=== PATIENT | female | born 1955 | race Caucasian/White ===

== ENCOUNTER 2018-03-28 21:56 | Inpatient (IN) ==
[2018-03-28] MEDS ORDERED: Etomidate Inj 40 MG/20 ML Vial IV.PUSH ONE (22:34)
[2018-03-28] MEDS ORDERED: Midazolam 50 MG/50 ML Inj 50 MG/50 ML BAG IV.CONT ONE (22:44)
[2018-03-28] MEDS ORDERED: fentaNYL 10 mcg/mL Premix Drip 2,500 MCG/250 ML BAG ONE (22:45)
[2018-03-28] MEDS ORDERED: Etomidate Inj 20 MG/10 ML Ampul IV.PUSH ONE (22:47)
[2018-03-28] MEDS ORDERED: Midazolam 50 MG/50 ML Inj 50 MG/50 ML BAG IV.CONT PRN (22:47)
[2018-03-28] MEDS ORDERED: Succinylcholine Inj 100 MG/5 ML Syringe IV.PUSH ONE (22:47)
[2018-03-28] MEDS ORDERED: Norepinephrine Inj 4 MG/4 ML Ampul ONE (23:24)
--- NOTE | 2018-03-28 23:27 | ED ---
HPI General Chief Complaint: Altered Mental Status Stated Complaint: Medical Time Seen by Provider: 03/28/18 22:46 Source: family and EMS Mode of arrival: EMS Limitations: altered mental status History of Present Illness HPI Narrative: An older female was brought in by EMS after patient was found at home by family member unresponsive this evening. Family member started chest compression at home. EMS was called. Patient was found with a pulse and agonal breathing. Patient was given oxygen and Narcan and transported to ED for evaluation. Patient remained unresponsive upon arrival. Patient has a bottle of methadone and lorazepam which were empty at home. Unable to obtain any past medical history medication or allergy. complaint: Reports other Onset (ago): hour(s) Timing confirmed by: family member Intent: unknown How Overdose Was Discovered: family/friend present at time Treatments Prior to Arrival: oxygen and narcan Related Data Home Medications Medication Instructions Recorded Confirmed lorazepam 0.5 mg PO DIRECTED 03/29/18 03/29/18 methadone 10 mg PO Q6H 03/29/18 03/29/18 Allergies Allergy/AdvReac Type Severity Reaction Status Date / Time No Allergy Information Allergy Verified 03/29/18 00:03 Available Review of Systems ROS Unobtainable ROS Unobtainable: unobtainable due to mental condition and unobtainable due to mental status PMFSH History History Provided By: Glass Edger / EMT Medical History Medical History Surgical history unknown (Acute) COPD (chronic obstructive pulmonary disease) (Acute) Diabetes (Acute) Neuropathy (Acute) Family History Family History Other Unknown family medical history Social History Social History Substance History: Unable to Obtain Smoking Status: Unknown if ever smoked How Often Do You Have a Drink Containing Alcohol: Unable to Obtain Recent Travel in [facility] within the Last 8 Weeks: No Recent Out of Country Travel within the Last 8 Weeks: No Exam Narrative Exam Narrative: GENERAL: Well-nourished, well-developed patient. SKIN: Focused skin assessment warm/dry. HEAD: Normocephalic. EYES: No scleral icterus. No injection or drainage. Pinpoint pupils. NECK: Supple, trachea midline. No JVD or lymphadenopathy. CARDIOVASCULAR: Regular rate and rhythm without murmurs, gallops, or rubs. RESPIRATORY: Breath sounds equal bilaterally. Patient with agonal breathing. GASTROINTESTINAL: Abdomen soft, nondistended. MUSCULOSKELETAL: No cyanosis, or edema. BACK: without obvious deformity. No CVA tenderness. Neurologic exam: Patient is unresponsive. Procedures Central Line Placement Right Femoral: Time Out Performed: Yes Patient Placed on Monitor/Pulse Ox: Yes MD Prep: mask, gown and gloves Central Line Prep: Povidone-Iodine 1% and sterile drapes applied Ultrasound Used for Placement: Yes Central Line Lumen Inserted: triple Post Procedure: sutured in place, good blood return, all ports aspirated, flushed, capped and sterile dressing applied Patient Tolerated Procedure: well Complications: none Intubation Time Out Performed: Yes Sedative: etomidate Mg Given: 20 Paralytic: succinylcholine Mg Given: 100 Laryngoscope: fiber optic video scope Assist Device Used: fiber optic device ET Tube Size: 7.5 ET Tube Uncuffed: No Tube Secured Depth (cm): 23 Tube Secured Location: lips Tube Placement Confirmation: visualized tube passing through cords, equal breath sounds bilaterally, no breath sounds over epigastrium and confirmation by capnometry Patient Tolerated Procedure: well Intubation Complications: none Course Initial Documented Vital Signs Respiratory Rate 16 03/28/18 22:42 Pulse Oximetry 99 03/28/18 22:42 Last Documented Vital Signs Temperature 98.4 F 03/29/18 12:00 Pulse Rate 66 03/29/18 12:22 Respiratory Rate 18 03/29/18 12:22 Blood Pressure 104/58 L 03/29/18 12:00 Pulse Oximetry 98 03/29/18 12:22 Critical Care Time Critical Care Time: Yes Total Critical Care Time: 60 Attestation: Aggregate critical care time was 60 minutes. Time to perform other separately billable procedures was not included in the critical care time. My time did not include minutes spent treating any other patients simultaneously or on activities that did not directly contribute to the patient's treatment. The services I provided to this patient were to treat and/or prevent clinically significant deterioration that could result in: I provided critical care services requiring my management, as noted below: Chart data review, documentation time, medication orders and management, vital sign assessments/reviewing monitor data, ordering and reviewing lab tests, ordering and interpreting/reviewing x-rays and diagnostic studies, care of the patient and discussion of the patient with the admitting physicians. Medical Decision Making MDM Narrative Medical decision making narrative: An older female was brought in by EMS after patient was found at home unresponsive this evening. Family member started chest compression. EMS brought patient in with pulse and agonal breathing. Patient hypotensive. Patient was intubated. Right femoral central line triple- lumen established. Patient was given normal saline solution 2 L IV bolus. Levophed started. Vancomycin 1 g IV. Zosyn 2.275 g IV given. Medical Screen Exam Complete: Yes Emergency Medical Condition: Yes Differential Diagnosis Differential Diagnosis: Take doses including drug overdose, TIA, CVA, dehydration, electrolyte imbalance, sepsis. Lab Data Lab results reviewed: Yes I reviewed the patient's lab results. Result diagrams: 03/28/18 23:30 03/28/18 23:30 Lab Results 03/28/18 03/28/18 03/28/18 Range/Units 23:30 23:30 23:30 WBC 17.5 H (4.0-11.0) th/mm3 RBC 6.03 H (4.00-5.30) mil/mm3 Hgb 15.3 (11.6-15.3) gm/dL Hct 49.3 H (35.0-46.0) % MCV 81.7 (80.0-100.0) fL MCH 25.3 L (27.0-34.0) pg MCHC 31.0 L (32.0-36.0) % RDW 18.8 H (11.6-17.2) % Plt Count 315 (150-450) th/mm3 MPV 8.4 (7.0-11.0) fL Neut % (Auto) 84.9 H (16.0-70.0) % Lymph % (Auto) 8.3 L (9.0-44.0) % [place] % (Auto) 6.2 (0.0-8.0) % Eos % (Auto) 0.2 (0.0-4.0) % Baso % (Auto) 0.4 (0.0-2.0) % Neut # (Auto) 14.9 H (1.8-7.7) th/mm3 Lymph # (Auto) 1.5 (1.0-4.8) th/mm3 [place] # (Auto) 1.1 H (0.0-0.9) th/mm3 Eos # (Auto) 0.0 (0.0-0.4) th/mm3 Baso # (Auto) 0.1 (0.0-0.2) th/mm3 WBC Differential . Differential Comment Auto diff final PT 14.5 H (9.8-11.6) sec INR 1.4 Ratio APTT 30.2 H (24.3-30.1) sec Puncture Site Patient Temperature O2 Saturation (90-100) % ABG pH (7.380-7.420) ABG pCO2 (38-42) mmHg ABG pO2 (61-120) mmHg ABG HCO3 (22-26) mmol/L ABG O2 Content (12.0-20.0) Vol % ABG Base Excess (-2-2) mmol/L ABG Methemoglobin (0-2) % Stu Test Hemoglobin (12.0-16.0) G/DL Carboxyhemoglobin (0-4) % O2 Delivery Device Vent Setting Inspired O2 % Critical Value Sodium 131 L (136-145) meq/L Potassium 4.4 (3.5-5.1) meq/L Chloride 94 L (98-107) meq/L Carbon Dioxide 23.9 (21.0-32.0) meq/L Anion Gap 13 (5-15) meq/L BUN 35 H (7-18) mg/dL Creatinine 1.81 H (0.50-1.00) mg/dL Estimated GFR 24 L (>89) mL/min Random Glucose 116 H (74-106) mg/dL Lactic Acid (0.4-2.0) mmol/L Calcium 8.7 (8.5-10.1) mg/dL Magnesium (1.5-2.5) mg/dL Total Bilirubin 0.6 (0.2-1.0) mg/dL AST 51 H (15-37) U/L ALT 37 (10-53) U/L Alkaline Phosphatase 98 (45-117) U/L Ammonia (11-32) mcmol/L Total Creatine Kinase 385 H (26-192) U/L CK-MB (CK-2) 13.6 H (0.5-3.6) ng/mL CK-MB (CK-2) % 3.5 (0.0-4.0) % Troponin I 0.04 (0.02-0.05) ng/mL Total Protein 7.5 (6.4-8.2) g/dL Albumin 3.2 L (3.4-5.0) g/dL TSH 8.810 H (0.358-3.740) uIU/mL Free T4 (0.76-1.46) ng/dL Free T3 (2.18-3.98) pg/mL Urine Color (Yellw/Straw) Urine Clarity (Clear) Urine pH (5.0-8.5) Ur Specific [place] (1.002-1.035) Urine Protein (Neg-Trace) mg/dL Urine Glucose (UA) (Negative) mg/dL Urine Ketones (Negative) mg/dL Urine Occult Blood (Negative) Urine Nitrate (Negative) Urine Bilirubin (Negative) Urine Urobilinogen (Less than 2) mg/dL Ur Leukocyte Esterase (Negative) Urine RBC (0-3) /hpf Urine WBC (0-5) /hpf Ur Squamous Epith Cells (0-5) /hpf Urine Bacteria (None) /hpf Hyaline Casts (0-3) /lpf Urine Mucus (Occasional) /lpf Micro UA Comment Ur Microscopic Review Urine Culture Comments Salicylates (2.8-20.0) mg/dL Acetaminophen Less than 2.0 L (10.0-30.0) mcg/mL Serum Alcohol Less than 3 (0-5) mg/dL 03/28/18 03/28/18 03/29/18 Range/Units 23:30 23:36 05:20 WBC (4.0-11.0) th/mm3 RBC (4.00-5.30) mil/mm3 Hgb (11.6-15.3) gm/dL Hct (35.0-46.0) % MCV (80.0-100.0) fL MCH (27.0-34.0) pg MCHC (32.0-36.0) % RDW (11.6-17.2) % Plt Count (150-450) th/mm3 MPV (7.0-11.0) fL Neut % (Auto) (16.0-70.0) % Lymph % (Auto) (9.0-44.0) % [place] % (Auto) (0.0-8.0) % Eos % (Auto) (0.0-4.0) % Baso % (Auto) (0.0-2.0) % Neut # (Auto) (1.8-7.7) th/mm3 Lymph # (Auto) (1.0-4.8) th/mm3 [place] # (Auto) (0.0-0.9) th/mm3 Eos # (Auto) (0.0-0.4) th/mm3 Baso # (Auto) (0.0-0.2) th/mm3 WBC Differential Differential Comment PT (9.8-11.6) sec INR Ratio APTT (24.3-30.1) sec Puncture Site Patient Temperature O2 Saturation (90-100) % ABG pH (7.380-7.420) ABG pCO2 (38-42) mmHg ABG pO2 (61-120) mmHg ABG HCO3 (22-26) mmol/L ABG O2 Content (12.0-20.0) Vol % ABG Base Excess (-2-2) mmol/L ABG Methemoglobin (0-2) % Stu Test Hemoglobin (12.0-16.0) G/DL Carboxyhemoglobin (0-4) % O2 Delivery Device Vent Setting Inspired O2 % Critical Value Sodium (136-145) meq/L Potassium (3.5-5.1) meq/L Chloride (98-107) meq/L Carbon Dioxide (21.0-32.0) meq/L Anion Gap (5-15) meq/L BUN (7-18) mg/dL Creatinine (0.50-1.00) mg/dL Estimated GFR (>89) mL/min Random Glucose (74-106) mg/dL Lactic Acid 1.1 (0.4-2.0) mmol/L Calcium (8.5-10.1) mg/dL Magnesium 2.1 (1.5-2.5) mg/dL Total Bilirubin (0.2-1.0) mg/dL AST (15-37) U/L ALT (10-53) U/L Alkaline Phosphatase (45-117) U/L Ammonia (11-32) mcmol/L Total Creatine Kinase (26-192) U/L CK-MB (CK-2) (0.5-3.6) ng/mL CK-MB (CK-2) % (0.0-4.0) % Troponin I (0.02-0.05) ng/mL Total Protein (6.4-8.2) g/dL Albumin (3.4-5.0) g/dL TSH (0.358-3.740) uIU/mL Free T4 1.22 (0.76-1.46) ng/dL Free T3 2.65 (2.18-3.98) pg/mL Urine Color (Yellw/Straw) Urine Clarity (Clear) Urine pH (5.0-8.5) Ur Specific [place] (1.002-1.035) Urine Protein (Neg-Trace) mg/dL Urine Glucose (UA) (Negative) mg/dL Urine Ketones (Negative) mg/dL Urine Occult Blood (Negative) Urine Nitrate (Negative) Urine Bilirubin (Negative) Urine Urobilinogen (Less than 2) mg/dL Ur Leukocyte Esterase (Negative) Urine RBC (0-3) /hpf Urine WBC (0-5) /hpf Ur Squamous Epith Cells (0-5) /hpf Urine Bacteria (None) /hpf Hyaline Casts (0-3) /lpf Urine Mucus (Occasional) /lpf Micro UA Comment Ur Microscopic Review Urine Culture Comments Salicylates 2.5 L (2.8-20.0) mg/dL Acetaminophen (10.0-30.0) mcg/mL Serum Alcohol (0-5) mg/dL 03/29/18 03/29/18 03/29/18 Range/Units 05:20 06:05 12:38 WBC (4.0-11.0) th/mm3 RBC (4.00-5.30) mil/mm3 Hgb (11.6-15.3) gm/dL Hct (35.0-46.0) % MCV (80.0-100.0) fL MCH (27.0-34.0) pg MCHC (32.0-36.0) % RDW (11.6-17.2) % Plt Count (150-450) th/mm3 MPV (7.0-11.0) fL Neut % (Auto) (16.0-70.0) % Lymph % (Auto) (9.0-44.0) % [place] % (Auto) (0.0-8.0) % Eos % (Auto) (0.0-4.0) % Baso % (Auto) (0.0-2.0) % Neut # (Auto) (1.8-7.7) th/mm3 Lymph # (Auto) (1.0-4.8) th/mm3 [place] # (Auto) (0.0-0.9) th/mm3 Eos # (Auto) (0.0-0.4) th/mm3 Baso # (Auto) (0.0-0.2) th/mm3 WBC Differential Differential Comment PT (9.8-11.6) sec INR Ratio APTT (24.3-30.1) sec Puncture Site Right brachial Patient Temperature 98.6 O2 Saturation 94 (90-100) % ABG pH 7.28 L* (7.380-7.420) ABG pCO2 51 H* (38-42) mmHg ABG pO2 92 (61-120) mmHg ABG HCO3 24 (22-26) mmol/L ABG O2 Content 19.0 (12.0-20.0) Vol % ABG Base Excess -2.1 L (-2-2) mmol/L ABG Methemoglobin 1.1 (0-2) % Stu Test Hemoglobin 14.3 (12.0-16.0) G/DL Carboxyhemoglobin 0.9 (0-4) % O2 Delivery Device Ventilator Vent Setting Inspired O2 60 % Critical Value Yes Sodium (136-145) meq/L Potassium (3.5-5.1) meq/L Chloride (98-107) meq/L Carbon Dioxide (21.0-32.0) meq/L Anion Gap (5-15) meq/L BUN (7-18) mg/dL Creatinine (0.50-1.00) mg/dL Estimated GFR (>89) mL/min Random Glucose (74-106) mg/dL Lactic Acid (0.4-2.0) mmol/L Calcium (8.5-10.1) mg/dL Magnesium (1.5-2.5) mg/dL Total Bilirubin (0.2-1.0) mg/dL AST (15-37) U/L ALT (10-53) U/L Alkaline Phosphatase (45-117) U/L Ammonia Less than 10 L (11-32) mcmol/L Total Creatine Kinase (26-192) U/L CK-MB (CK-2) (0.5-3.6) ng/mL CK-MB (CK-2) % (0.0-4.0) % Troponin I (0.02-0.05) ng/mL Total Protein (6.4-8.2) g/dL Albumin (3.4-5.0) g/dL TSH (0.358-3.740) uIU/mL Free T4 (0.76-1.46) ng/dL Free T3 (2.18-3.98) pg/mL Urine Color Yellow (Yellw/Straw) Urine Clarity Hazy H (Clear) Urine pH 5.0 (5.0-8.5) Ur Specific [place] 1.008 (1.002-1.035) Urine Protein 30 H (Neg-Trace) mg/dL Urine Glucose (UA) Negative (Negative) mg/dL Urine Ketones Negative (Negative) mg/dL Urine Occult Blood Moderate H (Negative) Urine Nitrate Negative (Negative) Urine Bilirubin Negative (Negative) Urine Urobilinogen Less than 2 (Less than 2) mg/dL Ur Leukocyte Esterase Negative (Negative) Urine RBC Less than 1 (0-3) /hpf Urine WBC 3 (0-5) /hpf Ur Squamous Epith Cells 1 (0-5) /hpf Urine Bacteria Rare H (None) /hpf Hyaline Casts 5 (0-3) /lpf Urine Mucus Few H (Occasional) /lpf Micro UA Comment Culture not ind Ur Microscopic Review Not Reportable Urine Culture Comments Culture not ind Salicylates (2.8-20.0) mg/dL Acetaminophen (10.0-30.0) mcg/mL Serum Alcohol (0-5) mg/dL 03/29/18 Range/Units 23:45 WBC (4.0-11.0) th/mm3 RBC (4.00-5.30) mil/mm3 Hgb (11.6-15.3) gm/dL Hct (35.0-46.0) % MCV (80.0-100.0) fL MCH (27.0-34.0) pg MCHC (32.0-36.0) % RDW (11.6-17.2) % Plt Count (150-450) th/mm3 MPV (7.0-11.0) fL Neut % (Auto) (16.0-70.0) % Lymph % (Auto) (9.0-44.0) % [place] % (Auto) (0.0-8.0) % Eos % (Auto) (0.0-4.0) % Baso % (Auto) (0.0-2.0) % Neut # (Auto) (1.8-7.7) th/mm3 Lymph # (Auto) (1.0-4.8) th/mm3 [place] # (Auto) (0.0-0.9) th/mm3 Eos # (Auto) (0.0-0.4) th/mm3 Baso # (Auto) (0.0-0.2) th/mm3 WBC Differential Differential Comment PT (9.8-11.6) sec INR Ratio APTT (24.3-30.1) sec Puncture Site Right radial Patient Temperature 98.6 O2 Saturation 97 (90-100) % ABG pH 7.25 L* (7.380-7.420) ABG pCO2 52 H* (38-42) mmHg ABG pO2 469 H (61-120) mmHg ABG HCO3 22 (22-26) mmol/L ABG O2 Content 20.5 H (12.0-20.0) Vol % ABG Base Excess -4.1 L (-2-2) mmol/L ABG Methemoglobin 0.7 (0-2) % Stu Test Present Hemoglobin 14.2 (12.0-16.0) G/DL Carboxyhemoglobin 2.1 (0-4) % O2 Delivery Device Ventilator Vent Setting [id number]/500/peep 5 Inspired O2 100 % Critical Value Yes Sodium (136-145) meq/L Potassium (3.5-5.1) meq/L Chloride (98-107) meq/L Carbon Dioxide (21.0-32.0) meq/L Anion Gap (5-15) meq/L BUN (7-18) mg/dL Creatinine (0.50-1.00) mg/dL Estimated GFR (>89) mL/min Random Glucose (74-106) mg/dL Lactic Acid (0.4-2.0) mmol/L Calcium (8.5-10.1) mg/dL Magnesium (1.5-2.5) mg/dL Total Bilirubin (0.2-1.0) mg/dL AST (15-37) U/L ALT (10-53) U/L Alkaline Phosphatase (45-117) U/L Ammonia (11-32) mcmol/L Total Creatine Kinase (26-192) U/L CK-MB (CK-2) (0.5-3.6) ng/mL CK-MB (CK-2) % (0.0-4.0) % Troponin I (0.02-0.05) ng/mL Total Protein (6.4-8.2) g/dL Albumin (3.4-5.0) g/dL TSH (0.358-3.740) uIU/mL Free T4 (0.76-1.46) ng/dL Free T3 (2.18-3.98) pg/mL Urine Color (Yellw/Straw) Urine Clarity (Clear) Urine pH (5.0-8.5) Ur Specific [place] (1.002-1.035) Urine Protein (Neg-Trace) mg/dL Urine Glucose (UA) (Negative) mg/dL Urine Ketones (Negative) mg/dL Urine Occult Blood (Negative) Urine Nitrate (Negative) Urine Bilirubin (Negative) Urine Urobilinogen (Less than 2) mg/dL Ur Leukocyte Esterase (Negative) Urine RBC (0-3) /hpf Urine WBC (0-5) /hpf Ur Squamous Epith Cells (0-5) /hpf Urine Bacteria (None) /hpf Hyaline Casts (0-3) /lpf Urine Mucus (Occasional) /lpf Micro UA Comment Ur Microscopic Review Urine Culture Comments Salicylates (2.8-20.0) mg/dL Acetaminophen (10.0-30.0) mcg/mL Serum Alcohol (0-5) mg/dL Imaging Data Attestation: I personally reviewed and interpreted this imaging study as follows : Radiologist's impression: Chest X-Ray 03/28/18 22:52 CONCLUSION: ET tube and NG tube in good position. Head CT 03/29/18 00:00 CONCLUSION: Negative noncontrast head CT. . Discharge Plan Discharge Disposition Patient Disposition: 30 Still Patient Discharge Details Diagnosis: Respiratory failure, Acute drug overdose, Hypotension Physicians Team ED Provider: Dandy Castle Primary Care Provider: UNKNOWN, Attending Provider: Michelle Rojo Other Providers: Douglas Espitia Discharge Interventions Interventions: ED Discharge Assessment Last Done: 03/29/18 06:47 Status ED Status: Left Department Discharge Information Discharge Date/Time: 03/29/18 06:48
[2018-03-28] MEDS ORDERED: DOPamine 800 MG/500 ML Premix 800 MG/500 ML PLAST..BAG IV.CONT PRN (23:33)
--- NOTE | 2018-03-28 23:38 | XR ---
EXAM DATE: 03/28/2018 10:52 PM EDT AGE/SEX: 89 years / Female INDICATIONS: ET tube and central line placement. CLINICAL DATA: This is the patient's initial encounter. Patient reports that signs and symptoms have been present for 1 day and indicates a pain score of Nonresponsive. MEDICAL/SURGICAL HISTORY: Non-responsive. Non-responsive. COMPARISON: No prior exams available for comparison. FINDINGS: The ET tube is 3.5 cm from the henry. The NG tube is directed into the stomach. The heart size is no rmal. The lungs are clear. There appears to be an IVC tube seen over the right shoulder region. A angela tral line is not seen. CONCLUSION: ET tube and NG tube in good position. Electronically signed by: Sujit Bobo MD 03/28/2018 11:37 PM EDT
[2018-03-28 23:42] LABS: Baso # (Auto) 0.1 th/mm3 (0.0-0.2); Baso % (Auto) 0.4 % (0.0-2.0); Eos % (Auto) 0.2 % (0.0-4.0); Hematocrit 49.3 % (35.0-46.0); Hemoglobin 15.3 gm/dL (11.6-15.3); Lymph # (Auto) 1.5 th/mm3 (1.0-4.8); Lymph % (Auto) 8.3 % (9.0-44.0); Mean Corpuscular Hemoglobin 25.3 pg (27.0-34.0); Mean Corpuscular Volume 81.7 fL (80.0-100.0); Mean Platelet Volume 8.4 fL (7.0-11.0); Mono # (Auto) 1.1 th/mm3 (0.0-0.9); Mono % (Auto) 6.2 % (0.0-8.0); Neut # (Auto) 14.9 th/mm3 (1.8-7.7); Neut % (Auto) 84.9 % (16.0-70.0); Platelet Count 315 th/mm3 (150-450); Red Blood Count 6.03 mil/mm3 (4.00-5.30); Red Cell Distribution Width 18.8 % (11.6-17.2); White Blood Count 17.5 th/mm3 (4.0-11.0)
[2018-03-28] MEDS ORDERED: Sod Chloride 0.9% Inj 1,000 ML IV.SIG SCH (23:45)
[2018-03-28 23:52] LABS: Activated Partial Thrombo Time 30.2 sec (24.3-30.1); INR 1.4 Ratio; Prothrombin Time 14.5 sec (9.8-11.6)
[2018-03-29 00:07] LABS: ABG Base Excess -4.1 mmol/L (-2-2); ABG PCO2 52 mmHg (38-42); ABG PO2 469 mmHg (61-120)
[2018-03-29] MEDS: fentaNYL 10 mcg/mL Premix Drip 2,500 MCG/250 ML BAG IV.SIG PRN (00:14)
[2018-03-29] MEDS: Sod Chloride 0.9% Inj 1,000 ML IV.SIG SCH (00:14)
[2018-03-29 00:18] LABS: Albumin 3.2 g/dL (3.4-5.0); Anion Gap 13 meq/L (5-15); Aspartate Aminotransferase 51 U/L (15-37); Blood Urea Nitrogen 35 mg/dL (7-18); Calcium 8.7 mg/dL (8.5-10.1); Carbon Dioxide 23.9 meq/L (21.0-32.0); Chloride 94 meq/L (98-107); Glomerular Filtration Rate 24 mL/min (>89); Glucose,Random 116 mg/dL (74-106); Potassium 4.4 meq/L (3.5-5.1); Sodium 131 meq/L (136-145)
[2018-03-29 00:22] LABS: Alanine Aminotransferase 37 U/L (10-53); Alkaline Phosphatase 98 U/L (45-117); Creatine Kinase 385 U/L (26-192); Total Protein 7.5 g/dL (6.4-8.2); Troponin I 0.04 ng/mL (0.02-0.05)
[2018-03-29 00:35] LABS: CKMB Percent 3.5 % (0.0-4.0); Creatine Kinase MB 13.6 ng/mL (0.5-3.6)
[2018-03-29] MEDS ORDERED: DOPamine 800 MG/500 ML Premix 800 MG/500 ML PLAST..BAG IV.CONT PRN (00:52)
[2018-03-29] MEDS ORDERED: Vancomycin Inj 1 GM/200 ML PIGGYBACK IV.SIG ONE (01:21)
[2018-03-29] MEDS ORDERED: Piperacil/Tazo 2.25 GM Premix 50 ML IV.SIG ONE (01:21)
[2018-03-29] MEDS ORDERED: Vancomycin Inj 1,000 MG in Sodium Chlor 0.9% Inj 250 ML IV.SIG ONE (01:45)
--- NOTE | 2018-03-29 04:47 | P.HPCC ---
<Misha Mathews P - Last Filed: 03/29/18 10:01> History of Present Illness Primary Care Physician: UNKNOWN - Diagnosis (1) Encephalopathy acute (2) Methadone overdose (3) Benzodiazepine overdose (4) Acute respiratory failure (5) Sepsis (6) Hypotension due to medication Inpatient Certification: I certify that the inpatient services were ordered in accordance with Medicare regulations governing the order. This includes certification that hospital inpatient services are reasonable and necessary and in the case of services not specified as inpatient-only under 42 CFR 419.22(n), that they are appropriately provided as inpatient services in accordance to with the 2-midnight benchmark under 43 CFR 412.3(e) PMF - Medical History Medical History: Medical History (Last Updated 03/29/18 @ 05:03 by Michelle Rojo MD) Surgical history unknown (Acute) COPD (chronic obstructive pulmonary disease) Diabetes Neuropathy - Family History Family History: Family History (Last Updated 03/29/18 @ 05:03 by Michelle Rojo MD) Other Unknown family medical history Medications and Allergies Allergies Allergy/AdvReac Type Severity Reaction Status Date / Time codeine Allergy Unknown Rash Unverified 04/18/18 12:04 Home Medications Medication Instructions Recorded Confirmed Type lorazepam 0.5 mg PO DIRECTED 03/29/18 03/29/18 History methadone 10 mg PO Q6H 03/29/18 03/29/18 History lorazepam 1 - 2 tab PO TID MDD 6 mg 03/31/18 03/31/18 History oxycodone TID PRN 03/31/18 History Active Medications: Active Medications Al Hydroxide/Mg Hydroxide (Milk Of Magnjayne Liq) 30 ml PO Q12H PRN PRN Reason: Mild Constipation Albuterol (Albuterol Neb (Prn)) 2.5 mg NEB Q2HR NEB PRN PRN Reason: SHORTNESS OF BREATH/WHEEZING Albuterol (Duoneb Neb (Alex)) 1 ampul NEB Q4HR NEB ALEX Last Admin: 03/29/18 09:35 Dose: 1 ampul Bisacodyl (Dulcolax Supp) 10 mg RECTAL DAILY PRN PRN Reason: SEVERE CONSITIPATION Chlorhexidine Gluconate (Peridex 0.12% Oral Kit) 15 ml OROPHARYNG BID@0800, 1999 ALEX Last Admin: 03/29/18 08:28 Dose: 15 ml Chlorhexidine Gluconate (Chlorhexidine 2% Cloth) 3 pack TOPICAL DAILY@0400 ALEX Stop: 04/04/18 03:59 Chlorhexidine Gluconate (Chlorhexidine 2% Cloth) 3 pack TOPICAL DAILY@0400 PRN PRN Reason: Extra cloth needed Stop: 04/04/18 03:59 Fentanyl Citrate (Fentanyl Inj) 50 mcg IV PUSH Q1H PRN PRN Reason: Pain scale 6-10, &/or sedation Fentanyl (Fentanyl 10 Mcg/Ml Premix Drip) 2,500 mcg in 250 mls @ 5 mls/hr IV.SIG TITRATE PRN; Protocol PRN Reason: Per Protocol Last Titration: 03/29/18 06:02 Dose: 25 mcg/hr, 2.5 mls/hr Sodium Chloride (Ns Inj) 1,000 mls @ 0 mls/hr IV.SIG BOLUS [facility] Last Infusion: 03/29/18 01:11 Dose: Infused Norepinephrine Bitartrate (Levophed-Dextrose 4 Mg/250 Ml Drip) 4 mg in 250 mls @ 7.5 mls/hr IV.SIG TITRATE PRN; Protocol PRN Reason: Per Protocol Last Titration: 03/29/18 06:01 Dose: 5 mcg/min, 18.75 mls/hr Sodium Chloride (Ns Inj) 1,000 mls @ 0 mls/hr IV.SIG BOLUS [facility] Last Infusion: 03/29/18 01:11 Dose: Infused Propofol (Diprivan 1000 Mg/100 Ml Inj) 1,000 mg in 100 mls @ 2.43 mls/hr IV.CONT TITRATE PRN; Protocol PRN Reason: Per Protocol Last Admin: 03/29/18 06:03 Dose: 5 mcg/kg/min, 2.43 mls/hr Sodium Chloride (Ns Inj) 1,000 mls @ 125 mls/hr IV.CONT .Q8H [facility] Last Admin: 03/29/18 08:32 Dose: 125 mls/hr Norepinephrine Bitartrate (Levophed-Dextrose 4 Mg/250 Ml Drip) 4 mg in 250 mls @ 7.5 mls/hr IV.SIG TITRATE PRN; Protocol PRN Reason: Per Protocol Piperacillin/Tazobactam/Dextrose (Zosyn 2.25 Gm Premix) 50 mls @ 100 mls/hr IV.SIG Q6H [facility] Lactulose (Lactulose Liq) 30 ml PO DAILY PRN PRN Reason: SEVERE CONSITIPATION Miscellaneous Medication () 1 each OROPHARYNG 0000,0400,1200,1600 [facility] Ondansetron HCl (Zofran Inj) 4 mg IV.PUSH Q6H PRN PRN Reason: NAUSEA OR VOMITING Pantoprazole Sodium (Protonix Inj) 40 mg IV.PUSH DAILY [facility] Last Admin: 03/29/18 08:31 Dose: 40 mg Senna/Docusate Sodium ([place]-Colace) 1 tab PO BID [facility] Last Admin: 03/29/18 08:31 Dose: 1 tab Sennosides (Senokot) 17.2 mg PO Q12H PRN PRN Reason: Moderate Constipation Sodium Chloride (Ns Flush) 2 ml IV.FLUSH BID [facility] Last Admin: 03/29/18 08:28 Dose: 2 ml Sodium Chloride (Ns Flush) 2 ml IV.FLUSH PRN PRN PRN Reason: FLUSH AFTER USING IV ACCESS Terbutaline Sulfate (Brethine Inj) 1 mg SQ UNSCH PRN PRN Reason: For Extravasation Terbutaline Sulfate (Brethine Inj) 1 mg SQ ONCE PRN PRN Reason: Extravasation Results - Labs CBC & Chem 7: 03/28/18 23:30 03/28/18 23:30 Labs: Short CBC 03/28/18 Range/Units 23:30 WBC 17.5 H (4.0-11.0) th/mm3 Hgb 15.3 (11.6-15.3) gm/dL Hct 49.3 H (35.0-46.0) % Plt Count 315 (150-450) th/mm3 BMP 03/28/18 23:30 Sodium 131 L Potassium 4.4 Chloride 94 L Carbon Dioxide 23.9 BUN 35 H Creatinine 1.81 H Calcium 8.7 Cardiac Enzymes 03/28/18 Range/Units 23:30 Total Creatine Kinase 385 H (26-192) U/L CK-MB (CK-2) 13.6 H (0.5-3.6) ng/mL Troponin I 0.04 (0.02-0.05) ng/mL Liver Function 03/28/18 Range/Units 23:30 Total Bilirubin 0.6 (0.2-1.0) mg/dL AST 51 H (15-37) U/L ALT 37 (10-53) U/L Alkaline Phosphatase 98 (45-117) U/L Albumin 3.2 L (3.4-5.0) g/dL Urine 03/29/18 Range/Units 06:05 Urine Color Yellow (Yellw/Straw) Urine Clarity Hazy H (Clear) Urine pH 5.0 (5.0-8.5) Ur Specific [place] 1.008 (1.002-1.035) Urine Protein 30 H (Neg-Trace) mg/dL Urine Glucose (UA) Negative (Negative) mg/dL - Imaging Impressions Chest X-Ray 03/28/18 22:52 CONCLUSION: ET tube and NG tube in good position. Head CT 03/29/18 00:00 CONCLUSION: Negative noncontrast head CT. . Exam Vital signs: Vital Signs 03/28/18 22:42 03/28/18 22:45 03/28/18 22:50 Temperature 99.6 F Pulse Rate 78 68 Respiratory Rate 16 18 18 Blood Pressure 121/80 97/64 L Pulse Oximetry 99 98 100 03/28/18 23:15 03/28/18 23:25 03/28/18 23:27 Temperature Pulse Rate 100 H 86 Respiratory Rate 16 16 Blood Pressure 57/36 L 63/40 L 58/42 L Pulse Oximetry 100 100 03/28/18 23:28 03/28/18 23:35 03/28/18 23:45 Temperature Pulse Rate 84 76 68 Respiratory Rate 16 16 Blood Pressure 65/42 L 75/57 L 94/61 L Pulse Oximetry 99 100 100 03/29/18 00:20 03/29/18 01:20 03/29/18 02:13 Temperature Pulse Rate 78 69 Respiratory Rate 16 16 Blood Pressure 100/60 102/62 Pulse Oximetry 97 93 L 96 03/29/18 02:20 03/29/18 03:26 03/29/18 04:30 Temperature Pulse Rate 70 66 64 Respiratory Rate 16 16 16 Blood Pressure 95/61 L 97/62 L 96/63 L Pulse Oximetry 97 99 97 03/29/18 05:36 03/29/18 06:00 03/29/18 06:10 Temperature 98.7 F Pulse Rate 64 66 Respiratory Rate 16 14 Blood Pressure 97/64 L 102/63 Pulse Oximetry 97 100 03/29/18 06:38 03/29/18 06:40 03/29/18 09:26 Temperature Pulse Rate 66 69 Respiratory Rate 16 20 Blood Pressure 110/64 Pulse Oximetry 100 99 Intake & Output 03/28/18 03/29/18 03/29/18 18:59 06:59 18:59 Intake Total 2325 / 2325 Output Total 1000 / 1000 Balance 1325 / 1325 Weight 81 kg Intake: IV 2325 / 2325 Versed Inj 50 mg In 50 ml @ 2 25 / 25 MG/HR 2 mls/hr IV.CONT TITRATE PRN Rx#:[id number] Zosyn 2.25 GM Premix 50 ML @ 50 / 50 100 mls/hr IV.SIG ONCE ONE Rx#: [id number] NS Inj 1,000 ML @ Wide Open IV. 1999 SIG BOLUS ALEX Rx#:[id number] Vancomycin Inj 1,000 MG In NS 250 / 250 Inj 250 ML @ 250 mls/hr IV.SIG ONCE ONE Rx#:[id number] Output: Urine Amount (Catheter) 1000 / 1000 Indwelling Urethral Catheter 1000 / 1000 Caprini VTE Risk Assessment Caprini Risk Assessment Model: Point Value = 1 Point Value = 2 Point Value = 3 Point Value = 5 Age 41-60 Minor surgery BMI > 25 kg/m2 Swollen legs Varicose veins or History of unexplained or recurrent spontaneous Oral contraceptives or hormone replacement Sepsis (< 1 month) Serious lung disease, including pneumonia (< 1 month) Abnormal pulmonary function Acute myocardial infarction Congestive heart failure (< 1 month) History of inflammatory bowel disease Medical patient at bed rest Age 61-74 Arthroscopic surgery Major open surgery (> 45 min) Laparoscopic surgery (> 45 min) Malignancy Confined to bed (> 72 hours) Immobilizing plaster cast Central venous access Age >= 75 History of VTE Family history of VTE Factor V Leiden Prothrombin [id number] Lupus anticoagulant Anticardiolipin antibodies Elevated serum homocysteine Heparin-induced thrombocytopenia Other congenital or acquired thrombophilia Stroke (< 1 month) Elective arthroplasty Hip, pelvis, or leg fracture Acute spinal cord injury (< 1 month) Prophylaxis Regimen: Total Risk Factor Score Risk Level Prophylaxis Regimen 0-1 Low Early ambulation 2 Moderate Order ONE of the following: *Sequential Compression Device (SCD) *Heparin 5000 units SQ BID 3-4 Higher Order ONE of the following medications: *Heparin 5000 units SQ TID *Enoxaparin/Lovenox 40 mg SQ daily (WT < 150 kg, CrCl > 30 mL/min) *Enoxaparin/Lovenox 30 mg SQ daily (WT < 150 kg, CrCl > 10-29 mL/min) *Enoxaparin/Lovenox 30 mg SQ BID (WT < 150 kg, CrCl > 30 mL/min) AND/OR *Sequential Compression Device (SCD) 5 or more Highest Order ONE of the following medications: *Heparin 5000 units SQ TID (Preferred with Epidurals) *Enoxaparin/Lovenox 40 mg SQ daily (WT < 150 kg, CrCl > 30 mL/min) *Enoxaparin/Lovenox 30 mg SQ daily (WT < 150 kg, CrCl > 10-29 mL/min) *Enoxaparin/Lovenox 30 mg SQ BID (WT < 150 kg, CrCl > 30 mL/min) AND *Sequential Compression Device (SCD) Assessment and Plan - Problem List (1) Encephalopathy acute Code(s): G93.40 - Encephalopathy, unspecified Status: Acute (2) Methadone overdose Code(s): T40.3X1A - Poisoning by methadone, accidental (unintentional), initial encounter Status: Acute (3) Benzodiazepine overdose Code(s): T42.4X1A - Poisoning by benzodiazepines, accidental (unintentional), initial encounter Status: Acute (4) Acute respiratory failure Code(s): J96.00 - Acute respiratory failure, unspecified whether with hypoxia or hypercapnia Status: Acute (5) Sepsis Code(s): A41.9 - Sepsis, unspecified organism Status: Acute (6) Hypotension due to medication Code(s): I95.2 - Hypotension due to drugs Status: Acute <Michelle Rojo - Last Filed: 04/25/18 04:41> History of Present Illness Service: Critical Care Medicine Primary Care Physician: UNKNOWN Chief Complaint: AMS History of Present Illness: female probably in her 50s or 60s. She was found unresponsive. She had an empty bottle of 9 methadone 10 mg tablets and 18 Ativan 0.5 mg tablets. Apparently CPR was initiated per family. Family provided EVAC with information that patient is on hospice and has a history of diabetes, COPD, neuropathy, no advanced directives. When EVAC arrived she had a pulse but agonal respirations. She was administered Narcan 2 mg IV without improvement. Upon arrival to the ED she was not protecting her airway, pooling secretions in her mouth. She was intubated upon arrival. Her systolic blood pressure was in the 80s. She was administered 2 L normal saline bolus, right femoral line was placed and she was started on Levophed. Family has not arrived at the hospital and there is no available contact information. She is registered as a Amina Kebede. The prescription bottles say Antonina Coto. That individual has not been admitted since 2007. - Diagnosis (1) Encephalopathy acute (2) Methadone overdose (3) Benzodiazepine overdose (4) Acute respiratory failure (5) Sepsis (6) Hypotension due to medication Inpatient Certification: I certify that the inpatient services were ordered in accordance with Medicare regulations governing the order. 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 Action required.) Father Mother Other Unknown family medical history - Social History I have reviewed the patient's Social History: Yes - Tobacco History Smoking Status: Unknown if ever smoked - Alcohol History How Often Do You Have a Drink Containing Alcohol: Unable to Obtain - Substance Use History Substance History: Unable to Obtain - Substance Use Type Benzodiazepines Status: Active Crack/Cocaine Status: Early Remission Marijuana Status: Early Remission Opiates Status: Active Route Used: By Mouth - Travel History Recent Travel in the [place] Within the Last 8 Weeks: No Recent Travel Out of the Country Within the Last 8 Weeks: No - Immunization History Tetanus Immunization: Unable to Assess Hx Influenza Vaccine This Season: Unable to Assess Medications and Allergies Active Medications: Active Medications Fentanyl (Fentanyl 10 Mcg/Ml Premix Drip) 2,500 mcg in 250 mls @ 5 mls/hr IV.SIG TITRATE PRN; Protocol PRN Reason: Per Protocol Last Admin: 03/29/18 00:14 Dose: 50 mcg/hr, 5 mls/hr Midazolam HCl (Versed Inj) 50 mg in 50 mls @ 2 mls/hr IV.CONT TITRATE PRN; Protocol PRN Reason: Per Protocol Last Admin: 03/29/18 00:14 Dose: 2 mg/hr, 2 mls/hr Sodium Chloride (Ns Inj) 1,000 mls @ 0 mls/hr IV.SIG BOLUS [facility] Last Infusion: 03/29/18 01:11 Dose: Infused Norepinephrine Bitartrate (Levophed-Dextrose 4 Mg/250 Ml Drip) 4 mg in 250 mls @ 7.5 mls/hr IV.SIG TITRATE PRN; Protocol PRN Reason: Per Protocol Last Admin: 03/29/18 00:14 Dose: 2 mcg/min, 7.5 mls/hr Sodium Chloride (Ns Inj) 1,000 mls @ 0 mls/hr IV.SIG BOLUS [facility] Last Infusion: 03/29/18 01:11 Dose: Infused Dopamine HCl/Dextrose (Dopamine 800 Mg/500 Ml Premix) 800 mg in 500 mls @ 9.113 mls/hr IV.CONT TITRATE PRN; Protocol PRN Reason: Per Protocol Terbutaline Sulfate (Brethine Inj) 1 mg SQ UNSCH PRN PRN Reason: For Extravasation Terbutaline Sulfate (Brethine Inj) 1 mg SQ ONCE PRN PRN Reason: Extravasation Results - Labs CBC & Chem 7: 04/11/18 09:35 04/11/18 09:35 Labs: Short CBC 03/28/18 Range/Units 23:30 WBC 17.5 H (4.0-11.0) th/mm3 Hgb 15.3 (11.6-15.3) gm/dL Hct 49.3 H (35.0-46.0) % Plt Count 315 (150-450) th/mm3 BMP 03/28/18 23:30 Sodium 131 L Potassium 4.4 Chloride 94 L Carbon Dioxide 23.9 BUN 35 H Creatinine 1.81 H Calcium 8.7 Cardiac Enzymes 03/28/18 Range/Units 23:30 Total Creatine Kinase 385 H (26-192) U/L CK-MB (CK-2) 13.6 H (0.5-3.6) ng/mL Troponin I 0.04 (0.02-0.05) ng/mL Liver Function 03/28/18 Range/Units 23:30 Total Bilirubin 0.6 (0.2-1.0) mg/dL AST 51 H (15-37) U/L ALT 37 (10-53) U/L Alkaline Phosphatase 98 (45-117) U/L Albumin 3.2 L (3.4-5.0) g/dL - Imaging Impressions Chest X-Ray 03/28/18 22:52 CONCLUSION: ET tube and NG tube in good position. Exam Vital signs: Vital Signs 03/28/18 22:42 03/28/18 22:45 03/28/18 22:50 Temperature 99.6 F Pulse Rate 78 68 Respiratory Rate 16 18 18 Blood Pressure 121/80 97/64 L Pulse Oximetry 99 98 100 03/28/18 23:15 03/28/18 23:25 03/28/18 23:27 Temperature Pulse Rate 100 H 86 Respiratory Rate 16 16 Blood Pressure 57/36 L 63/40 L 58/42 L Pulse Oximetry 100 100 03/28/18 23:28 03/28/18 23:35 03/28/18 23:45 Temperature Pulse Rate 84 76 68 Respiratory Rate 16 16 Blood Pressure 65/42 L 75/57 L 94/61 L Pulse Oximetry 99 100 100 03/29/18 00:20 03/29/18 01:20 03/29/18 02:13 Temperature Pulse Rate 78 69 Respiratory Rate 16 16 Blood Pressure 100/60 102/62 Pulse Oximetry 97 93 L 96 03/29/18 02:20 03/29/18 03:26 Temperature Pulse Rate 70 66 Respiratory Rate 16 16 Blood Pressure 95/61 L 97/62 L Pulse Oximetry 97 99 Intake & Output 03/28/18 03/28/18 03/29/18 06:59 18:59 06:59 Intake Total 2300 / 2300 Balance 2300 / 2300 Weight 81 kg Intake: IV 2300 / 2300 Zosyn 2.25 GM Premix 50 ML @ 50 / 50 100 mls/hr IV.SIG ONCE ONE Rx#: [id number] NS Inj 1,000 ML @ Wide Open IV. 1999 SIG BOLUS [facility]LEX Rx#:[id number] Vancomycin Inj 1,000 MG In NS 250 / 250 Inj 250 ML @ 250 mls/hr IV.SIG ONCE ONE Rx#:[id number] Narrative: GENERAL: Elderly female who is orotracheally intubated. Has been on sedation. SKIN: Warm and dry. There is a 2 cm ulceration over the plantar aspect left first toe, no fluctuance or exudate. HEAD: Atraumatic. Normocephalic. EYES: Pupils equal and round, pinpoint and sluggishly reactive bilaterally.. No scleral icterus. No injection or drainage. ENT: No nasal bleeding or discharge. NECK: Trachea midline. No JVD. CARDIOVASCULAR: Regular rate and rhythm. No murmurs rubs or gallops. RESPIRATORY: Rhonchorous but breath sounds bilaterally, diminished with expiratory wheeze. No rales. GASTROINTESTINAL: Abdomen soft, non-tender, nondistended. Bowel sounds present. MUSCULOSKELETAL: Extremities without clubbing, cyanosis, or edema. No obvious deformities. NEUROLOGICAL: No eye opening to central noxious stimuli. Has ataxic jerking movements of BUE. Appears to have extensor posturing of bilateral lower extremities to central noxious stimuli. No clonus. Septic Shock Reassessment Septic shock perfusion: reassessment completed Caprini VTE Risk Assessment Caprini VTE Risk Assessment: Moderate/High Risk (score >= 2) Caprini Risk Assessment Model: Point Value = 1 Point Value = 2 Point Value = 3 Point Value = 5 Age 41-60 Minor surgery BMI > 25 kg/m2 Swollen legs Varicose veins or History of unexplained or recurrent spontaneous Oral contraceptives or hormone replacement Sepsis (< 1 month) Serious lung disease, including pneumonia (< 1 month) Abnormal pulmonary function Acute myocardial infarction Congestive heart failure (< 1 month) History of inflammatory bowel disease Medical patient at bed rest Age 61-74 Arthroscopic surgery Major open surgery (> 45 min) Laparoscopic surgery (> 45 min) Malignancy Confined to bed (> 72 hours) Immobilizing plaster cast Central venous access Age >= 75 History of VTE Family history of VTE Factor V Leiden Prothrombin [id number] Lupus anticoagulant Anticardiolipin antibodies Elevated serum homocysteine Heparin-induced thrombocytopenia Other congenital or acquired thrombophilia Stroke (< 1 month) Elective arthroplasty Hip, pelvis, or leg fracture Acute spinal cord injury (< 1 month) Prophylaxis Regimen: Total Risk Factor Score Risk Level Prophylaxis Regimen 0-1 Low Early ambulation 2 Moderate Order ONE of the following: *Sequential Compression Device (SCD) *Heparin 5000 units SQ BID 3-4 Higher Order ONE of the following medications: *Heparin 5000 units SQ TID *Enoxaparin/Lovenox 40 mg SQ daily (WT < 150 kg, CrCl > 30 mL/min) *Enoxaparin/Lovenox 30 mg SQ daily (WT < 150 kg, CrCl > 10-29 mL/min) *Enoxaparin/Lovenox 30 mg SQ BID (WT < 150 kg, CrCl > 30 mL/min) AND/OR *Sequential Compression Device (SCD) 5 or more Highest Order ONE of the following medications: *Heparin 5000 units SQ TID (Preferred with Epidurals) *Enoxaparin/Lovenox 40 mg SQ daily (WT < 150 kg, CrCl > 30 mL/min) *Enoxaparin/Lovenox 30 mg SQ daily (WT < 150 kg, CrCl > 10-29 mL/min) *Enoxaparin/Lovenox 30 mg SQ BID (WT < 150 kg, CrCl > 30 mL/min) AND *Sequential Compression Device (SCD) Assessment and Plan - Problem List (1) Encephalopathy acute Code(s): G93.40 - Encephalopathy, unspecified Status: Deleted (2) Methadone overdose Code(s): T40.3X1A - Poisoning by methadone, accidental (unintentional), initial encounter Status: Deleted (3) Benzodiazepine overdose Code(s): T42.4X1A - Poisoning by benzodiazepines, accidental (unintentional), initial encounter Status: Deleted (4) Acute respiratory failure Code(s): J96.00 - Acute respiratory failure, unspecified whether with hypoxia or hypercapnia Status: Deleted (5) Sepsis Code(s): A41.9 - Sepsis, unspecified organism Status: Deleted (6) Hypotension due to medication Code(s): I95.2 - Hypotension due to drugs Status: Deleted - Assessment and Plan Plan: NEURO: Acute encephalopathy Opioid and benzo overdose Propofol and fentanyl for sedation. Target RASS -[address] brain, ammonia level, EEG Hold methadone and Ativan. Alcohol, salicylate, Tylenol level negative. RESP: Acute hypercapneic respiratory failure COPD Intubated in the emergency department as not protecting airway, copious respiratory secretions. Chest x-ray clear with satisfactory endotracheal tube position. DuoNeb every 4 hours. Albuterol every 2 hours as needed. CV: Shock may be secondary to medication effect vs. SIRS/sepsis Received 2 L normal saline bolus. Continue 0.9 NaCl at 125 mL/h. Norepinephrine to maintain mean arterial pressure greater than 65. Obtain EKG to evaluate for QTC prolongation which may result from methadone overdose. GI: OGT FEN/RENAL: Watson was inserted in the emergency department. Monitor intake and output hourly. Monitor electrolytes and replace as indicated per ICU electrolyte replacement protocol. ID: Leukocytosis Sepsis -likely secondary to aspiration. Received Zosyn and vancomycin in the emergency department. We will continue Zosyn for now. Obtain sputum culture, blood culture, UA/culture. HEME: No acute hematologic issues ENDO: Euglycemic. Family reported history of diabetes mellitus. Will monitor glucose. TSH elevated, follow-up T3 and T4. Unknown thyroid history. PROPH: SCDs for DVT prophylaxis. Heparin subcu for DVT prophylaxis if CT brain negative. Protonix 40 mg IV daily for stress ulcer prophylaxis. ACCESS: Right femoral central venous line placed by ED physician 03/09 #1. Full code Level 3 H&P
[2018-03-29] MEDS ORDERED: Bisacodyl 10 MG Supp RECTAL PRN (05:36)
[2018-03-29] MEDS: Propofol 1000 mg/100 ml Inj 1,000 MG/100 ML BOTTLE IV.CONT PRN (06:03)
[2018-03-29 06:06] LABS: Magnesium 2.1 mg/dL (1.5-2.5)
[2018-03-29 06:14] LABS: Free T4 (Free Thyroxine) 1.22 ng/dL (0.76-1.46); Triiodothyronine (T3) Free 2.65 pg/mL (2.18-3.98)
--- NOTE | 2018-03-29 06:28 | CT ---
EXAM DATE: 03/29/2018 5:09 AM EDT AGE/SEX: 89 years / Female INDICATIONS: Altered mental status. Found unresponsive. CLINICAL DATA: This is the patient's initial encounter. Patient reports that signs and symptoms have been present for 1 day and indicates a pain score of 0/10. MEDICAL/SURGICAL HISTORY: Non-responsive. Non-responsive. RADIATION DOSE: 56.35 CTDI (mGy) COMPARISON: No prior exams available for comparison. TECHNIQUE: CT of the head without contrast. Using automated exposure control and adjustment of the mA and/or kV according to patient size, radiation dose was kept as low as reasonably achievable to ob tain optimal diagnostic quality images. DICOM format image data is available electronically for revi ew and comparison. FINDINGS: Cerebrum: The ventricles are normal for age. No evidence of midline shift, mass lesion, hemorrhage or acute infarction. No extraaxial fluid collections are seen. Posterior Fossa: The cerebellum and brainstem are intact. The 4th ventricle is midline. The cerebe llopontine angle is unremarkable. Extracranial: The visualized portion of the orbits is intact. Skull: The calvaria is intact. No evidence of skull fracture. CONCLUSION: Negative noncontrast head CT. . Electronically signed by: Sujit Bobo MD 03/29/2018 6:27 AM EDT
[2018-03-29 06:31] LABS: Bacteria,Urine Rare /hpf; Bilirubin,Urine Negative (Negative); Clarity,Urine Hazy (Clear); Color,Urine Yellow (Yellw/Straw); Glucose,Urine (UA) Negative (Negative); Hyaline Casts,Urine 5 /lpf (0-3); Leukocyte Esterase,Urine Negative (Negative); Mucus,Urine Few /lpf (Occasional); Nitrite,Urine Negative (Negative); Specific Gravity,Urine 1.008 (1.002-1.035); Squamous Epithelial Cell,Urine 1 /hpf (0-5)
[2018-03-29] MEDS: Chlorhexidine 0.12% Oral Kit 15 ML UDC OROPHARYNG SCH ×2 (08:28→19:36)
[2018-03-29] MEDS: Pantoprazole Inj 40 MG Vial IV.PUSH SCH (08:31)
[2018-03-29] MEDS: Senna/Docusate Sodium 8.6/50 MG Tablet PO SCH ×2 (08:31→20:50)
[2018-03-29] MEDS: Sod Chloride 0.9% Inj 1,000 ML IV.CONT SCH ×2 (08:32→18:36)
[2018-03-29] MEDS ORDERED: Piperacil/Tazo 2.25 GM Premix 50 ML IV.SIG SCH (09:00)
--- NOTE | 2018-03-29 09:18 | ECG ---
Date Performed: 03/29/2018 Time Performed: 06:07:22 PTAGE: 89 years EKG: Sinus rhythm MARKED LEFT AXIS DEVIATION ABNORMAL ECG NO PREVIOUS TRACING DOCTOR: Alonso Hernandez Interpretating Date/Time 03/29/2018 09:17:03
[2018-03-29 13:07] LABS: ABG Base Excess -2.1 mmol/L (-2-2); ABG PCO2 51 mmHg (38-42); ABG PO2 92 mmHg (61-120)
[2018-03-29] MEDS ORDERED: MethylPREDNISolone Sod Succinate Inj 125 MG/2 ML Vial IV.PUSH ONE (13:30)
[2018-03-29] MEDS ORDERED: FOSPHENYTOIN IV.SIG ONE (14:00)
[2018-03-29] MEDS ORDERED: SODIUM CHLOR IV.SIG ONE (14:00)
--- NOTE | 2018-03-29 14:02 | MG ---
cc: Rohan Smyth MD ELECTROENCEPHALOGRAM NUMBER: [id number] INDICATIONS: Status post code, intubated with some myoclonic type jerking in her arms, legs, and abdomen. DESCRIPTION: The recording shows a burst suppression patten with a 7 Hz suppression and a burst of about 1/2 seconds of beta rhythms and some sharply contoured waves and this continues throughout the recording. The patient is on Diprivan and Versed. The bursts are somewhat epileptiform. Photic stimulation and hyperventilation not performed. IMPRESSION: A burst suppression pattern consistent with severe diffuse encephalopathy with some epileptiform features. The patient is noted to be on Dilantin. MD MIRIAN KhannaM/ , 01:48 PM , 01:53 PM
--- NOTE | 2018-03-29 14:50 | P.PCN ---
Procedure: Diagnosis: Severe encephalopathy Procedure: Diagnostic lumbar puncture Narrative: Timeout performed and patient suitably identified. Unable to find family for consent and this is an emergency. Patient on mechanical ventilation turned in the right lateral decubitus position. The mid and lower back were prepped with Betadine and draped with sterile sheets. 1% Xylocaine infiltration anesthetic was used in the subcutaneous tissue. The iliac crest was used as a landmark. The spinal needle was entered in the midline overlying the fifth lumbar vertebral body and the needle was angled slightly northward to enter the L4-5 interspace. The needle was inserted in increments with the stylette engaged and clear liquid was obtained. Opening pressure was 18 cm of water. A total of 10 mL of CSF was drained. The first 3 tubes of CSF were relatively clear the fourth was slightly cloudy with fresh blood. The patient was seizing during the procedure and its anticipated that there was some movement when the fourth tube was drained. The needle was withdrawn and a dressing was applied. The 4 tubes were sent specifically for studies including Gram stain and culture, glucose, protein, LDH, HSV PCR. A fourth tube was sent for future studies if needed.
[2018-03-29] MEDS: Oral Hygiene Kit OROPHARYNG SCH ×3 (14:53→23:33)
--- NOTE | 2018-03-29 15:00 | MB ---
cc: Rohan Smyth MD DATE: 03/29/2018 HISTORY OF PRESENT ILLNESS: The patient was found at home by a family member unresponsive last evening. Family member started chest compressions at home. The patient was found with a pulse and agonal breathing, was given oxygen and Narcan, which did not seem to awaken up. She remained unresponsive. A bottle of methadone and Ativan were empty at home, unable to obtain further history. A stroke alert was initially called, but did not appear to be a stroke per se. She was subsequently intubated. PAST MEDICAL HISTORY: COPD, diabetes, neuropathy, unclear she has been on hospice. Unable to obtain any other information at this time. Antonina Coto was seen on the prescription bottles. CURRENT MEDICATIONS: She is intubated on fentanyl and Diprivan. She is on fosphenytoin 1200 PEs x1 and then 100 q. 8 hours currently. She is on 125 mg methylprednisolone push and then 60 q. 8 of piperacillin. PHYSICAL EXAMINATION: VITAL SIGNS: She has been afebrile 69, 25, 104/58. There were no carotid bruits. HEART: Regular rhythm. I did not detect a murmur. GENERAL: She is sedated, but has some intermittent jerking of her entire body look like myoclonic jerks. The toes are mute. There is no ankle clonus. DTRs are absent throughout. Tone is normal throughout. LABORATORY DATA: White count 17,000, hematocrit 49, platelet count 315. UA was negative. Basic metabolic profile, sodium 131, creatinine 1.8. LFTs normal. TSH 8.8. Ammonia level 10. ABG initially 7.25, 52, 469, today 7.28, 51, 92. INR is 1.4. Platelet counts normal. She had a CT scan of the brain, which was read as negative. Review of those films does appear to be normal. IMPRESSION: EEG evidently shows some burst suppression pattern here. I have to review those films. I would check an MRI of the brain. We could cover her with some antibiotics, consider an LP. I think we should make an effort to get in touch with the family to see if we get any further information. I will discuss with the senior support engineer what their current plan is. Rohan Smyth MD DJM/sv , 01:31 PM , 01:39 PM
[2018-03-29 16:32] LABS: Total Protein,CSF 47.2 mg/dL (15.0-45.0)
[2018-03-29 16:47] LABS: RBC on Tube 1 41 /mm3
[2018-03-29 16:48] LABS: Lymphocytes, CSF 30 %; Monocytes,CSF 6 %; Neutrophils,CSF 64 %
[2018-03-29 16:49] LABS: RBC on Tube 2 12 /mm3
--- NOTE | 2018-03-29 17:08 | MR ---
EXAM DATE: 03/29/2018 4:03 PM EDT AGE/SEX: 89 years / Female INDICATIONS: Seizures. Found down. CLINICAL DATA: This is the patient's initial encounter. Patient reports that signs and symptoms have been present for 1 day and indicates a pain score of 0/10. MEDICAL/SURGICAL HISTORY: Diabetes mellitus type II. Hepatitis C. Tubal ligation. Coronary ar rajesh stent. ORIF left ankle. COMPARISON: [facility] – [place], [place] HEAD W/O CONTRAST, 03/29/2018. . TECHNIQUE: Multiplanar, multisequence examination of the brain was performed without contrast. FINDINGS: Cerebrum: The ventricles are normal for age. No evidence of midline shift, mass lesion, hemorrhage or acute infarction. No extraaxial fluid collections are seen. The pituitary gland and suprasellar cistern are normal in configuration. White Matter: No significant signal abnormalities are seen in the white matter. Posterior Fossa: The cerebellum and brainstem are intact. The 4th ventricle is midline. The cerebel lopontine angle is unremarkable. The cerebellar tonsils are normal in position. Diffusion Imaging: No focal areas of restricted diffusion are seen. No evidence of acute infarction . Extracranial: The visualized portions of the orbits and paranasal sinuses are unremarkable. There is fluid in the mastoid air cells on the right. CONCLUSION: 1. No acute intracranial abnormality identified. 2. Fluid within the mastoid air cells on the right. Electronically signed by: He Montelongo MD 03/29/2018 5:00 PM EDT
[2018-03-29] MEDS: Piperacil/Tazo 2.25 GM Premix 50 ML IV.SIG SCH ×2 (18:36→23:33)
[2018-03-29] MEDS: Acyclovir Inj 700 MG in Sodium Chlor 0.9% Inj 100 ML IV.SIG SCH (19:47)
[2018-03-29] MEDS: Fosphenytoin Inj 100 MGPE in Sodium Chlor 0.9% Inj 50 ML IV.SIG SCH (21:35)
[2018-03-29] MEDS: MethylPREDNISolone Sod Succinate Inj 125 MG/2 ML Vial IV.PUSH SCH (21:35)
[2018-03-30] MEDS: Sod Chloride 0.9% Inj 1,000 ML IV.CONT SCH ×4 (01:11→22:18)
[2018-03-30] MEDS: Propofol 1000 mg/100 ml Inj 1,000 MG/100 ML BOTTLE IV.CONT PRN (03:37)
[2018-03-30] MEDS: Acyclovir Inj 700 MG in Sodium Chlor 0.9% Inj 100 ML IV.SIG SCH ×3 (03:37→21:24)
[2018-03-30] MEDS: Oral Hygiene Kit OROPHARYNG SCH ×3 (03:38→18:38)
[2018-03-30] MEDS: Chlorhexidine Gluconate 2% 1 Pack (2 Cloths) TOPICAL SCH (03:38)
[2018-03-30 03:52] LABS: Baso % (Auto) 0.1 % (0.0-2.0); Eos % (Auto) 0.1 % (0.0-4.0); Hematocrit 43.6 % (35.0-46.0); Hemoglobin 14.2 gm/dL (11.6-15.3); Lymph # (Auto) 0.4 th/mm3 (1.0-4.8); Lymph % (Auto) 2.3 % (9.0-44.0); Mean Corpuscular HGB Conc 32.5 % (32.0-36.0); Mean Corpuscular Hemoglobin 25.9 pg (27.0-34.0); Mean Corpuscular Volume 79.7 fL (80.0-100.0); Mean Platelet Volume 8.2 fL (7.0-11.0); Mono # (Auto) 0.1 th/mm3 (0.0-0.9); Mono % (Auto) 0.8 % (0.0-8.0); Neut # (Auto) 17.1 th/mm3 (1.8-7.7); Neut % (Auto) 96.7 % (16.0-70.0); Platelet Count 283 th/mm3 (150-450); Red Blood Count 5.47 mil/mm3 (4.00-5.30); Red Cell Distribution Width 18.9 % (11.6-17.2); White Blood Count 17.7 th/mm3 (4.0-11.0)
[2018-03-30] MEDS ORDERED: Chlorhexidine Gluconate 2% 1 Pack (2 Cloths) TOPICAL PRN (04:00)
[2018-03-30 04:21] LABS: Alanine Aminotransferase 39 U/L (10-53); Albumin 2.8 g/dL (3.4-5.0); Alkaline Phosphatase 80 U/L (45-117); Anion Gap 12 meq/L (5-15); Aspartate Aminotransferase 50 U/L (15-37); Blood Urea Nitrogen 12 mg/dL (7-18); Calcium 8.6 mg/dL (8.5-10.1); Carbon Dioxide 22.8 meq/L (21.0-32.0); Chloride 104 meq/L (98-107); Glomerular Filtration Rate 39 mL/min (>89); Glucose,Random 261 mg/dL (74-106); Potassium 4.1 meq/L (3.5-5.1); Sodium 139 meq/L (136-145); Total Protein 7.1 g/dL (6.4-8.2)
[2018-03-30] MEDS: MethylPREDNISolone Sod Succinate Inj 125 MG/2 ML Vial IV.PUSH SCH ×3 (05:21→21:18)
[2018-03-30] MEDS: Fosphenytoin Inj 100 MGPE in Sodium Chlor 0.9% Inj 50 ML IV.SIG SCH (05:21)
[2018-03-30] MEDS: Piperacil/Tazo 2.25 GM Premix 50 ML IV.SIG SCH ×3 (05:47→18:41)
--- NOTE | 2018-03-30 06:47 | XR ---
EXAM DATE: 03/30/2018 5:38 AM EDT AGE/SEX: 89 years / Female INDICATIONS: Respiratory disease. CLINICAL DATA: This is the patient's subsequent encounter. Patient reports that signs and symptoms h ave been present for 2 days and indicates a pain score of Nonresponsive. MEDICAL/SURGICAL HISTORY: Chronic obstructive pulmonary disease. Diabetes mellitus type II. No ne. COMPARISON: [facility], CHEST 1V SINGLE AP, 03/28/2018. . FINDINGS: ET tube and NG tube are well placed. The heart size is normal. There is minimal prominence of interst itium. A focal consolidation is not seen.. CONCLUSION: Minimal prominence of interstitium which may represent pulmonary venous hypertension or minimal edema . Electronically signed by: Sujit Bobo MD 03/30/2018 6:46 AM EDT
[2018-03-30] MEDS: Chlorhexidine 0.12% Oral Kit 15 ML UDC OROPHARYNG SCH ×2 (09:11→20:37)
[2018-03-30] MEDS: Senna/Docusate Sodium 8.6/50 MG Tablet PO SCH ×2 (09:11→20:38)
[2018-03-30] MEDS: Pantoprazole Inj 40 MG Vial IV.PUSH SCH ×2 (09:11→14:11)
[2018-03-30] MEDS ORDERED: Dextrose 50% in Water 50 ML Vial IV.PUSH PRN (11:12)
[2018-03-30] MEDS: Sod Chloride 0.9% Inj 1,000 ML IV.SIG SCH (12:02)
--- NOTE | 2018-03-30 12:32 | P.PNNEU ---
Subjective Subjective Comments: may have taken too much ativan and narcotics Active Medications: Active Medications Al Hydroxide/Mg Hydroxide (Milk Of Magnesia Liq) 30 ml PO Q12H PRN PRN Reason: Mild Constipation Albuterol (Albuterol Neb (Prn)) 2.5 mg NEB Q2HR NEB PRN PRN Reason: SHORTNESS OF BREATH/WHEEZING Albuterol (Duoneb Neb (Alex)) 1 ampul NEB Q4HR NEB [facility] Last Admin: 03/30/18 08:58 Dose: 1 ampul Bisacodyl (Dulcolax Supp) 10 mg RECTAL DAILY PRN PRN Reason: SEVERE CONSITIPATION Chlorhexidine Gluconate (Peridex 0.12% Oral Kit) 15 ml OROPHARYNG BID@0800, 1999 [facility] Last Admin: 03/30/18 09:11 Dose: 15 ml Chlorhexidine Gluconate (Chlorhexidine 2% Cloth) 3 pack TOPICAL DAILY@0400 ALEX Stop: 04/04/18 03:59 Last Admin: 03/30/18 03:38 Dose: 3 pack Chlorhexidine Gluconate (Chlorhexidine 2% Cloth) 3 pack TOPICAL DAILY@0400 PRN PRN Reason: Extra cloth needed Stop: 04/04/18 03:59 Dextrose (D50w Vial) 50 ml IV.PUSH UNSCH PRN PRN Reason: PER HYPOGLYCEMIA PROTOCOL Fentanyl Citrate (Fentanyl Inj) 50 mcg IV PUSH Q1H PRN PRN Reason: Pain scale 6-10, &/or sedation Glucagon (Glucagon Inj) 1 mg OTHER PRN PRN PRN Reason: for Hypoglycemia Protocol Fentanyl (Fentanyl 10 Mcg/Ml Premix Drip) 2,500 mcg in 250 mls @ 5 mls/hr IV.SIG TITRATE PRN; Protocol PRN Reason: Per Protocol Last Titration: 03/29/18 06:02 Dose: 25 mcg/hr, 2.5 mls/hr Sodium Chloride (Ns Inj) 1,000 mls @ 0 mls/hr IV.SIG BOLUS [facility] Last Admin: 03/30/18 12:02 Dose: 125 mls/hr Sodium Chloride (Ns Inj) 1,000 mls @ 0 mls/hr IV.SIG BOLUS [facility] Last Infusion: 03/29/18 01:11 Dose: Infused Propofol (Diprivan 1000 Mg/100 Ml Inj) 1,000 mg in 100 mls @ 2.43 mls/hr IV.CONT TITRATE PRN; Protocol PRN Reason: Per Protocol Last Admin: 03/30/18 03:37 Dose: 5 mcg/kg/min, 2.43 mls/hr Sodium Chloride (Ns Inj) 1,000 mls @ 125 mls/hr IV.CONT .Q8H ALEX Last Admin: 03/30/18 01:11 Dose: 125 mls/hr Norepinephrine Bitartrate (Levophed-Dextrose 4 Mg/250 Ml Drip) 4 mg in 250 mls @ 7.5 mls/hr IV.SIG TITRATE PRN; Protocol PRN Reason: Per Protocol Last Titration: 03/30/18 06:47 Dose: 5 mcg/min, 18.75 mls/hr Acyclovir Sodium 700 mg/ (Sodium Chloride) 114 mls @ 114 mls/hr IV.SIG Q8H ALEX Last Infusion: 03/30/18 06:21 Dose: Infused Piperacillin/Tazobactam/Dextrose (Zosyn 2.25 Gm Premix) 50 mls @ 100 mls/hr IV.SIG Q6H ALEX Last Infusion: 03/30/18 06:20 Dose: Infused Levetiracetam 500 mg/ Sodium (Chloride) 105 mls @ 400 mls/hr IV.SIG Q12H [facility] Last Admin: 03/30/18 09:11 Dose: 400 mls/hr Fosphenytoin Sodium 130 mgpe/ (Sodium Chloride) 52.6 mls @ 208 mls/hr IV.SIG Q8HR ALEX Insulin Aspart (Novolog Insulin Correctional Sugar Inj) 0 unit SQ Q6HR ALEX; Protocol Lactulose (Lactulose Liq) 30 ml PO DAILY PRN PRN Reason: SEVERE CONSITIPATION Methylprednisolone Sodium Succinate (Solumedrol Inj) 60 mg IV.PUSH Q8H [facility] Last Admin: 03/30/18 05:21 Dose: 60 mg Miscellaneous Medication () 1 each OROPHARYNG 0000,0400,1200,1600 [facility] Last Admin: 03/30/18 03:38 Dose: 1 each Ondansetron HCl (Zofran Inj) 4 mg IV.PUSH Q6H PRN PRN Reason: NAUSEA OR VOMITING Pantoprazole Sodium (Protonix Inj) 40 mg IV.PUSH Q12H ALEX Senna/Docusate Sodium ([place]-Colace) 1 tab PO BID ALEX Last Admin: 03/30/18 09:11 Dose: 1 tab Sennosides (Senokot) 17.2 mg PO Q12H PRN PRN Reason: Moderate Constipation Sodium Chloride (Ns Flush) 2 ml IV.FLUSH BID [facility] Last Admin: 03/30/18 09:11 Dose: 2 ml Sodium Chloride (Ns Flush) 2 ml IV.FLUSH PRN PRN PRN Reason: FLUSH AFTER USING IV ACCESS Terbutaline Sulfate (Brethine Inj) 1 mg SQ UNSCH PRN PRN Reason: For Extravasation Terbutaline Sulfate (Brethine Inj) 1 mg SQ ONCE PRN PRN Reason: Extravasation Allergies/Adverse Reactions: Allergies Allergy/AdvReac Type Severity Reaction Status Date / Time No Allergy Information Allergy Verified 03/29/18 00:03 Available Physical Exam Vital signs: Vital Signs 03/29/18 13:00 03/29/18 14:00 03/29/18 15:00 Temperature 98.6 F 98.2 F 98.1 F Pulse Rate 66 68 72 Respiratory Rate 20 20 20 Blood Pressure 98/55 L 105/57 L 110/66 Pulse Oximetry 97 95 96 03/29/18 16:00 03/29/18 16:12 03/29/18 16:35 Temperature 98.0 F Pulse Rate 72 66 Respiratory Rate 20 20 Blood Pressure 113/66 Pulse Oximetry 99 100 96 03/29/18 17:00 03/29/18 18:00 03/29/18 19:00 Temperature 98.1 F 98.4 F 98.1 F Pulse Rate 64 66 66 Respiratory Rate 20 20 20 Blood Pressure 93/56 L 121/71 114/68 Pulse Oximetry 98 98 99 03/29/18 19:32 03/29/18 20:00 03/29/18 21:00 Temperature 98.1 F Pulse Rate 74 68 81 Respiratory Rate 20 20 20 Blood Pressure 113/71 91/53 L Pulse Oximetry 98 99 99 03/29/18 22:00 03/29/18 23:00 03/29/18 23:27 Temperature Pulse Rate 73 69 68 Respiratory Rate 20 20 20 Blood Pressure 104/64 116/69 Pulse Oximetry 99 99 99 03/30/18 00:00 03/30/18 01:00 03/30/18 02:00 Temperature 99.2 F Pulse Rate 68 69 72 Respiratory Rate 20 20 20 Blood Pressure 115/65 118/67 116/68 Pulse Oximetry 100 100 100 03/30/18 03:00 03/30/18 03:28 03/30/18 03:41 Temperature Pulse Rate 66 65 Respiratory Rate 20 20 20 Blood Pressure 134/79 Pulse Oximetry 100 100 03/30/18 04:00 03/30/18 05:00 03/30/18 06:00 Temperature 98.6 F Pulse Rate 70 72 69 Respiratory Rate 20 20 20 Blood Pressure 125/70 119/67 150/83 H Pulse Oximetry 100 100 100 03/30/18 07:00 03/30/18 08:00 03/30/18 09:00 Temperature 97.9 F 98.1 F 98.4 F Pulse Rate 68 68 106 H Respiratory Rate 20 20 11 L Blood Pressure 130/72 144/83 H 165/97 H Pulse Oximetry 100 100 100 03/30/18 10:00 03/30/18 11:00 Temperature 98.0 F 98.2 F Pulse Rate 80 80 Respiratory Rate 16 16 Blood Pressure 139/77 145/76 H Pulse Oximetry 100 100 Intake & Output 03/29/18 03/30/18 03/30/18 18:59 06:59 18:59 Intake Total 1050 / 1050 1187 / 1187 Output Total 705 / 705 Balance 1050 / 1050 482 / 482 Weight 71.3 kg Intake: IV 1050 / 1050 1187 / 1187 Diprivan 1000 mg/100 ml Inj 1, 100 / 100 000 mg In 100 ml @ 5 MCG/KG/MIN 2.43 mls/hr IV.CONT TITRATE PRN Rx#:[id number] NS Inj 1,000 ML @ 125 mls/hr IV 1000 / 1000 .CONT .Q8H ALEX Rx#:[id number] Zovirax Inj 700 MG In NS Inj 228 / 228 100 ML @ 114 mls/hr IV.SIG Q8H ALEX Rx#:[id number] Cerebyx Inj 100 MGPE In NS Inj 104 / 104 50 ML @ 208 mls/hr IV.SIG Q8HR ALEX Rx#:[id number] Levophed-Dextrose 4 mg/250 ml 500 / 500 Drip 4 mg In 250 ml @ 2 MCG/MIN 7.5 mls/hr IV.SIG TITRATE PRN Rx#:[id number] Zosyn 2.25 GM Premix 50 ML @ 50 / 50 150 / 150 100 mls/hr IV.SIG Q6H ALEX Rx#: [id number] Keppra Inj 500 MG In NS Inj 100 105 / 105 ML @ 400 mls/hr IV.SIG Q12H ALEX Rx#:[id number] Output: Urine Amount (Catheter) 700 / 700 Indwelling Urethral Catheter 700 / 700 Gastric Drainage 5 / 5 Oral Orogastric Tube 5 / 5 Other: Weight On Admission 81 kg Narrative: on dip eyes up a little no rxt nasal stim inc tone ble more on left - Urinary Catheter Management Indwelling Urethral Catheter Cath placed during this visit: yes Reason for continuing: Hourly intake/output Insertion date: 03/29/18 Insertion time: 01:12 Objective Laboratory Results - last 24 hr 03/29/18 03/29/18 03/29/18 11:00 12:38 14:42 WBC RBC Hgb Hct MCV MCH MCHC RDW Plt Count MPV Neut % (Auto) Lymph % (Auto) [place] % (Auto) Eos % (Auto) Baso % (Auto) Neut # (Auto) Lymph # (Auto) [place] # (Auto) Eos # (Auto) Baso # (Auto) WBC Differential Differential Comment Puncture Site Right brachial Patient Temperature 98.6 O2 Saturation 94 ABG pH 7.28 L* ABG pCO2 51 H* ABG pO2 92 ABG HCO3 24 ABG O2 Content 19.0 ABG Base Excess -2.1 L ABG Methemoglobin 1.1 Hemoglobin 14.3 Carboxyhemoglobin 0.9 O2 Delivery Device Ventilator Vent Setting Inspired O2 60 Critical Value Yes Sodium Potassium Chloride Carbon Dioxide Anion Gap BUN Creatinine Estimated GFR Random Glucose Calcium Total Bilirubin AST ALT Alkaline Phosphatase Total Protein Albumin CSF Volume (1) CSF Supernat Color (1) CSF Gross Blood (1) CSF WBC (1) CSF RBC (1) CSF Volume (2) CSF Supernat Color (2) CSF Gross Blood (2) CSF WBC (2) CSF RBC (2) CSF Volume (3) CSF Supernat Color (3) CSF Gross Blood (3) CSF Volume (4) CSF Supernat Color (4) CSF Gross Blood (4) CSF Neutrophils % CSF Lymphocytes % CSF Monocytes % CSF Glucose 82 H CSF LDH CSF Total Protein Nasal Screen MRSA (PCR) Not detected Phenytoin 03/29/18 03/29/1818 14:42 14:42 14:42 WBC RBC Hgb Hct MCV MCH MCHC RDW Plt Count MPV Neut % (Auto) Lymph % (Auto) [place] % (Auto) Eos % (Auto) Baso % (Auto) Neut # (Auto) Lymph # (Auto) [place] # (Auto) Eos # (Auto) Baso # (Auto) WBC Differential Differential Comment Puncture Site Patient Temperature O2 Saturation ABG pH ABG pCO2 ABG pO2 ABG HCO3 ABG O2 Content ABG Base Excess ABG Methemoglobin Hemoglobin Carboxyhemoglobin O2 Delivery Device Vent Setting Inspired O2 Critical Value Sodium Potassium Chloride Carbon Dioxide Anion Gap BUN Creatinine Estimated GFR Random Glucose Calcium Total Bilirubin AST ALT Alkaline Phosphatase Total Protein Albumin CSF Volume (1) 2.0 CSF Supernat Color (1) Clear CSF Gross Blood (1) 0 CSF WBC (1) 8 CSF RBC (1) 41 H CSF Volume (2) 1.8 CSF Supernat Color (2) Clear CSF Gross Blood (2) 0 CSF WBC (2) 0 CSF RBC (2) 12 H CSF Volume (3) 2.0 CSF Supernat Color (3) Clear CSF Gross Blood (3) 1+ A CSF Volume (4) 2.7 CSF Supernat Color (4) Clear CSF Gross Blood (4) 2+ A CSF Neutrophils % 64 CSF Lymphocytes % 30 CSF Monocytes % 6 CSF Glucose CSF LDH 27 CSF Total Protein 47.2 H Nasal Screen MRSA (PCR) Phenytoin 03/29/18 03/30/18 03/30/18 14:45 03:35 03:35 WBC 17.7 H RBC 5.47 H Hgb 14.2 Hct 43.6 MCV 79.7 L MCH 25.9 L MCHC 32.5 RDW 18.9 H Plt Count 283 MPV 8.2 Neut % (Auto) 96.7 H Lymph % (Auto) 2.3 L [place] % (Auto) 0.8 Eos % (Auto) 0.1 Baso % (Auto) 0.1 Neut # (Auto) 17.1 H Lymph # (Auto) 0.4 L [place] # (Auto) 0.1 Eos # (Auto) 0.0 Baso # (Auto) 0.0 WBC Differential . Differential Comment Auto diff final Puncture Site Patient Temperature O2 Saturation ABG pH ABG pCO2 ABG pO2 ABG HCO3 ABG O2 Content ABG Base Excess ABG Methemoglobin Hemoglobin Carboxyhemoglobin O2 Delivery Device Vent Setting Inspired O2 Critical Value Sodium 139 Potassium 4.1 Chloride 104 D Carbon Dioxide 22.8 Anion Gap 12 BUN 12 Creatinine 1.18 H Estimated GFR 39 L Random Glucose 261 H D Calcium 8.6 Total Bilirubin 0.8 AST 50 H ALT 39 Alkaline Phosphatase 80 Total Protein 7.1 Albumin 2.8 L CSF Volume (1) CSF Supernat Color (1) CSF Gross Blood (1) CSF WBC (1) CSF RBC (1) CSF Volume (2) CSF Supernat Color (2) CSF Gross Blood (2) CSF WBC (2) CSF RBC (2) CSF Volume (3) CSF Supernat Color (3) CSF Gross Blood (3) CSF Volume (4) CSF Supernat Color (4) CSF Gross Blood (4) CSF Neutrophils % CSF Lymphocytes % CSF Monocytes % CSF Glucose CSF LDH CSF Total Protein Nasal Screen MRSA (PCR) Phenytoin 0.4 L Microbiology 03/29/18 06:05 Aerobic Blood Culture - Preliminary Blood - Peripheral No growth in 1 day Anaerobic Blood Culture - Preliminary No growth in 1 day 03/29/18 06:00 Aerobic Blood Culture - Preliminary Blood - Peripheral No growth in 1 day Anaerobic Blood Culture - Preliminary No growth in 1 day 03/29/18 14:42 Gram Stain - Final Lumbar Puncture CSF Culture - Preliminary No growth in 24 hours Review/Management - Review/Management Plan: imp likly some hyposic or anoxic damage eeg burst suppression on keppra nd dil check level recheck eeg mri neg i had a ? of some mild coritcal posterior ribbon change on diffusion sequence LP neg hsv pend fu
[2018-03-30] MEDS: Fosphenytoin Inj 130 MGPE in Sodium Chlor 0.9% Inj 50 ML IV.SIG SCH ×2 (14:28→21:23)
[2018-03-30] MEDS: Insulin NovoLOG Aspart Correctional Sugar Inj SQ SCH ×2 (18:36→23:51)
--- NOTE | 2018-03-30 19:47 | MG ---
cc: Rohan Smyth MD EEG NUMBER: [id number] DESCRIPTION: Repeat EEG. Fentanyl and Diprivan turned off. Recording shows diffuse 6 Hz rhythm, some what looked like at times BIPLEDs noted over the bilateral frontally predominant head regions occurring about 1 every second. Superimposed on this generally slow rhythm with some areas showed some episodes of suppression of the background lasting 1-2 seconds. This could be medication effect or a slight burst suppression type pattern. No focal abnormalities are noted. Hyperventilation is not performed. Photic stimulation is performed without significant posterior driving. Towards the end of the recording it appears more normal, though there is some muscle artifact there. IMPRESSION: Diffuse slowing consistent with a moderate diffuse encephalopathy. Some almost BIPLED type discharges, although not particularly epileptiform. Some occasional suppression of the background, could be a slight burst suppression versus medication effect. No focal abnormality was noted. No prolonged seizure activity is seen. MD TISHA Khanna/heidi , 06:35 PM , 06:39 PM
[2018-03-31] MEDS ORDERED: Labetalol HCl Inj 100 MG/20 ML Vial IV.PUSH PRN (03:28)
[2018-03-31] MEDS: Oral Hygiene Kit OROPHARYNG SCH ×4 (03:32→16:14)
[2018-03-31] MEDS: Pantoprazole Inj 40 MG Vial IV.PUSH SCH ×2 (03:33→11:59)
[2018-03-31] MEDS: Piperacil/Tazo 2.25 GM Premix 50 ML IV.SIG SCH ×4 (03:34→17:11)
[2018-03-31] MEDS: Acyclovir Inj 700 MG in Sodium Chlor 0.9% Inj 100 ML IV.SIG SCH ×3 (03:48→21:48)
[2018-03-31] MEDS: Chlorhexidine Gluconate 2% 1 Pack (2 Cloths) TOPICAL SCH (03:48)
[2018-03-31] MEDS: Fosphenytoin Inj 130 MGPE in Sodium Chlor 0.9% Inj 50 ML IV.SIG SCH (06:33)
[2018-03-31] MEDS: MethylPREDNISolone Sod Succinate Inj 125 MG/2 ML Vial IV.PUSH SCH ×3 (06:36→21:10)
[2018-03-31] MEDS: Insulin NovoLOG Aspart Correctional Sugar Inj SQ SCH ×4 (06:37→17:11)
[2018-03-31] MEDS: Sod Chloride 0.9% Inj 1,000 ML IV.CONT SCH ×3 (06:40→23:34)
[2018-03-31] MEDS: Chlorhexidine 0.12% Oral Kit 15 ML UDC OROPHARYNG SCH ×2 (07:43→20:00)
--- NOTE | 2018-03-31 08:02 | P.PNNEU ---
Subjective Subjective Comments: on vent on sedatives Active Medications: Active Medications Al Hydroxide/Mg Hydroxide (Milk Of Magnesia Liq) 30 ml PO Q12H PRN PRN Reason: Mild Constipation Albuterol (Albuterol Neb (Prn)) 2.5 mg NEB Q2HR NEB PRN PRN Reason: SHORTNESS OF BREATH/WHEEZING Albuterol (Duoneb Neb (Alex)) 1 ampul NEB Q4HR NEB ALEX Last Admin: 03/31/18 02:51 Dose: 1 ampul Bisacodyl (Dulcolax Supp) 10 mg RECTAL DAILY PRN PRN Reason: SEVERE CONSITIPATION Chlorhexidine Gluconate (Peridex 0.12% Oral Kit) 15 ml OROPHARYNG BID@0800, 2000 [facility] Last Admin: 03/31/18 07:43 Dose: 15 ml Chlorhexidine Gluconate (Chlorhexidine 2% Cloth) 3 pack TOPICAL DAILY@0400 ALEX Stop: 04/04/18 03:59 Last Admin: 03/31/18 03:48 Dose: 3 pack Chlorhexidine Gluconate (Chlorhexidine 2% Cloth) 3 pack TOPICAL DAILY@0400 PRN PRN Reason: Extra cloth needed Stop: 04/04/18 03:59 Dextrose (D50w Vial) 50 ml IV.PUSH UNSCH PRN PRN Reason: PER HYPOGLYCEMIA PROTOCOL Fentanyl Citrate (Fentanyl Inj) 50 mcg IV PUSH Q1H PRN PRN Reason: Pain scale 6-10, &/or sedation Glucagon (Glucagon Inj) 1 mg OTHER PRN PRN PRN Reason: for Hypoglycemia Protocol Fentanyl (Fentanyl 10 Mcg/Ml Premix Drip) 2,500 mcg in 250 mls @ 5 mls/hr IV.SIG TITRATE PRN; Protocol PRN Reason: Per Protocol Last Titration: 03/29/18 06:02 Dose: 25 mcg/hr, 2.5 mls/hr Sodium Chloride (Ns Inj) 1,000 mls @ 0 mls/hr IV.SIG BOLUS [facility] Last Infusion: 03/31/18 07:43 Dose: Infused Sodium Chloride (Ns Inj) 1,000 mls @ 0 mls/hr IV.SIG BOLUS [facility] Last Infusion: 03/29/18 01:11 Dose: Infused Propofol (Diprivan 1000 Mg/100 Ml Inj) 1,000 mg in 100 mls @ 2.43 mls/hr IV.CONT TITRATE PRN; Protocol PRN Reason: Per Protocol Last Admin: 03/30/18 03:37 Dose: 5 mcg/kg/min, 2.43 mls/hr Sodium Chloride (Ns Inj) 1,000 mls @ 125 mls/hr IV.CONT .Q8H ALEX Last Admin: 03/31/18 06:40 Dose: 125 mls/hr Norepinephrine Bitartrate (Levophed-Dextrose 4 Mg/250 Ml Drip) 4 mg in 250 mls @ 7.5 mls/hr IV.SIG TITRATE PRN; Protocol PRN Reason: Per Protocol Last Titration: 03/31/18 07:43 Dose: 0 mcg/min, 0 mls/hr Acyclovir Sodium 700 mg/ (Sodium Chloride) 114 mls @ 114 mls/hr IV.SIG Q8H ALEX Last Infusion: 03/31/18 05:05 Dose: Infused Piperacillin/Tazobactam/Dextrose (Zosyn 2.25 Gm Premix) 50 mls @ 100 mls/hr IV.SIG Q6H [facility]LEX Last Infusion: 03/31/18 07:43 Dose: Infused Levetiracetam 500 mg/ Sodium (Chloride) 105 mls @ 400 mls/hr IV.SIG Q12H ALEX Last Infusion: 03/30/18 18:58 Dose: Infused Fosphenytoin Sodium 130 mgpe/ (Sodium Chloride) 52.6 mls @ 208 mls/hr IV.SIG Q8HR ALEX Last Infusion: 03/31/18 07:43 Dose: Infused Insulin Aspart (Novolog Insulin Correctional Sugar Inj) 0 unit SQ Q6HR ALEX; Protocol Last Admin: 03/31/18 07:42 Dose: Not Given Labetalol HCl (Trandate Inj) 10 mg IV.PUSH Q4H PRN PRN Reason: SBP >165 Lactulose (Lactulose Liq) 30 ml PO DAILY PRN PRN Reason: SEVERE CONSITIPATION Methylprednisolone Sodium Succinate (Solumedrol Inj) 60 mg IV.PUSH Q8H ALEX Last Admin: 03/31/18 06:36 Dose: 60 mg Miscellaneous Medication () 1 each OROPHARYNG 0000,0400,1200,1600 ALEX Last Admin: 03/31/18 03:48 Dose: 1 each Ondansetron HCl (Zofran Inj) 4 mg IV.PUSH Q6H PRN PRN Reason: NAUSEA OR VOMITING Pantoprazole Sodium (Protonix Inj) 40 mg IV.PUSH Q12H [facility] Last Admin: 03/31/18 03:33 Dose: 40 mg Senna/Docusate Sodium ([place]-Colace) 1 tab PO BID [facility] Last Admin: 03/30/18 20:38 Dose: Not Given Sennosides (Senokot) 17.2 mg PO Q12H PRN PRN Reason: Moderate Constipation Sodium Chloride (Ns Flush) 2 ml IV.FLUSH BID [facility] Last Admin: 03/30/18 22:17 Dose: Not Given Sodium Chloride (Ns Flush) 2 ml IV.FLUSH PRN PRN PRN Reason: FLUSH AFTER USING IV ACCESS Terbutaline Sulfate (Brethine Inj) 1 mg SQ UNSCH PRN PRN Reason: For Extravasation Terbutaline Sulfate (Brethine Inj) 1 mg SQ ONCE PRN PRN Reason: Extravasation Allergies/Adverse Reactions: Allergies Allergy/AdvReac Type Severity Reaction Status Date / Time No Allergy Information Allergy Verified 03/29/18 00:03 Available Physical Exam Vital signs: Vital Signs 03/30/18 08:00 03/30/18 09:00 03/30/18 10:00 Temperature 98.1 F 98.4 F 98.0 F Pulse Rate 68 106 H 80 Respiratory Rate 20 11 L 16 Blood Pressure 144/83 H 165/97 H 139/77 Pulse Oximetry 100 100 100 03/30/18 11:00 03/30/18 12:00 03/30/18 12:40 Temperature 98.2 F 98.9 F Pulse Rate 80 78 103 H Respiratory Rate 16 15 21 Blood Pressure 145/76 H 146/86 H Pulse Oximetry 100 99 97 03/30/18 13:00 03/30/18 14:00 03/30/18 15:00 Temperature 98.5 F 98.0 F 99.0 F Pulse Rate 88 98 H 96 H Respiratory Rate 16 16 18 Blood Pressure 146/82 H 140/82 131/78 Pulse Oximetry 100 99 100 03/30/18 15:55 03/30/18 16:00 03/30/18 17:00 Temperature 98.9 F 99.0 F Pulse Rate 112 H 94 H 92 H Respiratory Rate 22 16 32 H Blood Pressure 128/78 166/86 H Pulse Oximetry 100 100 03/30/18 18:00 09/30/18 19:00 03/30/18 20:00 Temperature 99.1 F 98.6 F 98.6 F Pulse Rate 110 H 85 71 Respiratory Rate 19 18 18 Blood Pressure 120/63 146/65 H 118/62 Pulse Oximetry 100 97 03/30/18 20:05 03/30/18 21:00 03/30/18 22:00 Temperature Pulse Rate 95 H 95 H 86 Respiratory Rate 16 Blood Pressure Pulse Oximetry 98 03/30/18 22:56 03/30/18 23:00 03/30/18 23:14 Temperature Pulse Rate 84 82 Respiratory Rate 15 16 Blood Pressure Pulse Oximetry 99 03/31/18 00:00 03/31/18 01:00 03/31/18 02:00 Temperature 99.1 F Pulse Rate 84 85 87 Respiratory Rate 17 Blood Pressure 143/82 H Pulse Oximetry 97 03/31/18 02:52 03/31/18 03:00 03/31/18 04:00 Temperature 97.8 F Pulse Rate 101 H 114 H 86 Respiratory Rate 21 16 Blood Pressure 117/63 Pulse Oximetry 98 03/31/18 05:00 03/31/18 06:00 Temperature Pulse Rate 110 H 100 H Respiratory Rate Blood Pressure Pulse Oximetry Intake & Output 03/30/18 03/31/18 03/31/18 18:59 06:59 18:59 Intake Total 1576.6 / 1576.6 1430.6 / 1430.6 1102.6 / 1102.6 Output Total 680 / 680 450 / 450 Balance 896.6 / 896.6 980.6 / 980.6 1102.6 / 1102.6 Weight 73.3 kg Intake: IV 1576.6 / 1576.6 1430.6 / 1430.6 1102.6 / 1102.6 NS Inj 1,000 ML @ 125 mls/hr IV 1000 / 1000 1000 / 1000 .CONT .Q8H ALEX Rx#:[id number] Zovirax Inj 700 MG In NS Inj 114 / 114 228 / 228 100 ML @ 114 mls/hr IV.SIG Q8H ALEX Rx#:[id number] Cerebyx Inj 130 MGPE In NS Inj 52.6 / 52.6 52.6 / 52.6 52.6 / 52.6 50 ML @ 208 mls/hr IV.SIG Q8HR [facility] Rx#:[id number] Levophed-Dextrose 4 mg/250 ml 0 / 0 Drip 4 mg In 250 ml @ 2 MCG/MIN 7.5 mls/hr IV.SIG TITRATE PRN Rx#:[id number] Zosyn 2.25 GM Premix 50 ML @ 100 / 100 150 / 150 50 / 50 100 mls/hr IV.SIG Q6H ALEX Rx#: [id number] NS Inj 1,000 ML @ Wide Open IV. 1000 / 1000 SIG BOLUS ALEX Rx#:[id number] Keppra Inj 500 MG In NS Inj 100 310 / 310 ML @ 400 mls/hr IV.SIG Q12H [facility] Rx#:[id number] Oral 0 / 0 Output: Urine Amount (Catheter) 650 / 650 450 / 450 Indwelling Urethral Catheter 650 / 650 450 / 450 Gastric Drainage 30 / 30 0 / 0 Oral Orogastric Tube 30 / 30 0 / 0 Other: # Bowel Movements 0 0 Narrative: toes u[p bilat eyes deviated down - Urinary Catheter Management Indwelling Urethral Catheter Cath placed during this visit: yes Reason for continuing: Hourly intake/output Insertion date: 03/29/18 Insertion time: 01:12 Objective Laboratory Results - last 24 hr 03/30/18 03/30/18 03/30/18 14:41 15:00 23:41 POC Glucose 124 H 167 H Phenytoin 14.9 03/31/18 03/31/18 03:29 06:11 POC Glucose 137 H Phenytoin 18.1 Microbiology 03/29/18 06:05 Aerobic Blood Culture - Preliminary Blood - Peripheral No growth in 1 day Anaerobic Blood Culture - Preliminary No growth in 1 day 03/29/18 06:00 Aerobic Blood Culture - Preliminary Blood - Peripheral No growth in 1 day Anaerobic Blood Culture - Preliminary No growth in 1 day 03/29/18 14:42 Gram Stain - Final Lumbar Puncture CSF Culture - Preliminary No growth in 24 hours Review/Management - Review/Management Plan: imp likly some hyposic or anoxic damage eeg burst suppression on keppra nd dil check level recheck eeg mri neg i had a ? of some mild coritcal posterior ribbon change on diffusion sequence LP neg hsv pend fu -------- 03/31/18 no change hsv pend watch bmp i suspect some h/i encephalopathy px poor keppra dil 18 i lowered dose i rec dc sedatives and see how does
--- NOTE | 2018-03-31 08:45 | P.PNPAL ---
Palliative care consulted on Amina Rivera to assist with facilitation to locate family and address goals of medical treatment once health care proxy(s) identified. In review of records, [facility] was called to [address] [facility] in [place]. Google search of address indicate nash Jeffers lives at this address. In review of Albert Jeffers's information this person is . Provider notes indicate prescription bottles have name as Antonina Coto. This person's last known address is in [place] and only a friend listed as contacts. Will attempt to contact this person. 10am-- patient now identified. Sister listed in contacts. Palliative care POULTRY BONER to see and full consultation to follow. Palliative care will continue to follow along throughout hospitalization.
[2018-03-31] MEDS: Fosphenytoin Inj 100 MGPE in Sodium Chlor 0.9% Inj 50 ML IV.SIG SCH ×2 (10:44→16:47)
[2018-03-31] MEDS: Senna/Docusate Sodium 8.6/50 MG Tablet PO SCH ×2 (10:45→21:11)
--- NOTE | 2018-03-31 11:54 | P.PNCC ---
Subjective Subjective Remarks/Hospital Course: NOTE FOR 03/30: female probably in her 50s or 60s. She was found unresponsive. She had an empty bottle of 9 methadone 10 mg tablets and 18 Ativan 0.5 mg tablets. Apparently CPR was initiated per family. Family provided [facility]AC with information that patient is on hospice and has a history of diabetes, COPD, neuropathy, no advanced directives. When EVAC arrived she had a pulse but agonal respirations. She was administered Narcan 2 mg IV without improvement. Upon arrival to the ED she was not protecting her airway, pooling secretions in her mouth. She was intubated upon arrival. Her systolic blood pressure was in the 80s. She was administered 2 L normal saline bolus, right femoral line was placed and she was started on Levophed. Family has not arrived at the hospital and there is no available contact information. She is registered as a Amina Lue. The prescription bottles say Antonina Coto. That individual has not been admitted since 2007. 03/30: Seizure activity appears to be controlled with Dilantin. She remains stuporous and we are unable to wean from the ventilator. Ongoing attempts to find out her true identity. Objective Vital Signs / I&O: Vital Signs 03/30/18 12:00 03/30/18 12:40 03/30/18 13:00 Temperature 98.9 F 98.5 F Pulse Rate 78 103 H 88 Respiratory Rate 15 21 16 Blood Pressure 146/86 H 146/82 H Pulse Oximetry 99 97 100 03/30/18 14:00 03/30/18 15:00 03/30/18 15:55 Temperature 98.0 F 99.0 F Pulse Rate 98 H 96 H 112 H Respiratory Rate 16 18 22 Blood Pressure 140/82 131/78 Pulse Oximetry 99 100 03/30/18 16:00 03/30/18 17:00 03/30/18 18:00 Temperature 98.9 F 99.0 F 99.1 F Pulse Rate 94 H 92 H 110 H Respiratory Rate 16 32 H 19 Blood Pressure 128/78 166/86 H 120/63 Pulse Oximetry 100 100 100 03/30/18 19:00 03/30/18 20:00 03/30/18 20:05 Temperature 98.6 F 98.6 F Pulse Rate 85 71 95 H Respiratory Rate 18 18 16 Blood Pressure 146/65 H 118/62 Pulse Oximetry 97 98 03/30/18 21:00 03/30/18 22:00 03/30/18 22:56 Temperature Pulse Rate 95 H 86 84 Respiratory Rate 15 Blood Pressure Pulse Oximetry 03/30/18 23:00 03/30/18 23:14 03/31/18 00:00 Temperature 99.1 F Pulse Rate 82 84 Respiratory Rate 16 17 Blood Pressure 143/82 H Pulse Oximetry 99 97 03/31/18 01:00 03/31/18 02:00 03/31/18 02:52 Temperature Pulse Rate 85 87 101 H Respiratory Rate 21 Blood Pressure Pulse Oximetry 03/31/18 03:00 03/31/18 04:00 03/31/18 05:00 Temperature 97.8 F Pulse Rate 114 H 86 110 H Respiratory Rate 16 Blood Pressure 117/63 Pulse Oximetry 98 03/31/18 06:00 03/31/18 09:01 03/31/18 09:06 Temperature Pulse Rate 100 H 107 H Respiratory Rate 21 19 Blood Pressure Pulse Oximetry 100 03/31/18 11:23 Temperature Pulse Rate 93 H Respiratory Rate 23 Blood Pressure Pulse Oximetry 100 Intake & Output 03/30/18 03/31/18 03/31/18 18:59 06:59 18:59 Intake Total 1576.6 / 1576.6 1430.6 / 1430.6 1259.6 / 1259.6 Output Total 680 / 680 450 / 450 Balance 896.6 / 896.6 980.6 / 980.6 1259.6 / 1259.6 Weight 73.3 kg Intake: IV 1576.6 / 1576.6 1430.6 / 1430.6 1259.6 / 1259.6 NS Inj 1,000 ML @ 125 mls/hr IV 1000 / 1000 1000 / 1000 .CONT .Q8H [facility] Rx#:[id number] Zovirax Inj 700 MG In NS Inj 114 / 114 228 / 228 100 ML @ 114 mls/hr IV.SIG Q8H [facility] Rx#:[id number] Cerebyx Inj 100 MGPE In NS Inj 52.6 / 52.6 52.6 / 52.6 104.6 / 104.6 50 ML @ 208 mls/hr IV.SIG Q8H [facility] Rx#:[id number] Levophed-Dextrose 4 mg/250 ml 0 / 0 Drip 4 mg In 250 ml @ 2 MCG/MIN 7.5 mls/hr IV.SIG TITRATE PRN Rx#:[id number] Zosyn 2.25 GM Premix 50 ML @ 100 / 100 150 / 150 50 / 50 100 mls/hr IV.SIG Q6H [facility] Rx#: [id number] NS Inj 1,000 ML @ Wide Open IV. 1000 / 1000 SIG BOLUS [facility] Rx#:[id number] Keppra Inj 500 MG In NS Inj 100 310 / 310 105 / 105 ML @ 400 mls/hr IV.SIG Q12H [facility] Rx#:[id number] Oral 0 / 0 Output: Urine Amount (Catheter) 650 / 650 450 / 450 Indwelling Urethral Catheter 650 / 650 450 / 450 Gastric Drainage 0 / 0 Oral Orogastric Tube 0 / 0 Other: # Bowel Movements 0 0 Result Diagrams: 03/30/18 03:35 03/30/18 03:35 Objective Remarks: Narrative: GENERAL: Unresponsive, elderly female who is orotracheally intubated. SKIN: Warm and dry. There is a 2 cm ulceration over the plantar aspect left first toe, no fluctuance or exudate. HEAD: Atraumatic. Normocephalic. EYES: Pupils equal and round, pinpoint and sluggishly reactive bilaterally. No scleral icterus. No injection or drainage. ENT: No nasal bleeding or discharge. NECK: Trachea midline. Orotracheal intubation. CARDIOVASCULAR: Regular rate and rhythm. No murmurs rubs or gallops. No JVD. RESPIRATORY: Bilateral rhonchi and poor breath sounds bilaterally, diminished with tight expiratory wheeze. GASTROINTESTINAL: Abdomen soft, non-tender, nondistended. Bowel sounds present. No guarding. MUSCULOSKELETAL: Extremities without clubbing, cyanosis, or edema. No obvious deformities. Tepid feet, otherwise well-perfused. NEUROLOGICAL: Intermittent spontaneous eye opening and to central noxious stimuli. Has ataxic jerking movements of BUE. Appears to have extensor posturing of bilateral lower extremities to central noxious stimuli. No clonus. Assessment and Plan - Problem List (1) Encephalopathy acute Code(s): G93.40 - Status: Acute (2) Methadone overdose Code(s): T40.3X1A - Status: Acute (3) Benzodiazepine overdose Code(s): T42.4X1A - Status: Acute (4) Acute respiratory failure Code(s): J96.00 - Status: Acute (5) Sepsis Code(s): A41.9 - Status: Acute (6) Hypotension due to medication Code(s): I95.2 - Status: Acute - Assessment and Plan Plan: NEURO: Acute encephalopathy Opioid and benzo overdose Propofol and fentanyl for sedation. Target RASS -[address] brain, ammonia level, EEG Hold methadone and Ativan. Alcohol, salicylate, Tylenol level negative. RESP: Acute hypercapneic respiratory failure COPD Intubated in the emergency department as not protecting airway, copious respiratory secretions. Chest x-ray clear with satisfactory endotracheal tube position. DuoNeb every 4 hours. Albuterol every 2 hours as needed. Severe bronchospasm today, have added bolus and maintenance dose steroids CV: Shock may be secondary to medication effect vs. SIRS/sepsis Received 2 L normal saline bolus. Continue 0.9 NaCl at 125 mL/h. Norepinephrine to maintain mean arterial pressure greater than 65. Obtain EKG to evaluate for QTC prolongation which may result from methadone overdose. GI: OGT FEN/RENAL: Watson was inserted in the emergency department. Monitor intake and output hourly. Monitor electrolytes and replace as indicated per ICU electrolyte replacement protocol. ID: Leukocytosis Sepsis -likely secondary to aspiration. Received Zosyn and vancomycin in the emergency department. We will continue Zosyn for now. Obtain sputum culture, blood culture, UA/culture. HEME: No acute hematologic issues ENDO: Euglycemic. Family reported history of diabetes mellitus. Will monitor glucose. TSH elevated, follow-up T3 and T4. Unknown thyroid history. PROPH: SCDs for DVT prophylaxis. Heparin subcu for DVT prophylaxis if CT brain negative. Protonix 40 mg IV daily for stress ulcer prophylaxis. ACCESS: Right femoral central venous line placed by ED physician 03/09 #1. Overall impression: This woman is critically ill with stable neurologic status and nonconvulsive seizures documented with the. Additionally she appears to demonstrate mild clonus. Her prognosis is poor. We are unable to wean her from mechanical ventilation. Critical care time 40 minutes aside from procedures.
--- NOTE | 2018-03-31 11:57 | P.PNCC ---
Subjective Subjective Remarks/Hospital Course: female probably in her 50s or 60s. She was found unresponsive. She had an empty bottle of 9 methadone 10 mg tablets and 18 Ativan 0.5 mg tablets. Apparently CPR was initiated per family. Family provided EVAC with information that patient is on hospice and has a history of diabetes, COPD, neuropathy, no advanced directives. When EVAC arrived she had a pulse but agonal respirations. She was administered Narcan 2 mg IV without improvement. Upon arrival to the ED she was not protecting her airway, pooling secretions in her mouth. She was intubated upon arrival. Her systolic blood pressure was in the 80s. She was administered 2 L normal saline bolus, right femoral line was placed and she was started on Levophed. Family has not arrived at the hospital and there is no available contact information. She is registered as a Amina Kebede. The prescription bottles say Antonina Coto. That individual has not been admitted since 2007. 03/30: Seizure activity appears to be controlled with Dilantin. She remains stuporous and we are unable to wean from the ventilator. Ongoing attempts to find out her true identity. 03/31: Will attempt spontaneous breathing trial again today. Late yesterday and early today she has had more episodes of spontaneous eye opening though she does not appear to track. Cerebrospinal fluid appears benign. No growth on culture after 48 hours. Bronchospasm responded quite well to steroids, will continue through extubation. Objective Vital Signs / I&O: Vital Signs 03/30/18 12:00 03/30/18 12:40 03/30/18 13:00 Temperature 98.9 F 98.5 F Pulse Rate 78 103 H 88 Respiratory Rate 15 21 16 Blood Pressure 146/86 H 146/82 H Pulse Oximetry 99 97 100 03/30/18 14:00 03/30/18 15:00 03/30/18 15:55 Temperature 98.0 F 99.0 F Pulse Rate 98 H 96 H 112 H Respiratory Rate 16 18 22 Blood Pressure 140/82 131/78 Pulse Oximetry 99 100 03/30/18 16:00 03/30/18 17:00 03/30/18 18:00 Temperature 98.9 F 99.0 F 99.1 F Pulse Rate 94 H 92 H 110 H Respiratory Rate 16 32 H 19 Blood Pressure 128/78 166/86 H 120/63 Pulse Oximetry 100 100 100 03/30/18 19:00 03/30/18 20:00 03/30/18 20:05 Temperature 98.6 F 98.6 F Pulse Rate 85 71 95 H Respiratory Rate 18 18 16 Blood Pressure 146/65 H 118/62 Pulse Oximetry 97 98 03/30/18 21:00 03/30/18 22:00 03/30/18 22:56 Temperature Pulse Rate 95 H 86 84 Respiratory Rate 15 Blood Pressure Pulse Oximetry 03/30/18 23:00 03/30/18 23:14 03/31/18 00:00 Temperature 99.1 F Pulse Rate 82 84 Respiratory Rate 16 17 Blood Pressure 143/82 H Pulse Oximetry 99 97 03/31/18 01:00 03/31/18 02:00 03/31/18 02:52 Temperature Pulse Rate 85 87 101 H Respiratory Rate 21 Blood Pressure Pulse Oximetry 03/31/18 03:00 03/31/18 04:00 03/31/18 05:00 Temperature 97.8 F Pulse Rate 114 H 86 110 H Respiratory Rate 16 Blood Pressure 117/63 Pulse Oximetry 98 03/31/18 06:00 03/31/18 09:01 03/31/18 09:06 Temperature Pulse Rate 100 H 107 H Respiratory Rate 21 19 Blood Pressure Pulse Oximetry 100 03/31/18 11:23 Temperature Pulse Rate 93 H Respiratory Rate 23 Blood Pressure Pulse Oximetry 100 Intake & Output 03/30/18 03/31/18 03/31/18 18:59 06:59 18:59 Intake Total 1576.6 / 1576.6 1430.6 / 1430.6 1259.6 / 1259.6 Output Total 680 / 680 450 / 450 Balance 896.6 / 896.6 980.6 / 980.6 1259.6 / 1259.6 Weight 73.3 kg Intake: IV 1576.6 / 1576.6 1430.6 / 1430.6 1259.6 / 1259.6 NS Inj 1,000 ML @ 125 mls/hr IV 1000 / 1000 1000 / 1000 .CONT .Q8H DEBORAH Rx#:[id number] Zovirax Inj 700 MG In NS Inj 114 / 114 228 / 228 100 ML @ 114 mls/hr IV.SIG Q8H DEBORAH Rx#:[id number] Cerebyx Inj 100 MGPE In NS Inj 52.6 / 52.6 52.6 / 52.6 104.6 / 104.6 50 ML @ 208 mls/hr IV.SIG Q8H DEBORAH Rx#:[id number] Levophed-Dextrose 4 mg/250 ml 0 / 0 Drip 4 mg In 250 ml @ 2 MCG/MIN 7.5 mls/hr IV.SIG TITRATE PRN Rx#:[id number] Zosyn 2.25 GM Premix 50 ML @ 100 / 100 150 / 150 50 / 50 100 mls/hr IV.SIG Q6H DEBORAH Rx#: [id number] NS Inj 1,000 ML @ Wide Open IV. 1000 / 1000 SIG BOLUS DEBORAH Rx#:[id number] Keppra Inj 500 MG In NS Inj 100 310 / 310 105 / 105 ML @ 400 mls/hr IV.SIG Q12H DEBORAH Rx#:[id number] Oral 0 / 0 Output: Urine Amount (Catheter) 650 / 650 450 / 450 Indwelling Urethral Catheter 650 / 650 450 / 450 Gastric Drainage 30 / 30 0 / 0 Oral Orogastric Tube 30 / 30 0 / 0 Other: # Bowel Movements 0 0 Result Diagrams: 03/30/18 03:35 03/30/18 03:35 Objective Remarks: Narrative: GENERAL: Minimally responsive, elderly female who is orotracheally intubated. SKIN: Warm and dry. Small ulceration over the plantar aspect left first toe, no fluctuance or exudate. HEAD: Atraumatic. Normocephalic. EYES: Pupils equal and round, pinpoint and sluggishly reactive bilaterally. No conjunctival icterus. No injection or drainage. ENT: No nasal bleeding or discharge. NECK: Trachea midline. Orotracheal intubation. CARDIOVASCULAR: Regular rate and rhythm. No murmurs rubs or gallops. No JVD. RESPIRATORY: Bilateral rhonchi and improved breath sounds bilaterally, minimal wheezes today. GASTROINTESTINAL: Abdomen soft, non-tender, nondistended. Bowel sounds present. No guarding. MUSCULOSKELETAL: Extremities without clubbing, cyanosis, or edema. No obvious deformities. Tepid feet, otherwise well-perfused. NEUROLOGICAL: Intermittent spontaneous eye opening and to central noxious stimuli. Has ataxic jerking movements of BUE. Appears to have extensor posturing of bilateral lower extremities to central noxious stimuli. No clonus. Assessment and Plan - Problem List (1) Encephalopathy acute Code(s): G93.40 - Status: Acute (2) Methadone overdose Code(s): T40.3X1A - Status: Acute (3) Benzodiazepine overdose Code(s): T42.4X1A - Status: Acute (4) Acute respiratory failure Code(s): J96.00 - Status: Acute (5) Sepsis Code(s): A41.9 - Status: Acute (6) Hypotension due to medication Code(s): I95.2 - Status: Acute - Assessment and Plan Plan: NEURO: Acute encephalopathy Opioid and benzo overdose Propofol and fentanyl for sedation. Target RASS -[address] brain, ammonia level, EEG Hold methadone and Ativan. Alcohol, salicylate, Tylenol level negative. RESP: Acute hypercapneic respiratory failure COPD Intubated in the emergency department as not protecting airway, copious respiratory secretions. Chest x-ray clear with satisfactory endotracheal tube position. DuoNeb every 4 hours. Albuterol every 2 hours as needed. Severe bronchospasm today, have added bolus and maintenance dose steroids CV: Shock may be secondary to medication effect vs. SIRS/sepsis Received 2 L normal saline bolus. Continue 0.9 NaCl at 125 mL/h. Norepinephrine to maintain mean arterial pressure greater than 65. Obtain EKG to evaluate for QTC prolongation which may result from methadone overdose. GI: OGT FEN/RENAL: Watson was inserted in the emergency department. Monitor intake and output hourly. Monitor electrolytes and replace as indicated per ICU electrolyte replacement protocol. ID: Leukocytosis Sepsis -likely secondary to aspiration. Received Zosyn and vancomycin in the emergency department. We will continue Zosyn for now. Obtain sputum culture, blood culture, UA/culture. HEME: No acute hematologic issues ENDO: Euglycemic. Family reported history of diabetes mellitus. Will monitor glucose. TSH elevated, follow-up T3 and T4. Unknown thyroid history. PROPH: SCDs for DVT prophylaxis. Heparin subcu for DVT prophylaxis if CT brain negative. Protonix 40 mg IV daily for stress ulcer prophylaxis. ACCESS: Right femoral central venous line placed by ED physician 03/09 #1. Overall impression: This woman is critically ill with stable neurologic status and nonconvulsive seizures documented with the. Additionally she appears to demonstrate mild clonus. Her prognosis is poor. We are unable to wean her from mechanical ventilation. Critical care time 40 minutes aside from procedures.
[2018-03-31] MEDS: Propofol 1000 mg/100 ml Inj 1,000 MG/100 ML BOTTLE IV.CONT PRN ×2 (12:33→18:27)
--- NOTE | 2018-03-31 13:25 | P.CONPAL ---
Consult Service: Palliative Care Requesting Physician: Michelle Rojo Reason for Consult: a. To assist with evaluation and management of symptoms including: Encephalopathy, seizures b. To assist medical decision maker(s) with: better understanding of current medical conditions; weighing benefits/burdens of medical treatment options; making medical treatment decisions. Primary Care Provider: UNKNOWN History of Present Illness History of Present Illness: This is a 62-year-old female brought in EMS after being found unresponsive by family member 03/28. Family member did start chest compressions at home and contacted EMS. Upon arrival patient was found to have a pulse breathing agonal E. She was administered oxygen and Narcan and transported to the ED for evaluation. EMS found airway partially obstructed secondary to emesis and was suctioned as needed. Presenting blood pressure was 72/39, heart rate 117, respiratory rate for, agonal, irregular, 83% saturation on room air, blood glucose 252. Family member noted that patient "may need some Narcan" as she may have taken methadone, lorazepam and questionably Roxicodone. Patient was reportedly on hospice did not have a DNR. She remained unresponsive upon arrival. She had a bottle of 9 methadone 10 mg tablets and 18 lorazepam 0.5 mg tablets which were empty home. Her past medical history is significant for COPD , diabetes and neuropathy. She was initially identified as [id number], Amina, but later identified as Antonina Pal [place]. She was intubated in the emergency room for airway protection and oxygenation. Blood and sputum cultures sent, lumbar puncture was completed and sample sent for culture and Gram stain. Right triple-lumen femoral central line was placed and patient was given 2 L IV bolus of normal saline, 1 g vancomycin, 2.275 g Zosyn and Levophed was initiated for hypotension. Neurology was consulted due to myoclonic jerks suspicious for possible seizures. EEG was done showing some burst suppression pattern. MRI of the brain was ordered showing no acute intracranial abnormality. Fluid in the mastoid air cells on the right. They opined likely some hypoxic or anoxic damage. Lumbar puncture thus far negative with HSV pending. Follow-up EEG done 03/30 showed diffuse slowing consistent with a moderate diffuse encephalopathy. Some almost by pled type discharges, although not particularly epileptiform. Some occasional suppression of the background with possibly a slight burst suppression versus medication effect. No prolonged seizure or focal abnormality noted. Dr. Smyth suspects some hypoxic versus ischemic encephalopathy and opines a poor prognosis recommending discontinuation of sedatives to determine true baseline. Clinical findings on admission * Chest x-ray showed appropriately placed ET tube and NG tube with no other acute cardiopulmonary process noted. * Electrocardiogram showed sinus rhythm with a marked left axis deviation. * Head CT was negative for an acute or chronic process. * Presenting labs showed WBC 17.5, hemoglobin 15.3, hematocrit 49.3, platelets 315, PT 5, INR 1.4, APTT 30.2, sodium 131, potassium 4.4, BUN 35, creatinine 1.81 116, calcium 8.7, total bilirubin 0.6, AST 51, ALT 37, T CK 385, troponin 0 0.04, serum alcohol less than 3, serum acetaminophen less than 2.0, lactic acid 1.1 magnesium 2.1 salicylates 2.5, ABG pH 7.28, PCO2 51, PaO2 92, bicarb 24 , base excess -2.1, saturation 94% on 60% FiO2 via mechanical ventilator, ammonia less than 10, urinalysis is negative. Follow-up chest x-ray done 03/30 showed minimal prominence of interstitium which may represent pulmonary venous hypertension or minimal edema. Patient is seen today in intensive surgical care intubated, sedated on propofol 30 mcg/kg/min and fentanyl 150 mcg an hour. She withdraws to pain x3 extremities. No withdrawal noted in right lower extremity. She resists eyelid retraction and demonstrates positive gag, cough and corneal reflexes. She opens her eyes to loud verbal stimuli with tactile eyelid retraction, but drifts back to sleep easily. She is currently undergoing CPAP trial. Her encephalopathy is constant , severe, acute onset with no exacerbating or relieving factors. Her seizures are intermittent, moderate to severe, improved by antiseizure medication and sedation, exacerbated by stimulation. . Function/Cognitive Trajectory: She was previously followed by [facility] hospice services for a terminal diagnosis of COPD with acute lower respiratory infection. She was awaiting delivery of oxygen and she was on chronic nebulizers. She was treated for chronic pain and dyspnea with oxycodone 15 mg every 4 hours as needed, methadone 10 mg 3 times daily and Ativan 0.5 mg tablets dosed at 1-2 tablets, 3 times daily, as needed. Per my discussion with the pharmacist, [facility] had only dispensed 3 days supply secondary to Patient's drug history. She had picked up a new prescription for oxycodone on , receiving 18 tablets. Per my discussion with her sister, Sushma, she has a long history of polysubstance abuse and when asked to clarify which substance she states "everything". She denies any knowledge of IV drug abuse however, but does admit to abuse of marijuana and cocaine. She was admitted with an overdose of benzodiazepines and possibly opiates. . Review of Systems Patient is nonverbal and unable to provide their own ROS. A 12 part ROS taken as best as possible from medical record and available family. Cardiovascular: Reports shortness of breath PMFSH - History History Provided By: Auto Polisher / EMT - Medical History Medical History: Medical History (Last Updated 03/29/18 @ 05:03 by Michelle Rojo MD) Surgical history unknown (Acute) COPD (chronic obstructive pulmonary disease) Diabetes Neuropathy - Family History Family History: Family History (Last Updated 03/31/18 @ 13:48 by MARY Garcias) Father Mother Other Unknown family medical history - Tobacco History Smoking Status: Current every day smoker Tobacco Type: Cigarettes Packs Per Day: 1 Years Smoked: 48 years: 48 - Alcohol History How Often Do You Have a Drink Containing Alcohol: 4 or more times a week ( Described as moderate, by her sister, with history of heavy EtOH use) - Substance Use History Substance History: Past History, Unable to Obtain - Substance Use Type Benzodiazepines Status: Active Crack/Cocaine Status: Early Remission Marijuana Status: Early Remission Opiates Status: Active Route Used: By Mouth - Travel History Recent Travel in the [place] Within the Last 8 Weeks: No Recent Travel Out of the Country Within the Last 8 Weeks: No - Immunization History Tetanus Immunization: Unable to Assess Hx Influenza Vaccine This Season: Unable to Assess Medications and Allergies Active Medications: Active Medications Al Hydroxide/Mg Hydroxide (Milk Of Sundeep Liabbe) 30 ml PO Q12H PRN PRN Reason: Mild Constipation Albuterol (Albuterol Neb (Prn)) 2.5 mg NEB Q2HR NEB PRN PRN Reason: SHORTNESS OF BREATH/WHEEZING Albuterol (Duoneb Neb (Alex)) 1 ampul NEB Q4HR NEB ALEX Last Admin: 03/31/18 11:22 Dose: 1 ampul Bisacodyl (Dulcolax Supp) 10 mg RECTAL DAILY PRN PRN Reason: SEVERE CONSITIPATION Chlorhexidine Gluconate (Peridex 0.12% Oral Kit) 15 ml OROPHARYNG BID@0800, 2000 [facility] Last Admin: 03/31/18 07:43 Dose: 15 ml Chlorhexidine Gluconate (Chlorhexidine 2% Cloth) 3 pack TOPICAL DAILY@0400 [facility] Stop: 04/04/18 03:59 Last Admin: 03/31/18 03:48 Dose: 3 pack Chlorhexidine Gluconate (Chlorhexidine 2% Cloth) 3 pack TOPICAL DAILY@0400 PRN PRN Reason: Extra cloth needed Stop: 04/04/18 03:59 Dextrose (D50w Vial) 50 ml IV.PUSH UNSCH PRN PRN Reason: PER HYPOGLYCEMIA PROTOCOL Fentanyl Citrate (Fentanyl Inj) 50 mcg IV PUSH Q1H PRN PRN Reason: Pain scale 6-10, &/or sedation Glucagon (Glucagon Inj) 1 mg OTHER PRN PRN PRN Reason: for Hypoglycemia Protocol Fentanyl (Fentanyl 10 Mcg/Ml Premix Drip) 2,500 mcg in 250 mls @ 5 mls/hr IV.SIG TITRATE PRN; Protocol PRN Reason: Per Protocol Last Titration: 03/29/18 06:02 Dose: 25 mcg/hr, 2.5 mls/hr Sodium Chloride (Ns Inj) 1,000 mls @ 0 mls/hr IV.SIG BOLUS [facility] Last Infusion: 03/31/18 07:43 Dose: Infused Sodium Chloride (Ns Inj) 1,000 mls @ 0 mls/hr IV.SIG BOLUS [facility] Last Infusion: 03/29/18 01:11 Dose: Infused Propofol (Diprivan 1000 Mg/100 Ml Inj) 1,000 mg in 100 mls @ 2.43 mls/hr IV.CONT TITRATE PRN; Protocol PRN Reason: Per Protocol Last Admin: 03/30/18 03:37 Dose: 5 mcg/kg/min, 2.43 mls/hr Sodium Chloride (Ns Inj) 1,000 mls @ 125 mls/hr IV.CONT .Q8H [facility] Last Admin: 03/31/18 06:40 Dose: 125 mls/hr Norepinephrine Bitartrate (Levophed-Dextrose 4 Mg/250 Ml Drip) 4 mg in 250 mls @ 7.5 mls/hr IV.SIG TITRATE PRN; Protocol PRN Reason: Per Protocol Last Titration: 03/31/18 07:43 Dose: 0 mcg/min, 0 mls/hr Acyclovir Sodium 700 mg/ (Sodium Chloride) 114 mls @ 114 mls/hr IV.SIG Q8H [facility] Last Infusion: 03/31/18 05:05 Dose: Infused Piperacillin/Tazobactam/Dextrose (Zosyn 2.25 Gm Premix) 50 mls @ 100 mls/hr IV.SIG Q6H [facility] Last Admin: 03/31/18 11:59 Dose: 100 mls/hr Levetiracetam 500 mg/ Sodium (Chloride) 105 mls @ 400 mls/hr IV.SIG Q12H [facility] Last Infusion: 03/31/18 11:31 Dose: Infused Fosphenytoin Sodium 100 mgpe/ (Sodium Chloride) 52 mls @ 208 mls/hr IV.SIG Q8H [facility] Last Infusion: 03/31/18 11:31 Dose: Infused Insulin Aspart (Novolog Insulin Correctional Sugar Inj) 0 unit SQ Q6HR [facility]; Protocol Last Admin: 03/31/18 07:42 Dose: Not Given Labetalol HCl (Trandate Inj) 10 mg IV.PUSH Q4H PRN PRN Reason: SBP >165 Lactulose (Lactulose Liq) 30 ml PO DAILY PRN PRN Reason: SEVERE CONSITIPATION Methylprednisolone Sodium Succinate (Solumedrol Inj) 60 mg IV.PUSH Q8H [facility] Last Admin: 03/31/18 06:36 Dose: 60 mg Miscellaneous Medication () 1 each OROPHARYNG 0000,0400,1200,1600 [facility] Last Admin: 03/31/18 11:59 Dose: 1 each Ondansetron HCl (Zofran Inj) 4 mg IV.PUSH Q6H PRN PRN Reason: NAUSEA OR VOMITING Pantoprazole Sodium (Protonix Inj) 40 mg IV.PUSH Q12H [facility] Last Admin: 03/31/18 11:59 Dose: 40 mg Senna/Docusate Sodium ([place]-Colace) 1 tab PO BID [facility] Last Admin: 03/31/18 10:45 Dose: Not Given Sennosides (Senokot) 17.2 mg PO Q12H PRN PRN Reason: Moderate Constipation Sodium Chloride (Ns Flush) 2 ml IV.FLUSH BID [facility] Last Admin: 03/31/18 10:45 Dose: 2 ml Sodium Chloride (Ns Flush) 2 ml IV.FLUSH PRN PRN PRN Reason: FLUSH AFTER USING IV ACCESS Terbutaline Sulfate (Brethine Inj) 1 mg SQ UNSCH PRN PRN Reason: For Extravasation Terbutaline Sulfate (Brethine Inj) 1 mg SQ ONCE PRN PRN Reason: Extravasation Allergies Allergy/AdvReac Type Severity Reaction Status Date / Time No Allergy Information Allergy Verified 03/29/18 00:03 Available Home Medications Medication Instructions Recorded Confirmed Type lorazepam 0.5 mg PO DIRECTED 03/29/18 03/29/18 History methadone 10 mg PO Q6H 03/29/18 03/29/18 History lorazepam 1 - 2 tab PO TID MDD 6 mg 03/31/18 03/31/18 History oxycodone TID PRN 03/31/18 History Advance Directives Living Will: No Healthcare Surrogate: No Power of Application Security Architect: No Physical Exam Vital Signs: Vital Signs - 24 hr 03/30/18 12:40 03/30/18 13:00 03/30/18 14:00 Temperature 98.5 F 98.0 F Pulse Rate 103 H 88 98 H Respiratory Rate 21 16 16 Blood Pressure 146/82 H 140/82 Pulse Oximetry 97 100 99 03/30/18 15:00 03/30/18 15:55 03/30/18 16:00 Temperature 99.0 F 98.9 F Pulse Rate 96 H 112 H 94 H Respiratory Rate 18 22 16 Blood Pressure 131/78 128/78 Pulse Oximetry 100 100 03/30/18 17:00 03/30/18 18:00 03/30/18 19:00 Temperature 99.0 F 99.1 F 98.6 F Pulse Rate 92 H 110 H 85 Respiratory Rate 32 H 19 18 Blood Pressure 166/86 H 120/63 146/65 H Pulse Oximetry 100 100 97 03/30/18 20:00 03/30/18 20:05 03/30/18 21:00 Temperature 98.6 F Pulse Rate 71 95 H 95 H Respiratory Rate 18 16 Blood Pressure 118/62 Pulse Oximetry 98 03/30/18 22:00 03/30/18 22:56 03/30/18 23:00 Temperature Pulse Rate 86 84 82 Respiratory Rate 15 Blood Pressure Pulse Oximetry 03/30/18 23:14 03/31/18 00:00 03/31/18 01:00 Temperature 99.1 F Pulse Rate 84 85 Respiratory Rate 16 17 Blood Pressure 143/82 H Pulse Oximetry 99 97 03/31/18 02:00 03/31/18 02:52 03/31/18 03:00 Temperature Pulse Rate 87 101 H 114 H Respiratory Rate 21 Blood Pressure Pulse Oximetry 03/31/18 04:00 03/31/18 05:00 03/31/18 06:00 Temperature 97.8 F Pulse Rate 86 110 H 100 H Respiratory Rate 16 Blood Pressure 117/63 Pulse Oximetry 98 03/31/18 09:01 03/31/18 09:06 03/31/18 11:23 Temperature Pulse Rate 107 H 93 H Respiratory Rate 21 19 23 Blood Pressure Pulse Oximetry 100 100 I&O: Intake & Output 03/29/18 03/30/18 03/31/18 04/01/18 06:59 06:59 06:59 06:59 Intake Total 2325 / 2325 2237 / 2237 3007.2 / 3007.2 1259.6 / 1259.6 Output Total 1000 / 1000 705 / 705 1130 / 1130 Balance 1325 / 1325 1532 / 1532 1877.2 / 1877.2 1259.6 / 1259.6 Weight 178 lb 9.191 oz 157 lb 3.033 oz 161 lb 9.581 oz Physical Exam: CONSTITUTIONAL/GENERAL: This is an obese patient, intubated, sedated, in no apparent distress. TUBES/LINES/DRAINS: Right femoral triple-lumen, PIV right upper arm, PIV left forearm, ETT, OGT, Watson. SKIN: No jaundice, rashes, or lesions. No wounds seen anteriorly. Skin temperature appropriate. Not diaphoretic. HEAD: Atraumatic. Normocephalic. EYES: Pupils equal and round and reactive. Extraocular motions intact. No scleral icterus. No injection or drainage. Fundi not examined. ENT: Hearing grossly normal. Nose without bleeding or purulent drainage. Orally intubated NECK: Trachea midline. Supple, nontender. No palpable thyroid enlargement or nodularity. CARDIOVASCULAR: Regular rate and rhythm without murmurs, gallops, or rubs. No JVD. Peripheral pulses symmetric. RESPIRATORY/CHEST: Symmetric, unlabored respirations. Clear to auscultation. Breath sounds equal bilaterally. No wheezes, rales, or rhonchi. GASTROINTESTINAL: Abdomen soft, non-tender, nondistended. No hepato-splenomegaly , or palpable masses. No guarding. Bowel sounds present. GENITOURINARY: Without palpable bladder distension. Watson catheter in place. MUSCULOSKELETAL: Extremities without clubbing or cyanosis, 1-2+ edema. No joint tenderness or effusion noted. No calf tenderness. No mottling or clubbing. LYMPHATICS: No palpable cervical or supraclavicular adenopathy. NEUROLOGICAL: Sedated, arousable to strong verbal/tactile stimuli. Withdraws to pain bilateral upper, left lower extremity and central stimuli. No response right lower extremity. PSYCHIATRIC: Sedated. . Diagnostic Tests Laboratory: Laboratory Results - last 72 hr 03/28/18 03/28/18 03/28/18 23:30 23:30 23:30 WBC 17.5 H RBC 6.03 H Hgb 15.3 Hct 49.3 H MCV 81.7 MCH 25.3 L MCHC 31.0 L RDW 18.8 H Plt Count 315 MPV 8.4 Neut % (Auto) 84.9 H Lymph % (Auto) 8.3 L Coleman % (Auto) 6.2 Eos % (Auto) 0.2 Baso % (Auto) 0.4 Neut # (Auto) 14.9 H Lymph # (Auto) 1.5 Coleman # (Auto) 1.1 H Eos # (Auto) 0.0 Baso # (Auto) 0.1 WBC Differential . Differential Comment Auto diff final PT 14.5 H INR 1.4 APTT 30.2 H Puncture Site Patient Temperature O2 Saturation ABG pH ABG pCO2 ABG pO2 ABG HCO3 ABG O2 Content ABG Base Excess ABG Methemoglobin Stu Test Hemoglobin Carboxyhemoglobin O2 Delivery Device Vent Setting Inspired O2 Critical Value Sodium 131 L Potassium 4.4 Chloride 94 L Carbon Dioxide 23.9 Anion Gap 13 BUN 35 H Creatinine 1.81 H Estimated GFR 24 L POC Glucose Random Glucose 116 H Lactic Acid Calcium 8.7 Magnesium Total Bilirubin 0.6 AST 51 H ALT 37 Alkaline Phosphatase 98 Ammonia Total Creatine Kinase 385 H CK-MB (CK-2) 13.6 H CK-MB (CK-2) % 3.5 Troponin I 0.04 Total Protein 7.5 Albumin 3.2 L TSH 8.810 H Free T4 Free T3 Urine Color Urine Clarity Urine pH Ur Specific [place] Urine Protein Urine Glucose (UA) Urine Ketones Urine Occult Blood Urine Nitrate Urine Bilirubin Urine Urobilinogen Ur Leukocyte Esterase Urine RBC Urine WBC Ur Squamous Epith Cells Urine Bacteria Hyaline Casts Urine Mucus Micro UA Comment Ur Microscopic Review Urine Culture Comments CSF Volume (1) CSF Supernat Color (1) CSF Gross Blood (1) CSF WBC (1) CSF RBC (1) CSF Volume (2) CSF Supernat Color (2) CSF Gross Blood (2) CSF WBC (2) CSF RBC (2) CSF Volume (3) CSF Supernat Color (3) CSF Gross Blood (3) CSF Volume (4) CSF Supernat Color (4) CSF Gross Blood (4) CSF Neutrophils % CSF Lymphocytes % CSF Monocytes % CSF Glucose CSF LDH CSF Total Protein Nasal Screen MRSA (PCR) Salicylates Acetaminophen Less than 2.0 L Phenytoin Serum Alcohol Less than 3 03/28/18 03/28/18 03/29/18 23:30 23:36 05:20 WBC RBC Hgb Hct MCV MCH MCHC RDW Plt Count MPV Neut % (Auto) Lymph % (Auto) Coleman % (Auto) Eos % (Auto) Baso % (Auto) Neut # (Auto) Lymph # (Auto) Coleman # (Auto) Eos # (Auto) Baso # (Auto) WBC Differential Differential Comment PT INR APTT Puncture Site Patient Temperature O2 Saturation ABG pH ABG pCO2 ABG pO2 ABG HCO3 ABG O2 Content ABG Base Excess ABG Methemoglobin Stu Test Hemoglobin Carboxyhemoglobin O2 Delivery Device Vent Setting Inspired O2 Critical Value Sodium Potassium Chloride Carbon Dioxide Anion Gap BUN Creatinine Estimated GFR POC Glucose Random Glucose Lactic Acid 1.1 Calcium Magnesium 2.1 Total Bilirubin AST ALT Alkaline Phosphatase Ammonia Total Creatine Kinase CK-MB (CK-2) CK-MB (CK-2) % Troponin I Total Protein Albumin TSH Free T4 1.22 Free T3 2.65 Urine Color Urine Clarity Urine pH Ur Specific [place] Urine Protein Urine Glucose (UA) Urine Ketones Urine Occult Blood Urine Nitrate Urine Bilirubin Urine Urobilinogen Ur Leukocyte Esterase Urine RBC Urine WBC Ur Squamous Epith Cells Urine Bacteria Hyaline Casts Urine Mucus Micro UA Comment Ur Microscopic Review Urine Culture Comments CSF Volume (1) CSF Supernat Color (1) CSF Gross Blood (1) CSF WBC (1) CSF RBC (1) CSF Volume (2) CSF Supernat Color (2) CSF Gross Blood (2) CSF WBC (2) CSF RBC (2) CSF Volume (3) CSF Supernat Color (3) CSF Gross Blood (3) CSF Volume (4) CSF Supernat Color (4) CSF Gross Blood (4) CSF Neutrophils % CSF Lymphocytes % CSF Monocytes % CSF Glucose CSF LDH CSF Total Protein Nasal Screen MRSA (PCR) Salicylates 2.5 L Acetaminophen Phenytoin Serum Alcohol 03/29/18 03/29/18 03/29/18 05:20 06:05 11:00 WBC RBC Hgb Hct MCV MCH MCHC RDW Plt Count MPV Neut % (Auto) Lymph % (Auto) Coleman % (Auto) Eos % (Auto) Baso % (Auto) Neut # (Auto) Lymph # (Auto) Coleman # (Auto) Eos # (Auto) Baso # (Auto) WBC Differential Differential Comment PT INR APTT Puncture Site Patient Temperature O2 Saturation ABG pH ABG pCO2 ABG pO2 ABG HCO3 ABG O2 Content ABG Base Excess ABG Methemoglobin Stu Test Hemoglobin Carboxyhemoglobin O2 Delivery Device Vent Setting Inspired O2 Critical Value Sodium Potassium Chloride Carbon Dioxide Anion Gap BUN Creatinine Estimated GFR POC Glucose Random Glucose Lactic Acid Calcium Magnesium Total Bilirubin AST ALT Alkaline Phosphatase Ammonia Less than 10 L Total Creatine Kinase CK-MB (CK-2) CK-MB (CK-2) % Troponin I Total Protein Albumin TSH Free T4 Free T3 Urine Color Yellow Urine Clarity Hazy H Urine pH 5.0 Ur Specific [place] 1.008 Urine Protein 30 H Urine Glucose (UA) Negative Urine Ketones Negative Urine Occult Blood Moderate H Urine Nitrate Negative Urine Bilirubin Negative Urine Urobilinogen Less than 2 Ur Leukocyte Esterase Negative Urine RBC Less than 1 Urine WBC 3 Ur Squamous Epith Cells 1 Urine Bacteria Rare H Hyaline Casts 5 Urine Mucus Few H Micro UA Comment Culture not ind Ur Microscopic Review Not Reportable Urine Culture Comments Culture not ind CSF Volume (1) CSF Supernat Color (1) CSF Gross Blood (1) CSF WBC (1) CSF RBC (1) CSF Volume (2) CSF Supernat Color (2) CSF Gross Blood (2) CSF WBC (2) CSF RBC (2) CSF Volume (3) CSF Supernat Color (3) CSF Gross Blood (3) CSF Volume (4) CSF Supernat Color (4) CSF Gross Blood (4) CSF Neutrophils % CSF Lymphocytes % CSF Monocytes % CSF Glucose CSF LDH CSF Total Protein Nasal Screen MRSA (PCR) Not detected Salicylates Acetaminophen Phenytoin Serum Alcohol 03/29/18 03/29/18 03/29/18 12:38 14:42 14:42 WBC RBC Hgb Hct MCV MCH MCHC RDW Plt Count MPV Neut % (Auto) Lymph % (Auto) Coleman % (Auto) Eos % (Auto) Baso % (Auto) Neut # (Auto) Lymph # (Auto) Coleman # (Auto) Eos # (Auto) Baso # (Auto) WBC Differential Differential Comment PT INR APTT Puncture Site Right brachial Patient Temperature 98.6 O2 Saturation 94 ABG pH 7.28 L* ABG pCO2 51 H* ABG pO2 92 ABG HCO3 24 ABG O2 Content 19.0 ABG Base Excess -2.1 L ABG Methemoglobin 1.1 Stu Test Hemoglobin 14.3 Carboxyhemoglobin 0.9 O2 Delivery Device Ventilator Vent Setting Inspired O2 60 Critical Value Yes Sodium Potassium Chloride Carbon Dioxide Anion Gap BUN Creatinine Estimated GFR POC Glucose Random Glucose Lactic Acid Calcium Magnesium Total Bilirubin AST ALT Alkaline Phosphatase Ammonia Total Creatine Kinase CK-MB (CK-2) CK-MB (CK-2) % Troponin I Total Protein Albumin TSH Free T4 Free T3 Urine Color Urine Clarity Urine pH Ur Specific [place] Urine Protein Urine Glucose (UA) Urine Ketones Urine Occult Blood Urine Nitrate Urine Bilirubin Urine Urobilinogen Ur Leukocyte Esterase Urine RBC Urine WBC Ur Squamous Epith Cells Urine Bacteria Hyaline Casts Urine Mucus Micro UA Comment Ur Microscopic Review Urine Culture Comments CSF Volume (1) CSF Supernat Color (1) CSF Gross Blood (1) CSF WBC (1) CSF RBC (1) CSF Volume (2) CSF Supernat Color (2) CSF Gross Blood (2) CSF WBC (2) CSF RBC (2) CSF Volume (3) CSF Supernat Color (3) CSF Gross Blood (3) CSF Volume (4) CSF Supernat Color (4) CSF Gross Blood (4) CSF Neutrophils % CSF Lymphocytes % CSF Monocytes % CSF Glucose 82 H CSF LDH 27 CSF Total Protein 47.2 H Nasal Screen MRSA (PCR) Salicylates Acetaminophen Phenytoin Serum Alcohol 03/29/18 03/29/18 03/29/18 14:42 14:42 14:45 WBC RBC Hgb Hct MCV MCH MCHC RDW Plt Count MPV Neut % (Auto) Lymph % (Auto) Coleman % (Auto) Eos % (Auto) Baso % (Auto) Neut # (Auto) Lymph # (Auto) Coleman # (Auto) Eos # (Auto) Baso # (Auto) WBC Differential Differential Comment PT INR APTT Puncture Site Patient Temperature O2 Saturation ABG pH ABG pCO2 ABG pO2 ABG HCO3 ABG O2 Content ABG Base Excess ABG Methemoglobin Stu Test Hemoglobin Carboxyhemoglobin O2 Delivery Device Vent Setting Inspired O2 Critical Value Sodium Potassium Chloride Carbon Dioxide Anion Gap BUN Creatinine Estimated GFR POC Glucose Random Glucose Lactic Acid Calcium Magnesium Total Bilirubin AST ALT Alkaline Phosphatase Ammonia Total Creatine Kinase CK-MB (CK-2) CK-MB (CK-2) % Troponin I Total Protein Albumin TSH Free T4 Free T3 Urine Color Urine Clarity Urine pH Ur Specific [place] Urine Protein Urine Glucose (UA) Urine Ketones Urine Occult Blood Urine Nitrate Urine Bilirubin Urine Urobilinogen Ur Leukocyte Esterase Urine RBC Urine WBC Ur Squamous Epith Cells Urine Bacteria Hyaline Casts Urine Mucus Micro UA Comment Ur Microscopic Review Urine Culture Comments CSF Volume (1) 2.0 CSF Supernat Color (1) Clear CSF Gross Blood (1) 0 CSF WBC (1) 8 CSF RBC (1) 41 H CSF Volume (2) 1.8 CSF Supernat Color (2) Clear CSF Gross Blood (2) 0 CSF WBC (2) 0 CSF RBC (2) 12 H CSF Volume (3) 2.0 CSF Supernat Color (3) Clear CSF Gross Blood (3) 1+ A CSF Volume (4) 2.7 CSF Supernat Color (4) Clear CSF Gross Blood (4) 2+ A CSF Neutrophils % 64 CSF Lymphocytes % 30 CSF Monocytes % 6 CSF Glucose CSF LDH CSF Total Protein Nasal Screen MRSA (PCR) Salicylates Acetaminophen Phenytoin 0.4 L Serum Alcohol 03/29/18 03/30/18 03/30/18 23:45 03:35 03:35 WBC 17.7 H RBC 5.47 H Hgb 14.2 Hct 43.6 MCV 79.7 L MCH 25.9 L MCHC 32.5 RDW 18.9 H Plt Count 283 MPV 8.2 Neut % (Auto) 96.7 H Lymph % (Auto) 2.3 L Coleman % (Auto) 0.8 Eos % (Auto) 0.1 Baso % (Auto) 0.1 Neut # (Auto) 17.1 H Lymph # (Auto) 0.4 L Coleman # (Auto) 0.1 Eos # (Auto) 0.0 Baso # (Auto) 0.0 WBC Differential . Differential Comment Auto diff final PT INR APTT Puncture Site Right radial Patient Temperature 98.6 O2 Saturation 97 ABG pH 7.25 L* ABG pCO2 52 H* ABG pO2 469 H ABG HCO3 22 ABG O2 Content 20.5 H ABG Base Excess -4.1 L ABG Methemoglobin 0.7 Stu Test Present Hemoglobin 14.2 Carboxyhemoglobin 2.1 O2 Delivery Device Ventilator Vent Setting Vac16/500/peep 5 Inspired O2 100 Critical Value Yes Sodium 139 Potassium 4.1 Chloride 104 D Carbon Dioxide 22.8 Anion Gap 12 BUN 12 Creatinine 1.18 H Estimated GFR 39 L POC Glucose Random Glucose 261 H D Lactic Acid Calcium 8.6 Magnesium Total Bilirubin 0.8 AST 50 H ALT 39 Alkaline Phosphatase 80 Ammonia Total Creatine Kinase CK-MB (CK-2) CK-MB (CK-2) % Troponin I Total Protein 7.1 Albumin 2.8 L TSH Free T4 Free T3 Urine Color Urine Clarity Urine pH Ur Specific [place] Urine Protein Urine Glucose (UA) Urine Ketones Urine Occult Blood Urine Nitrate Urine Bilirubin Urine Urobilinogen Ur Leukocyte Esterase Urine RBC Urine WBC Ur Squamous Epith Cells Urine Bacteria Hyaline Casts Urine Mucus Micro UA Comment Ur Microscopic Review Urine Culture Comments CSF Volume (1) CSF Supernat Color (1) CSF Gross Blood (1) CSF WBC (1) CSF RBC (1) CSF Volume (2) CSF Supernat Color (2) CSF Gross Blood (2) CSF WBC (2) CSF RBC (2) CSF Volume (3) CSF Supernat Color (3) CSF Gross Blood (3) CSF Volume (4) CSF Supernat Color (4) CSF Gross Blood (4) CSF Neutrophils % CSF Lymphocytes % CSF Monocytes % CSF Glucose CSF LDH CSF Total Protein Nasal Screen MRSA (PCR) Salicylates Acetaminophen Phenytoin Serum Alcohol 03/30/18 03/30/18 03/30/18 14:41 15:00 23:41 WBC RBC Hgb Hct MCV MCH MCHC RDW Plt Count MPV Neut % (Auto) Lymph % (Auto) Coleman % (Auto) Eos % (Auto) Baso % (Auto) Neut # (Auto) Lymph # (Auto) Coleman # (Auto) Eos # (Auto) Baso # (Auto) WBC Differential Differential Comment PT INR APTT Puncture Site Patient Temperature O2 Saturation ABG pH ABG pCO2 ABG pO2 ABG HCO3 ABG O2 Content ABG Base Excess ABG Methemoglobin Stu Test Hemoglobin Carboxyhemoglobin O2 Delivery Device Vent Setting Inspired O2 Critical Value Sodium Potassium Chloride Carbon Dioxide Anion Gap BUN Creatinine Estimated GFR POC Glucose 124 H 167 H Random Glucose Lactic Acid Calcium Magnesium Total Bilirubin AST ALT Alkaline Phosphatase Ammonia Total Creatine Kinase CK-MB (CK-2) CK-MB (CK-2) % Troponin I Total Protein Albumin TSH Free T4 Free T3 Urine Color Urine Clarity Urine pH Ur Specific [place] Urine Protein Urine Glucose (UA) Urine Ketones Urine Occult Blood Urine Nitrate Urine Bilirubin Urine Urobilinogen Ur Leukocyte Esterase Urine RBC Urine WBC Ur Squamous Epith Cells Urine Bacteria Hyaline Casts Urine Mucus Micro UA Comment Ur Microscopic Review Urine Culture Comments CSF Volume (1) CSF Supernat Color (1) CSF Gross Blood (1) CSF WBC (1) CSF RBC (1) CSF Volume (2) CSF Supernat Color (2) CSF Gross Blood (2) CSF WBC (2) CSF RBC (2) CSF Volume (3) CSF Supernat Color (3) CSF Gross Blood (3) CSF Volume (4) CSF Supernat Color (4) CSF Gross Blood (4) CSF Neutrophils % CSF Lymphocytes % CSF Monocytes % CSF Glucose CSF LDH CSF Total Protein Nasal Screen MRSA (PCR) Salicylates Acetaminophen Phenytoin 14.9 Serum Alcohol 03/31/18 03/31/18 03:29 06:11 WBC RBC Hgb Hct MCV MCH MCHC RDW Plt Count MPV Neut % (Auto) Lymph % (Auto) Coleman % (Auto) Eos % (Auto) Baso % (Auto) Neut # (Auto) Lymph # (Auto) Coleman # (Auto) Eos # (Auto) Baso # (Auto) WBC Differential Differential Comment PT INR APTT Puncture Site Patient Temperature O2 Saturation ABG pH ABG pCO2 ABG pO2 ABG HCO3 ABG O2 Content ABG Base Excess ABG Methemoglobin Stu Test Hemoglobin Carboxyhemoglobin O2 Delivery Device Vent Setting Inspired O2 Critical Value Sodium Potassium Chloride Carbon Dioxide Anion Gap BUN Creatinine Estimated GFR POC Glucose 137 H Random Glucose Lactic Acid Calcium Magnesium Total Bilirubin AST ALT Alkaline Phosphatase Ammonia Total Creatine Kinase CK-MB (CK-2) CK-MB (CK-2) % Troponin I Total Protein Albumin TSH Free T4 Free T3 Urine Color Urine Clarity Urine pH Ur Specific [place] Urine Protein Urine Glucose (UA) Urine Ketones Urine Occult Blood Urine Nitrate Urine Bilirubin Urine Urobilinogen Ur Leukocyte Esterase Urine RBC Urine WBC Ur Squamous Epith Cells Urine Bacteria Hyaline Casts Urine Mucus Micro UA Comment Ur Microscopic Review Urine Culture Comments CSF Volume (1) CSF Supernat Color (1) CSF Gross Blood (1) CSF WBC (1) CSF RBC (1) CSF Volume (2) CSF Supernat Color (2) CSF Gross Blood (2) CSF WBC (2) CSF RBC (2) CSF Volume (3) CSF Supernat Color (3) CSF Gross Blood (3) CSF Volume (4) CSF Supernat Color (4) CSF Gross Blood (4) CSF Neutrophils % CSF Lymphocytes % CSF Monocytes % CSF Glucose CSF LDH CSF Total Protein Nasal Screen MRSA (PCR) Salicylates Acetaminophen Phenytoin 18.1 Serum Alcohol Result Diagrams: 04/04/18 03:46 04/04/18 03:46 Microbiology: Microbiology 03/30/18 21:45 Gram Stain - Final Sputum - Endotracheal 03/29/18 06:05 Aerobic Blood Culture - Preliminary Blood - Peripheral No growth in 2 days Anaerobic Blood Culture - Preliminary No growth in 2 days 03/29/18 06:00 Aerobic Blood Culture - Preliminary Blood - Peripheral No growth in 2 days Anaerobic Blood Culture - Preliminary No growth in 2 days 03/29/18 14:42 Gram Stain - Final Lumbar Puncture CSF Culture - Preliminary No growth in 48 hours Imaging: Chest X-Ray 03/28/18 22:52 CONCLUSION: ET tube and NG tube in good position. Head CT 03/29/18 00:00 CONCLUSION: Negative noncontrast head CT. . Head MRI 03/29/18 13:31 CONCLUSION: 1. No acute intracranial abnormality identified. 2. Fluid within the mastoid air cells on the right. Chest X-Ray 03/30/18 05:38 CONCLUSION: Minimal prominence of interstitium which may represent pulmonary venous hypertension or minimal edema. Procedures: 03/28: Intubation 03/28: Right femoral triple-lumen central line placed 03/29: Diagnostic lumbar puncture Patient/Family Conference Present at Family Conference: Spoke with her sister, Sushma Almodovar via telephone. She initially stated that she was the legal decision maker for her sister, but then revealed that her healthcare surrogate had never been signed. Reviewed advanced directives with [facility], who confirms that there are no legal advance directives completed to include healthcare surrogate, living will or DNR. Sister states that while her sister is legally , she has 2 sons from her previous marriages, Tray Coto and Guerrero Lynne. Telephone contact number was received for Tray, however no number has been found for jeremie. Attempted to contact Tray, however there was no answer and voicemail was not yet set up to leave a message. Attempting to contact through social media. Her sister provided much of the social and psychosocial history and will plan to meet with palliative care later today. Reviewed palliative care purpose and focus as well as the below listed items. Ms. Almodovar is attempting to assist in contact of her nephews to facilitate decision-making, however is willing to participate as the decision-maker if the 2 sons cannot be located. . Family Conference Location: Telephone Issues Discussed: * Palliative care role, purpose, approach * Additional medical, psychosocial, and spiritual history * Patients general health, functional status, and cognitive changes in the months leading up to the current hospitalization * Patient/family understanding of the current medical problems * Patient/family understanding of prognosis * Patients goals of care as best understood from advance directives and/or conversations and/or values * Current medical treatment options and benefits/burdens of those options * Likely scenarios comparing ongoing aggressive care with a transition to comfort measures only * Questions answered to the best of my ability * Palliative care contact information provided Assessment and Plan Pertinent Non-Medical Issues: Psychosocial: She was born in [facility] and moved to [place] 20 years ago. 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 She has been and twice, but has been with her current significant other for over 18 years. Spiritual: Not an important concept to the patient. Legal: No advance directives. Ethical issues impacting care: Difficulty contacting proxy decision makers. . Important Contacts: Son: Tray Coto Son: Guerrero Zimmerman Sister: Sushma Almodovar Life partner: Randy Hastings Prognosis: Her prognosis is guarded. She was previously enrolled in hospice with [facility] for an end-stage diagnosis of COPD with acute lower respiratory infection. While this cannot be confirmed, it is also suspected that she had some level of chronic pain as she was on both methadone and oxycodone. At this time she was found down, cyanotic, discolored, reportedly without respirations with emesis blocking the airway until resuscitated by EMS. Neurology opines that she may have an anoxic/hypoxic/ischemic brain injury but this will not be able to be confirmed until sedation can be stopped. Unable to accurately prognosticate at this time. . Code Status: Full Code (By default) Plan: PLAN: Legal decision maker: Patient is currently not capacitated to make her own decisions and does not have a valid healthcare surrogate that we can locate. Per [place] statutes, as she is legally and has 2 sons, her sons would be the first tier healthcare proxy decision-maker. Attempts are in progress to locate both sons. If they cannot be located, patient does have a sister, Sushma who is readily available and willing to serve. As both parents are , be the alternate decision-maker if the sons cannot be contacted. Goals: Aggressive by default. CODE STATUS: FULL CODE SYMPTOMS: * Encephalopathy: At this time she remains encephalopathic undergoing EEGs per neurology and vent weaning as tolerated. She remains on sedation at this time for vent synchrony. Encephalopathy may be multifactorial to include hypoxic/an anoxic injury, drug overdose or progressive medical condition. 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 No further recommendations at this time * Seizures: She is prophylactically being treated with acyclovir pending receipt of HCV test and is additionally receiving fosphenytoin every 8 hours, Keppra 500 mg every 12 hours. Titration per neurology. SUMMARY This is a 62-year-old female previously on [facility] that was found unresponsive by family, reportedly with a pulse but not breathing. She was resuscitated on scene were 2 empty medicine bottles were seen with methadone and Ativan prescribed. She also reportedly had been given 18 tablets of 15 mg oxycodone the same day as her drug overdose. The location of those pills is unverified. There is some question as to whether she may have sustained a hypoxic or anoxic injury. We continue to attempt to locate family members for decision-making. She remains a full code by default. Palliative care will continue to follow the patient during hospital course as condition evolves, to assist patient/decision-maker with understanding of their medical conditions, weighing benefits/burdens of treatment options, for clarification of goals of treatment. Additionally will assist with any symptoms of palliative concern. . Appreciation Thank you for the opportunity to participate in the care of Antonina Coto. Attestation Attestation: To help prompt me to consider important information that might be impacting today's encounter and assessment, information from prior notes written by myself or my colleagues may have been "brought forward" into today's note. My signature on this note, however, is an attestation that I personally performed the exam, history, and/or decision-making noted today, and, unless otherwise indicated, the interactions with patient, family, and staff as well as the review of records all occurred today. I also attest that the listed assessment and stated plan reflect my best clinical judgment today based on the combination of historical information, prior notes, and today's exam/ interactions. When time spent is documented, it refers only to time spent today by the signer, or if indicated, combined time spent today by collaborating physician/nurse practitioner. .
[2018-03-31] MEDS: fentaNYL 10 mcg/mL Premix Drip 2,500 MCG/250 ML BAG IV.SIG PRN (14:58)
[2018-04-01] MEDS: Insulin NovoLOG Aspart Correctional Sugar Inj SQ SCH ×4 (00:23→18:46)
[2018-04-01] MEDS: Oral Hygiene Kit OROPHARYNG SCH ×4 (00:24→17:28)
[2018-04-01] MEDS: Pantoprazole Inj 40 MG Vial IV.PUSH SCH ×2 (00:35→11:31)
[2018-04-01] MEDS: Piperacil/Tazo 2.25 GM Premix 50 ML IV.SIG SCH ×4 (00:35→17:28)
[2018-04-01] MEDS: Fosphenytoin Inj 100 MGPE in Sodium Chlor 0.9% Inj 50 ML IV.SIG SCH ×3 (00:37→17:34)
[2018-04-01 04:42] LABS: Calcium 8.7 mg/dL (8.5-10.1); Carbon Dioxide 28.1 meq/L (21.0-32.0); Phenytoin (Dilantin) 15.9 mcg/mL (10.0-20.0)
[2018-04-01] MEDS: Propofol 1000 mg/100 ml Inj 1,000 MG/100 ML BOTTLE IV.CONT PRN ×3 (06:33→21:29)
[2018-04-01] MEDS: MethylPREDNISolone Sod Succinate Inj 125 MG/2 ML Vial IV.PUSH SCH ×3 (06:35→21:28)
[2018-04-01] MEDS: Chlorhexidine Gluconate 2% 1 Pack (2 Cloths) TOPICAL SCH (06:36)
[2018-04-01] MEDS: fentaNYL Citrate Inj 100 MCG/2 ML Ampul IV PUSH PRN (06:37)
[2018-04-01] MEDS: Sod Chloride 0.9% Inj 1,000 ML IV.CONT SCH ×3 (06:43→21:29)
[2018-04-01] MEDS: Acyclovir Inj 700 MG in Sodium Chlor 0.9% Inj 100 ML IV.SIG SCH ×3 (06:43→21:28)
--- NOTE | 2018-04-01 09:08 | P.PNCC ---
Subjective Subjective Remarks/Hospital Course: 62-year-old female. She was found unresponsive. She had an empty bottle of 9 methadone 10 mg tablets and 18 Ativan 0.5 mg tablets. Apparently CPR was initiated per family. Family provided [facility]AC with information that patient is on hospice and has a history of diabetes, COPD, neuropathy, no advanced directives. When EVAC arrived she had a pulse but agonal respirations. She was administered Narcan 2 mg IV without improvement. Upon arrival to the ED she was not protecting her airway, pooling secretions in her mouth. She was intubated upon arrival. Her systolic blood pressure was in the 80s. She was administered 2 L normal saline bolus, right femoral line was placed and she was started on Levophed. Family has not arrived at the hospital and there is no available contact information. She is registered as a Amina Kebede. The prescription bottles say Antonina Coto. That individual has not been admitted since 2007. 03/30: Seizure activity appears to be controlled with Dilantin. She remains stuporous and we are unable to wean from the ventilator. Ongoing attempts to find out her true identity. 03/31: Will attempt spontaneous breathing trial again today. Late yesterday and early today she has had more episodes of spontaneous eye opening though she does not appear to track. Cerebrospinal fluid appears benign. No growth on culture after 48 hours. Bronchospasm responded quite well to steroids, will continue through extubation. 04/01: Fairly strong on spontaneous breathing trials today. We will discontinue all sedation, watch closely for seizure activity, and attempt to get her extubated. Subjective 04/02 -currently resting in bed in no acute distress. Eyes are rolled back. Currently on fentanyl drip at 150 mg/h and propofol drip at 25 mcg/kg/min. Starting dexmedetomidine drip and attempt to wean. Fosphenytoin decreased per neurology today. Strength 2 feeds today. No bowel movement. Objective Vital Signs / I&O: Vital Signs 03/31/18 09:06 03/31/18 11:23 03/31/18 12:00 Temperature Pulse Rate 107 H 93 H 71 Respiratory Rate 19 23 Blood Pressure 118/62 Pulse Oximetry 100 03/31/18 15:52 03/31/18 16:00 03/31/18 16:11 Temperature 99.2 F Pulse Rate 82 71 87 Respiratory Rate 21 15 Blood Pressure 118/62 148/81 H Pulse Oximetry 100 100 03/31/18 16:13 03/31/18 20:00 03/31/18 20:24 Temperature 98.0 F Pulse Rate 71 Respiratory Rate 16 15 15 Blood Pressure 157/94 H Pulse Oximetry 99 98 03/31/18 20:28 04/01/18 00:00 04/01/18 00:46 Temperature 98.3 F Pulse Rate 87 79 81 Respiratory Rate 15 16 18 Blood Pressure 142/83 H Pulse Oximetry 100 100 04/01/18 04:00 04/01/18 04:33 04/01/18 07:31 Temperature 98.5 F Pulse Rate 72 60 Respiratory Rate 19 16 14 Blood Pressure 146/86 H Pulse Oximetry 98 99 99 04/01/18 07:35 04/01/18 08:00 Temperature 98.5 F Pulse Rate 72 87 Respiratory Rate 14 22 Blood Pressure 166/91 H Pulse Oximetry 97 Intake & Output 03/31/18 04/01/18 04/01/18 18:59 06:59 18:59 Intake Total 2630.6 / 2630.6 1416 / 1416 50 / 50 Output Total 1500 / 1500 1800 / 1800 Balance 1130.6 / 1130.6 -384 / -384 50 / 50 Weight 73.3 kg Intake: IV 2630.6 / 2630.6 1416 / 1416 50 / 50 Diprivan 1000 mg/100 ml Inj 1, 0 / 0 100 / 100 000 mg In 100 ml @ 5 MCG/KG/MIN 2.43 mls/hr IV.CONT TITRATE PRN Rx#:[id number] NS Inj 1,000 ML @ 125 mls/hr IV 1000 / 1000 1000 / 1000 .CONT .Q8H DEBORAH Rx#:[id number] Zovirax Inj 700 MG In NS Inj 114 / 114 114 / 114 100 ML @ 114 mls/hr IV.SIG Q8H DEBORAH Rx#:[id number] Cerebyx Inj 100 MGPE In NS Inj 156.6 / 156.6 52 / 52 50 ML @ 208 mls/hr IV.SIG Q8H DEBORAH Rx#:[id number] Levophed-Dextrose 4 mg/250 ml 0 / 0 Drip 4 mg In 250 ml @ 2 MCG/MIN 7.5 mls/hr IV.SIG TITRATE PRN Rx#:[id number] Zosyn 2.25 GM Premix 50 ML @ 150 / 150 50 / 50 50 / 50 100 mls/hr IV.SIG Q6H DEBORAH Rx#: [id number] NS Inj 1,000 ML @ Wide Open IV. 1000 / 1000 SIG BOLUS DEBORAH Rx#:[id number] fentaNYL 10 mcg/mL Premix Drip 0 / 0 2,500 mcg In 250 ml @ 50 MCG/HR 5 mls/hr IV.SIG TITRATE PRN Rx #:[id number] Keppra Inj 500 MG In NS Inj 100 210 / 210 100 / 100 ML @ 400 mls/hr IV.SIG Q12H DEBORAH Rx#:[id number] Output: Urine Amount (Catheter) 1250 / 1250 1600 / 1600 Indwelling Urethral Catheter 1250 / 1250 1600 / 1600 Gastric Drainage 250 / 250 200 / 200 Oral Orogastric Tube 250 / 250 200 / 200 Other: # Bowel Movements 0 Result Diagrams: 03/30/18 03:35 04/02/18 04:44 Other Results: Microbiology 03/29/18 06:05 Blood - Peripheral Aerobic Blood Culture - Preliminary No growth in 4 days 03/29/18 06:05 Blood - Peripheral Anaerobic Blood Culture - Preliminary No growth in 4 days 03/29/18 06:00 Blood - Peripheral Aerobic Blood Culture - Preliminary No growth in 4 days 03/29/18 06:00 Blood - Peripheral Anaerobic Blood Culture - Preliminary No growth in 4 days 03/30/18 21:45 Sputum - Endotracheal Gram Stain - Final 03/30/18 21:45 Sputum - Endotracheal Sputum Culture - Final Moderate growth normal respiratory erick 03/29/18 14:42 Lumbar Puncture Gram Stain - Final 03/29/18 14:42 Lumbar Puncture CSF Culture - Final No growth in 72 hours Imaging: Chest X-Ray 03/28/18 22:52 CONCLUSION: ET tube and NG tube in good position. Head CT 03/29/18 00:00 CONCLUSION: Negative noncontrast head CT. . Head MRI 03/29/18 13:31 CONCLUSION: 1. No acute intracranial abnormality identified. 2. Fluid within the mastoid air cells on the right. Chest X-Ray 03/30/18 05:38 CONCLUSION: Minimal prominence of interstitium which may represent pulmonary venous hypertension or minimal edema. Objective Remarks: GENERAL: 62-year-old female currently orotracheally intubated with OG tube in place SKIN: Warm and dry. Ulceration over the lateral aspect of the first left toe. HEAD: Atraumatic. Normocephalic. EYES: Pupils equal and round, around 1-2 mm bilaterally and sluggish. ENT: No nasal bleeding or discharge. NECK: Trachea midline. Orotracheal intubation. CARDIOVASCULAR: RRR. S1, S2 no S4. Without murmur RESPIRATORY: Diminished breath sounds bilaterally. Minimal end expiratory wheeze. GASTROINTESTINAL: Abdomen soft, non-tender, nondistended. Bowel sounds present. No guarding. MUSCULOSKELETAL: Extremities without significant peripheral edema. No obvious deformities. NEUROLOGICAL: Spontaneous eye opening and to central noxious stimuli.. Currently sedated on fentanyl and propofol drips without myoclonic jerking currently Assessment and Plan - Assessment and Plan Plan: NEURO/PSYCH: Likely acute hypoxic ischemic encephalopathy Opioid overdose Benzodiazepine overdose Currently on propofol drip at 25 mcg/kg/min and fentanyl drips at 150 mg an hour for sedation/analgesia while intubated Goal of RA SS -2 Daily sedation vacation Start dexmedetomidine drip and attempt to wean off sedatives as above Will likely need chronic narcotics due to history of methadone and oxycodone use MRI brain revealed right-sided mastoiditis otherwise no acute intercranial findings EEG Followed by neurology. Currently on levetiracetam 500 IV twice daily and fosphenytoin 80 mg every 8 hours. Level was 14 today. Recheck in a.m. RESP: Acute hypercapneic respiratory failure COPD Intubated in the emergency department as not protecting airway, copious respiratory secretions. Chest x-ray clear with satisfactory endotracheal tube position. DuoNeb every 4 hours. Albuterol every 2 hours as needed. Severe bronchospasm now resolved, have added bolus and maintenance dose steroids CV: Shock may be secondary to medication effect vs. SIRS/sepsis Received 2 L normal saline bolus. Continue 0.9 NaCl at 125 mL/h. Norepinephrine to maintain mean arterial pressure greater than 65. Obtain EKG to evaluate for QTC prolongation which may result from methadone overdose. Remains normotensive. GI: OGT FEN/RENAL: Watson was inserted in the emergency department. Monitor intake and output hourly. Monitor electrolytes and replace as indicated per ICU electrolyte replacement protocol. Convert to [employer] ID: Leukocytosis Sepsis -likely secondary to aspiration. Received Zosyn and vancomycin in the emergency department. We will continue Zosyn for now. Obtain sputum culture, blood culture, UA/culture. HEME: No acute hematologic issues ENDO: Euglycemic. Family reported history of diabetes mellitus. Will monitor glucose. TSH elevated, follow-up T3 and T4. Unknown thyroid history. PROPH: SCDs for DVT prophylaxis. Heparin subcu for DVT prophylaxis if CT brain negative. Protonix 40 mg IV daily for stress ulcer prophylaxis. Overall impression: This woman arrived critically ill with unstable neurologic status and nonconvulsive seizures documented with the EEG. Initially her bronchospasm was overwhelming but she is much better controlled on steroids and we may be able to get her extubated.
[2018-04-01] MEDS: Senna/Docusate Sodium 8.6/50 MG Tablet PO SCH ×2 (10:01→21:11)
[2018-04-01] MEDS: Chlorhexidine 0.12% Oral Kit 15 ML UDC OROPHARYNG SCH ×2 (10:01→21:12)
--- NOTE | 2018-04-01 10:59 | P.PNPAL ---
Reason for Visit Reason for visit: a. To assist with evaluation and management of symptoms including: Encephalopathy, seizures b. To assist medical decision maker(s) with: better understanding of current medical conditions; weighing benefits/burdens of medical treatment options; making medical treatment decisions. Subjective Subjective/Interval History: Follow-up medically necessary for clarification of goals and provision of medical update to patient's family. Patient seen and examined in her room on [facility]. Patient remains intubated on mechanical ventilation. Sedation has been discontinued approximately a couple of hours from time of examination. Patient opening eyes to noxious stimulation but not tracking and only sustained eye opening for less than a minute. Patient is not following simple commands and slightly withdrawing to noxious stimulation with bilateral upper extremities. No response noted to bilateral lower extremities. Patient currently on spontaneous breathing trials and appears to be tolerating that. FiO2 currently 35. O2 saturation high 90s. Lumbar puncture CSF HSV negative for herpes 1 DNA and herpes to DNA. Remains afebrile, slightly hypertensive. Telephone call placed to patient's son Tray Coto , to provide him with a medical update-no response and unable to leave a voice message. Telephone conversation with patient's Sister Sushma Almodovar, provided her with a medical update and expressed concern that patient has not been more awake since sedation has been discontinued. Anticipatory guidance provided regarding spontaneous breathing trials and expectations. Patient's sister reiterates that Tray Coto (Health care proxy) has stated that he wants everything medically possible to be done to keep his mother alive including reintubation in case of respiratory failure after medically extubating patient. Patient`s sister Sushma is supportive of patient`s anisa Feliz decision, though she verbalizes understanding that patient may have possibly suffered anoxic/ hypoxic/ischemic brain injury. Patient`s sister appreciative of the update and stated that she will convey medical update to Tary. Case discussed with bedside RN. . Family/Friend Interactions: See interval note. . Advance Directives Living Will: Never completed Health Care Surrogate: Never completed Durable Power of Geotechnical Intern: Never completed Health Care Surrogate Name and Number: HCP: Tray Robb and Guerrero Zimmerman Objective Vital Signs: Vital Signs 03/31/18 11:23 03/31/18 12:00 03/31/18 15:52 Temperature Pulse Rate 93 H 71 82 Respiratory Rate 23 21 Blood Pressure 118/62 Pulse Oximetry 100 100 10/01/18 16:00 03/31/18 16:11 03/31/18 16:13 Temperature 99.2 F Pulse Rate 71 87 Respiratory Rate 15 16 Blood Pressure 118/62 148/81 H Pulse Oximetry 100 03/31/18 20:00 03/31/18 20:24 03/31/18 20:28 Temperature 98.0 F Pulse Rate 71 87 Respiratory Rate 15 15 15 Blood Pressure 157/94 H Pulse Oximetry 99 98 04/01/18 00:00 04/01/18 00:46 04/01/18 04:00 Temperature 98.3 F 98.5 F Pulse Rate 79 81 72 Respiratory Rate 16 18 19 Blood Pressure 142/83 H 146/86 H Pulse Oximetry 100 100 98 04/01/18 04:33 04/01/18 07:31 04/01/18 07:35 Temperature Pulse Rate 60 72 Respiratory Rate 16 14 14 Blood Pressure Pulse Oximetry 99 99 04/01/18 08:00 Temperature 98.5 F Pulse Rate 87 Respiratory Rate 22 Blood Pressure 166/91 H Pulse Oximetry 97 Intake & Output 03/31/18 04/01/18 04/01/18 18:59 06:59 18:59 Intake Total 2630.6 / 2630.6 1416 / 1416 164 / 164 Output Total 1500 / 1500 1800 / 1800 Balance 1130.6 / 1130.6 -384 / -384 164 / 164 Weight 73.3 kg Intake: IV 2630.6 / 2630.6 1416 / 1416 164 / 164 Diprivan 1000 mg/100 ml Inj 1, 0 / 0 100 / 100 000 mg In 100 ml @ 5 MCG/KG/MIN 2.43 mls/hr IV.CONT TITRATE PRN Rx#:[id number] NS Inj 1,000 ML @ 125 mls/hr IV 1000 / 1000 1000 / 1000 .CONT .Q8H DEBORAH Rx#:[id number] Zovirax Inj 700 MG In NS Inj 114 / 114 114 / 114 114 / 114 100 ML @ 114 mls/hr IV.SIG Q8H DEBORAH Rx#:[id number] Cerebyx Inj 100 MGPE In NS Inj 156.6 / 156.6 52 / 52 50 ML @ 208 mls/hr IV.SIG Q8H DEBORAH Rx#:[id number] Levophed-Dextrose 4 mg/250 ml 0 / 0 Drip 4 mg In 250 ml @ 2 MCG/MIN 7.5 mls/hr IV.SIG TITRATE PRN Rx#:[id number] Zosyn 2.25 GM Premix 50 ML @ 150 / 150 50 / 50 50 / 50 100 mls/hr IV.SIG Q6H DEBORAH Rx#: [id number] NS Inj 1,000 ML @ Wide Open IV. 1000 / 1000 SIG BOLUS DEBORAH Rx#:[id number] fentaNYL 10 mcg/mL Premix Drip 0 / 0 2,500 mcg In 250 ml @ 50 MCG/HR 5 mls/hr IV.SIG TITRATE PRN Rx #:[id number] Keppra Inj 500 MG In NS Inj 100 210 / 210 100 / 100 ML @ 400 mls/hr IV.SIG Q12H DEBORAH Rx#:[id number] Output: Urine Amount (Catheter) 1250 / 1250 1600 / 1600 Indwelling Urethral Catheter 1250 / 1250 1600 / 1600 Gastric Drainage 250 / 250 200 / 200 Oral Orogastric Tube 250 / 250 200 / 200 Other: # Bowel Movements 0 Physical Exam: CONSTITUTIONAL/GENERAL: This is an obese patient, intubated, sedated, in no apparent distress. TUBES/LINES/DRAINS: Right femoral triple-lumen, PIV right upper arm, PIV left forearm, ETT, OGT, Watson. BUE soft restraints SKIN: No jaundice, rashes, or lesions. No wounds seen anteriorly. Skin temperature appropriate. Not diaphoretic. HEAD: Atraumatic. Normocephalic. EYES: Pupils 3mm, round and reactive to light. No tracking. Fundi not examined. ENT: Unable to assess hearing. Not following simple commands. No nasal drainage or bleeding. Orotracheally intubated NECK: Trachea midline. Supple, nontender. CARDIOVASCULAR: Regular rate and rhythm without murmurs, gallops, or rubs. No JVD. Peripheral pulses symmetric. RESPIRATORY/CHEST: Symmetric, unlabored respirations. Breath sounds equal bilaterally. Rhonchi to auscultation. No wheezes, rales. GASTROINTESTINAL: Abdomen soft, non-tender, nondistended. No guarding. Bowel sounds present.Orogastric tube to LIWS GENITOURINARY: Without palpable bladder distension. Watson catheter in place. MUSCULOSKELETAL: Extremities without clubbing or cyanosis, 1-2+ edema. No joint tenderness or effusion noted. No calf tenderness. No mottling or clubbing. NEUROLOGICAL: Intubated with no sedation. Not following simple commands. Currently withdrawing to noxius stimulation with BUE. No response BLE. PSYCHIATRIC: Intubated with no sedation. Currently calm, no agitation. . Diagnostic Tests Laboratory: Laboratory Results - last 72 hr 03/29/18 03/29/18 03/29/18 11:00 12:38 14:42 WBC RBC Hgb Hct MCV MCH MCHC RDW Plt Count MPV Neut % (Auto) Lymph % (Auto) Bureau % (Auto) Eos % (Auto) Baso % (Auto) Neut # (Auto) Lymph # (Auto) Bureau # (Auto) Eos # (Auto) Baso # (Auto) WBC Differential Differential Comment Puncture Site Right brachial Patient Temperature 98.6 O2 Saturation 94 ABG pH 7.28 L* ABG pCO2 51 H* ABG pO2 92 ABG HCO3 24 ABG O2 Content 19.0 ABG Base Excess -2.1 L ABG Methemoglobin 1.1 Hemoglobin 14.3 Carboxyhemoglobin 0.9 O2 Delivery Device Ventilator Vent Setting Inspired O2 60 Critical Value Yes Sodium Potassium Chloride Carbon Dioxide Anion Gap BUN Creatinine Estimated GFR POC Glucose Random Glucose Calcium Total Bilirubin AST ALT Alkaline Phosphatase Total Protein Albumin CSF Volume (1) CSF Supernat Color (1) CSF Gross Blood (1) CSF WBC (1) CSF RBC (1) CSF Volume (2) CSF Supernat Color (2) CSF Gross Blood (2) CSF WBC (2) CSF RBC (2) CSF Volume (3) CSF Supernat Color (3) CSF Gross Blood (3) CSF Volume (4) CSF Supernat Color (4) CSF Gross Blood (4) CSF Neutrophils % CSF Lymphocytes % CSF Monocytes % CSF Glucose 82 H CSF LDH CSF Total Protein CSF Herpes I DNA (PCR) CSF Herpes II DNA (PCR) Nasal Screen MRSA (PCR) Not detected Phenytoin 03/29/18 03/29/18 03/29/18 14:42 14:42 14:42 WBC RBC Hgb Hct MCV MCH MCHC RDW Plt Count MPV Neut % (Auto) Lymph % (Auto) Bureau % (Auto) Eos % (Auto) Baso % (Auto) Neut # (Auto) Lymph # (Auto) Bureau # (Auto) Eos # (Auto) Baso # (Auto) WBC Differential Differential Comment Puncture Site Patient Temperature O2 Saturation ABG pH ABG pCO2 ABG pO2 ABG HCO3 ABG O2 Content ABG Base Excess ABG Methemoglobin Hemoglobin Carboxyhemoglobin O2 Delivery Device Vent Setting Inspired O2 Critical Value Sodium Potassium Chloride Carbon Dioxide Anion Gap BUN Creatinine Estimated GFR POC Glucose Random Glucose Calcium Total Bilirubin AST ALT Alkaline Phosphatase Total Protein Albumin CSF Volume (1) CSF Supernat Color (1) CSF Gross Blood (1) CSF WBC (1) CSF RBC (1) CSF Volume (2) CSF Supernat Color (2) CSF Gross Blood (2) CSF WBC (2) 0 CSF RBC (2) 12 H CSF Volume (3) CSF Supernat Color (3) CSF Gross Blood (3) CSF Volume (4) CSF Supernat Color (4) CSF Gross Blood (4) CSF Neutrophils % CSF Lymphocytes % CSF Monocytes % CSF Glucose CSF LDH 27 CSF Total Protein 47.2 H CSF Herpes I DNA (PCR) Negative CSF Herpes II DNA (PCR) Negative Nasal Screen MRSA (PCR) Phenytoin 03/29/18 03/29/18 03/30/18 14:42 14:45 03:35 WBC 17.7 H RBC 5.47 H Hgb 14.2 Hct 43.6 MCV 79.7 L MCH 25.9 L MCHC 32.5 RDW 18.9 H Plt Count 283 MPV 8.2 Neut % (Auto) 96.7 H Lymph % (Auto) 2.3 L Bureau % (Auto) 0.8 Eos % (Auto) 0.1 Baso % (Auto) 0.1 Neut # (Auto) 17.1 H Lymph # (Auto) 0.4 L Bureau # (Auto) 0.1 Eos # (Auto) 0.0 Baso # (Auto) 0.0 WBC Differential . Differential Comment Auto diff final Puncture Site Patient Temperature O2 Saturation ABG pH ABG pCO2 ABG pO2 ABG HCO3 ABG O2 Content ABG Base Excess ABG Methemoglobin Hemoglobin Carboxyhemoglobin O2 Delivery Device Vent Setting Inspired O2 Critical Value Sodium Potassium Chloride Carbon Dioxide Anion Gap BUN Creatinine Estimated GFR POC Glucose Random Glucose Calcium Total Bilirubin AST ALT Alkaline Phosphatase Total Protein Albumin CSF Volume (1) 2.0 CSF Supernat Color (1) Clear CSF Gross Blood (1) 0 CSF WBC (1) 8 CSF RBC (1) 41 H CSF Volume (2) 1.8 CSF Supernat Color (2) Clear CSF Gross Blood (2) 0 CSF WBC (2) CSF RBC (2) CSF Volume (3) 2.0 CSF Supernat Color (3) Clear CSF Gross Blood (3) 1+ A CSF Volume (4) 2.7 CSF Supernat Color (4) Clear CSF Gross Blood (4) 2+ A CSF Neutrophils % 64 CSF Lymphocytes % 30 CSF Monocytes % 6 CSF Glucose CSF LDH CSF Total Protein CSF Herpes I DNA (PCR) CSF Herpes II DNA (PCR) Nasal Screen MRSA (PCR) Phenytoin 0.4 L 03/30/18 03/30/18 03/30/18 03:35 14:41 15:00 WBC RBC Hgb Hct MCV MCH MCHC RDW Plt Count MPV Neut % (Auto) Lymph % (Auto) Bureau % (Auto) Eos % (Auto) Baso % (Auto) Neut # (Auto) Lymph # (Auto) Bureau # (Auto) Eos # (Auto) Baso # (Auto) WBC Differential Differential Comment Puncture Site Patient Temperature O2 Saturation ABG pH ABG pCO2 ABG pO2 ABG HCO3 ABG O2 Content ABG Base Excess ABG Methemoglobin Hemoglobin Carboxyhemoglobin O2 Delivery Device Vent Setting Inspired O2 Critical Value Sodium 139 Potassium 4.1 Chloride 104 D Carbon Dioxide 22.8 Anion Gap 12 BUN 12 Creatinine 1.18 H Estimated GFR 39 L POC Glucose 124 H Random Glucose 261 H D Calcium 8.6 Total Bilirubin 0.8 AST 50 H ALT 39 Alkaline Phosphatase 80 Total Protein 7.1 Albumin 2.8 L CSF Volume (1) CSF Supernat Color (1) CSF Gross Blood (1) CSF WBC (1) CSF RBC (1) CSF Volume (2) CSF Supernat Color (2) CSF Gross Blood (2) CSF WBC (2) CSF RBC (2) CSF Volume (3) CSF Supernat Color (3) CSF Gross Blood (3) CSF Volume (4) CSF Supernat Color (4) CSF Gross Blood (4) CSF Neutrophils % CSF Lymphocytes % CSF Monocytes % CSF Glucose CSF LDH CSF Total Protein CSF Herpes I DNA (PCR) CSF Herpes II DNA (PCR) Nasal Screen MRSA (PCR) Phenytoin 14.9 03/30/18 03/31/18 03/31/18 23:41 03:29 06:11 WBC RBC Hgb Hct MCV MCH MCHC RDW Plt Count MPV Neut % (Auto) Lymph % (Auto) Bureau % (Auto) Eos % (Auto) Baso % (Auto) Neut # (Auto) Lymph # (Auto) Bureau # (Auto) Eos # (Auto) Baso # (Auto) WBC Differential Differential Comment Puncture Site Patient Temperature O2 Saturation ABG pH ABG pCO2 ABG pO2 ABG HCO3 ABG O2 Content ABG Base Excess ABG Methemoglobin Hemoglobin Carboxyhemoglobin O2 Delivery Device Vent Setting Inspired O2 Critical Value Sodium Potassium Chloride Carbon Dioxide Anion Gap BUN Creatinine Estimated GFR POC Glucose 167 H 137 H Random Glucose Calcium Total Bilirubin AST ALT Alkaline Phosphatase Total Protein Albumin CSF Volume (1) CSF Supernat Color (1) CSF Gross Blood (1) CSF WBC (1) CSF RBC (1) CSF Volume (2) CSF Supernat Color (2) CSF Gross Blood (2) CSF WBC (2) CSF RBC (2) CSF Volume (3) CSF Supernat Color (3) CSF Gross Blood (3) CSF Volume (4) CSF Supernat Color (4) CSF Gross Blood (4) CSF Neutrophils % CSF Lymphocytes % CSF Monocytes % CSF Glucose CSF LDH CSF Total Protein CSF Herpes I DNA (PCR) CSF Herpes II DNA (PCR) Nasal Screen MRSA (PCR) Phenytoin 18.1 03/31/18 03/31/18 04/01/18 12:29 16:43 00:16 WBC RBC Hgb Hct MCV MCH MCHC RDW Plt Count MPV Neut % (Auto) Lymph % (Auto) Bureau % (Auto) Eos % (Auto) Baso % (Auto) Neut # (Auto) Lymph # (Auto) Bureau # (Auto) Eos # (Auto) Baso # (Auto) WBC Differential Differential Comment Puncture Site Patient Temperature O2 Saturation ABG pH ABG pCO2 ABG pO2 ABG HCO3 ABG O2 Content ABG Base Excess ABG Methemoglobin Hemoglobin Carboxyhemoglobin O2 Delivery Device Vent Setting Inspired O2 Critical Value Sodium Potassium Chloride Carbon Dioxide Anion Gap BUN Creatinine Estimated GFR POC Glucose 147 H 88 149 H Random Glucose Calcium Total Bilirubin AST ALT Alkaline Phosphatase Total Protein Albumin CSF Volume (1) CSF Supernat Color (1) CSF Gross Blood (1) CSF WBC (1) CSF RBC (1) CSF Volume (2) CSF Supernat Color (2) CSF Gross Blood (2) CSF WBC (2) CSF RBC (2) CSF Volume (3) CSF Supernat Color (3) CSF Gross Blood (3) CSF Volume (4) CSF Supernat Color (4) CSF Gross Blood (4) CSF Neutrophils % CSF Lymphocytes % CSF Monocytes % CSF Glucose CSF LDH CSF Total Protein CSF Herpes I DNA (PCR) CSF Herpes II DNA (PCR) Nasal Screen MRSA (PCR) Phenytoin 04/01/18 04/01/18 03:59 06:41 WBC RBC Hgb Hct MCV MCH MCHC RDW Plt Count MPV Neut % (Auto) Lymph % (Auto) Bureau % (Auto) Eos % (Auto) Baso % (Auto) Neut # (Auto) Lymph # (Auto) Bureau # (Auto) Eos # (Auto) Baso # (Auto) WBC Differential Differential Comment Puncture Site Patient Temperature O2 Saturation ABG pH ABG pCO2 ABG pO2 ABG HCO3 ABG O2 Content ABG Base Excess ABG Methemoglobin Hemoglobin Carboxyhemoglobin O2 Delivery Device Vent Setting Inspired O2 Critical Value Sodium 140 Potassium 4.0 Chloride 103 Carbon Dioxide 28.1 Anion Gap 9 BUN 15 Creatinine 0.75 Estimated GFR 78 L POC Glucose 97 Random Glucose 124 H Calcium 8.7 Total Bilirubin AST ALT Alkaline Phosphatase Total Protein Albumin CSF Volume (1) CSF Supernat Color (1) CSF Gross Blood (1) CSF WBC (1) CSF RBC (1) CSF Volume (2) CSF Supernat Color (2) CSF Gross Blood (2) CSF WBC (2) CSF RBC (2) CSF Volume (3) CSF Supernat Color (3) CSF Gross Blood (3) CSF Volume (4) CSF Supernat Color (4) CSF Gross Blood (4) CSF Neutrophils % CSF Lymphocytes % CSF Monocytes % CSF Glucose CSF LDH CSF Total Protein CSF Herpes I DNA (PCR) CSF Herpes II DNA (PCR) Nasal Screen MRSA (PCR) Phenytoin 15.9 Result Diagrams: 03/30/18 03:35 04/01/18 03:59 Microbiology: Microbiology 03/29/18 14:42 Gram Stain - Final Lumbar Puncture CSF Culture - Final No growth in 72 hours 03/30/18 21:45 Gram Stain - Final Sputum - Endotracheal Sputum Culture - Preliminary Moderate growth normal respiratory erick at 24 hours 03/29/18 06:05 Aerobic Blood Culture - Preliminary Blood - Peripheral No growth in 2 days Anaerobic Blood Culture - Preliminary No growth in 2 days 03/29/18 06:00 Aerobic Blood Culture - Preliminary Blood - Peripheral No growth in 2 days Anaerobic Blood Culture - Preliminary No growth in 2 days Imaging: Head CT 03/29/18 00:00 CONCLUSION: Negative noncontrast head CT. . Head MRI 03/29/18 13:31 CONCLUSION: 1. No acute intracranial abnormality identified. 2. Fluid within the mastoid air cells on the right. Chest X-Ray 03/30/18 05:38 CONCLUSION: Minimal prominence of interstitium which may represent pulmonary venous hypertension or minimal edema. Procedures: 03/28: Intubation 03/28: Right femoral triple-lumen central line placed 03/29: Diagnostic lumbar puncture Assessment and Plan Pertinent Non-Medical Issues: Psychosocial: She was born in [facility] and moved to [place] 20 years ago. 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 She has been and twice, but has been with her current significant other for over 18 years. Spiritual: Not an important concept to the patient. Legal: No advance directives. Ethical issues impacting care: Difficulty contacting proxy decision makers. . Important Contacts: Son: Tray Coto Son: Guerrero Zimmerman Sister: Sushma Almodovar Life partner: Randy Hastings Prognosis: Her prognosis is guarded. She was previously enrolled in hospice with [facility] for an end-stage diagnosis of COPD with acute lower respiratory infection. While this cannot be confirmed, it is also suspected that she had some level of chronic pain as she was on both methadone and oxycodone. At this time she was found down, cyanotic, discolored, reportedly without respirations with emesis blocking the airway until resuscitated by EMS. Neurology opines that she may have an anoxic/hypoxic/ischemic brain injury but this will not be able to be confirmed until sedation can be stopped. Unable to accurately prognosticate at this time. . Code Status: Full Code (By default) Plan: PLAN: Legal decision maker: Patient is currently not capacitated to make her own decisions and does not have a valid healthcare surrogate that we can locate. Per [place] statutes, as she is legally and has 2 sons, her sons would be the first tier healthcare proxy decision-maker. Attempts are in progress to locate both sons. If they cannot be located, patient does have a sister, Sushma who is readily available and willing to serve. As both parents are , be the alternate decision-maker if the sons cannot be contacted. Goals: Aggressive by default. Telephone call placed to patient's son Trya Coto , to provide him with a medical update-no response and unable to leave a voice message. Telephone conversation with patient's Sister Sushma Almodovar, provided her with a medical update and expressed concern that patient has not been more awake since sedation has been discontinued. Anticipatory guidance provided regarding spontaneous breathing trials and expectations. Patient's sister reiterates that Tray Coto (Health care proxy) has stated that he wants everything medically possible to be done to keep his mother alive including reintubation in case of respiratory failure after medically extubating patient. Patient`s sister Sushma is supportive of patient`s son Tray franklin, though she verbalizes understanding that patient may have possibly suffered anoxic/hypoxic/ischemic brain injury. CODE STATUS: FULL CODE SYMPTOMS: * Encephalopathy: At this time she remains encephalopathic undergoing EEGs per neurology and vent weaning as tolerated. She remains on sedation at this time for vent synchrony. Encephalopathy may be multifactorial to include hypoxic/an anoxic injury, drug overdose or progressive medical condition. Sedation weaning per laboratory veterinarian. No further recommendations at this time * Seizures: She is prophylactically being treated with acyclovir pending receipt of HCV test and is additionally receiving fosphenytoin every 8 hours, Keppra 500 mg every 12 hours. Titration per neurology. SUMMARY This is a 62-year-old female previously on [facility] that was found unresponsive by family, reportedly with a pulse but not breathing. She was resuscitated on scene were 2 empty medicine bottles were seen with methadone and Ativan prescribed. She also reportedly had been given 18 tablets of 15 mg oxycodone the same day as her drug overdose. The location of those pills is unverified. There is some question as to whether she may have sustained a hypoxic or anoxic injury. We continue to attempt to locate family members for decision-making. She remains a full code by default. Palliative care will continue to follow the patient during hospital course as condition evolves, to assist patient/decision-maker with understanding of their medical conditions, weighing benefits/burdens of treatment options, for clarification of goals of treatment. Additionally will assist with any symptoms of palliative concern. . Attestation Attestation: To help prompt me to consider important information that might be impacting today's encounter and assessment, information from prior notes written by myself or my colleagues may have been "brought forward" into today's note. My signature on this note, however, is an attestation that I personally performed the exam, history, and/or decision-making noted today, and, unless otherwise indicated, the interactions with patient, family, and staff as well as the review of records all occurred today. I also attest that the listed assessment and stated plan reflect my best clinical judgment today based on the combination of historical information, prior notes, and today's exam/ interactions. When time spent is documented, it refers only to time spent today by the signer, or if indicated, combined time spent today by collaborating physician/nurse practitioner.
[2018-04-02] MEDS: Piperacil/Tazo 2.25 GM Premix 50 ML IV.SIG SCH ×2 (02:48→07:02)
[2018-04-02] MEDS: Oral Hygiene Kit OROPHARYNG SCH ×4 (02:48→15:36)
[2018-04-02] MEDS: Fosphenytoin Inj 100 MGPE in Sodium Chlor 0.9% Inj 50 ML IV.SIG SCH (02:58)
[2018-04-02] MEDS: Insulin NovoLOG Aspart Correctional Sugar Inj SQ SCH ×4 (02:58→18:08)
[2018-04-02] MEDS: fentaNYL 10 mcg/mL Premix Drip 2,500 MCG/250 ML BAG IV.SIG PRN (03:46)
[2018-04-02] MEDS: Acyclovir Inj 700 MG in Sodium Chlor 0.9% Inj 100 ML IV.SIG SCH (04:31)
[2018-04-02] MEDS: Chlorhexidine Gluconate 2% 1 Pack (2 Cloths) TOPICAL SCH (05:36)
[2018-04-02] MEDS: Pantoprazole Inj 40 MG Vial IV.PUSH SCH ×2 (05:36→11:22)
[2018-04-02 05:49] LABS: Anion Gap 7 meq/L (5-15); Blood Urea Nitrogen 15 mg/dL (7-18); Calcium 8.1 mg/dL (8.5-10.1); Carbon Dioxide 27.9 meq/L (21.0-32.0); Chloride 107 meq/L (98-107); Glomerular Filtration Rate Greater Than 89 mL/min (>89); Glucose,Random 106 mg/dL (74-106); Potassium 3.4 meq/L (3.5-5.1); Sodium 142 meq/L (136-145)
[2018-04-02 05:52] LABS: Phenytoin (Dilantin) 14.2 mcg/mL (10.0-20.0)
[2018-04-02] MEDS: MethylPREDNISolone Sod Succinate Inj 125 MG/2 ML Vial IV.PUSH SCH (07:01)
[2018-04-02] MEDS: Sod Chloride 0.9% Inj 1,000 ML IV.CONT SCH (07:15)
--- NOTE | 2018-04-02 07:45 | P.PNNEU ---
Subjective Subjective Comments: sedated on vent Active Medications: Active Medications Al Hydroxide/Mg Hydroxide (Milk Of Magnesia Liq) 30 ml PO Q12H PRN PRN Reason: Mild Constipation Albuterol (Albuterol Neb (Prn)) 2.5 mg NEB Q2HR NEB PRN PRN Reason: SHORTNESS OF BREATH/WHEEZING Albuterol (Duoneb Neb (Alex)) 1 ampul NEB Q4HR NEB ALEX Last Admin: 04/02/18 04:35 Dose: 1 ampul Bisacodyl (Dulcolax Supp) 10 mg RECTAL DAILY PRN PRN Reason: SEVERE CONSITIPATION Chlorhexidine Gluconate (Peridex 0.12% Oral Kit) 15 ml OROPHARYNG BID@0800, 2000 [facility] Last Admin: 04/01/18 21:12 Dose: 15 ml Chlorhexidine Gluconate (Chlorhexidine 2% Cloth) 3 pack TOPICAL DAILY@0400 ALEX Stop: 04/04/18 03:59 Last Admin: 04/02/18 05:36 Dose: 3 pack Chlorhexidine Gluconate (Chlorhexidine 2% Cloth) 3 pack TOPICAL DAILY@0400 PRN PRN Reason: Extra cloth needed Stop: 04/04/18 03:59 Dextrose (D50w Vial) 50 ml IV.PUSH UNSCH PRN PRN Reason: PER HYPOGLYCEMIA PROTOCOL Fentanyl Citrate (Fentanyl Inj) 50 mcg IV PUSH Q1H PRN PRN Reason: Pain scale 6-10, &/or sedation Last Admin: 04/01/18 06:37 Dose: 50 mcg Glucagon (Glucagon Inj) 1 mg OTHER PRN PRN PRN Reason: for Hypoglycemia Protocol Fentanyl (Fentanyl 10 Mcg/Ml Premix Drip) 2,500 mcg in 250 mls @ 5 mls/hr IV.SIG TITRATE PRN; Protocol PRN Reason: Per Protocol Last Admin: 04/02/18 03:46 Dose: 150 mcg/hr, 15 mls/hr Sodium Chloride (Ns Inj) 1,000 mls @ 0 mls/hr IV.SIG BOLUS [facility] Last Infusion: 03/31/18 07:43 Dose: Infused Sodium Chloride (Ns Inj) 1,000 mls @ 0 mls/hr IV.SIG BOLUS [facility] Last Infusion: 03/29/18 01:11 Dose: Infused Propofol (Diprivan 1000 Mg/100 Ml Inj) 1,000 mg in 100 mls @ 2.43 mls/hr IV.CONT TITRATE PRN; Protocol PRN Reason: Per Protocol Last Admin: 04/01/18 21:29 Dose: 20.57 mcg/kg/min, 10 mls/hr Sodium Chloride (Ns Inj) 1,000 mls @ 125 mls/hr IV.CONT .Q8H ALEX Last Admin: 04/02/18 07:15 Dose: 125 mls/hr Norepinephrine Bitartrate (Levophed-Dextrose 4 Mg/250 Ml Drip) 4 mg in 250 mls @ 7.5 mls/hr IV.SIG TITRATE PRN; Protocol PRN Reason: Per Protocol Last Titration: 03/31/18 07:43 Dose: 0 mcg/min, 0 mls/hr Acyclovir Sodium 700 mg/ (Sodium Chloride) 114 mls @ 114 mls/hr IV.SIG Q8H ALEX Last Infusion: 04/02/18 05:31 Dose: Infused Piperacillin/Tazobactam/Dextrose (Zosyn 2.25 Gm Premix) 50 mls @ 100 mls/hr IV.SIG Q6H ALEX Last Admin: 04/02/18 07:02 Dose: 100 mls/hr Levetiracetam 500 mg/ Sodium (Chloride) 105 mls @ 400 mls/hr IV.SIG Q12H ALEX Last Admin: 04/02/18 07:14 Dose: 400 mls/hr Insulin Aspart (Novolog Insulin Correctional Sugar Inj) 0 unit SQ Q6HR ALEX; Protocol Last Admin: 04/02/18 07:04 Dose: Not Given Labetalol HCl (Trandate Inj) 10 mg IV.PUSH Q4H PRN PRN Reason: SBP >165 Lactulose (Lactulose Liq) 30 ml PO DAILY PRN PRN Reason: SEVERE CONSITIPATION Methylprednisolone Sodium Succinate (Solumedrol Inj) 60 mg IV.PUSH Q8H ALEX Last Admin: 04/02/18 07:01 Dose: 60 mg Miscellaneous Medication () 1 each OROPHARYNG 0000,0400,1200,1600 ALEX Last Admin: 04/02/18 05:46 Dose: 1 each Ondansetron HCl (Zofran Inj) 4 mg IV.PUSH Q6H PRN PRN Reason: NAUSEA OR VOMITING Pantoprazole Sodium (Protonix Inj) 40 mg IV.PUSH Q12H ALEX Last Admin: 04/02/18 05:36 Dose: 40 mg Senna/Docusate Sodium ([place]-Colace) 1 tab PO BID [facility] Last Admin: 04/01/18 21:11 Dose: 1 tab Sennosides (Senokot) 17.2 mg PO Q12H PRN PRN Reason: Moderate Constipation Sodium Chloride (Ns Flush) 2 ml IV.FLUSH BID [facility] Last Admin: 04/01/18 23:59 Dose: 2 ml Sodium Chloride (Ns Flush) 2 ml IV.FLUSH PRN PRN PRN Reason: FLUSH AFTER USING IV ACCESS Terbutaline Sulfate (Brethine Inj) 1 mg SQ UNSCH PRN PRN Reason: For Extravasation Terbutaline Sulfate (Brethine Inj) 1 mg SQ ONCE PRN PRN Reason: Extravasation Allergies/Adverse Reactions: Allergies Allergy/AdvReac Type Severity Reaction Status Date / Time No Allergy Information Allergy Verified 03/29/18 00:03 Available Physical Exam Vital signs: Vital Signs 04/01/18 08:00 04/01/18 11:28 04/01/18 12:00 Temperature 98.5 F 99.1 F Pulse Rate 87 114 H 110 H Respiratory Rate 22 21 22 Blood Pressure 166/91 H 152/85 H Pulse Oximetry 97 98 97 04/01/18 15:17 04/01/18 16:00 04/01/18 20:00 Temperature 99.0 F 98.5 F Pulse Rate 72 78 70 Respiratory Rate 14 14 14 Blood Pressure 122/76 145/86 H Pulse Oximetry 100 100 100 04/01/18 20:13 04/01/18 20:15 04/01/18 22:24 Temperature Pulse Rate 68 Respiratory Rate 14 14 14 Blood Pressure Pulse Oximetry 100 97 04/02/18 00:00 04/02/18 00:18 04/02/18 04:00 Temperature 98.5 F 98.5 F Pulse Rate 71 68 66 Respiratory Rate 14 14 14 Blood Pressure 158/92 H 148/84 H Pulse Oximetry 100 04/02/18 04:35 Temperature Pulse Rate 77 Respiratory Rate 18 Blood Pressure Pulse Oximetry 100 Intake & Output 04/01/18 04/02/18 04/02/18 18:59 06:59 18:59 Intake Total 1582 / 1582 1910 / 1910 875 / 875 Output Total 1800 / 1800 1000 / 1000 Balance -218 / -218 910 / 910 875 / 875 Weight 70.4 kg Intake: IV 1582 / 1582 1910 / 1910 875 / 875 Diprivan 1000 mg/100 ml Inj 1, 100 / 100 100 / 100 000 mg In 100 ml @ 5 MCG/KG/MIN 2.43 mls/hr IV.CONT TITRATE PRN Rx#:[id number] NS Inj 1,000 ML @ 125 mls/hr IV 1000 / 1000 1125 / 1125 875 / 875 .CONT .Q8H ALEX Rx#:[id number] Zovirax Inj 700 MG In NS Inj 228 / 228 228 / 228 100 ML @ 114 mls/hr IV.SIG Q8H ALEX Rx#:[id number] Cerebyx Inj 100 MGPE In NS Inj 104 / 104 52 / 52 50 ML @ 208 mls/hr IV.SIG Q8H ALEX Rx#:[id number] Zosyn 2.25 GM Premix 50 ML @ 150 / 150 50 / 50 100 mls/hr IV.SIG Q6H ALEX Rx#: [id number] fentaNYL 10 mcg/mL Premix Drip 250 / 250 2,500 mcg In 250 ml @ 50 MCG/HR 5 mls/hr IV.SIG TITRATE PRN Rx #:[id number] Keppra Inj 500 MG In NS Inj 100 105 / 105 ML @ 400 mls/hr IV.SIG Q12H ALEX Rx#:[id number] Output: Urine 1000 / 1000 Urine Amount (Catheter) 1800 / 1800 Indwelling Urethral Catheter 1800 / 1800 Gastric Drainage 0 / 0 Oral Orogastric Tube 0 / 0 Other: Date of Last Bowel Movement 04/02/18 # Bowel Movements 0 Narrative: no change coma sedated toes down - Urinary Catheter Management Indwelling Urethral Catheter Cath placed during this visit: yes, but has since been removed by the nurse Reason for continuing: Decision to DC catheter Insertion date: 03/29/18 Insertion time: 01:12 Removal date: 04/01/18 Removal time: 15:35 Objective Laboratory Results - last 24 hr 03/29/18 04/01/18 04/01/18 14:42 11:44 11:45 Sodium Potassium Chloride Carbon Dioxide Anion Gap BUN Creatinine Estimated GFR POC Glucose 157 H 130 H Random Glucose Calcium CSF Herpes I DNA (PCR) Negative CSF Herpes II DNA (PCR) Negative Phenytoin 04/01/18 04/02/18 04/02/18 18:09 00:32 01:25 Sodium Potassium Chloride Carbon Dioxide Anion Gap BUN Creatinine Estimated GFR POC Glucose 120 H 135 H 162 H Random Glucose Calcium CSF Herpes I DNA (PCR) CSF Herpes II DNA (PCR) Phenytoin 04/02/18 04:44 Sodium 142 Potassium 3.4 L Chloride 107 Carbon Dioxide 27.9 Anion Gap 7 BUN 15 Creatinine 0.63 Estimated GFR Greater than 89 POC Glucose Random Glucose 106 Calcium 8.1 L CSF Herpes I DNA (PCR) CSF Herpes II DNA (PCR) Phenytoin 14.2 Microbiology 03/30/18 21:45 Gram Stain - Final Sputum - Endotracheal Sputum Culture - Final Moderate growth normal respiratory erick 03/29/18 06:05 Aerobic Blood Culture - Preliminary Blood - Peripheral No growth in 3 days Anaerobic Blood Culture - Preliminary No growth in 3 days 03/29/18 06:00 Aerobic Blood Culture - Preliminary Blood - Peripheral No growth in 3 days Anaerobic Blood Culture - Preliminary No growth in 3 days 03/29/18 14:42 Gram Stain - Final Lumbar Puncture CSF Culture - Final No growth in 72 hours Review/Management - Review/Management Plan: imp likly some hyposic or anoxic damage eeg burst suppression on keppra nd dil check level recheck eeg mri neg i had a ? of some mild coritcal posterior ribbon change on diffusion sequence LP neg hsv pend fu -------- 03/31/18 no change hsv pend watch bmp i suspect some h/i encephalopathy px poor keppra dil 18 i lowered dose i rec dc sedatives and see how does 04/02/18 dec dil as free dil too high hold sedatives if needed precedex? but try off sedatives as much as possible i dw med team and nursing
[2018-04-02] MEDS: Chlorhexidine 0.12% Oral Kit 15 ML UDC OROPHARYNG SCH ×2 (08:49→20:20)
[2018-04-02] MEDS: Senna/Docusate Sodium 8.6/50 MG Tablet PO SCH ×2 (09:05→20:21)
[2018-04-02] MEDS: Propofol 1000 mg/100 ml Inj 1,000 MG/100 ML BOTTLE IV.CONT PRN (09:25)
[2018-04-02] MEDS ORDERED: niCARdipine Inj 25 MG in Sodium Chlor 0.9% Inj 240 ML IV.CONT PRN (11:07)
[2018-04-02] MEDS ORDERED: Potassium Chloride 25 MEQ Effervescent Tablet PO PRN (11:12)
[2018-04-02] MEDS ORDERED: Potassium Phosphate Inj 30 MMOL in Sodium Chlor 0.9% Inj 250 ML IV.SIG PRN (11:12)
[2018-04-02] MEDS ORDERED: Sodium Phosphate Inj 30 MMOL in Sodium Chlor 0.9% Inj 250 ML IV.SIG PRN (11:12)
[2018-04-02] MEDS ORDERED: Potassium Phosphate 500 MG Soluble Tablet PO PRN ×2 (11:12)
[2018-04-02] MEDS ORDERED: Magnesium Sulfate Inj 4 GM in Sodium Chlor 0.9% Inj 92 ML IV.SIG PRN (11:12)
[2018-04-02] MEDS ORDERED: Methylnaltrexone Inj 12 MG/0.6 ML Vial SQ ONE (11:12)
[2018-04-02] MEDS ORDERED: Potassium Chlor 20 mEq Premix 20 MEQ/100 ML PIGGYBACK IV.SIG PRN (11:12)
[2018-04-02] MEDS ORDERED: Magnesium Sulfate Inj 2 GM in Sodium Chlor 0.9% Inj 96 ML IV.SIG PRN (11:12)
[2018-04-02] MEDS ORDERED: Magnesium Oxide 400 MG Tablet PO PRN (11:12)
[2018-04-02] MEDS ORDERED: Potassium Chlor 40 mEq Premix 40 MEQ/100 ML PIGGYBACK IV.SIG PRN ×2 (11:12)
[2018-04-02] MEDS: Dexmedetomidine Inj 200 MCG in Sodium Chlor 0.9% Inj 48 ML IV.CONT PRN ×4 (11:23→23:00)
--- NOTE | 2018-04-02 11:23 | P.PNCC ---
Subjective Subjective Remarks/Hospital Course: 62-year-old female. She was found unresponsive. She had an empty bottle of 9 methadone 10 mg tablets and 18 Ativan 0.5 mg tablets. Apparently CPR was initiated per family. Family provided EVAC with information that patient is on hospice and has a history of diabetes, COPD, neuropathy, no advanced directives. When EVAC arrived she had a pulse but agonal respirations. She was administered Narcan 2 mg IV without improvement. Upon arrival to the ED she was not protecting her airway, pooling secretions in her mouth. She was intubated upon arrival. Her systolic blood pressure was in the 80s. She was administered 2 L normal saline bolus, right femoral line was placed and she was started on Levophed. Family has not arrived at the hospital and there is no available contact information. She is registered as a Amina Kebdee. The prescription bottles say Antonina Coto. That individual has not been admitted since 2007. 03/30: Seizure activity appears to be controlled with Dilantin. She remains stuporous and we are unable to wean from the ventilator. Ongoing attempts to find out her true identity. 03/31: Will attempt spontaneous breathing trial again today. Late yesterday and early today she has had more episodes of spontaneous eye opening though she does not appear to track. Cerebrospinal fluid appears benign. No growth on culture after 48 hours. Bronchospasm responded quite well to steroids, will continue through extubation. 04/01: Fairly strong on spontaneous breathing trials today. We will discontinue all sedation, watch closely for seizure activity, and attempt to get her extubated. Subjective 04/02 -currently resting in bed in no acute distress. Eyes are rolled back. Currently on fentanyl drip at 150 mg/h and propofol drip at 25 mcg/kg/min. Starting dexmedetomidine drip and attempt to wean. Fosphenytoin decreased per neurology today. Strength 2 feeds today. No bowel movement. Objective Vital Signs / I&O: Vital Signs 04/01/18 11:28 04/01/18 12:00 04/01/18 15:17 Temperature 99.1 F Pulse Rate 114 H 110 H 72 Respiratory Rate 21 22 14 Blood Pressure 152/85 H Pulse Oximetry 98 97 100 04/01/18 16:00 04/01/18 20:00 04/01/18 20:13 Temperature 99.0 F 98.5 F Pulse Rate 78 70 68 Respiratory Rate 14 14 14 Blood Pressure 122/76 145/86 H Pulse Oximetry 100 100 04/01/18 20:15 04/01/18 22:24 04/02/18 00:00 Temperature 98.5 F Pulse Rate 71 Respiratory Rate 14 14 14 Blood Pressure 158/92 H Pulse Oximetry 100 97 100 04/02/18 00:18 04/02/18 04:00 04/02/18 04:35 Temperature 98.5 F Pulse Rate 68 66 77 Respiratory Rate 14 14 18 Blood Pressure 148/84 H Pulse Oximetry 100 04/02/18 07:42 04/02/18 08:00 04/02/18 11:17 Temperature 98.4 F Pulse Rate 65 93 H 86 Respiratory Rate 14 15 17 Blood Pressure 169/102 H Pulse Oximetry 100 100 99 Intake & Output 04/01/18 04/02/18 04/02/18 18:59 06:59 18:59 Intake Total 1582 / 1582 1910 / 1910 1130 / 1130 Output Total 1800 / 1800 1000 / 1000 Balance -218 / -218 910 / 910 1130 / 1130 Weight 70.4 kg Intake: IV 1582 / 1582 1910 / 1910 1130 / 1130 Diprivan 1000 mg/100 ml Inj 1, 100 / 100 100 / 100 100 / 100 000 mg In 100 ml @ 5 MCG/KG/MIN 2.43 mls/hr IV.CONT TITRATE PRN Rx#:[id number] NS Inj 1,000 ML @ 125 mls/hr IV 1000 / 1000 1125 / 1125 875 / 875 .CONT .Q8H DEBORAH Rx#:[id number] Zovirax Inj 700 MG In NS Inj 228 / 228 228 / 228 100 ML @ 114 mls/hr IV.SIG Q8H DEBORAH Rx#:[id number] Cerebyx Inj 100 MGPE In NS Inj 104 / 104 52 / 52 50 ML @ 208 mls/hr IV.SIG Q8H DEBORAH Rx#:[id number] Zosyn 2.25 GM Premix 50 ML @ 150 / 150 50 / 50 50 / 50 100 mls/hr IV.SIG Q6H DEBORAH Rx#: [id number] fentaNYL 10 mcg/mL Premix Drip 250 / 250 2,500 mcg In 250 ml @ 50 MCG/HR 5 mls/hr IV.SIG TITRATE PRN Rx #:[id number] Keppra Inj 500 MG In NS Inj 100 105 / 105 105 / 105 ML @ 400 mls/hr IV.SIG Q12H DEBORAH Rx#:[id number] Output: Urine 1000 / 1000 Urine Amount (Catheter) 1800 / 1800 Indwelling Urethral Catheter 1800 / 1800 Gastric Drainage 0 / 0 Oral Orogastric Tube 0 / 0 Other: Date of Last Bowel Movement 04/02/18 # Bowel Movements 0 Result Diagrams: 03/30/18 03:35 04/02/18 04:44 Other Results: Microbiology 03/29/18 06:05 Blood - Peripheral Aerobic Blood Culture - Preliminary No growth in 4 days 03/29/18 06:05 Blood - Peripheral Anaerobic Blood Culture - Preliminary No growth in 4 days 03/29/18 06:00 Blood - Peripheral Aerobic Blood Culture - Preliminary No growth in 4 days 03/29/18 06:00 Blood - Peripheral Anaerobic Blood Culture - Preliminary No growth in 4 days 03/30/18 21:45 Sputum - Endotracheal Gram Stain - Final 03/30/18 21:45 Sputum - Endotracheal Sputum Culture - Final Moderate growth normal respiratory erick 03/29/18 14:42 Lumbar Puncture Gram Stain - Final 03/29/18 14:42 Lumbar Puncture CSF Culture - Final No growth in 72 hours Imaging: Chest X-Ray 03/28/18 22:52 CONCLUSION: ET tube and NG tube in good position. Head CT 03/29/18 00:00 CONCLUSION: Negative noncontrast head CT. . Head MRI 03/29/18 13:31 CONCLUSION: 1. No acute intracranial abnormality identified. 2. Fluid within the mastoid air cells on the right. Chest X-Ray 03/30/18 05:38 CONCLUSION: Minimal prominence of interstitium which may represent pulmonary venous hypertension or minimal edema. Objective Remarks: GENERAL: 62-year-old female currently orotracheally intubated with OG tube in place SKIN: Warm and dry. Ulceration over the lateral aspect of the first left toe. HEAD: Atraumatic. Normocephalic. EYES: Pupils equal and round, around 1-2 mm bilaterally and sluggish. ENT: No nasal bleeding or discharge. NECK: Trachea midline. Orotracheal intubation. CARDIOVASCULAR: RRR. S1, S2 no S4. Without murmur RESPIRATORY: Diminished breath sounds bilaterally. Minimal end expiratory wheeze. GASTROINTESTINAL: Abdomen soft, non-tender, nondistended. Bowel sounds present. No guarding. MUSCULOSKELETAL: Extremities without significant peripheral edema. No obvious deformities. NEUROLOGICAL: Spontaneous eye opening and to central noxious stimuli.. 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 EEG 03/30 without epileptic activity. Followed by neurology. Currently on levetiracetam 500 milligrams IV twice daily and fosphenytoin 80 mg every 8 hours. Level was 14 today. Recheck in a.m. RESP: Acute hypercapneic respiratory failure COPD with ongoing tobaccoism Currently on PSv trial 06/04 at 40% Ventilator bundle Albuterol/ipratropium aerosols every 6 hours with albuterol aerosols every 2 hours as needed for dyspnea Budesonide 0.5/2 1 inhalation twice daily Methylprednisolone succinate 4 mg IV every 8 hours Chest x-ray ordered for a.m. 04/03 CV: Shock -resolved Hypertension Received 2 L normal saline bolus. Continue 0.9 NaCl at 125 mL/h. As needed labetalol and nicardipine drip for elevated blood pressure 0.0 0.04 admission. GI: Elevated transaminases likely secondary to shock Hypoalbuminemia Acute constipation Start tube feeds with vital 1.5 goal 55 cc an hour Lansoprazole 30 mg daily for GI prophylaxis Docusate sodium/senna 1 tablet twice daily for bowel. Add lactulose 30 cc twice daily and polythene glycol centigrams twice daily and 1 subcutaneous dose of Relistor 12 mg x1 today FEN/GIULIA/ : Acute hypokalemia Periwick in place. Monitor intake and output hourly. Monitor electrolytes and replace as indicated per ICU electrolyte replacement protocol. ID: Leukocytosis Received piperacillin/tazobactam and vancomycin in the emergency department. 03/29 -Gram stain of CSF -growth 03/29 -blood cultures x2 -no growth 03/29 -sputum negative Will discontinue acyclovir today as HSV was negative Discontinue piperacillin l/tazobactam today. HEME: Leukocytosis Monitor CBC daily. Follow trends. No indication for transfusion of blood products at this time. ENDO: Diabetes mellitus per report -check hemoglobin A1c Elevated TSH of 8. Normal free T/T4. Recommend recheck in 1-2 months after acute illness Sliding scale insulin Accu-Cheks to maintain euglycemia/aspart low protocol MSK: Physical therapy evaluate and treat PROPH: SCDs for DVT prophylaxis. Heparin subcu for DVT prophylaxis. Lansoprazole 30 mg daily for GI prophylaxis. Level 2 follow-up
[2018-04-02] MEDS: SODIUM CHLOR IV.SIG SCH ×2 (11:33→18:09)
[2018-04-02] MEDS: FOSPHENYTOIN IV.SIG SCH ×2 (11:33→18:09)
[2018-04-02] MEDS: Labetalol HCl Inj 100 MG/20 ML Vial IV.PUSH PRN ×2 (11:39→14:40)
[2018-04-02] MEDS: KCL 20 mEq/NACL 0.45% Inj 1,000 ML IV.CONT SCH (11:45)
[2018-04-02] MEDS ORDERED: Piperacil/Tazo 3.375 GM Premix 50 ML IV.SIG SCH (12:00)
[2018-04-02] MEDS: Potassium Chlor 20 mEq Premix 20 MEQ/100 ML PIGGYBACK IV.SIG PRN ×2 (12:07→14:30)
[2018-04-02] MEDS: Heparin - SQ 10,000 UNITS/ML Vial SQ SCH ×2 (13:43→21:29)
[2018-04-02] MEDS: MethylPREDNISolone Sod Succinate Inj 40 MG/ML Vial IV.PUSH SCH ×2 (14:07→23:00)
--- NOTE | 2018-04-02 14:41 | P.DIET ---
Nutritional Evaluation Type of nutrition evaluation: initial Nutrition consult regarding: Tube Feeding Objective - Diagnosis Respiratory Failure, Substance Abuse - Objective % IBW: 135 (IBW = 115#) Body Weight Used for Calculations: Upper end of IBW (57.5 kg) Energy Needs - Lower Range (kCal/kg): 25 Energy Needs - Upper Range (kCal/kg): 30 Lower Limit kCal/kg (kCals): 1,438 Upper Limit kCal/kg (kCals): 1,725 Lower Limit Protein Factor (Grams per Kg): 1.0 Upper Limit Protein Factor (Grams per Kg): 1.5 Lower Protein Needs (Protein): 58 Upper Protein Needs (Protein): 86 Dietitian Reviewed in Medical Record: Curent medications, Intake & Output, Labs , Medical history, Tube feeding Assessment Assessment: Pt is at high nutrition risk 2' to her need for TFing. To meet needs with Vital 1.5, recommend goal rate of 45 mls/hr to provide 1620 kcals, 73 gms protein and 825 mls of free water. Some additional kcals may be provided by propofol (1.1 kcal/ml). Recommendations: Vital 1.5 @ 45 mls/hr goal Dietitian to Monitor: Lab values, Tube feeding tolerance, Weight change, Medical course
--- NOTE | 2018-04-02 15:29 | P.PNPAL ---
Reason for Visit Reason for visit: a. To assist with evaluation and management of symptoms including: Encephalopathy, seizures b. To assist medical decision maker(s) with: better understanding of current medical conditions; weighing benefits/burdens of medical treatment options; making medical treatment decisions. Subjective Subjective/Interval History: Patient seen for evaluation of symptom management of encephalopathy and seizures as well as goals of medical treatment. She remains encephalopathic, not arousable, not responding to commands. Fentanyl and propofol are being transitioned to Precedex to facilitate vent weaning. Tolerating CPAP most of the day. Withdrawing to pain in bilateral upper extremities, no response in bilateral lower extremities. No spontaneous movement seen. Seizures controlled at this time, fosphenytoin decreased per neurology. Remains on Keppra with seizure precautions. EEG done 03/30 shows diffuse slowing consistent with moderate diffuse encephalopathy some almost BIPLED type discharges though not specifically epileptiform. Some occasional suppression of the background could be a slight burst suppression versus medication effect, no focal abnormality, no prolonged seizure activity seen. . Advance Directives Living Will: Never completed Health Care Surrogate: Never completed Durable Power of Epic Cadence Analyst: Never completed Health Care Surrogate Name and Number: HCP: Tray Robb and Guerrero Zimmerman Objective Vital Signs: Vital Signs 04/01/18 15:17 04/01/18 16:00 04/01/18 20:00 Temperature 99.0 F 98.5 F Pulse Rate 72 78 70 Respiratory Rate 14 14 14 Blood Pressure 122/76 145/86 H Pulse Oximetry 100 100 100 04/01/18 20:13 04/01/18 20:15 04/01/18 22:24 Temperature Pulse Rate 68 Respiratory Rate 14 14 14 Blood Pressure Pulse Oximetry 100 97 04/02/18 00:00 04/02/18 00:18 04/02/18 04:00 Temperature 98.5 F 98.5 F Pulse Rate 71 68 66 Respiratory Rate 14 14 14 Blood Pressure 158/92 H 148/84 H Pulse Oximetry 100 04/02/18 04:35 04/02/18 07:42 04/02/18 08:00 Temperature 98.4 F Pulse Rate 77 65 93 H Respiratory Rate 18 14 15 Blood Pressure 169/102 H Pulse Oximetry 100 100 100 04/02/18 11:17 04/02/18 12:00 Temperature 98.8 F Pulse Rate 86 78 Respiratory Rate 17 21 Blood Pressure 176/103 H Pulse Oximetry 99 99 Intake & Output 04/01/18 04/02/18 04/02/18 18:59 06:59 18:59 Intake Total 1582 / 1582 19090 1281.6 / 1281.6 Output Total 1800 / 1800 1000 / 1000 Balance -218 / -218 910 / 910 1281.6 / 1281.6 Weight 155 lb 3.287 oz Intake: IV 1582 / 1582 1909 / 0 1281.6 / 1281.6 Diprivan 1000 mg/100 ml Inj 1, 100 / 100 100 / 100 100 / 100 000 mg In 100 ml @ 5 MCG/KG/MIN 2.43 mls/hr IV.CONT TITRATE PRN Rx#:[id number] NS Inj 1,000 ML @ 125 mls/hr IV 1000 / 1000 1125 / 1125 875 / 875 .CONT .Q8H DEBORAH Rx#:[id number] Zovirax Inj 700 MG In NS Inj 228 / 228 228 / 228 100 ML @ 114 mls/hr IV.SIG Q8H DEBORAH Rx#:[id number] Cerebyx Inj 80 MGPE In NS Inj 104 / 104 52 / 52 51.6 / 51.6 50 ML @ 208 mls/hr IV.SIG Q8H DEBORAH Rx#:[id number] Zosyn 2.25 GM Premix 50 ML @ 150 / 150 50 / 50 50 / 50 100 mls/hr IV.SIG Q6H DEBORAH Rx#: [id number] KCl 20 mEq Premix Inj 20 meq In 100 / 100 100 ml @ 50 mls/hr IV.SIG Q2H PRN Rx#:[id number] fentaNYL 10 mcg/mL Premix Drip 250 / 250 2,500 mcg In 250 ml @ 50 MCG/HR 5 mls/hr IV.SIG TITRATE PRN Rx #:[id number] Keppra Inj 500 MG In NS Inj 100 105 / 105 105 / 105 ML @ 400 mls/hr IV.SIG Q12H DEBORAH Rx#:[id number] Output: Urine 1000 / 1000 Urine Amount (Catheter) 1800 / 1800 Indwelling Urethral Catheter 1800 / 1800 Gastric Drainage 0 / 0 Oral Orogastric Tube 0 / 0 Other: Date of Last Bowel Movement 04/02/18 # Bowel Movements 0 Physical Exam: CONSTITUTIONAL/GENERAL: This is an obese patient, intubated, sedated, in no apparent distress. TUBES/LINES/DRAINS: PIV left forearm, ETT, OGT, Watson. BUE soft restraints EYES: Pupils 3mm, round and reactive to light. No tracking. Fundi not examined. ENT: Unable to assess hearing. Not following simple commands. No nasal drainage or bleeding. Orotracheally intubated NECK: Trachea midline. Supple, nontender. CARDIOVASCULAR: Regular rate and rhythm without murmurs, gallops, or rubs. No JVD. Peripheral pulses symmetric. RESPIRATORY/CHEST: Symmetric, unlabored respirations. Breath sounds equal bilaterally. Rhonchi to auscultation. No wheezes, rales. GASTROINTESTINAL: Abdomen soft, non-tender, nondistended. No guarding. Bowel sounds present.Orogastric tube to LIWS GENITOURINARY: Without palpable bladder distension. Watson catheter in place. MUSCULOSKELETAL: Extremities without clubbing or cyanosis, 1-2+ edema. No joint tenderness or effusion noted. No calf tenderness. No mottling or clubbing. NEUROLOGICAL: Intubated with no sedation. Not following simple commands. Currently withdrawing to noxius stimulation with BUE. No response BLE. PSYCHIATRIC: Intubated with no sedation. Currently calm, no agitation. . Diagnostic Tests Laboratory: Laboratory Results - last 72 hr 03/29/18 03/30/18 03/30/18 14:42 15:00 23:41 Sodium Potassium Chloride Carbon Dioxide Anion Gap BUN Creatinine Estimated GFR POC Glucose 167 H Random Glucose Calcium CSF Herpes I DNA (PCR) Negative CSF Herpes II DNA (PCR) Negative Phenytoin 14.9 03/31/18 03/31/18 03/31/18 03:29 06:11 12:29 Sodium Potassium Chloride Carbon Dioxide Anion Gap BUN Creatinine Estimated GFR POC Glucose 137 H 147 H Random Glucose Calcium CSF Herpes I DNA (PCR) CSF Herpes II DNA (PCR) Phenytoin 18.1 03/31/18 04/01/18 04/01/18 16:43 00:16 03:59 Sodium 140 Potassium 4.0 Chloride 103 Carbon Dioxide 28.1 Anion Gap 9 BUN 15 Creatinine 0.75 Estimated GFR 78 L POC Glucose 88 149 H Random Glucose 124 H Calcium 8.7 CSF Herpes I DNA (PCR) CSF Herpes II DNA (PCR) Phenytoin 15.9 1004/01/18 04/01/18 06:41 11:44 11:45 Sodium Potassium Chloride Carbon Dioxide Anion Gap BUN Creatinine Estimated GFR POC Glucose 97 157 H 130 H Random Glucose Calcium CSF Herpes I DNA (PCR) CSF Herpes II DNA (PCR) Phenytoin 04/01/18 04/02/18 04/02/18 18:09 00:32 01:25 Sodium Potassium Chloride Carbon Dioxide Anion Gap BUN Creatinine Estimated GFR POC Glucose 120 H 135 H 162 H Random Glucose Calcium CSF Herpes I DNA (PCR) CSF Herpes II DNA (PCR) Phenytoin 04/02/18 04/02/18 04:44 13:04 Sodium 142 Potassium 3.4 L Chloride 107 Carbon Dioxide 27.9 Anion Gap 7 BUN 15 Creatinine 0.63 Estimated GFR Greater than 89 POC Glucose 125 H Random Glucose 106 Calcium 8.1 L CSF Herpes I DNA (PCR) CSF Herpes II DNA (PCR) Phenytoin 14.2 Result Diagrams: 03/30/18 03:35 04/02/18 04:44 Microbiology: Microbiology 03/29/18 06:05 Aerobic Blood Culture - Preliminary Blood - Peripheral No growth in 4 days Anaerobic Blood Culture - Preliminary No growth in 4 days 03/29/18 06:00 Aerobic Blood Culture - Preliminary Blood - Peripheral No growth in 4 days Anaerobic Blood Culture - Preliminary No growth in 4 days 03/30/18 21:45 Gram Stain - Final Sputum - Endotracheal Sputum Culture - Final Moderate growth normal respiratory erick 03/29/18 14:42 Gram Stain - Final Lumbar Puncture CSF Culture - Final No growth in 72 hours Imaging: Chest X-Ray 03/28/18 22:52 CONCLUSION: ET tube and NG tube in good position. Head CT 03/29/18 00:00 CONCLUSION: Negative noncontrast head CT. . Head MRI 03/29/18 13:31 CONCLUSION: 1. No acute intracranial abnormality identified. 2. Fluid within the mastoid air cells on the right. Chest X-Ray 03/30/18 05:38 CONCLUSION: Minimal prominence of interstitium which may represent pulmonary venous hypertension or minimal edema. Procedures: 03/28: Intubation 03/28: Right femoral triple-lumen central line placed 03/29: Diagnostic lumbar puncture Assessment and Plan Pertinent Non-Medical Issues: Psychosocial: She was born in [facility] and moved to [place] 20 years ago. 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 She has been and twice, but has been with her current significant other for over 18 years. Spiritual: Not an important concept to the patient. Legal: No advance directives. Ethical issues impacting care: Difficulty contacting proxy decision makers. . Important Contacts: Son: Tray Coto Son: Guerrero Zimmerman Sister: Sushma Almodovar Life partner: Randy Hastings Prognosis: Her prognosis is guarded. She was previously enrolled in hospice with [facility] for an end-stage diagnosis of COPD with acute lower respiratory infection. While this cannot be confirmed, it is also suspected that she had some level of chronic pain as she was on both methadone and oxycodone. At this time she was found down, cyanotic, discolored, reportedly without respirations with emesis blocking the airway until resuscitated by EMS. Neurology opines that she may have an anoxic/hypoxic/ischemic brain injury but this will not be able to be confirmed until sedation can be stopped. Unable to accurately prognosticate at this time. . Code Status: Full Code (By default) Plan: PLAN: Legal decision maker: Patient is currently not capacitated to make her own decisions and does not have a valid healthcare surrogate that we can locate. Per [place] statutes, as she is legally and has 2 sons, her sons would be the first tier healthcare proxy decision-maker. Attempts are in progress to locate both sons. If they cannot be located, patient does have a sister, Sushma who is readily available and willing to serve. As both parents are , be the alternate decision-maker if the sons cannot be contacted. Goals: Aggressive by default. Telephone call placed to patient's son Tray Coto , to provide him with a medical update-no response and unable to leave a voice message. Telephone conversation with patient's Sister Sushma Almodovar, provided her with a medical update and expressed concern that patient has not been more awake since sedation has been discontinued. Anticipatory guidance provided regarding spontaneous breathing trials and expectations. Patient's sister reiterates that Tray Coto (Health care proxy) has stated that he wants everything medically possible to be done to keep his mother alive including reintubation in case of respiratory failure after medically extubating patient. Patient`s sister Sushma is supportive of patient`s son Tray franklin, though she verbalizes understanding that patient may have possibly suffered anoxic/hypoxic/ischemic brain injury. CODE STATUS: FULL CODE SYMPTOMS: * Encephalopathy: At this time she remains encephalopathic undergoing EEGs per neurology and vent weaning as tolerated. She remains on sedation at this time for vent synchrony. Encephalopathy may be multifactorial to include hypoxic/an anoxic injury, drug overdose or progressive medical condition. Sedation weaning per manager of environmental services. No further recommendations at this time * Seizures: HCV negative, acyclovir DC'd. She is receiving fosphenytoin every 8 hours, Keppra 500 mg every 12 hours. Titration per neurology. Palliative care will continue to follow the patient during hospital course as condition evolves, to assist patient/decision-maker with understanding of their medical conditions, weighing benefits/burdens of treatment options, for clarification of goals of treatment. Additionally will assist with any symptoms of palliative concern. . Attestation Attestation: To help prompt me to consider important information that might be impacting today's encounter and assessment, information from prior notes written by myself or my colleagues may have been "brought forward" into today's note. My signature on this note, however, is an attestation that I personally performed the exam, history, and/or decision-making noted today, and, unless otherwise indicated, the interactions with patient, family, and staff as well as the review of records all occurred today. I also attest that the listed assessment and stated plan reflect my best clinical judgment today based on the combination of historical information, prior notes, and today's exam/ interactions. When time spent is documented, it refers only to time spent today by the signer, or if indicated, combined time spent today by collaborating physician/nurse practitioner. .
[2018-04-02 16:49] LABS: Hemoglobin A1c 6.5 % (4.3-6.0)
[2018-04-02] MEDS: Polyethylene Glycol 3350 17 GM Packet PO SCH (20:20)
[2018-04-02] MEDS: Carboxymethylcellulose 0.5% Opth Drops 15 ML Bottle EACH EYE SCH (20:28)
[2018-04-03] MEDS: Dexmedetomidine Inj 200 MCG in Sodium Chlor 0.9% Inj 48 ML IV.CONT PRN ×10 (00:42→23:59)
[2018-04-03] MEDS: Insulin NovoLOG Aspart Correctional Sugar Inj SQ SCH ×4 (00:43→18:18)
[2018-04-03] MEDS: Oral Hygiene Kit OROPHARYNG SCH ×4 (00:44→15:26)
[2018-04-03] MEDS: KCL 20 mEq/NACL 0.45% Inj 1,000 ML IV.CONT SCH (00:44)
[2018-04-03] MEDS: FOSPHENYTOIN IV.SIG SCH ×3 (02:56→19:02)
[2018-04-03] MEDS: SODIUM CHLOR IV.SIG SCH ×3 (02:56→19:02)
[2018-04-03] MEDS: Chlorhexidine Gluconate 2% 1 Pack (2 Cloths) TOPICAL SCH (03:36)
--- NOTE | 2018-04-03 04:46 | XR ---
EXAM DATE: 04/03/2018 6:00 AM EDT AGE/SEX: 62 years / Female INDICATIONS: Shortness of breath. CLINICAL DATA: This is the patient's subsequent encounter. Patient reports that signs and symptoms h ave been present for 4 - 6 days and indicates a pain score of Nonresponsive. MEDICAL/SURGICAL HISTORY: . Chronic obstructive pulmonary disease. Diabetes mellitus type II. None. COMPARISON: [facility] [place], CHEST 1V SINGLE AP, 03/30/2018. . FINDINGS: Stable ETT with tip less than 1 cm above the henry. NGT courses beyond the GE junction with tip omit levi from the image. Minimal diffuse interstitial prominence. Cardiomediastinal contours are stable. R emainder of exam is unchanged. CONCLUSION: 1. No significant interval change. 2. Stable ETT, less than 1 cm above the henry. 3. Stable NGT. 4. Stable mild positive fluid balance. Electronically signed by: Chaitanya Mai MD 04/03/2018 4:45 AM EDT
[2018-04-03 05:08] LABS: Baso % (Auto) 0.2 % (0.0-2.0); Eos % (Auto) 0.3 % (0.0-4.0); Hematocrit 45.4 % (35.0-46.0); Lymph # (Auto) 1.4 th/mm3 (1.0-4.8); Lymph % (Auto) 12.8 % (9.0-44.0); Mean Corpuscular HGB Conc 33.1 % (32.0-36.0); Mean Corpuscular Hemoglobin 26.4 pg (27.0-34.0); Mean Corpuscular Volume 79.6 fL (80.0-100.0); Mean Platelet Volume 7.8 fL (7.0-11.0); Mono # (Auto) 0.8 th/mm3 (0.0-0.9); Mono % (Auto) 7.5 % (0.0-8.0); Neut # (Auto) 8.3 th/mm3 (1.8-7.7); Neut % (Auto) 79.2 % (16.0-70.0); Platelet Count 250 th/mm3 (150-450); White Blood Count 10.5 th/mm3 (4.0-11.0)
[2018-04-03 05:12] LABS: Anion Gap 11 meq/L (5-15); Aspartate Aminotransferase 26 U/L (15-37); Blood Urea Nitrogen 14 mg/dL (7-18); Calcium 8.7 mg/dL (8.5-10.1); Carbon Dioxide 26.1 meq/L (21.0-32.0); Chloride 104 meq/L (98-107); Glomerular Filtration Rate 85 mL/min (>89); Glucose,Random 117 mg/dL (74-106); Potassium 3.7 meq/L (3.5-5.1); Sodium 141 meq/L (136-145)
[2018-04-03 05:15] LABS: Alanine Aminotransferase 25 U/L (10-53); Alkaline Phosphatase 83 U/L (45-117); Phosphorus 2.1 mg/dL (2.5-4.9)
[2018-04-03] MEDS: Heparin - SQ 10,000 UNITS/ML Vial SQ SCH ×3 (05:28→21:54)
[2018-04-03] MEDS: MethylPREDNISolone Sod Succinate Inj 40 MG/ML Vial IV.PUSH SCH ×3 (06:18→23:33)
[2018-04-03] MEDS: Senna/Docusate Sodium 8.6/50 MG Tablet PO SCH ×2 (08:45→20:41)
[2018-04-03] MEDS: Polyethylene Glycol 3350 17 GM Packet PO SCH ×2 (08:46→20:41)
[2018-04-03] MEDS: Chlorhexidine 0.12% Oral Kit 15 ML UDC OROPHARYNG SCH ×2 (08:46→20:42)
[2018-04-03] MEDS: Carboxymethylcellulose 0.5% Opth Drops 15 ML Bottle EACH EYE SCH ×2 (08:47→20:42)
--- NOTE | 2018-04-03 10:45 | P.PNCC ---
Subjective Subjective Remarks/Hospital Course: 62-year-old female. She was found unresponsive. She had an empty bottle of 9 methadone 10 mg tablets and 18 Ativan 0.5 mg tablets. Apparently CPR was initiated per family. Family provided EVAC with information that patient is on hospice and has a history of diabetes, COPD, neuropathy, no advanced directives. When EVAC arrived she had a pulse but agonal respirations. She was administered Narcan 2 mg IV without improvement. Upon arrival to the ED she was not protecting her airway, pooling secretions in her mouth. She was intubated upon arrival. Her systolic blood pressure was in the 80s. She was administered 2 L normal saline bolus, right femoral line was placed and she was started on Levophed. Family has not arrived at the hospital and there is no available contact information. She is registered as a Amina Kebede. The prescription bottles say Antonina Coto. That individual has not been admitted since 2007. 03/30: Seizure activity appears to be controlled with Dilantin. She remains stuporous and we are unable to wean from the ventilator. Ongoing attempts to find out her true identity. 03/31: Will attempt spontaneous breathing trial again today. Late yesterday and early today she has had more episodes of spontaneous eye opening though she does not appear to track. Cerebrospinal fluid appears benign. No growth on culture after 48 hours. Bronchospasm responded quite well to steroids, will continue through extubation. 04/01: Fairly strong on spontaneous breathing trials today. We will discontinue all sedation, watch closely for seizure activity, and attempt to get her extubated. 04/02 -currently resting in bed in no acute distress. Eyes are rolled back. Currently on fentanyl drip at 150 mg/h and propofol drip at 25 mcg/kg/min. Starting dexmedetomidine drip and attempt to wean. Fosphenytoin decreased per neurology today. Strength 2 feeds today. No bowel movement. Subjective 04/03: T-max 100.2. Weaned off fentanyl and propofol drips. Currently only on dexmedetomidine drip at 1.4 mg/kg/h for vent synchrony. Tolerating tube feeds at goal. Beyond, gags and withdraws to pain bilateral upper and lower extremities. Not following commands. Eyes deviate downward. Objective Vital Signs / I&O: Vital Signs 04/02/18 11:17 04/02/18 12:00 04/02/18 16:00 Temperature 98.8 F 98.2 F Pulse Rate 86 78 85 Respiratory Rate 17 21 18 Blood Pressure 176/103 H 177/95 H Pulse Oximetry 99 99 97 04/02/18 16:04 04/02/18 20:00 04/02/18 23:16 Temperature 99.4 F Pulse Rate 84 102 H Respiratory Rate 18 22 18 Blood Pressure 137/91 H Pulse Oximetry 97 100 100 04/02/18 23:18 04/03/18 00:00 04/03/18 03:44 Temperature 98.3 F Pulse Rate 79 76 105 H Respiratory Rate 18 19 26 H Blood Pressure 126/85 Pulse Oximetry 100 04/03/18 03:52 04/03/18 04:00 04/03/18 07:59 Temperature 100.2 F H Pulse Rate 96 H 73 Respiratory Rate 33 H 16 23 Blood Pressure 151/96 H Pulse Oximetry 98 100 100 04/03/18 08:00 Temperature Pulse Rate 80 Respiratory Rate Blood Pressure Pulse Oximetry Intake & Output 04/02/18 04/03/18 04/03/18 18:59 06:59 18:59 Intake Total 1778.2 / 1778.2 1650 / 1650 50 / 50 Output Total 3200 / 3200 Balance -1421.8 / -1421.8 1650 / 1650 50 / 50 Weight 70.4 kg Intake: IV 1588.2 / 1588.2 1250 / 1250 50 / 50 Precedex Inj 200 MCG In NS Inj 50 / 50 250 / 250 50 / 50 48 ML @ 0.2 MCG/KG/HR 3.52 mls/ hr IV.CONT TITRATE PRN Rx#: [id number] Potassium Chlor 20 mEq/NACL 0. 1000 / 1000 45% Inj 1,000 ML @ 100 mls/hr IV.CONT .Q10H DEBORAH Rx#:[id number] Diprivan 1000 mg/100 ml Inj 1, 100 / 100 000 mg In 100 ml @ 5 MCG/KG/MIN 2.43 mls/hr IV.CONT TITRATE PRN Rx#:[id number] NS Inj 1,000 ML @ 125 mls/hr IV 875 / 875 .CONT .Q8H DEBORAH Rx#:[id number] Cerebyx Inj 80 MGPE In NS Inj 103.2 / 103.2 50 ML @ 208 mls/hr IV.SIG Q8H DEBORAH Rx#:[id number] Zosyn 2.25 GM Premix 50 ML @ 50 / 50 100 mls/hr IV.SIG Q6H DEBORHA Rx#: [id number] KCl 20 mEq Premix Inj 20 meq In 200 / 200 100 ml @ 50 mls/hr IV.SIG Q2H PRN Rx#:[id number] Keppra Inj 500 MG In NS Inj 100 210 / 210 ML @ 400 mls/hr IV.SIG Q12H DEBORAH Rx#:[id number] Oral 0 / 0 Tube Feeding 60 / 60 400 / 400 Tube Irrigant 30 / 30 Water Bolus Amount 100 / 100 Output: Urine 1400 / 1400 Urine Amount (Catheter) 1800 / 1800 Indwelling Urethral Catheter 1800 / 1800 Gastric Drainage 0 / 0 Oral Orogastric Tube 0 / 0 Other: Post Void Residual 450 Date of Last Bowel Movement 04/02/18 04/03/18 # Bowel Movements 0 Result Diagrams: 04/03/18 03:37 04/03/18 03:37 Other Results: Microbiology 03/29/18 06:05 Blood - Peripheral Aerobic Blood Culture - Preliminary No growth in 4 days 03/29/18 06:05 Blood - Peripheral Anaerobic Blood Culture - Preliminary No growth in 4 days 03/29/18 06:00 Blood - Peripheral Aerobic Blood Culture - Preliminary No growth in 4 days 03/29/18 06:00 Blood - Peripheral Anaerobic Blood Culture - Preliminary No growth in 4 days 03/30/18 21:45 Sputum - Endotracheal Gram Stain - Final 03/30/18 21:45 Sputum - Endotracheal Sputum Culture - Final Moderate growth normal respiratory erick 03/29/18 14:42 Lumbar Puncture Gram Stain - Final 03/29/18 14:42 Lumbar Puncture CSF Culture - Final No growth in 72 hours Imaging: Chest X-Ray 03/28/18 22:52 CONCLUSION: ET tube and NG tube in good position. Head CT 03/29/18 00:00 CONCLUSION: Negative noncontrast head CT. . Head MRI 03/29/18 13:31 CONCLUSION: 1. No acute intracranial abnormality identified. 2. Fluid within the mastoid air cells on the right. Chest X-Ray 03/30/18 05:38 CONCLUSION: Minimal prominence of interstitium which may represent pulmonary venous hypertension or minimal edema. Chest X-Ray 04/03/18 06:00 CONCLUSION: 1. No significant interval change. 2. Stable ETT, less than 1 cm above the henry. 3. Stable NGT. 4. Stable mild positive fluid balance. Objective Remarks: GENERAL: 62-year-old female currently orotracheally intubated with OG tube in place SKIN: Warm and dry. Ulceration over the lateral aspect of the first left toe. HEAD: Atraumatic. Normocephalic. EYES: Pupils equal and round, around 1-2 mm bilaterally and sluggish. ENT: No nasal bleeding or discharge. NECK: Trachea midline. Orotracheal intubation. CARDIOVASCULAR: RRR. S1, S2 no S4. Without murmur RESPIRATORY: Diminished breath sounds bilaterally. Minimal end expiratory wheeze. GASTROINTESTINAL: Abdomen soft, non-tender, nondistended. Bowel sounds present. No guarding. MUSCULOSKELETAL: Extremities without significant peripheral edema. Skin as above. Amputation to the right second toe. NEUROLOGICAL: Spontaneous eye opening and to central noxious stimuli. Eyes deviated downward. Withdraws to pain in bilateral upper lower extremity's. Eyes blinking.. No myoclonic jerking noted. Assessment and Plan - Assessment and Plan Plan: NEURO/PSYCH: Likely acute hypoxic ischemic encephalopathy Opioid overdose Benzodiazepine overdose History of depression/anxiety History of diabetic neuropathy Currently on dexmedetomidine drip at 1.4 mcg/kg per hour for sedation/analgesia while intubated Goal of RASS 0 Daily sedation vacation Continue dexmedetomidine drip and attempt to wean off sedatives as above Will likely need chronic narcotics due to history of methadone and oxycodone use MRI brain revealed right-sided mastoiditis otherwise no acute intercranial findings EEG 03/29 with burst suppression with epileptiform activity. EEG 03/30 without epileptic activity. Followed by neurology. Currently on levetiracetam 500 milligrams IV twice daily and fosphenytoin 80 mg every 8 hours. Level was 16 today. Recheck in a.m. Seizure precaution RESP: Acute hypercapneic respiratory failure COPD with ongoing tobaccoism Currently on PSv trial 06/04 at 40% Ventilator bundle Albuterol/ipratropium aerosols every 6 hours with albuterol aerosols every 2 hours as needed for dyspnea Budesonide 0.5/2 1 inhalation twice daily Methylprednisolone succinate 40 mg IV every 8 hours Chest x-ray ordered for a.m. 04/04 CV: Shock -resolved Hypertension As needed labetalol and nicardipine drip for elevated blood pressure Troponin 00.04 admission. Discontinued IV fluids GI: Elevated transaminases likely secondary to shock Hypoalbuminemia Acute constipation Start tube feeds with vital 1.5 goal 45 cc an hour Lansoprazole 30 mg daily for GI prophylaxis Docusate sodium/senna 1 tablet twice daily for bowel. Add lactulose 30 cc twice daily and polythene glycol centigrams twice daily and 1 subcutaneous dose of Relistor 12 mg x1 today FEN/GIULIA/ : Acute hypokalemia resolved- Periwick in place. Monitor intake and output hourly. Monitor electrolytes and replace as indicated per ICU electrolyte replacement protocol. ID: Received piperacillin/tazobactam and vancomycin in the emergency department. 03/29 -Gram stain of CSF -growth 03/29 -blood cultures x2 -no growth 03/29 -sputum negative Will discontinue acyclovir today as HSV was negative Discontinue piperacillin l/tazobactam today. HEME: Leukocytosis Monitor CBC daily. Follow trends. No indication for transfusion of blood products at this time. ENDO: Diabetes mellitus per report -check hemoglobin A1c Elevated TSH of 8. Normal free T/T4. Recommend recheck in 1-2 months after acute illness Sliding scale insulin Accu-Cheks to maintain euglycemia/aspart low protocol MSK: Physical therapy evaluate and treat PROPH: SCDs for DVT prophylaxis. Heparin subcu for DVT prophylaxis. Lansoprazole 30 mg daily for GI prophylaxis. Level 2 follow-up
[2018-04-03] MEDS ORDERED: Potassium Phosphate Inj 30 MMOL in Sodium Chlor 0.9% Inj 250 ML IV.SIG ONE (12:00)
--- NOTE | 2018-04-03 14:04 | P.PNPAL ---
Reason for Visit Reason for visit: a. To assist with evaluation and management of symptoms including: Encephalopathy, seizures b. To assist medical decision maker(s) with: better understanding of current medical conditions; weighing benefits/burdens of medical treatment options; making medical treatment decisions. Subjective Subjective/Interval History: Patient seen for evaluation of symptom management of encephalopathy and seizures as well as goals of medical treatment. She remains encephalopathic, not arousable, not responding to commands. Fentanyl and propofol of been discontinued. She is currently on Precedex at 1.4 mcg/kg/h. She does not open eyes to command, loud verbal stimuli or noxious stimuli. When eyelids are retracted both eyes are facing downward. No nystagmus is seen. Neurology is following. Withdraws to pain in all 4 extremities. Upgoing plantar reflexes, positive corneal, positive gag. Seizures controlled at this time, fosphenytoin decreased per neurology. Remains on Keppra with seizure precautions. EEG done 03/30 shows diffuse slowing consistent with moderate diffuse encephalopathy some almost BIPLED type discharges though not specifically epileptiform. Some occasional suppression of the background could be a slight burst suppression versus medication effect, no focal abnormality, no prolonged seizure activity seen. No new EEG ordered at this evaluation. . Family/Friend Interactions: Placed calls to son Tray, son Guerrero, Sister Sushma and significant other Rosendo. Callbacks pending from Guerrero, Sushma and Rosendo. Tray did return the call and I discussed with him patient's current clinical condition. He states it is his feeling that this is as good as she is going to get. Discussed upcoming decisions to include trach, PEG versus compassionate withdrawal. He states that his mother, under no circumstances, would want to live in a skilled nursing. He appreciates the early notification of the upcoming decisions to allow him to make a considered decision and discuss with family. At this time he states he is leaning towards withdrawal versus trach and PEG. I did advise him of the multiple attempts to reach both his brother and the patient's significant other, which have been unsuccessful. He did verify the phone numbers for both parties. . Advance Directives Living Will: Never completed Health Care Surrogate: Never completed Durable Power of Pyrometer Mechanic: Never completed Health Care Surrogate Name and Number: HCP: Tray Robb and Guerrero Zimmerman Objective Vital Signs: Vital Signs 04/02/18 16:00 04/02/18 16:04 04/02/18 20:00 Temperature 98.2 F 99.4 F Pulse Rate 85 84 102 H Respiratory Rate 18 18 22 Blood Pressure 177/95 H 137/91 H Pulse Oximetry 97 97 100 04/02/18 23:16 04/02/18 23:18 04/03/18 00:00 Temperature 98.3 F Pulse Rate 79 76 Respiratory Rate 18 18 19 Blood Pressure 126/85 Pulse Oximetry 100 100 04/03/18 03:44 04/03/18 03:52 04/03/18 04:00 Temperature 100.2 F H Pulse Rate 105 H 96 H Respiratory Rate 26 H 33 H 16 Blood Pressure 151/96 H Pulse Oximetry 98 100 04/03/18 07:59 04/03/18 08:00 04/03/18 11:12 Temperature 98.0 F Pulse Rate 73 76 Respiratory Rate 23 30 H 18 Blood Pressure 173/78 H Pulse Oximetry 100 100 04/03/18 11:46 04/03/18 12:00 Temperature Pulse Rate 81 86 Respiratory Rate 28 H Blood Pressure Pulse Oximetry 100 Intake & Output 04/02/18 04/03/18 04/03/18 18:59 06:59 18:59 Intake Total 1778.2 / 1778.2 1755 / 1755 1201.6 / 1201.6 Output Total 3200 / 3200 Balance -1421.8 / -1421.8 1755 / 1755 1201.6 / 1201.6 Weight 155 lb 3.287 oz Intake: IV 1588.2 / 1588.2 1355 / 1355 1201.6 / 1201.6 Precedex Inj 200 MCG In NS Inj 50 / 50 250 / 250 150 / 150 48 ML @ 0.2 MCG/KG/HR 3.52 mls/ hr IV.CONT TITRATE PRN Rx#: [id number] Potassium Chlor 20 mEq/NACL 0. 1000 / 1000 1000 / 1000 45% Inj 1,000 ML @ 100 mls/hr IV.CONT .Q10H DEBORAH Rx#:[id number] Diprivan 1000 mg/100 ml Inj 1, 100 / 100 000 mg In 100 ml @ 5 MCG/KG/MIN 2.43 mls/hr IV.CONT TITRATE PRN Rx#:[id number] NS Inj 1,000 ML @ 125 mls/hr IV 875 / 875 .CONT .Q8H DEBORAH Rx#:[id number] Cerebyx Inj 80 MGPE In NS Inj 103.2 / 103.2 51.6 / 51.6 50 ML @ 208 mls/hr IV.SIG Q8H DEBORAH Rx#:[id number] Zosyn 2.25 GM Premix 50 ML @ 50 / 50 100 mls/hr IV.SIG Q6H DEBORAH Rx#: [id number] KCl 20 mEq Premix Inj 20 meq In 200 / 200 100 ml @ 50 mls/hr IV.SIG Q2H PRN Rx#:[id number] Keppra Inj 500 MG In NS Inj 100 210 / 210 105 / 105 ML @ 400 mls/hr IV.SIG Q12H DEBORAH Rx#:[id number] Oral 0 / 0 Tube Feeding 60 / 60 400 / 400 Tube Irrigant 30 / 30 Water Bolus Amount 100 / 100 Output: Urine 1400 / 1400 Urine Amount (Catheter) 1800 / 1800 Indwelling Urethral Catheter 1800 / 1800 Gastric Drainage 0 / 0 Oral Orogastric Tube 0 / 0 Other: Post Void Residual 450 Date of Last Bowel Movement 04/02/18 04/03/18 # Bowel Movements 0 Physical Exam: CONSTITUTIONAL/GENERAL: This is an obese patient, intubated, sedated, in no apparent distress. TUBES/LINES/DRAINS: PIV left forearm, ETT, OGT, Watson. BUE soft restraints EYES: Eyes deviated downward, positive corneal reflexes. ENT: Unable to assess hearing. Not following simple commands. No nasal drainage or bleeding. Orotracheally intubated CARDIOVASCULAR: Regular rate and rhythm without murmurs, gallops, or rubs. No JVD. Peripheral pulses symmetric. RESPIRATORY/CHEST: Symmetric, tachypneic respirations. Breath sounds equal bilaterally. Breath sounds clear. GASTROINTESTINAL: Abdomen soft, non-tender, nondistended. No guarding. Bowel sounds present. Now receiving tube feeding at 45 mL/h. GENITOURINARY: Without palpable bladder distension. Watson catheter in place. MUSCULOSKELETAL: Extremities without clubbing or cyanosis, 1+ edema. No joint tenderness or effusion noted. No calf tenderness. No mottling or clubbing. NEUROLOGICAL: Intubated with no sedation. Not following simple commands. Currently withdrawing to noxius stimulation with all extremities. PSYCHIATRIC: On Precedex, unresponsive. . Diagnostic Tests Laboratory: Laboratory Results - last 72 hr 03/29/18 03/31/18 04/01/18 14:42 16:43 00:16 WBC RBC Hgb Hct MCV MCH MCHC RDW Plt Count MPV Neut % (Auto) Lymph % (Auto) [place] % (Auto) Eos % (Auto) Baso % (Auto) Neut # (Auto) Lymph # (Auto) [place] # (Auto) Eos # (Auto) Baso # (Auto) WBC Differential Differential Comment Sodium Potassium Chloride Carbon Dioxide Anion Gap BUN Creatinine Estimated GFR POC Glucose 88 149 H Random Glucose Hemoglobin A1c Calcium Phosphorus Magnesium Total Bilirubin AST ALT Alkaline Phosphatase Total Protein Albumin CSF Herpes I DNA (PCR) Negative CSF Herpes II DNA (PCR) Negative Phenytoin 04/01/18 04/01/18 04/01/18 03:59 06:41 11:44 WBC RBC Hgb Hct MCV MCH MCHC RDW Plt Count MPV Neut % (Auto) Lymph % (Auto) [place] % (Auto) Eos % (Auto) Baso % (Auto) Neut # (Auto) Lymph # (Auto) [place] # (Auto) Eos # (Auto) Baso # (Auto) WBC Differential Differential Comment Sodium 140 Potassium 4.0 Chloride 103 Carbon Dioxide 28.1 Anion Gap 9 BUN 15 Creatinine 0.75 Estimated GFR 78 L POC Glucose 97 157 H Random Glucose 124 H Hemoglobin A1c Calcium 8.7 Phosphorus Magnesium Total Bilirubin AST ALT Alkaline Phosphatase Total Protein Albumin CSF Herpes I DNA (PCR) CSF Herpes II DNA (PCR) Phenytoin 15.9 04/01/18 04/01/18 04/02/18 11:45 18:09 00:32 WBC RBC Hgb Hct MCV MCH MCHC RDW Plt Count MPV Neut % (Auto) Lymph % (Auto) [place] % (Auto) Eos % (Auto) Baso % (Auto) Neut # (Auto) Lymph # (Auto) [place] # (Auto) Eos # (Auto) Baso # (Auto) WBC Differential Differential Comment Sodium Potassium Chloride Carbon Dioxide Anion Gap BUN Creatinine Estimated GFR POC Glucose 130 H 120 H 135 H Random Glucose Hemoglobin A1c Calcium Phosphorus Magnesium Total Bilirubin AST ALT Alkaline Phosphatase Total Protein Albumin CSF Herpes I DNA (PCR) CSF Herpes II DNA (PCR) Phenytoin 04/02/18 04/02/18 04/02/18 01:25 04:44 12:38 WBC RBC Hgb Hct MCV MCH MCHC RDW Plt Count MPV Neut % (Auto) Lymph % (Auto) [place] % (Auto) Eos % (Auto) Baso % (Auto) Neut # (Auto) Lymph # (Auto) [place] # (Auto) Eos # (Auto) Baso # (Auto) WBC Differential Differential Comment Sodium 142 Potassium 3.4 L Chloride 107 Carbon Dioxide 27.9 Anion Gap 7 BUN 15 Creatinine 0.63 Estimated GFR Greater than 89 POC Glucose 162 H Random Glucose 106 Hemoglobin A1c 6.5 H Calcium 8.1 L Phosphorus Magnesium Total Bilirubin AST ALT Alkaline Phosphatase Total Protein Albumin CSF Herpes I DNA (PCR) CSF Herpes II DNA (PCR) Phenytoin 14.2 04/02/18 04/02/18 04/02/18 13:04 20:21 23:44 WBC RBC Hgb Hct MCV MCH MCHC RDW Plt Count MPV Neut % (Auto) Lymph % (Auto) [place] % (Auto) Eos % (Auto) Baso % (Auto) Neut # (Auto) Lymph # (Auto) [place] # (Auto) Eos # (Auto) Baso # (Auto) WBC Differential Differential Comment Sodium Potassium 4.4 D Chloride Carbon Dioxide Anion Gap BUN Creatinine Estimated GFR POC Glucose 125 H 160 H Random Glucose Hemoglobin A1c Calcium Phosphorus Magnesium Total Bilirubin AST ALT Alkaline Phosphatase Total Protein Albumin CSF Herpes I DNA (PCR) CSF Herpes II DNA (PCR) Phenytoin 04/03/18 04/03/18 04/03/18 03:37 03:37 07:43 WBC 10.5 RBC 5.70 H Hgb 15.0 Hct 45.4 MCV 79.6 L MCH 26.4 L MCHC 33.1 RDW 19.0 H Plt Count 250 MPV 7.8 Neut % (Auto) 79.2 H Lymph % (Auto) 12.8 [place] % (Auto) 7.5 Eos % (Auto) 0.3 Baso % (Auto) 0.2 Neut # (Auto) 8.3 H Lymph # (Auto) 1.4 [place] # (Auto) 0.8 Eos # (Auto) 0.0 Baso # (Auto) 0.0 WBC Differential . Differential Comment Auto diff final Sodium 141 Potassium 3.7 Chloride 104 Carbon Dioxide 26.1 Anion Gap 11 BUN 14 Creatinine 0.70 Estimated GFR 85 L POC Glucose 170 H Random Glucose 117 H Hemoglobin A1c Calcium 8.7 Phosphorus 2.1 L Magnesium 2.0 Total Bilirubin 0.5 AST 26 ALT 25 Alkaline Phosphatase 83 Total Protein 7.0 Albumin 3.0 L CSF Herpes I DNA (PCR) CSF Herpes II DNA (PCR) Phenytoin 16.0 04/03/18 11:58 WBC RBC Hgb Hct MCV MCH MCHC RDW Plt Count MPV Neut % (Auto) Lymph % (Auto) [place] % (Auto) Eos % (Auto) Baso % (Auto) Neut # (Auto) Lymph # (Auto) [place] # (Auto) Eos # (Auto) Baso # (Auto) WBC Differential Differential Comment Sodium Potassium Chloride Carbon Dioxide Anion Gap BUN Creatinine Estimated GFR POC Glucose 119 H Random Glucose Hemoglobin A1c Calcium Phosphorus Magnesium Total Bilirubin AST ALT Alkaline Phosphatase Total Protein Albumin CSF Herpes I DNA (PCR) CSF Herpes II DNA (PCR) Phenytoin Result Diagrams: 04/03/18 03:37 04/03/18 03:37 Microbiology: Microbiology 03/29/18 06:05 Aerobic Blood Culture - Final Blood - Peripheral No growth in 5 days Anaerobic Blood Culture - Final No growth in 5 days 03/29/18 06:00 Aerobic Blood Culture - Final Blood - Peripheral No growth in 5 days Anaerobic Blood Culture - Final No growth in 5 days 03/30/18 21:45 Gram Stain - Final Sputum - Endotracheal Sputum Culture - Final Moderate growth normal respiratory erick 03/29/18 14:42 Gram Stain - Final Lumbar Puncture CSF Culture - Final No growth in 72 hours Imaging: Chest X-Ray 03/28/18 22:52 CONCLUSION: ET tube and NG tube in good position. Head CT 03/29/18 00:00 CONCLUSION: Negative noncontrast head CT. . Head MRI 03/29/18 13:31 CONCLUSION: 1. No acute intracranial abnormality identified. 2. Fluid within the mastoid air cells on the right. Chest X-Ray 03/30/18 05:38 CONCLUSION: Minimal prominence of interstitium which may represent pulmonary venous hypertension or minimal edema. Chest X-Ray 04/03/18 06:00 CONCLUSION: 1. No significant interval change. 2. Stable ETT, less than 1 cm above the henry. 3. Stable NGT. 4. Stable mild positive fluid balance. Procedures: 03/28: Intubation 03/28: Right femoral triple-lumen central line placed 03/29: Diagnostic lumbar puncture Assessment and Plan Pertinent Non-Medical Issues: Psychosocial: She was born in [facility] and moved to [place] 20 years ago. 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 She has been and twice, but has been with her current significant other for over 18 years. Spiritual: Not an important concept to the patient. Legal: No advance directives. Ethical issues impacting care: Difficulty contacting proxy decision makers. . Important Contacts: Son: Tray Coto Son: Guerrero Zimmerman Sister: Sushma Almodovar Life partner: Randy Hastings Prognosis: Her prognosis is guarded. She was previously enrolled in hospice with [facility] for an end-stage diagnosis of COPD with acute lower respiratory infection. While this cannot be confirmed, it is also suspected that she had some level of chronic pain as she was on both methadone and oxycodone. At this time she was found down, cyanotic, discolored, reportedly without respirations with emesis blocking the airway until resuscitated by EMS. Neurology opines that she may have an anoxic/hypoxic/ischemic brain injury but this will not be able to be confirmed until sedation can be stopped. Unable to accurately prognosticate at this time. . Code Status: Full Code (By default) Plan: PLAN: Legal decision maker: Patient is currently not capacitated to make her own decisions and does not have a valid healthcare surrogate that we can locate. Per [place] statutes, as she is legally and has 2 sons, her sons would be the first tier healthcare proxy decision-maker. Attempts are in progress to locate both sons. If they cannot be located, patient does have a sister, Sushma who is readily available and willing to serve. As both parents are , be the alternate decision-maker if the sons cannot be contacted. Goals: Aggressive by default. Telephone call placed to patient's son Tray Coto , to provide him with a medical update-no response and unable to leave a voice message. Telephone conversation with patient's Sister Sushma Almodovar, provided her with a medical update and expressed concern that patient has not been more awake since sedation has been discontinued. Anticipatory guidance provided regarding spontaneous breathing trials and expectations. Patient's sister reiterates that Tray Coto (Health care proxy) has stated that he wants everything medically possible to be done to keep his mother alive including reintubation in case of respiratory failure after medically extubating patient. Patient`s sister Sushma is supportive of patient`s son Tray decision, though she verbalizes understanding that patient may have possibly suffered anoxic/hypoxic/ischemic brain injury. CODE STATUS: FULL CODE SYMPTOMS: * Encephalopathy: At this time she remains encephalopathic with vent weaning as tolerated. She is currently tolerating CPAP, but tachypneic. She remains on Precedex for vent synchrony. Encephalopathy may be multifactorial to include hypoxic/an anoxic injury, drug overdose or progressive medical condition. Sedation weaning per manager implementation. Introduced trach/PEG versus compassionate withdrawal to son, Tray, who is the only engaged decision-maker. Messages have been left for his brother, Guerrero, with no return call in several days. Tray is considering options at this time. No further recommendations at this time * Seizures: HCV negative, acyclovir DC'd. She is receiving fosphenytoin every 8 hours, Keppra 500 mg every 12 hours. Titration per neurology. Remains on seizure precautions. No seizures seen at this evaluation. Neurology following. No further recommendations at this time. Palliative care will continue to follow the patient during hospital course as condition evolves, to assist patient/decision-maker with understanding of their medical conditions, weighing benefits/burdens of treatment options, for clarification of goals of treatment. Additionally will assist with any symptoms of palliative concern. . Attestation Attestation: To help prompt me to consider important information that might be impacting today's encounter and assessment, information from prior notes written by myself or my colleagues may have been "brought forward" into today's note. My signature on this note, however, is an attestation that I personally performed the exam, history, and/or decision-making noted today, and, unless otherwise indicated, the interactions with patient, family, and staff as well as the review of records all occurred today. I also attest that the listed assessment and stated plan reflect my best clinical judgment today based on the combination of historical information, prior notes, and today's exam/ interactions. When time spent is documented, it refers only to time spent today by the signer, or if indicated, combined time spent today by collaborating physician/nurse practitioner. .
[2018-04-03] MEDS: hydrALAZINE HCl Inj 20 MG/ML Vial IV.PUSH PRN (20:12)
[2018-04-04] MEDS: Oral Hygiene Kit OROPHARYNG SCH ×4 (00:11→16:19)
[2018-04-04] MEDS: Insulin NovoLOG Aspart Correctional Sugar Inj SQ SCH ×4 (00:11→17:34)
[2018-04-04] MEDS: Labetalol HCl Inj 100 MG/20 ML Vial IV.PUSH PRN ×2 (02:39→04:37)
[2018-04-04] MEDS: fentaNYL Citrate Inj 100 MCG/2 ML Ampul IV PUSH PRN (02:46)
[2018-04-04] MEDS: FOSPHENYTOIN IV.SIG SCH ×3 (02:49→18:01)
[2018-04-04] MEDS: SODIUM CHLOR IV.SIG SCH ×3 (02:49→18:01)
[2018-04-04] MEDS: Dexmedetomidine Inj 200 MCG in Sodium Chlor 0.9% Inj 48 ML IV.CONT PRN ×4 (02:56→12:24)
[2018-04-04] MEDS ORDERED: levETIRAcetam 1000mg/100mL Inj 100 ML IV.SIG ONE (03:02)
--- NOTE | 2018-04-04 03:08 | P.PNCC ---
Critical Care Event Note Code activated: No Narrative: Received stat call while I was actively coding another patient in the rehab center. Patient was having grand mal seizure x20 minutes and nurse requested Ativan order. Ordered ativan 2 mg IV q5 min prn. Patients glucose was 174. She reportedly was given ativan 2 mg IV and tonic clonic movements stopped. As soon as I was able, I came to evaluate patient and I am concerned for ongoing seizure as she is having periorbital twitching, has pupillary hippus, and there is are horizontal eye movements from midline to the left. Noted phenytoin levels were elevated and dose adjusted per neurology. Repeat level pending. Give keppra 1 gram IV and continue keppra therapy. Will resume propofol drip. Order repeat EEG. Critical care time: less than 30 mins
[2018-04-04] MEDS: Propofol 1000 mg/100 ml Inj 1,000 MG/100 ML BOTTLE IV.CONT PRN (03:09)
[2018-04-04 04:04] LABS: Baso % (Auto) 0.2 % (0.0-2.0); Eos % (Auto) 0.4 % (0.0-4.0); Hematocrit 45.5 % (35.0-46.0); Hemoglobin 14.5 gm/dL (11.6-15.3); Lymph # (Auto) 1.1 th/mm3 (1.0-4.8); Lymph % (Auto) 10.9 % (9.0-44.0); Mean Corpuscular HGB Conc 31.9 % (32.0-36.0); Mean Corpuscular Hemoglobin 25.5 pg (27.0-34.0); Mono # (Auto) 0.7 th/mm3 (0.0-0.9); Mono % (Auto) 6.8 % (0.0-8.0); Neut # (Auto) 8.4 th/mm3 (1.8-7.7); Neut % (Auto) 81.7 % (16.0-70.0); Platelet Count 218 th/mm3 (150-450); Red Blood Count 5.69 mil/mm3 (4.00-5.30); Red Cell Distribution Width 19.1 % (11.6-17.2); White Blood Count 10.3 th/mm3 (4.0-11.0)
[2018-04-04 04:16] LABS: Activated Partial Thrombo Time 20.9 sec (24.3-30.1); INR 1.1 Ratio; Prothrombin Time 10.7 sec (9.8-11.6)
--- NOTE | 2018-04-04 04:27 | XR ---
EXAM DATE: 04/04/2018 6:00 AM EDT AGE/SEX: 62 years / Female INDICATIONS: Respiratory failure. CLINICAL DATA: This is the patient's subsequent encounter. Patient reports that signs and symptoms h ave been present for 4 - 6 days and indicates a pain score of Nonresponsive. MEDICAL/SURGICAL HISTORY: . Chronic obstructive pulmonary disease. Diabetes mellitus type II. None. COMPAR[place]: [facility] [place] S[place], 04/03/2018. . FINDINGS: The cardiac silhouette is normal in transverse diameter. Support lines and tubes are in satisfactory position. The lungs are free of acute parenchymal opacity. No pulmonary nodules or pleural effusions are identified. CONCLUSION: No acute cardiopulmonary disease. Electronically signed by: Rohan Rivera MD 04/04/2018 4:26 AM EDT
[2018-04-04 04:29] LABS: Alanine Aminotransferase 24 U/L (10-53); Albumin 2.6 g/dL (3.4-5.0); Anion Gap 11 meq/L (5-15); Aspartate Aminotransferase 23 U/L (15-37); Blood Urea Nitrogen 15 mg/dL (7-18); Calcium 8.4 mg/dL (8.5-10.1); Carbon Dioxide 27.5 meq/L (21.0-32.0); Chloride 104 meq/L (98-107); Glomerular Filtration Rate Greater Than 89 mL/min (>89); Glucose,Random 156 mg/dL (74-106); Magnesium 1.9 mg/dL (1.5-2.5); Phosphorus 3.4 mg/dL (2.5-4.9); Potassium 3.5 meq/L (3.5-5.1); Sodium 142 meq/L (136-145)
[2018-04-04 04:31] LABS: Alkaline Phosphatase 80 U/L (45-117); Phenytoin (Dilantin) 12.6 mcg/mL (10.0-20.0); Total Protein 6.4 g/dL (6.4-8.2)
[2018-04-04] MEDS: Heparin - SQ 10,000 UNITS/ML Vial SQ SCH ×3 (05:43→21:18)
[2018-04-04] MEDS ORDERED: levETIRAcetam 1000mg/100mL Inj 100 ML IV.SIG SCH (06:00)
[2018-04-04] MEDS ORDERED: Magnesium Sulfate Inj 2 GM in Sodium Chlor 0.9% Inj 96 ML IV.SIG ONE (06:24)
[2018-04-04] MEDS ORDERED: Potassium Chloride 25 MEQ Effervescent Tablet PO ONE (06:24)
[2018-04-04] MEDS: Midazolam 50 MG/50 ML Inj 50 MG/50 ML BAG IV.CONT PRN ×2 (06:52→14:41)
--- NOTE | 2018-04-04 08:33 | P.PNCC ---
Subjective Subjective Remarks/Hospital Course: 62-year-old female. She was found unresponsive. She had an empty bottle of 9 methadone 10 mg tablets and 18 Ativan 0.5 mg tablets. Apparently CPR was initiated per family. Family provided EVAC with information that patient is on hospice and has a history of diabetes, COPD, neuropathy, no advanced directives. When [facility]AC arrived she had a pulse but agonal respirations. She was administered Narcan 2 mg IV without improvement. Upon arrival to the ED she was not protecting her airway, pooling secretions in her mouth. She was intubated upon arrival. Her systolic blood pressure was in the 80s. She was administered 2 L normal saline bolus, right femoral line was placed and she was started on Levophed. Family has not arrived at the hospital and there is no available contact information. She is registered as a Amina Kebede. The prescription bottles say Antonina Coto. That individual has not been admitted since 2007. 03/30: Seizure activity appears to be controlled with Dilantin. She remains stuporous and we are unable to wean from the ventilator. Ongoing attempts to find out her true identity. 03/31: Will attempt spontaneous breathing trial again today. Late yesterday and early today she has had more episodes of spontaneous eye opening though she does not appear to track. Cerebrospinal fluid appears benign. No growth on culture after 48 hours. Bronchospasm responded quite well to steroids, will continue through extubation. 04/01: Fairly strong on spontaneous breathing trials today. We will discontinue all sedation, watch closely for seizure activity, and attempt to get her extubated. 04/02 -currently resting in bed in no acute distress. Eyes are rolled back. Currently on fentanyl drip at 150 mg/h and propofol drip at 25 mcg/kg/min. Starting dexmedetomidine drip and attempt to wean. Fosphenytoin decreased per neurology today. Strength 2 feeds today. No bowel movement. 04/03: T-max 100.2. Weaned off fentanyl and propofol drips. Currently only on dexmedetomidine drip at 1.4 mg/kg/h for vent synchrony. Tolerating tube feeds at goal. Beyond, gags and withdraws to pain bilateral upper and lower extremities. Not following commands. Eyes deviate downward. Subjective 04/04: Max 100.6. Currently afebrile. Stated 20-minute tonic-clonic seizure overnight. Received 4 mg lorazepam and bolused with 500 mg levetiracetam. Was switched to a propofol drip at 30 mcg/kg/min. Currently on midazolam drip at 4 mg an hour. Objective Vital Signs / I&O: Vital Signs 04/03/18 11:12 04/03/18 11:46 04/03/18 12:00 Temperature 100.6 F H Pulse Rate 81 81 Respiratory Rate 18 28 H 24 Blood Pressure 143/84 H Pulse Oximetry 100 100 04/03/18 16:00 04/03/18 17:03 04/03/18 19:59 Temperature 100.2 F H Pulse Rate 79 86 81 Respiratory Rate 25 H 23 23 Blood Pressure 155/98 H Pulse Oximetry 100 100 100 04/03/18 20:00 04/04/18 00:00 04/04/18 00:19 Temperature 98.8 F 99.5 F Pulse Rate 94 H 69 69 Respiratory Rate 26 H 36 H 20 Blood Pressure 149/83 H 122/81 Pulse Oximetry 100 100 98 04/04/18 04:00 04/04/18 04:06 04/04/18 07:48 Temperature 97.9 F Pulse Rate 57 L 86 Respiratory Rate 21 21 24 Blood Pressure 167/82 H Pulse Oximetry 98 99 100 Intake & Output 04/03/18 04/04/18 04/04/18 18:59 06:59 18:59 Intake Total 2232.6 / 2232.6 1294.2 / 1294.2 100 / 100 Output Total 550 / 550 250 / 250 Balance 1682.6 / 1682.6 1044.2 / 1044.2 100 / 100 Weight 69.3 kg Intake: IV 1561.6 / 1561.6 558.2 / 558.2 100 / 100 Precedex Inj 200 MCG In NS Inj 250 / 250 150 / 150 48 ML @ 0.2 MCG/KG/HR 3.52 mls/ hr IV.CONT TITRATE PRN Rx#: [id number] Potassium Chlor 20 mEq/NACL 0. 1000 / 1000 45% Inj 1,000 ML @ 100 mls/hr IV.CONT .Q10H DEBORAH Rx#:[id number] Diprivan 1000 mg/100 ml Inj 1, 100 / 100 000 mg In 100 ml @ 5 MCG/KG/MIN 2.43 mls/hr IV.CONT TITRATE PRN Rx#:[id number] Cerebyx Inj 80 MGPE In NS Inj 51.6 / 51.6 103.2 / 103.2 50 ML @ 208 mls/hr IV.SIG Q8H DEBORAH Rx#:[id number] Keppra 1000 mg/100 mL Premix 100 / 100 100 / 100 100 ML @ 400 mls/hr IV.SIG Q12H DEBORAH Rx#:[id number] Keppra Inj 500 MG In NS Inj 100 105 / 105 ML @ 400 mls/hr IV.SIG Q12H DEBORAH Rx#:[id number] Oral 180 / 180 Tube Feeding 551 / 551 556 / 556 Water Bolus Amount 120 / 120 Output: Urine 550 / 550 250 / 250 Other: # Incontinent Voids 1 Date of Last Bowel Movement 04/03/18 04/04/18 # Bowel Movements 1 3 # Incontinent Bowel Movements 1 3 Result Diagrams: 04/04/18 03:46 04/04/18 03:46 Other Results: Microbiology 03/29/18 06:05 Blood - Peripheral Aerobic Blood Culture - Final No growth in 5 days 03/29/18 06:05 Blood - Peripheral Anaerobic Blood Culture - Final No growth in 5 days 03/29/18 06:00 Blood - Peripheral Aerobic Blood Culture - Final No growth in 5 days 03/29/18 06:00 Blood - Peripheral Anaerobic Blood Culture - Final No growth in 5 days Imaging: Chest X-Ray 03/28/18 22:52 CONCLUSION: ET tube and NG tube in good position. Head CT 03/29/18 00:00 CONCLUSION: Negative noncontrast head CT. . Head MRI 03/29/18 13:31 CONCLUSION: 1. No acute intracranial abnormality identified. 2. Fluid within the mastoid air cells on the right. Chest X-Ray 03/30/18 05:38 CONCLUSION: Minimal prominence of interstitium which may represent pulmonary venous hypertension or minimal edema. Chest X-Ray 04/03/18 06:00 CONCLUSION: 1. No significant interval change. 2. Stable ETT, less than 1 cm above the henry. 3. Stable NGT. 4. Stable mild positive fluid balance. Chest X-Ray 04/04/18 06:00 CONCLUSION: No acute cardiopulmonary disease. Objective Remarks: GENERAL: 62-year-old female currently orotracheally intubated with OG tube in place SKIN: Warm and dry. Ulceration over the lateral aspect of the first left toe. HEAD: Atraumatic. Normocephalic. EYES: Pupils equal and round, around 1-2 mm bilaterally and sluggish. ENT: No nasal bleeding or discharge. NECK: Trachea midline. Orotracheal intubation. CARDIOVASCULAR: RRR. S1, S2 no S4. Without murmur RESPIRATORY: Diminished breath sounds bilaterally. Minimal end expiratory wheeze. GASTROINTESTINAL: Abdomen soft, non-tender, nondistended. Bowel sounds present. No guarding. MUSCULOSKELETAL: Extremities without significant peripheral edema. Skin as above. Amputation to the right second toe. NEUROLOGICAL: Spontaneous eye opening and to central noxious stimuli. Eyes deviated downward. Withdraws to pain in bilateral upper extremities today. Almost decerebrate type positioning in bilateral lower extremities. Not withdrawing.. Eyes blinking.. No myoclonic jerking noted. 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 Goal of RASS 0 Daily sedation vacation MRI brain revealed right-sided mastoiditis otherwise no acute intercranial findings EEG 03/29 with burst suppression with epileptiform activity. EEG 03/30 without epileptic activity. Repeat EEG 04/04 pending Followed by neurology. Currently on levetiracetam 500 milligrams IV twice daily and fosphenytoin 80 mg every 8 hours. Level was 12.6. Recheck in a.m. Seizure precaution Discussed with Dr. Smyth. Will increase levetiracetam from 500 mg to 1500 mg twice daily. Follow-up on EEG. He will evaluate today for further recommendations. RESP: Acute hypercapneic respiratory failure COPD with ongoing tobaccoism Currently on PRVC 14/500/1//40 Ventilator bundle Albuterol/ipratropium aerosols every 6 hours with albuterol aerosols every 2 hours as needed for dyspnea Budesonide 0.5/2 1 inhalation twice daily Methylprednisolone succinate 20 mg every 12 hours Chest x-ray ordered for a.m. 04/05 CV: Shock -resolved Hypertension As needed labetalol and nicardipine drip for elevated blood pressure Currently on clonidine 0.1 mg 3 times daily more for neuro/psych alpha reasons Troponin 0.04 admission. Discontinued IV fluids GI: Elevated transaminases likely secondary to shock Hypoalbuminemia Acute constipation Continue tube feeds with vital 1.5 goal 45 cc an hour Lansoprazole 30 mg daily for GI prophylaxis Docusate sodium/senna 1 tablet twice daily for bowel. One BM yesterday FEN/GIULIA/ : Acute hypokalemia resolved- Periwick in place. Monitor intake and output hourly. Monitor electrolytes and replace as indicated per ICU electrolyte replacement protocol. ID: Received piperacillin/tazobactam and vancomycin in the emergency department. 03/29 -Gram stain of CSF -growth 03/29 -blood cultures x2 -no growth 03/29 -sputum negative Will discontinue acyclovir 04/02 as HSV was negative Discontinue piperacillin l/tazobactam 04/02 HEME: Monitor CBC daily. Follow trends. No indication for transfusion of blood products at this time. ENDO: Diabetes mellitus per report -hemoglobin A1c - 6.5 Elevated TSH of 8. Normal free T/T4. Recommend recheck in 4-6 weeks after acute illness Sliding scale insulin Accu-Cheks to maintain euglycemia/aspart low protocol MSK: Physical therapy evaluate and treat PROPH: SCDs for DVT prophylaxis. Heparin subcu for DVT prophylaxis. Lansoprazole 30 mg daily for GI prophylaxis. Level 2 follow-up
[2018-04-04] MEDS: Senna/Docusate Sodium 8.6/50 MG Tablet PO SCH ×2 (08:44→21:16)
[2018-04-04] MEDS: MethylPREDNISolone Sod Succinate Inj 40 MG/ML Vial IV.PUSH SCH ×2 (08:45→21:17)
[2018-04-04] MEDS: Polyethylene Glycol 3350 17 GM Packet PO SCH ×2 (08:45→21:16)
[2018-04-04] MEDS: Carboxymethylcellulose 0.5% Opth Drops 15 ML Bottle EACH EYE SCH ×2 (08:45→21:17)
[2018-04-04] MEDS: Chlorhexidine 0.12% Oral Kit 15 ML UDC OROPHARYNG SCH ×2 (08:48→20:45)
[2018-04-04] MEDS ORDERED: MethylPREDNISolone Sod Succinate Inj 40 MG/ML Vial IV.PUSH SCH (09:00)
--- NOTE | 2018-04-04 15:19 | P.PNPAL ---
Reason for Visit Reason for visit: a. To assist with evaluation and management of symptoms including: Encephalopathy, seizures b. To assist medical decision maker(s) with: better understanding of current medical conditions; weighing benefits/burdens of medical treatment options; making medical treatment decisions. Subjective Subjective/Interval History: Patient seen for evaluation of symptom management of encephalopathy and seizures as well as goals of medical treatment. Encephalopathy is worsening today, now showing decerebrate posturing. Eyes are forward facing today not focusing or tracking. No nystagmus is seen. Not withdrawing to painful stimuli. Exhibits decerebrate posturing with any stimulation. Had a recurrent 20-minute tonic-clonic seizure overnight. She received 4 mg of lorazepam and was bolused with 500 mg of levetiracetam. She was initially changed to a propofol drip at 30 mcg/kg/min and placed on Versed at 4 mg an hour. At this evaluation she has again been transitioned to Precedex from propofol but remains on Versed at 4 mg/h. No seizure activity is seen at this evaluation. This was discussed with neurologist, Dr. Smyth who recommended increasing levetiracetam to 1500 mg twice daily with a follow-up EEG. . Family/Friend Interactions: Spoke with patient's sister, Phyllis via telephone and updated her as to the continued decline her sister. Patient significant other, Rosendo, arrived at bedside and also received an update. He confirms that no healthcare surrogate had been completed, however had been considered a year ago but not followed through. I discussed the [place] statute tear of hierarchy for decision-makers with him and explained that the decision making falls to the majority of the adult children by [place] law. He did confirm that the other son, Guerrero, did live with them and I advised him that Guerrero would be able to participate if he wished. Several messages have been left for him with no return call. I requested that Rosendo have him call me to confirm whether he did or did not wish to be involved in decision-making. Her son Tray, who lives in [place], has agreed to participate in decision-making and without contact from Guerrero, he would be the decision maker. In conversation with Micheal, yesterday, he was aware of his mother's decline but wished to wait through the weekend to see if there were any significant recovery prior to determining his future course. Spoke with Micheal via telephone and updated him as to new clinical findings, seizure and medical opinion that this is permanent anoxic brain injury. He advised me that family members are in route and should arrive by Saturday, which is the day the family plans to make a decision. We did revisit CODE STATUS and due to the potential arrival of family, he does wish to continue the patient as a FULL CODE. . Advance Directives Living Will: Never completed Health Care Surrogate: Never completed Durable Power of Manager Respiratory Care: Never completed Health Care Surrogate Name and Number: HCP: Tray Robb and Guerrero Zimmerman Objective Vital Signs: Vital Signs 04/03/18 16:00 04/03/18 17:03 04/03/18 19:59 Temperature 100.2 F H Pulse Rate 79 86 81 Respiratory Rate 25 H 23 23 Blood Pressure 155/98 H Pulse Oximetry 100 100 100 04/03/18 20:00 04/04/18 00:00 04/04/18 00:19 Temperature 98.8 F 99.5 F Pulse Rate 94 H 69 69 Respiratory Rate 26 H 36 H 20 Blood Pressure 149/83 H 122/81 Pulse Oximetry 100 100 98 04/04/18 04:00 04/04/18 04:06 04/04/18 07:48 Temperature 97.9 F Pulse Rate 57 L 86 Respiratory Rate 21 21 24 Blood Pressure 167/82 H Pulse Oximetry 98 99 100 04/04/18 08:00 04/04/18 11:41 04/04/18 12:00 Temperature 100.1 F H 99.8 F H Pulse Rate 91 H 79 81 Respiratory Rate 22 23 26 H Blood Pressure 113/77 95/63 L Pulse Oximetry 98 100 99 Intake & Output 04/03/18 04/04/18 04/04/18 18:59 06:59 18:59 Intake Total 2232.6 / 2232.6 1294.2 / 1294.2 286.6 / 286.6 Output Total 550 / 550 250 / 250 Balance 1682.6 / 1682.6 1044.2 / 1044.2 286.6 / 286.6 Weight 152 lb 12.485 oz Intake: IV 1561.6 / 1561.6 558.2 / 558.2 286.6 / 286.6 Precedex Inj 200 MCG In NS Inj 250 / 250 150 / 150 100 / 100 48 ML @ 0.2 MCG/KG/HR 3.52 mls/ hr IV.CONT TITRATE PRN Rx#: [id number] Potassium Chlor 20 mEq/NACL 0. 1000 / 1000 45% Inj 1,000 ML @ 100 mls/hr IV.CONT .Q10H DEBORAH Rx#:[id number] Diprivan 1000 mg/100 ml Inj 1, 100 / 100 000 mg In 100 ml @ 5 MCG/KG/MIN 2.43 mls/hr IV.CONT TITRATE PRN Rx#:[id number] Cerebyx Inj 80 MGPE In NS Inj 51.6 / 51.6 103.2 / 103.2 51.6 / 51.6 50 ML @ 208 mls/hr IV.SIG Q8H DEBORAH Rx#:[id number] Magnesium Sulfate Inj 2 GM In 35 / 35 NS Inj 96 ML @ 50 mls/hr IV.SIG ONCE ONE Rx#:[id number] Keppra 1000 mg/100 mL Premix 100 / 100 100 / 100 100 ML @ 400 mls/hr IV.SIG Q12H DEBORAH Rx#:[id number] Keppra Inj 500 MG In NS Inj 100 105 / 105 ML @ 400 mls/hr IV.SIG Q12H DEBORAH Rx#:[id number] Oral 180 / 180 Tube Feeding 551 / 551 556 / 556 Water Bolus Amount 120 / 120 Output: Urine 550 / 550 250 / 250 Other: # Incontinent Voids 1 Date of Last Bowel Movement 04/03/18 04/04/18 04/04/18 # Bowel Movements 1 3 # Incontinent Bowel Movements 1 3 Physical Exam: CONSTITUTIONAL/GENERAL: This is an obese patient, intubated, sedated, in no apparent distress. TUBES/LINES/DRAINS: PIV left forearm, ETT, OGT, Watson. BUE soft restraints EYES: Eyes forward facing today, no nystagmus, positive corneal reflexes. ENT: Unable to assess hearing. Not following simple commands. No nasal drainage or bleeding. Orotracheally intubated CARDIOVASCULAR: Regular rate and rhythm without murmurs, gallops, or rubs. No JVD. Peripheral pulses symmetric. RESPIRATORY/CHEST: Symmetric, tachypneic respirations. Breath sounds equal bilaterally. Breath sounds clear. GASTROINTESTINAL: Abdomen soft, non-tender, nondistended. No guarding. Bowel sounds present. Now receiving tube feeding at 45 mL/h. GENITOURINARY: Without palpable bladder distension. Watson catheter in place. MUSCULOSKELETAL: Extremities without clubbing or cyanosis, 1+ edema. No joint tenderness or effusion noted. No calf tenderness. No mottling or clubbing. NEUROLOGICAL: Intubated with no sedation. Not following simple commands. having decerebrate posturing to noxious stimulation but not withdrawing to noxious stimuli . PSYCHIATRIC: On Precedex and Versed., unresponsive. . Diagnostic Tests Laboratory: Laboratory Results - last 72 hr 04/01/18 04/02/18 04/02/18 18:09 00:32 01:25 WBC RBC Hgb Hct MCV MCH MCHC RDW Plt Count MPV Neut % (Auto) Lymph % (Auto) [place] % (Auto) Eos % (Auto) Baso % (Auto) Neut # (Auto) Lymph # (Auto) [place] # (Auto) Eos # (Auto) Baso # (Auto) WBC Differential Differential Comment PT INR APTT Sodium Potassium Chloride Carbon Dioxide Anion Gap BUN Creatinine Estimated GFR POC Glucose 120 H 135 H 162 H Random Glucose Hemoglobin A1c Calcium Phosphorus Magnesium Total Bilirubin AST ALT Alkaline Phosphatase Total Protein Albumin Phenytoin 04/02/18 04/02/18 04/02/18 04:44 12:38 13:04 WBC RBC Hgb Hct MCV MCH MCHC RDW Plt Count MPV Neut % (Auto) Lymph % (Auto) [place] % (Auto) Eos % (Auto) Baso % (Auto) Neut # (Auto) Lymph # (Auto) [place] # (Auto) Eos # (Auto) Baso # (Auto) WBC Differential Differential Comment PT INR APTT Sodium 142 Potassium 3.4 L Chloride 107 Carbon Dioxide 27.9 Anion Gap 7 BUN 15 Creatinine 0.63 Estimated GFR Greater than 89 POC Glucose 125 H Random Glucose 106 Hemoglobin A1c 6.5 H Calcium 8.1 L Phosphorus Magnesium Total Bilirubin AST ALT Alkaline Phosphatase Total Protein Albumin Phenytoin 14.2 04/02/18 04/02/18 04/03/18 20:21 23:44 03:37 WBC RBC Hgb Hct MCV MCH MCHC RDW Plt Count MPV Neut % (Auto) Lymph % (Auto) [place] % (Auto) Eos % (Auto) Baso % (Auto) Neut # (Auto) Lymph # (Auto) [place] # (Auto) Eos # (Auto) Baso # (Auto) WBC Differential Differential Comment PT INR APTT Sodium 141 Potassium 4.4 D 3.7 Chloride 104 Carbon Dioxide 26.1 Anion Gap 11 BUN 14 Creatinine 0.70 Estimated GFR 85 L POC Glucose 160 H Random Glucose 117 H Hemoglobin A1c Calcium 8.7 Phosphorus 2.1 L Magnesium 2.0 Total Bilirubin 0.5 AST 26 ALT 25 Alkaline Phosphatase 83 Total Protein 7.0 Albumin 3.0 L Phenytoin 16.0 04/03/18 04/03/18 04/03/18 03:37 07:43 11:58 WBC 10.5 RBC 5.70 H Hgb 15.0 Hct 45.4 MCV 79.6 L MCH 26.4 L MCHC 33.1 RDW 19.0 H Plt Count 250 MPV 7.8 Neut % (Auto) 79.2 H Lymph % (Auto) 12.8 [place] % (Auto) 7.5 Eos % (Auto) 0.3 Baso % (Auto) 0.2 Neut # (Auto) 8.3 H Lymph # (Auto) 1.4 [place] # (Auto) 0.8 Eos # (Auto) 0.0 Baso # (Auto) 0.0 WBC Differential . Differential Comment Auto diff final PT INR APTT Sodium Potassium Chloride Carbon Dioxide Anion Gap BUN Creatinine Estimated GFR POC Glucose 170 H 119 H Random Glucose Hemoglobin A1c Calcium Phosphorus Magnesium Total Bilirubin AST ALT Alkaline Phosphatase Total Protein Albumin Phenytoin 04/03/18 04/03/18 04/04/18 17:31 23:37 02:36 WBC RBC Hgb Hct MCV MCH MCHC RDW Plt Count MPV Neut % (Auto) Lymph % (Auto) [place] % (Auto) Eos % (Auto) Baso % (Auto) Neut # (Auto) Lymph # (Auto) [place] # (Auto) Eos # (Auto) Baso # (Auto) WBC Differential Differential Comment PT INR APTT Sodium Potassium Chloride Carbon Dioxide Anion Gap BUN Creatinine Estimated GFR POC Glucose 155 H 113 H 174 H Random Glucose Hemoglobin A1c Calcium Phosphorus Magnesium Total Bilirubin AST ALT Alkaline Phosphatase Total Protein Albumin Phenytoin 04/04/18 04/04/18 04/04/18 03:46 03:46 03:46 WBC 10.3 RBC 5.69 H Hgb 14.5 Hct 45.5 MCV 80.0 MCH 25.5 L MCHC 31.9 L RDW 19.1 H Plt Count 218 MPV 8.0 Neut % (Auto) 81.7 H Lymph % (Auto) 10.9 [place] % (Auto) 6.8 Eos % (Auto) 0.4 Baso % (Auto) 0.2 Neut # (Auto) 8.4 H Lymph # (Auto) 1.1 [place] # (Auto) 0.7 Eos # (Auto) 0.0 Baso # (Auto) 0.0 WBC Differential . Differential Comment Auto diff final PT 10.7 INR 1.1 APTT 20.9 L Sodium 142 Potassium 3.5 Chloride 104 Carbon Dioxide 27.5 Anion Gap 11 BUN 15 Creatinine 0.63 Estimated GFR Greater than 89 POC Glucose Random Glucose 156 H Hemoglobin A1c Calcium 8.4 L Phosphorus 3.4 D Magnesium 1.9 Total Bilirubin 0.5 AST 23 ALT 24 Alkaline Phosphatase 80 Total Protein 6.4 D Albumin 2.6 L Phenytoin 12.6 04/04/18 04/04/18 05:29 11:36 WBC RBC Hgb Hct MCV MCH MCHC RDW Plt Count MPV Neut % (Auto) Lymph % (Auto) [place] % (Auto) Eos % (Auto) Baso % (Auto) Neut # (Auto) Lymph # (Auto) [place] # (Auto) Eos # (Auto) Baso # (Auto) WBC Differential Differential Comment PT INR APTT Sodium Potassium Chloride Carbon Dioxide Anion Gap BUN Creatinine Estimated GFR POC Glucose 103 170 H Random Glucose Hemoglobin A1c Calcium Phosphorus Magnesium Total Bilirubin AST ALT Alkaline Phosphatase Total Protein Albumin Phenytoin Result Diagrams: 04/04/18 03:46 04/04/18 03:46 Microbiology: Microbiology 03/29/18 06:05 Aerobic Blood Culture - Final Blood - Peripheral No growth in 5 days Anaerobic Blood Culture - Final No growth in 5 days 03/29/18 06:00 Aerobic Blood Culture - Final Blood - Peripheral No growth in 5 days Anaerobic Blood Culture - Final No growth in 5 days 03/30/18 21:45 Gram Stain - Final Sputum - Endotracheal Sputum Culture - Final Moderate growth normal respiratory erick Procedures: 03/28: Intubation 03/28: Right femoral triple-lumen central line placed 03/29: Diagnostic lumbar puncture Assessment and Plan Pertinent Non-Medical Issues: Psychosocial: She was born in [facility] and moved to [place] 20 years ago. 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 She has been and twice, but has been with her current significant other for over 18 years. Spiritual: Not an important concept to the patient. Legal: No advance directives. Ethical issues impacting care: Difficulty contacting proxy decision makers. . Important Contacts: Son: Tray Coto Son: Guerrero Zimmerman Sister: Sushma Almodovar Life partner: Randy Hastings Prognosis: Her prognosis is guarded. She was previously enrolled in hospice with [facility] for an end-stage diagnosis of COPD with acute lower respiratory infection. While this cannot be confirmed, it is also suspected that she had some level of chronic pain as she was on both methadone and oxycodone. At this time she was found down, cyanotic, discolored, reportedly without respirations with emesis blocking the airway until resuscitated by EMS. Neurology opines that she may have an anoxic/hypoxic/ischemic brain injury but this will not be able to be confirmed until sedation can be stopped. Unable to accurately prognosticate at this time. . Code Status: Full Code (By default) Plan: PLAN: Legal decision maker: Patient is currently not capacitated to make her own decisions and does not have a valid healthcare surrogate that we can locate. Per [place] statutes, as she is legally and has 2 sons, her sons would be the first tier healthcare proxy decision-maker. Attempts are in progress to locate both sons. If they cannot be located, patient does have a sister, Sushma who is readily available and willing to serve. As both parents are , be the alternate decision-maker if the sons cannot be contacted. Goals: Aggressive by default. Telephone call placed to patient's son Tray Coto , to provide him with a medical update-no response and unable to leave a voice message. Telephone conversation with patient's Sister Sushma Almodovar, provided her with a medical update and expressed concern that patient has not been more awake since sedation has been discontinued. Anticipatory guidance provided regarding spontaneous breathing trials and expectations. Patient's sister reiterates that Tray Coto (Health care proxy) has stated that he wants everything medically possible to be done to keep his mother alive including reintubation in case of respiratory failure after medically extubating patient. Patient`s sister Sushma is supportive of patient`s son Tray decision, though she verbalizes understanding that patient may have possibly suffered anoxic/hypoxic/ischemic brain injury. CODE STATUS: FULL CODE SYMPTOMS: * Encephalopathy: At this time she remains encephalopathic, exhibiting decerebrate posturing with stimulation. She remains on full ventilator support after seizure last night, requiring both Versed and Precedex for vent synchrony. Encephalopathy may be multifactorial to include hypoxic/an anoxic injury, drug overdose or progressive medical condition. Sedation vacation held. Introduced trach/PEG versus compassionate withdrawal to son, Tray, who is the only engaged decision-maker. Messages have been left for his brother , Guerrero, with no return call in several days. Tray is considering withdrawal of vent support early next week once family arrives. No further recommendations at this time. He did confirm that he wishes to continue full CODE STATUS pending arrival of family. * Seizures: HCV negative, acyclovir DC'd. She had a 20-minute tonic-clonic seizure overnight and received 4 mg of IV Ativan. She is receiving fosphenytoin every 8 hours, Keppra increased to 1500 mg every 12 hours due to last evenings tonic-clonic seizure. Remains on seizure precautions. No seizures seen at this evaluation. Neurology following. No further recommendations at this time. Palliative care will continue to follow the patient during hospital course as condition evolves, to assist patient/decision-maker with understanding of their medical conditions, weighing benefits/burdens of treatment options, for clarification of goals of treatment. Additionally will assist with any symptoms of palliative concern. . Attestation Attestation: To help prompt me to consider important information that might be impacting today's encounter and assessment, information from prior notes written by myself or my colleagues may have been "brought forward" into today's note. My signature on this note, however, is an attestation that I personally performed the exam, history, and/or decision-making noted today, and, unless otherwise indicated, the interactions with patient, family, and staff as well as the review of records all occurred today. I also attest that the listed assessment and stated plan reflect my best clinical judgment today based on the combination of historical information, prior notes, and today's exam/ interactions. When time spent is documented, it refers only to time spent today by the signer, or if indicated, combined time spent today by collaborating physician/nurse practitioner. .
--- NOTE | 2018-04-04 17:35 | P.PNNEU ---
Subjective Subjective Comments: possible gtc sz for 20 min 3 am this am on dil and keppra so we inc keppra to 1500 bid dil therapeutic Active Medications: Active Medications Acetaminophen (Tylenol Liq) 650 mg PO Q6H PRN PRN Reason: FEVER Last Admin: 04/04/18 10:33 Dose: 650 mg Al Hydroxide/Mg Hydroxide (Milk Of Magnesia Liq) 30 ml PO Q12H PRN PRN Reason: Mild Constipation Albuterol (Albuterol Neb (Prn)) 2.5 mg NEB Q2HR NEB PRN PRN Reason: SHORTNESS OF BREATH/WHEEZING Albuterol (Duoneb Neb (Alex)) 1 ampul NEB Q4HR NEB [facility] Last Admin: 04/04/18 17:26 Dose: 1 ampul Artificial Tears (Refresh Tears 0.5% Opth Drops) 1 drop EACH EYE BID [facility] Last Admin: 04/04/18 08:45 Dose: 1 drop Bisacodyl (Dulcolax Supp) 10 mg RECTAL DAILY PRN PRN Reason: SEVERE CONSITIPATION Budesonide (Pulmocort Respule Neb) 0.5 mg NEB Q12HR NEB [facility] Last Admin: 04/04/18 07:46 Dose: 0.5 mg Chlorhexidine Gluconate (Peridex 0.12% Oral Kit) 15 ml OROPHARYNG BID@0800, 2000 [facility] Last Admin: 04/04/18 08:48 Dose: 15 ml Clonidine HCl (Catapres) 0.1 mg PO Q8HR [facility] Last Admin: 04/04/18 14:18 Dose: Not Given Dextrose (D50w Vial) 50 ml IV.PUSH UNSCH PRN PRN Reason: PER HYPOGLYCEMIA PROTOCOL Fentanyl Citrate (Fentanyl Inj) 50 mcg IV PUSH Q1H PRN PRN Reason: Pain scale 6-10, &/or sedation Last Admin: 04/04/18 02:46 Dose: 50 mcg Glucagon (Glucagon Inj) 1 mg OTHER PRN PRN PRN Reason: for Hypoglycemia Protocol Heparin Sodium (Porcine) (Heparin Inj) 5,000 units SQ Q8HR [facility] Last Admin: 04/04/18 14:27 Dose: 5,000 units Hydralazine HCl (Apresoline Inj) 10 mg IV.PUSH Q1H PRN PRN Reason: Sbp>165, Dbp>90 Last Admin: 04/03/18 20:12 Dose: 10 mg Fentanyl (Fentanyl 10 Mcg/Ml Premix Drip) 2,500 mcg in 250 mls @ 5 mls/hr IV.SIG TITRATE PRN; Protocol PRN Reason: Per Protocol Last Titration: 04/02/18 12:06 Dose: 0 mcg/hr, 0 mls/hr Fosphenytoin Sodium 80 mgpe/ (Sodium Chloride) 51.6 mls @ 208 mls/hr IV.SIG Q8H ALEX Last Infusion: 04/04/18 12:25 Dose: Infused Dexmedetomidine HCl 200 mcg/ (Sodium Chloride) 50 mls @ 3.52 mls/hr IV.CONT TITRATE PRN; Protocol PRN Reason: Per Protocol Last Titration: 04/04/18 14:38 Dose: 0 mcg/kg/hr, 0 mls/hr Nicardipine HCl 25 mg/ Sodium (Chloride) 250 mls @ 25 mls/hr IV.CONT TITRATE PRN; Protocol PRN Reason: Per Protocol Last Titration: 04/02/18 18:15 Dose: 0 mg/hr, 0 mls/hr Magnesium Sulfate 4 gm/ Sodium (Chloride) 100 mls @ 50 mls/hr IV.SIG UNSCH PRN PRN Reason: For Magnesium 0.9 - 1.1 mg/dL Magnesium Sulfate 2 gm/ Sodium (Chloride) 100 mls @ 50 mls/hr IV.SIG UNSCH PRN PRN Reason: For Magnesium 1.2 - 1.6 mg/dL Potassium Chloride (Kcl 40 Meq Premix Inj) 40 meq in 100 mls @ 25 mls/hr IV.SIG Q2H PRN PRN Reason: For Potassium 2.8 - 3.2 mEq/L Potassium Chloride (Kcl 20 Meq Premix Inj) 20 meq in 100 mls @ 50 mls/hr IV.SIG Q2H PRN PRN Reason: For Potassium 3.3 - 3.5 mEq/L Last Infusion: 04/02/18 16:30 Dose: Infused Potassium Chloride (Kcl 40 Meq Premix Inj) 40 meq in 100 mls @ 25 mls/hr IV.SIG UNSCH PRN PRN Reason: For Potassium 3.3 - 3.5 mEq/L Potassium Chloride (Kcl 20 Meq Premix Inj) 20 meq in 100 mls @ 50 mls/hr IV.SIG Q2H PRN PRN Reason: For Potassium 2.8 - 3.2 mEq/L Potassium Phosphate 30 mmol/ (Sodium Chloride) 260 mls @ 42 mls/hr IV.SIG UNSCH PRN PRN Reason: SEE LABEL COMMENTS Sodium Phosphate 30 mmol/ (Sodium Chloride) 260 mls @ 42 mls/hr IV.SIG UNSCH PRN PRN Reason: For Phosphorus < 2.5 mg/dL Midazolam HCl (Versed Inj) 50 mg in 50 mls @ 1 mls/hr IV.CONT TITRATE PRN; Protocol PRN Reason: Per Protocol Last Admin: 04/04/18 14:41 Dose: 4 mg/hr, 4 mls/hr Levetiracetam 1,500 mg/ Sodium (Chloride) 115 mls @ 345 mls/hr IV.SIG BID ALEX Insulin Aspart (Novolog Insulin Correctional Sugar Inj) 0 unit SQ Q6HR [facility]; Protocol Last Admin: 04/04/18 11:46 Dose: 1 unit Labetalol HCl (Trandate Inj) 10 mg IV.PUSH Q1H PRN PRN Reason: SBP >165 Last Admin: 04/04/18 04:37 Dose: 10 mg Lactulose (Lactulose Liq) 30 ml PO DAILY PRN PRN Reason: SEVERE CONSITIPATION Lactulose (Lactulose Liq) 30 ml PO BID [facility] Last Admin: 04/04/18 08:45 Dose: 30 ml Lansoprazole (Prevacid Solutab) 30 mg NG/OG DAILY [facility] Last Admin: 04/04/18 08:45 Dose: 30 mg Lorazepam (Ativan Inj) 2 mg IV.PUSH Q5M PRN PRN Reason: UNTIL SEIZURES STOP Last Admin: 04/04/18 03:07 Dose: 2 mg Magnesium Oxide (Mag-Ox) 800 mg PO UNSCH PRN PRN Reason: For Magnesium 1.2 - 1.6 mg/dL Methylprednisolone Sodium Succinate (Solumedrol Inj) 20 mg IV.PUSH BID [facility] Last Admin: 04/04/18 08:45 Dose: 20 mg Miscellaneous Medication () 1 each OROPHARYNG 0000,0400,1200,1600 [facility] Last Admin: 04/04/18 16:19 Dose: 1 each Nitroglycerin (Nitro-Bid 2% Oint) 2 inch TOPICAL Q6HR PRN PRN Reason: Sbp>165, Dbp>90 Ondansetron HCl (Zofran Inj) 4 mg IV.PUSH Q6H PRN PRN Reason: NAUSEA OR VOMITING Oxycodone HCl (Roxicodone Intensol Liq) 5 mg PO Q6H [facility] Last Admin: 04/04/18 16:20 Dose: 5 mg Polyethylene Glycol (Miralax) 17 gm PO BID [facility] Last Admin: 04/04/18 08:45 Dose: 17 gm Potassium Bicarb/Potassium Chloride (K-Lyte Cl Eff) 50 meq PO UNSCH PRN PRN Reason: For Potassium 3.3 - 3.5 mEq/L Last Admin: 04/04/18 05:25 Dose: 50 meq Potassium Phosphate (K-Phos Original) 2,000 mg PO Q4H PRN PRN Reason: Phosphorus Less Than 2.5 mg/dL Potassium Phosphate (K-Phos Original) 2,000 mg PO UNSCH PRN PRN Reason: SEE LABEL COMMENTS Senna/Docusate Sodium ([place]-Colace) 1 tab PO BID [facility] Last Admin: 04/04/18 08:44 Dose: 1 tab Sennosides (Senokot) 17.2 mg PO Q12H PRN PRN Reason: Moderate Constipation Sodium Chloride (Ns Flush) 2 ml IV.FLUSH BID [facility] Last Admin: 04/04/18 08:45 Dose: 2 ml Sodium Chloride (Ns Flush) 2 ml IV.FLUSH PRN PRN PRN Reason: FLUSH AFTER USING IV ACCESS Allergies/Adverse Reactions: Allergies Allergy/AdvReac Type Severity Reaction Status Date / Time No Allergy Information Allergy Verified 03/29/18 00:03 Available Physical Exam Vital signs: Vital Signs 04/03/18 19:59 04/03/18 20:00 04/04/18 00:00 Temperature 98.8 F 99.5 F Pulse Rate 81 94 H 69 Respiratory Rate 23 26 H 36 H Blood Pressure 149/83 H 122/81 Pulse Oximetry 100 100 100 04/04/18 00:19 04/04/18 04:00 04/04/18 04:06 Temperature 97.9 F Pulse Rate 69 57 L Respiratory Rate 20 21 21 Blood Pressure 167/82 H Pulse Oximetry 98 98 99 04/04/18 07:48 04/04/18 08:00 04/04/18 11:41 Temperature 100.1 F H Pulse Rate 86 91 H 79 Respiratory Rate 24 22 23 Blood Pressure 113/77 Pulse Oximetry 100 98 100 04/04/18 12:00 04/04/18 16:00 Temperature 99.8 F H 99.8 F H Pulse Rate 81 92 H Respiratory Rate 26 H 22 Blood Pressure 95/63 L 118/78 Pulse Oximetry 99 100 Intake & Output 04/03/18 04/04/18 04/04/18 18:59 06:59 18:59 Intake Total 2232.6 / 2232.6 1294.2 / 1294.2 336.6 / 336.6 Output Total 550 / 550 250 / 250 Balance 1682.6 / 1682.6 1044.2 / 1044.2 336.6 / 336.6 Weight 69.3 kg Intake: IV 1561.6 / 1561.6 558.2 / 558.2 336.6 / 336.6 Precedex Inj 200 MCG In NS Inj 250 / 250 150 / 150 100 / 100 48 ML @ 0.2 MCG/KG/HR 3.52 mls/ hr IV.CONT TITRATE PRN Rx#: [id number] Potassium Chlor 20 mEq/NACL 0. 1000 / 1000 45% Inj 1,000 ML @ 100 mls/hr IV.CONT .Q10H ALEX Rx#:[id number] Versed Inj 50 mg In 50 ml @ 1 50 / 50 MG/HR 1 mls/hr IV.CONT TITRATE PRN Rx#:[id number] Diprivan 1000 mg/100 ml Inj 1, 100 / 100 000 mg In 100 ml @ 5 MCG/KG/MIN 2.43 mls/hr IV.CONT TITRATE PRN Rx#:[id number] Cerebyx Inj 80 MGPE In NS Inj 51.6 / 51.6 103.2 / 103.2 51.6 / 51.6 50 ML @ 208 mls/hr IV.SIG Q8H ALEX Rx#:[id number] Magnesium Sulfate Inj 2 GM In 35 / 35 NS Inj 96 ML @ 50 mls/hr IV.SIG ONCE ONE Rx#:[id number] Keppra 1000 mg/100 mL Premix 100 / 100 100 / 100 100 ML @ 400 mls/hr IV.SIG Q12H ALEX Rx#:[id number] Keppra Inj 500 MG In NS Inj 100 105 / 105 ML @ 400 mls/hr IV.SIG Q12H ALEX Rx#:[id number] Oral 180 / 180 Tube Feeding 551 / 551 556 / 556 Water Bolus Amount 120 / 120 Output: Urine 550 / 550 250 / 250 Other: # Incontinent Voids 1 Date of Last Bowel Movement 04/03/18 04/04/18 04/04/18 # Bowel Movements 1 3 # Incontinent Bowel Movements 1 3 Narrative: eyes more to r and some rhythmic eye open andclose - Urinary Catheter Management Indwelling Urethral Catheter Cath placed during this visit: yes, but has since been removed by the nurse Reason for continuing: Decision to DC catheter Insertion date: 03/29/18 Insertion time: 01:12 Removal date: 04/01/18 Removal time: 15:35 Objective Laboratory Results - last 24 hr 04/03/18 04/04/18 04/04/18 23:37 02:36 03:46 WBC RBC Hgb Hct MCV MCH MCHC RDW Plt Count MPV Neut % (Auto) Lymph % (Auto) [place] % (Auto) Eos % (Auto) Baso % (Auto) Neut # (Auto) Lymph # (Auto) [place] # (Auto) Eos # (Auto) Baso # (Auto) WBC Differential Differential Comment PT INR APTT Sodium 142 Potassium 3.5 Chloride 104 Carbon Dioxide 27.5 Anion Gap 11 BUN 15 Creatinine 0.63 Estimated GFR Greater than 89 POC Glucose 113 H 174 H Random Glucose 156 H Calcium 8.4 L Phosphorus 3.4 D Magnesium 1.9 Total Bilirubin 0.5 AST 23 ALT 24 Alkaline Phosphatase 80 Total Protein 6.4 D Albumin 2.6 L Phenytoin 12.6 04/04/18 04/04/18 04/04/18 03:46 03:46 05:29 WBC 10.3 RBC 5.69 H Hgb 14.5 Hct 45.5 MCV 80.0 MCH 25.5 L MCHC 31.9 L RDW 19.1 H Plt Count 218 MPV 8.0 Neut % (Auto) 81.7 H Lymph % (Auto) 10.9 [place] % (Auto) 6.8 Eos % (Auto) 0.4 Baso % (Auto) 0.2 Neut # (Auto) 8.4 H Lymph # (Auto) 1.1 [place] # (Auto) 0.7 Eos # (Auto) 0.0 Baso # (Auto) 0.0 WBC Differential . Differential Comment Auto diff final PT 10.7 INR 1.1 APTT 20.9 L Sodium Potassium Chloride Carbon Dioxide Anion Gap BUN Creatinine Estimated GFR POC Glucose 103 Random Glucose Calcium Phosphorus Magnesium Total Bilirubin AST ALT Alkaline Phosphatase Total Protein Albumin Phenytoin 04/04/18 11:36 WBC RBC Hgb Hct MCV MCH MCHC RDW Plt Count MPV Neut % (Auto) Lymph % (Auto) [place] % (Auto) Eos % (Auto) Baso % (Auto) Neut # (Auto) Lymph # (Auto) [place] # (Auto) Eos # (Auto) Baso # (Auto) WBC Differential Differential Comment PT INR APTT Sodium Potassium Chloride Carbon Dioxide Anion Gap BUN Creatinine Estimated GFR POC Glucose 170 H Random Glucose Calcium Phosphorus Magnesium Total Bilirubin AST ALT Alkaline Phosphatase Total Protein Albumin Phenytoin Review/Management - Review/Management Plan: imp likly some hyposic or anoxic damage eeg burst suppression on keppra nd dil check level recheck eeg mri neg i had a ? of some mild coritcal posterior ribbon change on diffusion sequence LP neg hsv pend fu -------- 03/31/18 no change hsv pend watch bmp i suspect some h/i encephalopathy px poor keppra dil 18 i lowered dose i rec dc sedatives and see how does 04/02/18 dec dil as free dil too high hold sedatives if needed precedex? but try off sedatives as much as possible i dw med team and nursing 04/04/18 possible gtc sz for 20 min 3 am this am on dil and keppra so we inc keppra to 1500 bid dil therapeutic was on low dose dip at time of sz will add vpa check eeg
[2018-04-04] MEDS: Valproate Inj 500 MG in Sodium Chlor 0.9% Inj 100 ML IV.SIG SCH (20:45)
[2018-04-04] MEDS: levETIRAcetam Inj 1,500 MG in Sodium Chlor 0.9% Inj 100 ML IV.SIG SCH (21:15)
[2018-04-05] MEDS: Dexmedetomidine Inj 200 MCG in Sodium Chlor 0.9% Inj 48 ML IV.CONT PRN ×3 (02:22→23:57)
[2018-04-05] MEDS: SODIUM CHLOR IV.SIG SCH ×3 (02:55→18:30)
[2018-04-05] MEDS: FOSPHENYTOIN IV.SIG SCH ×3 (02:55→18:30)
[2018-04-05] MEDS: Oral Hygiene Kit OROPHARYNG SCH ×4 (04:06→17:31)
[2018-04-05] MEDS: Valproate Inj 500 MG in Sodium Chlor 0.9% Inj 100 ML IV.SIG SCH ×3 (04:06→20:32)
[2018-04-05] MEDS: Insulin NovoLOG Aspart Correctional Sugar Inj SQ SCH ×4 (05:54→17:51)
[2018-04-05] MEDS: Heparin - SQ 10,000 UNITS/ML Vial SQ SCH ×3 (05:55→22:22)
--- NOTE | 2018-04-05 06:15 | XR ---
EXAM DATE: 04/05/2018 6:00 AM EDT AGE/SEX: 62 years / Female INDICATIONS: Respiratory failure. CLINICAL DATA: This is the patient's subsequent encounter. Patient reports that signs and symptoms h ave been present for 1 week and indicates a pain score of Nonresponsive. MEDICAL/SURGICAL HISTORY: Diabetes mellitus type II. Chronic obstructive pulmonary disease. Ne uropathy. None. COMPARISON: C, CHEST 1V SINGLE AP, 04/04/2018. . FINDINGS: Endotracheal tube tip is just above the henry. Nasogastric tube descends to the stomach. Lungs remai n symmetrically aerated and grossly clear. Cardiac contours are satisfactory. CONCLUSION: Stable chest Electronically signed by: Sujit Foote MD 04/05/2018 6:14 AM EDT
[2018-04-05 07:06] LABS: Baso % (Auto) 0.3 % (0.0-2.0); Eos # (Auto) 0.1 th/mm3 (0.0-0.4); Eos % (Auto) 0.5 % (0.0-4.0); Hematocrit 41.6 % (35.0-46.0); Hemoglobin 13.4 gm/dL (11.6-15.3); Lymph # (Auto) 1.6 th/mm3 (1.0-4.8); Lymph % (Auto) 12.7 % (9.0-44.0); Mean Corpuscular HGB Conc 32.2 % (32.0-36.0); Mean Corpuscular Hemoglobin 25.6 pg (27.0-34.0); Mean Corpuscular Volume 79.5 fL (80.0-100.0); Mean Platelet Volume 8.3 fL (7.0-11.0); Mono % (Auto) 8.2 % (0.0-8.0); Neut # (Auto) 9.6 th/mm3 (1.8-7.7); Neut % (Auto) 78.3 % (16.0-70.0); Platelet Count 198 th/mm3 (150-450); Red Blood Count 5.23 mil/mm3 (4.00-5.30); Red Cell Distribution Width 18.9 % (11.6-17.2); White Blood Count 12.2 th/mm3 (4.0-11.0)
[2018-04-05 07:42] LABS: Albumin 2.5 g/dL (3.4-5.0); Anion Gap 11 meq/L (5-15); Aspartate Aminotransferase 28 U/L (15-37); Blood Urea Nitrogen 18 mg/dL (7-18); Calcium 8.6 mg/dL (8.5-10.1); Carbon Dioxide 26.7 meq/L (21.0-32.0); Chloride 105 meq/L (98-107); Glomerular Filtration Rate Greater Than 89 mL/min (>89); Glucose,Random 153 mg/dL (74-106); Magnesium 2.1 mg/dL (1.5-2.5); Potassium 3.9 meq/L (3.5-5.1); Sodium 143 meq/L (136-145)
[2018-04-05 07:43] LABS: Alanine Aminotransferase 30 U/L (10-53); Valproic Acid 56 mcg/mL (50-100)
[2018-04-05 07:45] LABS: Alkaline Phosphatase 80 U/L (45-117); Phosphorus 2.8 mg/dL (2.5-4.9); Total Protein 6.4 g/dL (6.4-8.2)
[2018-04-05] MEDS: Chlorhexidine 0.12% Oral Kit 15 ML UDC OROPHARYNG SCH ×2 (08:19→20:26)
[2018-04-05] MEDS: Polyethylene Glycol 3350 17 GM Packet PO SCH ×2 (08:19→20:50)
[2018-04-05] MEDS: Senna/Docusate Sodium 8.6/50 MG Tablet PO SCH ×2 (08:19→20:50)
--- NOTE | 2018-04-05 08:27 | P.PNCC ---
Subjective Subjective Remarks/Hospital Course: 62-year-old female. She was found unresponsive. She had an empty bottle of 9 methadone 10 mg tablets and 18 Ativan 0.5 mg tablets. Apparently CPR was initiated per family. Family provided EVAC with information that patient is on hospice and has a history of diabetes, COPD, neuropathy, no advanced directives. When EVAC arrived she had a pulse but agonal respirations. She was administered Narcan 2 mg IV without improvement. Upon arrival to the ED she was not protecting her airway, pooling secretions in her mouth. She was intubated upon arrival. Her systolic blood pressure was in the 80s. She was administered 2 L normal saline bolus, right femoral line was placed and she was started on Levophed. Family has not arrived at the hospital and there is no available contact information. She is registered as a Amian Kebede. The prescription bottles say Antonina Coto. That individual has not been admitted since 2007. 03/30: Seizure activity appears to be controlled with Dilantin. She remains stuporous and we are unable to wean from the ventilator. Ongoing attempts to find out her true identity. 03/31: Will attempt spontaneous breathing trial again today. Late yesterday and early today she has had more episodes of spontaneous eye opening though she does not appear to track. Cerebrospinal fluid appears benign. No growth on culture after 48 hours. Bronchospasm responded quite well to steroids, will continue through extubation. 04/01: Fairly strong on spontaneous breathing trials today. We will discontinue all sedation, watch closely for seizure activity, and attempt to get her extubated. 04/02 -currently resting in bed in no acute distress. Eyes are rolled back. Currently on fentanyl drip at 150 mg/h and propofol drip at 25 mcg/kg/min. Starting dexmedetomidine drip and attempt to wean. Fosphenytoin decreased per neurology today. Strength 2 feeds today. No bowel movement. 04/03: T-max 100.2. Weaned off fentanyl and propofol drips. Currently only on dexmedetomidine drip at 1.4 mg/kg/h for vent synchrony. Tolerating tube feeds at goal. Beyond, gags and withdraws to pain bilateral upper and lower extremities. Not following commands. Eyes deviate downward. Subjective 04/04: Max 100.6. Currently afebrile. Stated 20-minute tonic-clonic seizure overnight. Received 4 mg lorazepam and bolused with 500 mg levetiracetam. Was switched to a propofol drip at 30 mcg/kg/min. Currently on midazolam drip at 4 mg an hour. 04/05: No sustained obvious seizure activity. No improvement in neurologic function. Bronchospasm well controlled. Enteral nutrition ongoing. Objective Vital Signs / I&O: Vital Signs 04/04/18 11:41 04/04/18 12:00 04/04/18 16:00 Temperature 99.8 F H 99.8 F H Pulse Rate 79 81 92 H Respiratory Rate 23 26 H 22 Blood Pressure 95/63 L 118/78 Pulse Oximetry 100 99 100 04/04/18 17:32 04/04/18 20:00 04/04/18 20:33 Temperature 99.3 F Pulse Rate 85 112 H 104 H Respiratory Rate 24 21 21 Blood Pressure 157/83 H Pulse Oximetry 98 04/04/18 20:34 04/04/18 23:48 04/04/18 23:49 Temperature Pulse Rate 99 H Respiratory Rate 21 14 21 Blood Pressure Pulse Oximetry 99 100 04/05/18 00:00 04/05/18 03:48 04/05/18 04:00 Temperature 98.7 F 98.7 F Pulse Rate 98 H 90 96 H Respiratory Rate 22 18 27 H Blood Pressure 123/81 126/79 Pulse Oximetry 100 100 04/05/18 07:00 04/05/18 07:31 Temperature Pulse Rate 95 H Respiratory Rate 18 21 Blood Pressure Pulse Oximetry 100 Intake & Output 04/04/18 04/05/18 04/05/18 18:59 06:59 18:59 Intake Total 1005.2 / 1005.2 930.6 / 930.6 Output Total 1000 / 1000 300 / 300 Balance 5.2 / 5.2 630.6 / 630.6 Weight 71.9 kg Intake: IV 388.2 / 388.2 426.6 / 426.6 Precedex Inj 200 MCG In NS Inj 100 / 100 50 / 50 48 ML @ 0.2 MCG/KG/HR 3.52 mls/ hr IV.CONT TITRATE PRN Rx#: [id number] Versed Inj 50 mg In 50 ml @ 1 50 / 50 MG/HR 1 mls/hr IV.CONT TITRATE PRN Rx#:[id number] Cerebyx Inj 80 MGPE In NS Inj 103.2 / 103.2 51.6 / 51.6 50 ML @ 208 mls/hr IV.SIG Q8H DEBORAH Rx#:[id number] Magnesium Sulfate Inj 2 GM In 35 / 35 NS Inj 96 ML @ 50 mls/hr IV.SIG ONCE ONE Rx#:[id number] Depacon Inj 500 MG In NS Inj 210 / 210 100 ML @ 105 mls/hr IV.SIG Q8H DEBORAH Rx#:[id number] Keppra 1000 mg/100 mL Premix 100 / 100 100 ML @ 400 mls/hr IV.SIG Q12H DEBORAH Rx#:[id number] Keppra Inj 1,500 MG In NS Inj 115 / 115 100 ML @ 345 mls/hr IV.SIG BID DEBORAH Rx#:[id number] Oral 0 / 0 Tube Feeding 377 / 377 504 / 504 Water Bolus Amount 240 / 240 Output: Urine 1000 / 1000 300 / 300 Other: Date of Last Bowel Movement 04/04/18 04/05/18 # Bowel Movements 2 2 # Incontinent Bowel Movements 2 Result Diagrams: 04/05/18 06:08 04/05/18 06:08 Objective Remarks: GENERAL: 62-year-old female currently orotracheally intubated with OG tube in place SKIN: Warm and dry. Ulceration over the lateral aspect of the first left toe. HEAD: Atraumatic. Normocephalic. EYES: Pupils equal and round, around 2 mm bilaterally and sluggish. ENT: No nasal bleeding or discharge. NECK: Trachea midline. Orotracheal intubation. CARDIOVASCULAR: RRR. S1, S2 no S4. Without murmur. No JVD. RESPIRATORY: Diminished breath sounds bilaterally. Minimal end expiratory wheeze. Good bilateral air movement. GASTROINTESTINAL: Abdomen soft, non-tender, nondistended. Bowel sounds present. No guarding. MUSCULOSKELETAL: Extremities without significant peripheral edema. Skin as above. Amputation to the right second toe. NEUROLOGICAL: Spontaneous eye opening and to central noxious stimuli. Eyes deviated downward. Withdraws to pain in bilateral upper extremities today. Almost decerebrate type positioning in bilateral lower extremities. Not withdrawing. Eyes blinking. No myoclonic jerking noted. 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 Goal of RASS 0 Daily sedation vacation MRI brain revealed right-sided mastoiditis otherwise no acute intercranial findings EEG 03/29 with burst suppression with epileptiform activity. EEG 03/30 without epileptic activity. Repeat EEG 04/04 pending Followed by neurology. Currently on levetiracetam 500 milligrams IV twice daily and fosphenytoin 80 mg every 8 hours. Level was 12.6. Recheck in a.m. Seizure precaution Discussed with Dr. Smyth. Will increase levetiracetam from 500 mg to 1500 mg twice daily. Follow-up on EEG. He will evaluate today for further recommendations. RESP: Acute hypercapneic respiratory failure COPD with ongoing tobaccoism Currently on PRVC 14/07/05/39 Ventilator bundle Albuterol/ipratropium aerosols every 6 hours with albuterol aerosols every 2 hours as needed for dyspnea Budesonide 0.5/2 1 inhalation twice daily Methylprednisolone succinate 20 mg every 12 hours Chest x-ray ordered for a.m. 04/05 CV: Shock -resolved Hypertension As needed labetalol and nicardipine drip for elevated blood pressure Currently on clonidine 0.1 mg 3 times daily more for neuro/psych alpha reasons Troponin 0.04 admission. Discontinued IV fluids GI: Elevated transaminases likely secondary to shock Hypoalbuminemia Acute constipation Continue tube feeds with vital 1.5 goal 45 cc an hour Lansoprazole 30 mg daily for GI prophylaxis Docusate sodium/senna 1 tablet twice daily for bowel. One BM yesterday FEN/GIULIA/ : Acute hypokalemia resolved- Periwick in place. Monitor intake and output hourly. Monitor electrolytes and replace as indicated per ICU electrolyte replacement protocol. ID: Received piperacillin/tazobactam and vancomycin in the emergency department. 03/29 -Gram stain of CSF -growth 03/29 -blood cultures x2 -no growth 03/29 -sputum negative Will discontinue acyclovir 04/02 as HSV was negative Discontinue piperacillin l/tazobactam 04/02 HEME: Monitor CBC daily. Follow trends. No indication for transfusion of blood products at this time. ENDO: Diabetes mellitus per report -hemoglobin A1c - 6.5 Elevated TSH of 8. Normal free T/T4. Recommend recheck in 4-6 weeks after acute illness Sliding scale insulin Accu-Cheks to maintain euglycemia/aspart low protocol MSK: Physical therapy evaluate and treat PROPH: SCDs for DVT prophylaxis. Heparin subcu for DVT prophylaxis. Lansoprazole 30 mg daily for GI prophylaxis. Overall impression: Frustrating lack of improvement and severely diminished neurologic condition. Seizure control appears improved but overall neurologic function is poor. Prognosis for meaningful neurologic recovery is very poor.
[2018-04-05] MEDS: levETIRAcetam Inj 1,500 MG in Sodium Chlor 0.9% Inj 100 ML IV.SIG SCH ×2 (09:11→21:54)
[2018-04-05] MEDS: Carboxymethylcellulose 0.5% Opth Drops 15 ML Bottle EACH EYE SCH ×2 (09:13→20:50)
[2018-04-05] MEDS: MethylPREDNISolone Sod Succinate Inj 40 MG/ML Vial IV.PUSH SCH ×2 (09:13→20:51)
[2018-04-05] MEDS: Midazolam 50 MG/50 ML Inj 50 MG/50 ML BAG IV.CONT PRN (09:16)
--- NOTE | 2018-04-05 10:42 | P.PNNEU ---
Subjective Subjective Comments: patient is sedated and vented Reported seizures over night No change in neurologic status EEG ordered and pending Dilantin level is subtherapeutic Active Medications: Active Medications Acetaminophen (Tylenol Liq) 650 mg PO Q6H PRN PRN Reason: FEVER Last Admin: 04/04/18 10:33 Dose: 650 mg Al Hydroxide/Mg Hydroxide (Milk Of Magnesia Liq) 30 ml PO Q12H PRN PRN Reason: Mild Constipation Albuterol (Albuterol Neb (Prn)) 2.5 mg NEB Q2HR NEB PRN PRN Reason: SHORTNESS OF BREATH/WHEEZING Albuterol (Duoneb Neb (Alex)) 1 ampul NEB Q4HR NEB COUNTS INCLUDE 234 BEDS AT THE [facility] Last Admin: 04/05/18 07:27 Dose: 1 ampul Artificial Tears (Refresh Tears 0.5% Opth Drops) 1 drop EACH EYE BID COUNTS INCLUDE 234 BEDS AT THE [facility] Last Admin: 04/05/18 09:13 Dose: 1 drop Bisacodyl (Dulcolax Supp) 10 mg RECTAL DAILY PRN PRN Reason: SEVERE CONSITIPATION Budesonide (Pulmocort Respule Neb) 0.5 mg NEB Q12HR NEB COUNTS INCLUDE 234 BEDS AT THE [facility] Last Admin: 04/05/18 07:27 Dose: 0.5 mg Chlorhexidine Gluconate (Peridex 0.12% Oral Kit) 15 ml OROPHARYNG BID@0800, 2000 COUNTS INCLUDE 234 BEDS AT THE [facility] Last Admin: 04/05/18 08:19 Dose: 15 ml Clonidine HCl (Catapres) 0.1 mg PO Q8HR COUNTS INCLUDE 234 BEDS AT THE [facility] Last Admin: 04/05/18 06:03 Dose: 0.1 mg Dextrose (D50w Vial) 50 ml IV.PUSH UNSCH PRN PRN Reason: PER HYPOGLYCEMIA PROTOCOL Fentanyl Citrate (Fentanyl Inj) 50 mcg IV PUSH Q1H PRN PRN Reason: Pain scale 6-10, &/or sedation Last Admin: 04/04/18 02:46 Dose: 50 mcg Glucagon (Glucagon Inj) 1 mg OTHER PRN PRN PRN Reason: for Hypoglycemia Protocol Heparin Sodium (Porcine) (Heparin Inj) 5,000 units SQ Q8HR COUNTS INCLUDE 234 BEDS AT THE [facility] Last Admin: 04/05/18 05:55 Dose: 5,000 units Hydralazine HCl (Apresoline Inj) 10 mg IV.PUSH Q1H PRN PRN Reason: Sbp>165, Dbp>90 Last Admin: 04/03/18 20:12 Dose: 10 mg Fentanyl (Fentanyl 10 Mcg/Ml Premix Drip) 2,500 mcg in 250 mls @ 5 mls/hr IV.SIG TITRATE PRN; Protocol PRN Reason: Per Protocol Last Titration: 04/02/18 12:06 Dose: 0 mcg/hr, 0 mls/hr Fosphenytoin Sodium 80 mgpe/ (Sodium Chloride) 51.6 mls @ 208 mls/hr IV.SIG Q8H ALEX Last Infusion: 04/05/18 03:10 Dose: Infused Dexmedetomidine HCl 200 mcg/ (Sodium Chloride) 50 mls @ 3.52 mls/hr IV.CONT TITRATE PRN; Protocol PRN Reason: Per Protocol Last Admin: 04/05/18 02:22 Dose: 0.3 mcg/kg/hr, 5.28 mls/hr Nicardipine HCl 25 mg/ Sodium (Chloride) 250 mls @ 25 mls/hr IV.CONT TITRATE PRN; Protocol PRN Reason: Per Protocol Last Titration: 04/02/18 18:15 Dose: 0 mg/hr, 0 mls/hr Magnesium Sulfate 4 gm/ Sodium (Chloride) 100 mls @ 50 mls/hr IV.SIG UNSCH PRN PRN Reason: For Magnesium 0.9 - 1.1 mg/dL Magnesium Sulfate 2 gm/ Sodium (Chloride) 100 mls @ 50 mls/hr IV.SIG UNSCH PRN PRN Reason: For Magnesium 1.2 - 1.6 mg/dL Potassium Chloride (Kcl 40 Meq Premix Inj) 40 meq in 100 mls @ 25 mls/hr IV.SIG Q2H PRN PRN Reason: For Potassium 2.8 - 3.2 mEq/L Potassium Chloride (Kcl 20 Meq Premix Inj) 20 meq in 100 mls @ 50 mls/hr IV.SIG Q2H PRN PRN Reason: For Potassium 3.3 - 3.5 mEq/L Last Infusion: 04/02/18 16:30 Dose: Infused Potassium Chloride (Kcl 40 Meq Premix Inj) 40 meq in 100 mls @ 25 mls/hr IV.SIG UNSCH PRN PRN Reason: For Potassium 3.3 - 3.5 mEq/L Potassium Chloride (Kcl 20 Meq Premix Inj) 20 meq in 100 mls @ 50 mls/hr IV.SIG Q2H PRN PRN Reason: For Potassium 2.8 - 3.2 mEq/L Potassium Phosphate 30 mmol/ (Sodium Chloride) 260 mls @ 42 mls/hr IV.SIG UNSCH PRN PRN Reason: SEE LABEL COMMENTS Sodium Phosphate 30 mmol/ (Sodium Chloride) 260 mls @ 42 mls/hr IV.SIG UNSCH PRN PRN Reason: For Phosphorus < 2.5 mg/dL Midazolam HCl (Versed Inj) 50 mg in 50 mls @ 1 mls/hr IV.CONT TITRATE PRN; Protocol PRN Reason: Per Protocol Last Admin: 04/05/18 09:16 Dose: 2 mg/hr, 2 mls/hr Levetiracetam 1,500 mg/ Sodium (Chloride) 115 mls @ 345 mls/hr IV.SIG BID COUNTS INCLUDE 234 BEDS AT THE [facility] Last Admin: 04/05/18 09:11 Dose: 345 mls/hr Valproate Sodium 500 mg/ (Sodium Chloride) 105 mls @ 105 mls/hr IV.SIG Q8H COUNTS INCLUDE 234 BEDS AT THE [facility] Last Infusion: 04/05/18 05:06 Dose: Infused Insulin Aspart (Novolog Insulin Correctional Sugar Inj) 0 unit SQ Q6HR COUNTS INCLUDE 234 BEDS AT THE [facility]; Protocol Last Admin: 04/05/18 05:54 Dose: 1 unit Labetalol HCl (Trandate Inj) 10 mg IV.PUSH Q1H PRN PRN Reason: SBP >165 Last Admin: 04/04/18 04:37 Dose: 10 mg Lactulose (Lactulose Liq) 30 ml PO DAILY PRN PRN Reason: SEVERE CONSITIPATION Lactulose (Lactulose Liq) 30 ml PO BID COUNTS INCLUDE 234 BEDS AT THE [facility] Last Admin: 04/05/18 08:19 Dose: Not Given Lansoprazole (Prevacid Solutab) 30 mg NG/OG DAILY COUNTS INCLUDE 234 BEDS AT THE [facility] Last Admin: 04/05/18 09:13 Dose: 30 mg Lorazepam (Ativan Inj) 2 mg IV.PUSH Q5M PRN PRN Reason: UNTIL SEIZURES STOP Last Admin: 04/04/18 03:07 Dose: 2 mg Magnesium Oxide (Mag-Ox) 800 mg PO UNSCH PRN PRN Reason: For Magnesium 1.2 - 1.6 mg/dL Methylprednisolone Sodium Succinate (Solumedrol Inj) 20 mg IV.PUSH BID COUNTS INCLUDE 234 BEDS AT THE [facility] Last Admin: 04/05/18 09:13 Dose: 20 mg Miscellaneous Medication () 1 each OROPHARYNG 0000,0400,1200,1600 COUNTS INCLUDE 234 BEDS AT THE [facility] Last Admin: 04/05/18 04:06 Dose: 1 each Nitroglycerin (Nitro-Bid 2% Oint) 2 inch TOPICAL Q6HR PRN PRN Reason: Sbp>165, Dbp>90 Ondansetron HCl (Zofran Inj) 4 mg IV.PUSH Q6H PRN PRN Reason: NAUSEA OR VOMITING Oxycodone HCl (Roxicodone Intensol Liq) 5 mg PO Q6H COUNTS INCLUDE 234 BEDS AT THE [facility] Last Admin: 04/05/18 09:13 Dose: 5 mg Polyethylene Glycol (Miralax) 17 gm PO BID COUNTS INCLUDE 234 BEDS AT THE [facility] Last Admin: 04/05/18 08:19 Dose: Not Given Potassium Bicarb/Potassium Chloride (K-Lyte Cl Eff) 50 meq PO UNSCH PRN PRN Reason: For Potassium 3.3 - 3.5 mEq/L Last Admin: 04/04/18 05:25 Dose: 50 meq Potassium Phosphate (K-Phos Original) 2,000 mg PO Q4H PRN PRN Reason: Phosphorus Less Than 2.5 mg/dL Potassium Phosphate (K-Phos Original) 2,000 mg PO UNSCH PRN PRN Reason: SEE LABEL COMMENTS Senna/Docusate Sodium ([place]-Colace) 1 tab PO BID COUNTS INCLUDE 234 BEDS AT THE [facility] Last Admin: 04/05/18 08:19 Dose: Not Given Sennosides (Senokot) 17.2 mg PO Q12H PRN PRN Reason: Moderate Constipation Sodium Chloride (Ns Flush) 2 ml IV.FLUSH BID COUNTS INCLUDE 234 BEDS AT THE [facility] Last Admin: 04/05/18 09:13 Dose: 2 ml Sodium Chloride (Ns Flush) 2 ml IV.FLUSH PRN PRN PRN Reason: FLUSH AFTER USING IV ACCESS Allergies/Adverse Reactions: Allergies Allergy/AdvReac Type Severity Reaction Status Date / Time No Allergy Information Allergy Verified 03/29/18 00:03 Available Review of Systems All other systems reviewed negative except as stated in HPI Physical Exam Vital signs: Vital Signs 04/04/18 11:41 04/04/18 12:00 04/04/18 16:00 Temperature 99.8 F H 99.8 F H Pulse Rate 79 81 92 H Respiratory Rate 23 26 H 22 Blood Pressure 95/63 L 118/78 Pulse Oximetry 100 99 100 04/04/18 17:32 04/04/18 20:00 04/04/18 20:33 Temperature 99.3 F Pulse Rate 85 112 H 104 H Respiratory Rate 24 21 21 Blood Pressure 157/83 H Pulse Oximetry 98 04/04/18 20:34 04/04/18 23:48 04/04/18 23:49 Temperature Pulse Rate 99 H Respiratory Rate 21 14 21 Blood Pressure Pulse Oximetry 99 100 04/05/18 00:00 04/05/18 03:48 04/05/18 04:00 Temperature 98.7 F 98.7 F Pulse Rate 98 H 90 96 H Respiratory Rate 22 18 27 H Blood Pressure 123/81 126/79 Pulse Oximetry 100 100 04/05/18 07:00 04/05/18 07:31 04/05/18 08:00 Temperature 100.5 F H Pulse Rate 95 H 94 H Respiratory Rate 18 21 25 H Blood Pressure 138/85 Pulse Oximetry 100 100 Intake & Output 04/04/18 04/05/18 04/05/18 18:59 06:59 18:59 Intake Total 1005.2 / 1005.2 930.6 / 930.6 50 / 50 Output Total 1000 / 1000 300 / 300 Balance 5.2 / 5.2 630.6 / 630.6 50 / 50 Weight 71.9 kg Intake: IV 388.2 / 388.2 426.6 / 426.6 50 / 50 Precedex Inj 200 MCG In NS Inj 100 / 100 50 / 50 48 ML @ 0.2 MCG/KG/HR 3.52 mls/ hr IV.CONT TITRATE PRN Rx#: [id number] Versed Inj 50 mg In 50 ml @ 1 50 / 50 50 / 50 MG/HR 1 mls/hr IV.CONT TITRATE PRN Rx#:[id number] Cerebyx Inj 80 MGPE In NS Inj 103.2 / 103.2 51.6 / 51.6 50 ML @ 208 mls/hr IV.SIG Q8H ALEX Rx#:[id number] Magnesium Sulfate Inj 2 GM In 35 / 35 NS Inj 96 ML @ 50 mls/hr IV.SIG ONCE ONE Rx#:[id number] Depacon Inj 500 MG In NS Inj 210 / 210 100 ML @ 105 mls/hr IV.SIG Q8H ALEX Rx#:[id number] Keppra 1000 mg/100 mL Premix 100 / 100 100 ML @ 400 mls/hr IV.SIG Q12H ALEX Rx#:[id number] Keppra Inj 1,500 MG In NS Inj 115 / 115 100 ML @ 345 mls/hr IV.SIG BID ALEX Rx#:[id number] Oral 0 / 0 Tube Feeding 377 / 377 504 / 504 Water Bolus Amount 240 / 240 Output: Urine 1000 / 1000 300 / 300 Other: Date of Last Bowel Movement 04/04/18 04/05/18 # Bowel Movements 2 2 # Incontinent Bowel Movements 2 Narrative: Orotracheally intubated Sedated Spontaneous eye opening, to noxious stimuli Eyes deviated downwards and mildly to the right ? eye bobbing Intermittent eye flutter Plantar reflexes are b/l upgoing - Routine HEENT Exam Head: Present: normocephalic, atraumatic ENT: Present: mucous membranes moist, nares patent - Routine Neck Exam Present: supple. Absent: carotid bruit - Routine Respiratory Exam Present: patient mechanically ventilated - Routine Cardiovascular Exam Present: RRR - Routine Abdominal Exam Present: soft, normoactive bowel sounds - Routine Extremities Exam Absent: cyanosis, clubbing, edema - Routine Skin Exam Absent: intact, cyanosis, erythema - Detailed Neurological Exam: Coma Scale Eye Opening: None Verbal Response: None Motor Response: None [place] Coma Scale Total: 3 - Routine Psychiatric Exam Present: unable to assess - Urinary Catheter Management Indwelling Urethral Catheter Cath placed during this visit: yes, but has since been removed by the nurse Reason for continuing: Decision to DC catheter Insertion date: 03/29/18 Insertion time: 01:12 Removal date: 04/01/18 Removal time: 15:35 Objective Laboratory Results - last 24 hr 04/04/18 04/04/18 04/04/18 11:36 17:30 23:52 WBC RBC Hgb Hct MCV MCH MCHC RDW Plt Count MPV Neut % (Auto) Lymph % (Auto) [place] % (Auto) Eos % (Auto) Baso % (Auto) Neut # (Auto) Lymph # (Auto) [place] # (Auto) Eos # (Auto) Baso # (Auto) WBC Differential Differential Comment Sodium Potassium Chloride Carbon Dioxide Anion Gap BUN Creatinine Estimated GFR POC Glucose 170 H 126 H 158 H Random Glucose Calcium Phosphorus Magnesium Total Bilirubin AST ALT Alkaline Phosphatase Total Protein Albumin Phenytoin Valproic Acid 04/05/18 04/05/18 04/05/18 05:47 06:08 06:08 WBC 12.2 H RBC 5.23 Hgb 13.4 Hct 41.6 MCV 79.5 L MCH 25.6 L MCHC 32.2 RDW 18.9 H Plt Count 198 MPV 8.3 Neut % (Auto) 78.3 H Lymph % (Auto) 12.7 [place] % (Auto) 8.2 H Eos % (Auto) 0.5 Baso % (Auto) 0.3 Neut # (Auto) 9.6 H Lymph # (Auto) 1.6 [place] # (Auto) 1.0 H Eos # (Auto) 0.1 Baso # (Auto) 0.0 WBC Differential . Differential Comment Auto diff final Sodium 143 Potassium 3.9 Chloride 105 Carbon Dioxide 26.7 Anion Gap 11 BUN 18 Creatinine 0.53 Estimated GFR Greater than 89 POC Glucose 150 H Random Glucose 153 H Calcium 8.6 Phosphorus 2.8 Magnesium 2.1 Total Bilirubin 0.5 AST 28 ALT 30 Alkaline Phosphatase 80 Total Protein 6.4 Albumin 2.5 L Phenytoin 7.0 L Valproic Acid 56 Review/Management - Review/Management Plan: Ischemic hypoxic encephalopathy Initial EEG with burst suppression pattern LP neg Repeat EEG today - Dilantin level is subtherapeutic Acute respiratory failure Opioid overdose Benzo overdose - Continue Keppra 1500 mg Q12h - Increase Fosphenytoin dose and repeat level next am - Valproate 500 mg tid - LVTC 500 mg Q 12h - Seizure precautions - DVT ptophylaxis - GI prophylaxis
[2018-04-06] MEDS: Oral Hygiene Kit OROPHARYNG SCH ×4 (00:19→16:33)
[2018-04-06] MEDS: Insulin NovoLOG Aspart Correctional Sugar Inj SQ SCH ×4 (00:19→18:38)
[2018-04-06] MEDS: FOSPHENYTOIN IV.SIG SCH ×3 (02:01→18:38)
[2018-04-06] MEDS: SODIUM CHLOR IV.SIG SCH ×3 (02:01→18:38)
[2018-04-06] MEDS: Valproate Inj 500 MG in Sodium Chlor 0.9% Inj 100 ML IV.SIG SCH (04:04)
[2018-04-06 05:06] LABS: Baso % (Auto) 0.5 % (0.0-2.0); Eos # (Auto) 0.1 th/mm3 (0.0-0.4); Eos % (Auto) 0.7 % (0.0-4.0); Hematocrit 40.3 % (35.0-46.0); Hemoglobin 13.2 gm/dL (11.6-15.3); Lymph # (Auto) 1.2 th/mm3 (1.0-4.8); Lymph % (Auto) 12.2 % (9.0-44.0); Mean Corpuscular HGB Conc 32.7 % (32.0-36.0); Mean Corpuscular Hemoglobin 26.2 pg (27.0-34.0); Mean Platelet Volume 8.5 fL (7.0-11.0); Mono # (Auto) 0.9 th/mm3 (0.0-0.9); Mono % (Auto) 9.4 % (0.0-8.0); Neut # (Auto) 7.3 th/mm3 (1.8-7.7); Neut % (Auto) 77.2 % (16.0-70.0); Platelet Count 176 th/mm3 (150-450); Red Blood Count 5.04 mil/mm3 (4.00-5.30); Red Cell Distribution Width 18.6 % (11.6-17.2); White Blood Count 9.5 th/mm3 (4.0-11.0)
[2018-04-06] MEDS: Heparin - SQ 10,000 UNITS/ML Vial SQ SCH ×3 (05:22→21:45)
[2018-04-06 05:31] LABS: Anion Gap 9 meq/L (5-15); Blood Urea Nitrogen 18 mg/dL (7-18); Calcium 8.2 mg/dL (8.5-10.1); Carbon Dioxide 27.7 meq/L (21.0-32.0); Chloride 105 meq/L (98-107); Glomerular Filtration Rate Greater Than 89 mL/min (>89); Glucose,Random 121 mg/dL (74-106); Potassium 3.9 meq/L (3.5-5.1); Sodium 142 meq/L (136-145)
[2018-04-06 05:32] LABS: Valproic Acid 46 mcg/mL (50-100)
[2018-04-06] MEDS: levETIRAcetam Inj 1,500 MG in Sodium Chlor 0.9% Inj 100 ML IV.SIG SCH ×2 (08:55→21:45)
[2018-04-06] MEDS: MethylPREDNISolone Sod Succinate Inj 40 MG/ML Vial IV.PUSH SCH ×2 (08:55→20:44)
[2018-04-06] MEDS: Midazolam 50 MG/50 ML Inj 50 MG/50 ML BAG IV.CONT PRN ×2 (08:56→22:17)
[2018-04-06] MEDS: Dexmedetomidine Inj 200 MCG in Sodium Chlor 0.9% Inj 48 ML IV.CONT PRN ×2 (08:56→18:39)
[2018-04-06] MEDS: Carboxymethylcellulose 0.5% Opth Drops 15 ML Bottle EACH EYE SCH ×2 (08:57→20:36)
[2018-04-06] MEDS: Polyethylene Glycol 3350 17 GM Packet PO SCH ×2 (08:57→20:36)
[2018-04-06] MEDS: Chlorhexidine 0.12% Oral Kit 15 ML UDC OROPHARYNG SCH ×2 (08:57→20:36)
[2018-04-06] MEDS: Senna/Docusate Sodium 8.6/50 MG Tablet PO SCH ×2 (08:57→20:36)
--- NOTE | 2018-04-06 10:40 | P.PNNEU ---
Subjective Subjective Comments: Patient is seen with no family at bed side. Discussed case with RN No reported acute events over night Intubated and sedated Active Medications: Active Medications Acetaminophen (Tylenol Liq) 650 mg PO Q6H PRN PRN Reason: FEVER Last Admin: 04/04/18 10:33 Dose: 650 mg Al Hydroxide/Mg Hydroxide (Milk Of Magnesia Liq) 30 ml PO Q12H PRN PRN Reason: Mild Constipation Albuterol (Albuterol Neb (Prn)) 2.5 mg NEB Q2HR NEB PRN PRN Reason: SHORTNESS OF BREATH/WHEEZING Albuterol (Duoneb Neb (Alex)) 1 ampul NEB Q4HR NEB [facility] Last Admin: 04/06/18 07:26 Dose: 1 ampul Artificial Tears (Refresh Tears 0.5% Opth Drops) 1 drop EACH EYE BID [facility] Last Admin: 04/06/18 08:57 Dose: 1 drop Bisacodyl (Dulcolax Supp) 10 mg RECTAL DAILY PRN PRN Reason: SEVERE CONSITIPATION Budesonide (Pulmocort Respule Neb) 0.5 mg NEB Q12HR [facility] Last Admin: 04/06/18 07:26 Dose: 0.5 mg Chlorhexidine Gluconate (Peridex 0.12% Oral Kit) 15 ml OROPHARYNG BID@0800, 2000 [facility] Last Admin: 04/06/18 08:57 Dose: 15 ml Clonidine HCl (Catapres) 0.1 mg PO Q8HR [facility] Last Admin: 04/06/18 06:19 Dose: 0.1 mg Dextrose (D50w Vial) 50 ml IV.PUSH UNSCH PRN PRN Reason: PER HYPOGLYCEMIA PROTOCOL Fentanyl Citrate (Fentanyl Inj) 50 mcg IV PUSH Q1H PRN PRN Reason: Pain scale 6-10, &/or sedation Last Admin: 04/04/18 02:46 Dose: 50 mcg Glucagon (Glucagon Inj) 1 mg OTHER PRN PRN PRN Reason: for Hypoglycemia Protocol Heparin Sodium (Porcine) (Heparin Inj) 5,000 units SQ Q8HR [facility] Last Admin: 04/06/18 05:22 Dose: 5,000 units Hydralazine HCl (Apresoline Inj) 10 mg IV.PUSH Q1H PRN PRN Reason: Sbp>165, Dbp>90 Last Admin: 04/03/18 20:12 Dose: 10 mg Fentanyl (Fentanyl 10 Mcg/Ml Premix Drip) 2,500 mcg in 250 mls @ 5 mls/hr IV.SIG TITRATE PRN; Protocol PRN Reason: Per Protocol Last Titration: 04/02/18 12:06 Dose: 0 mcg/hr, 0 mls/hr Fosphenytoin Sodium 80 mgpe/ (Sodium Chloride) 51.6 mls @ 208 mls/hr IV.SIG Q8H ALEX Last Infusion: 04/06/18 10:23 Dose: Infused Dexmedetomidine HCl 200 mcg/ (Sodium Chloride) 50 mls @ 3.52 mls/hr IV.CONT TITRATE PRN; Protocol PRN Reason: Per Protocol Last Admin: 04/06/18 08:56 Dose: 0.3 mcg/kg/hr, 5.28 mls/hr Nicardipine HCl 25 mg/ Sodium (Chloride) 250 mls @ 25 mls/hr IV.CONT TITRATE PRN; Protocol PRN Reason: Per Protocol Last Titration: 04/02/18 18:15 Dose: 0 mg/hr, 0 mls/hr Magnesium Sulfate 4 gm/ Sodium (Chloride) 100 mls @ 50 mls/hr IV.SIG UNSCH PRN PRN Reason: For Magnesium 0.9 - 1.1 mg/dL Magnesium Sulfate 2 gm/ Sodium (Chloride) 100 mls @ 50 mls/hr IV.SIG UNSCH PRN PRN Reason: For Magnesium 1.2 - 1.6 mg/dL Potassium Chloride (Kcl 40 Meq Premix Inj) 40 meq in 100 mls @ 25 mls/hr IV.SIG Q2H PRN PRN Reason: For Potassium 2.8 - 3.2 mEq/L Potassium Chloride (Kcl 20 Meq Premix Inj) 20 meq in 100 mls @ 50 mls/hr IV.SIG Q2H PRN PRN Reason: For Potassium 3.3 - 3.5 mEq/L Last Infusion: 04/02/18 16:30 Dose: Infused Potassium Chloride (Kcl 40 Meq Premix Inj) 40 meq in 100 mls @ 25 mls/hr IV.SIG UNSCH PRN PRN Reason: For Potassium 3.3 - 3.5 mEq/L Potassium Chloride (Kcl 20 Meq Premix Inj) 20 meq in 100 mls @ 50 mls/hr IV.SIG Q2H PRN PRN Reason: For Potassium 2.8 - 3.2 mEq/L Potassium Phosphate 30 mmol/ (Sodium Chloride) 260 mls @ 42 mls/hr IV.SIG UNSCH PRN PRN Reason: SEE LABEL COMMENTS Sodium Phosphate 30 mmol/ (Sodium Chloride) 260 mls @ 42 mls/hr IV.SIG UNSCH PRN PRN Reason: For Phosphorus < 2.5 mg/dL Midazolam HCl (Versed Inj) 50 mg in 50 mls @ 1 mls/hr IV.CONT TITRATE PRN; Protocol PRN Reason: Per Protocol Last Admin: 04/06/18 08:56 Dose: 2 mg/hr, 2 mls/hr Levetiracetam 1,500 mg/ Sodium (Chloride) 115 mls @ 345 mls/hr IV.SIG BID ALEX Last Infusion: 04/06/18 10:23 Dose: Infused Valproate Sodium 500 mg/ (Sodium Chloride) 105 mls @ 105 mls/hr IV.SIG Q8H ALEX Last Infusion: 04/06/18 05:05 Dose: Infused Insulin Aspart (Novolog Insulin Correctional Sugar Inj) 0 unit SQ Q6HR [facility]; Protocol Last Admin: 04/06/18 06:19 Dose: Not Given Labetalol HCl (Trandate Inj) 10 mg IV.PUSH Q1H PRN PRN Reason: SBP >165 Last Admin: 04/04/18 04:37 Dose: 10 mg Lactulose (Lactulose Liq) 30 ml PO DAILY PRN PRN Reason: SEVERE CONSITIPATION Lactulose (Lactulose Liq) 30 ml PO BID [facility] Last Admin: 04/06/18 08:57 Dose: Not Given Lansoprazole (Prevacid Solutab) 30 mg NG/OG DAILY [facility] Last Admin: 04/06/18 08:55 Dose: 30 mg Lorazepam (Ativan Inj) 2 mg IV.PUSH Q5M PRN PRN Reason: UNTIL SEIZURES STOP Last Admin: 04/04/18 03:07 Dose: 2 mg Magnesium Oxide (Mag-Ox) 800 mg PO UNSCH PRN PRN Reason: For Magnesium 1.2 - 1.6 mg/dL Methylprednisolone Sodium Succinate (Solumedrol Inj) 20 mg IV.PUSH BID [facility] Last Admin: 04/06/18 08:55 Dose: 20 mg Miscellaneous Medication () 1 each OROPHARYNG 0000,0400,1200,1600 [facility] Last Admin: 04/06/18 04:26 Dose: 1 each Nitroglycerin (Nitro-Bid 2% Oint) 2 inch TOPICAL Q6HR PRN PRN Reason: Sbp>165, Dbp>90 Ondansetron HCl (Zofran Inj) 4 mg IV.PUSH Q6H PRN PRN Reason: NAUSEA OR VOMITING Oxycodone HCl (Roxicodone Intensol Liq) 5 mg PO Q6H [facility] Last Admin: 04/06/18 10:09 Dose: 5 mg Polyethylene Glycol (Miralax) 17 gm PO BID [facility] Last Admin: 04/06/18 08:57 Dose: Not Given Potassium Bicarb/Potassium Chloride (K-Lyte Cl Eff) 50 meq PO UNSCH PRN PRN Reason: For Potassium 3.3 - 3.5 mEq/L Last Admin: 04/04/18 05:25 Dose: 50 meq Potassium Phosphate (K-Phos Original) 2,000 mg PO Q4H PRN PRN Reason: Phosphorus Less Than 2.5 mg/dL Potassium Phosphate (K-Phos Original) 2,000 mg PO UNSCH PRN PRN Reason: SEE LABEL COMMENTS Senna/Docusate Sodium ([place]-Colace) 1 tab PO BID [facility] Last Admin: 04/06/18 08:57 Dose: Not Given Sennosides (Senokot) 17.2 mg PO Q12H PRN PRN Reason: Moderate Constipation Sodium Chloride (Ns Flush) 2 ml IV.FLUSH BID [facility] Last Admin: 04/06/18 08:57 Dose: 2 ml Sodium Chloride (Ns Flush) 2 ml IV.FLUSH PRN PRN PRN Reason: FLUSH AFTER USING IV ACCESS Allergies/Adverse Reactions: Allergies Allergy/AdvReac Type Severity Reaction Status Date / Time No Allergy Information Allergy Verified 03/29/18 00:03 Available Physical Exam Vital signs: Vital Signs 04/05/18 11:14 04/05/18 12:00 04/05/18 13:05 Temperature 99.6 F Pulse Rate 99 H 100 H Respiratory Rate 17 18 17 Blood Pressure 126/76 Pulse Oximetry 99 100 04/05/18 15:02 04/05/18 16:00 04/05/18 16:09 Temperature 99.2 F Pulse Rate 94 H 98 H Respiratory Rate 17 24 18 Blood Pressure 127/77 Pulse Oximetry 99 98 04/05/18 20:00 04/05/18 20:15 04/05/18 20:19 Temperature 99.7 F H Pulse Rate 74 77 Respiratory Rate 16 18 18 Blood Pressure 115/71 Pulse Oximetry 98 100 04/05/18 23:38 04/05/18 23:39 04/06/18 00:00 Temperature 99.2 F Pulse Rate 77 91 H Respiratory Rate 15 14 16 Blood Pressure 106/69 Pulse Oximetry 100 98 04/06/18 04:00 04/06/18 04:20 04/06/18 04:21 Temperature 99.7 F H Pulse Rate 84 72 Respiratory Rate 25 H 14 19 Blood Pressure 136/82 Pulse Oximetry 98 100 04/06/18 07:00 04/06/18 07:29 04/06/18 08:00 Temperature 99.8 F H Pulse Rate 20 L 83 Respiratory Rate 17 19 23 Blood Pressure 121/76 Pulse Oximetry 100 100 04/06/18 10:26 Temperature Pulse Rate Respiratory Rate 26 H Blood Pressure Pulse Oximetry 100 Intake & Output 04/05/18 04/06/18 04/06/18 18:59 06:59 18:59 Intake Total 951.2 / 951.2 1076.6 / 1076.6 266.6 / 266.6 Output Total 300 / 300 1070 / 1070 Balance 651.2 / 651.2 6.6 / 6.6 266.6 / 266.6 Weight 71.2 kg Intake: IV 423.2 / 423.2 426.6 / 426.6 266.6 / 266.6 Precedex Inj 200 MCG In NS Inj 50 / 50 50 / 50 50 / 50 48 ML @ 0.2 MCG/KG/HR 3.52 mls/ hr IV.CONT TITRATE PRN Rx#: [id number] Versed Inj 50 mg In 50 ml @ 1 50 / 50 50 / 50 MG/HR 1 mls/hr IV.CONT TITRATE PRN Rx#:[id number] Cerebyx Inj 80 MGPE In NS Inj 103.2 / 103.2 51.6 / 51.6 51.6 / 51.6 50 ML @ 208 mls/hr IV.SIG Q8H ALEX Rx#:[id number] Depacon Inj 500 MG In NS Inj 105 / 105 210 / 210 100 ML @ 105 mls/hr IV.SIG Q8H ALEX Rx#:[id number] Keppra Inj 1,500 MG In NS Inj 115 / 115 115 / 115 115 / 115 100 ML @ 345 mls/hr IV.SIG BID ALEX Rx#:[id number] Tube Feeding 468 / 468 450 / 450 Tube Irrigant 60 / 60 200 / 200 Output: Urine 300 / 300 Stool 20 / 20 Urine Amount (Catheter) 1050 / 1050 Straight 1050 / 1050 Other: # Incontinent Voids 2 Date of Last Bowel Movement 04/05/18 04/06/18 04/06/18 # Incontinent Bowel Movements 1 Narrative: Orotracheally intubated Sedated Spontaneous eye opening, to noxious stimuli Eyes deviated downwards and mildly to the right ? eye bobbing Intermittent eye flutter Plantar reflexes are b/l upgoing - Urinary Catheter Management Indwelling Urethral Catheter Cath placed during this visit: yes, but has since been removed by the nurse Reason for continuing: Acute urinary retention Insertion date: 04/06/18 Insertion time: 03:50 Removal date: 04/06/18 Removal time: 05:00 Straight Cath placed during this visit: no Objective Laboratory Results - last 24 hr 04/05/18 04/05/18 04/06/18 12:41 17:46 00:03 WBC RBC Hgb Hct MCV MCH MCHC RDW Plt Count MPV Neut % (Auto) Lymph % (Auto) [place] % (Auto) Eos % (Auto) Baso % (Auto) Neut # (Auto) Lymph # (Auto) [place] # (Auto) Eos # (Auto) Baso # (Auto) WBC Differential Differential Comment Sodium Potassium Chloride Carbon Dioxide Anion Gap BUN Creatinine Estimated GFR POC Glucose 166 H 138 H 175 H Random Glucose Calcium Valproic Acid 04/06/18 04/06/18 04:21 04:21 WBC 9.5 RBC 5.04 Hgb 13.2 Hct 40.3 MCV 80.0 MCH 26.2 L MCHC 32.7 RDW 18.6 H Plt Count 176 MPV 8.5 Neut % (Auto) 77.2 H Lymph % (Auto) 12.2 [place] % (Auto) 9.4 H Eos % (Auto) 0.7 Baso % (Auto) 0.5 Neut # (Auto) 7.3 Lymph # (Auto) 1.2 [place] # (Auto) 0.9 Eos # (Auto) 0.1 Baso # (Auto) 0.0 WBC Differential . Differential Comment Auto diff final Sodium 142 Potassium 3.9 Chloride 105 Carbon Dioxide 27.7 Anion Gap 9 BUN 18 Creatinine 0.48 L Estimated GFR Greater than 89 POC Glucose Random Glucose 121 H Calcium 8.2 L Valproic Acid 46 L Diagnostic Tests: EEG revealed severe suppression of electrographic activity with clear evidence of epileptogenicity or electrographic seizures. Review/Management - Review/Management Plan: Ischemic hypoxic encephalopathy Initial EEG with burst suppression pattern LP neg Follow up EEG with no evidence of elcetrographic seizure, with severe supression of background Dilantin level is subtherapeutic Valproate level is subtherapeutic Acute respiratory failure Opioid overdose Benzo overdose - Continue Keppra 1500 mg Q12h - Increase Fosphenytoin dose and repeat level next am - Increase Valproate to 750 mg Q8h - Check levels next am - Valproate 500 mg tid - LVTC 500 mg Q 12h - Seizure precautions - DVT prophylaxis - GI prophylaxis - Discussed patient with RN, family members will come on Saturday for decision making - Dr. Smyth will follow up Saturday.
[2018-04-06] MEDS: Valproate Inj 750 MG in Sodium Chlor 0.9% Inj 100 ML IV.SIG SCH ×2 (11:16→20:35)
--- NOTE | 2018-04-06 12:23 | MG ---
cc: Alma Delia Mcclure MD REFERRING PHYSICIAN: Rohan Smyth MD ROOM NUMBER: [id number] INDICATIONS: Followup EEG. The patient is intubated. MEDICAL HISTORY: COPD, diabetes, neuropathy. Found unresponsive. MEDICATIONS: Catapres, dexmedetomidine, fosphenytoin, Heparin, insulin aspart, oxycodone, valproate. DESCRIPTION: There is diffuse slowing with suppressed background activity throughout. Intermittent eye flutter is noted throughout the recording. No epileptiform discharges or electrographic seizure is noted. INTERPRETATION: This is an abnormal EEG recording with severe suppression of the background that may indicate a global encephalopathy that may be secondary to medications, metabolic derangement or hypoxic/anoxic effect. Clinical and radiological correlation is recommended. Alma Delia Mcclure MD RGO/lc , 08:04 AM , 12:23 PM [facility]
--- NOTE | 2018-04-06 13:32 | P.PNCC ---
Subjective Subjective Remarks/Hospital Course: 62-year-old female. She was found unresponsive. She had an empty bottle of 9 methadone 10 mg tablets and 18 Ativan 0.5 mg tablets. Apparently CPR was initiated per family. Family provided EVAC with information that patient is on hospice and has a history of diabetes, COPD, neuropathy, no advanced directives. When EVAC arrived she had a pulse but agonal respirations. She was administered Narcan 2 mg IV without improvement. Upon arrival to the ED she was not protecting her airway, pooling secretions in her mouth. She was intubated upon arrival. Her systolic blood pressure was in the 80s. She was administered 2 L normal saline bolus, right femoral line was placed and she was started on Levophed. Family has not arrived at the hospital and there is no available contact information. She is registered as a Amina Kebede. The prescription bottles say Antonina Coto. That individual has not been admitted since 2007. 03/30: Seizure activity appears to be controlled with Dilantin. She remains stuporous and we are unable to wean from the ventilator. Ongoing attempts to find out her true identity. 03/31: Will attempt spontaneous breathing trial again today. Late yesterday and early today she has had more episodes of spontaneous eye opening though she does not appear to track. Cerebrospinal fluid appears benign. No growth on culture after 48 hours. Bronchospasm responded quite well to steroids, will continue through extubation. 04/01: Fairly strong on spontaneous breathing trials today. We will discontinue all sedation, watch closely for seizure activity, and attempt to get her extubated. 04/02 -currently resting in bed in no acute distress. Eyes are rolled back. Currently on fentanyl drip at 150 mg/h and propofol drip at 25 mcg/kg/min. Starting dexmedetomidine drip and attempt to wean. Fosphenytoin decreased per neurology today. Strength 2 feeds today. No bowel movement. 04/03: T-max 100.2. Weaned off fentanyl and propofol drips. Currently only on dexmedetomidine drip at 1.4 mg/kg/h for vent synchrony. Tolerating tube feeds at goal. Beyond, gags and withdraws to pain bilateral upper and lower extremities. Not following commands. Eyes deviate downward. Subjective 04/04: Max 100.6. Currently afebrile. Stated 20-minute tonic-clonic seizure overnight. Received 4 mg lorazepam and bolused with 500 mg levetiracetam. Was switched to a propofol drip at 30 mcg/kg/min. Currently on midazolam drip at 4 mg an hour. 04/05: No sustained obvious seizure activity. No improvement in neurologic function. Bronchospasm well controlled. Enteral nutrition ongoing. 04/06: No change in neurologic function. No seizure activity. Tolerating enteral nutrition. If family wants to persist with aggressive care we probably need to consider tracheostomy soon. Objective Vital Signs / I&O: Vital Signs 04/05/18 15:02 04/05/18 16:00 04/05/18 16:09 Temperature 99.2 F Pulse Rate 94 H 98 H Respiratory Rate 17 24 18 Blood Pressure 127/77 Pulse Oximetry 99 98 04/05/18 20:00 04/05/18 20:15 04/05/18 20:19 Temperature 99.7 F H Pulse Rate 74 77 Respiratory Rate 16 18 18 Blood Pressure 115/71 Pulse Oximetry 98 100 04/05/18 23:38 04/05/18 23:39 04/06/18 00:00 Temperature 99.2 F Pulse Rate 77 91 H Respiratory Rate 15 14 16 Blood Pressure 106/69 Pulse Oximetry 100 98 04/06/18 04:00 04/06/18 04:20 04/06/18 04:21 Temperature 99.7 F H Pulse Rate 84 72 Respiratory Rate 25 H 14 19 Blood Pressure 136/82 Pulse Oximetry 98 100 04/06/18 07:00 04/06/18 07:29 04/06/18 08:00 Temperature 99.8 F H Pulse Rate 20 L 90 Respiratory Rate 17 19 23 Blood Pressure 121/76 Pulse Oximetry 100 100 04/06/18 10:26 04/06/18 11:21 04/06/18 12:00 Temperature Pulse Rate 85 85 Respiratory Rate 26 H 24 Blood Pressure Pulse Oximetry 100 Intake & Output 04/05/18 04/06/18 04/06/18 18:59 06:59 18:59 Intake Total 951.2 / 951.2 1076.6 / 1076.6 266.6 / 266.6 Output Total 300 / 300 1070 / 1070 Balance 651.2 / 651.2 6.6 / 6.6 266.6 / 266.6 Weight 71.2 kg Intake: IV 423.2 / 423.2 426.6 / 426.6 266.6 / 266.6 Precedex Inj 200 MCG In NS Inj 50 / 50 50 / 50 50 / 50 48 ML @ 0.2 MCG/KG/HR 3.52 mls/ hr IV.CONT TITRATE PRN Rx#: [id number] Versed Inj 50 mg In 50 ml @ 1 50 / 50 50 / 50 MG/HR 1 mls/hr IV.CONT TITRATE PRN Rx#:[id number] Cerebyx Inj 80 MGPE In NS Inj 103.2 / 103.2 51.6 / 51.6 51.6 / 51.6 50 ML @ 208 mls/hr IV.SIG Q8H DEBORAH Rx#:[id number] Depacon Inj 500 MG In NS Inj 105 / 105 210 / 210 100 ML @ 105 mls/hr IV.SIG Q8H DEBORAH Rx#:[id number] Keppra Inj 1,500 MG In NS Inj 115 / 115 115 / 115 115 / 115 100 ML @ 345 mls/hr IV.SIG BID DEBORAH Rx#:[id number] Tube Feeding 468 / 468 450 / 450 Tube Irrigant 60 / 60 200 / 200 Output: Urine 300 / 300 Stool 20 / 20 Urine Amount (Catheter) 1050 / 1050 Straight 1050 / 1050 Other: # Incontinent Voids 2 Date of Last Bowel Movement 04/05/18 04/06/18 04/06/18 # Incontinent Bowel Movements 1 Result Diagrams: 04/06/18 04:21 04/06/18 04:21 Objective Remarks: GENERAL: Unresponsive 62-year-old female SKIN: Warm and dry. HEAD: Atraumatic. Normocephalic. EYES: Pupils equal and round, 2 mm bilaterally and sluggish. ENT: No nasal bleeding or discharge. NECK: Trachea midline. Orotracheal intubation. CARDIOVASCULAR: RRR. S1, S2 no S4. Without murmur. No JVD. RESPIRATORY: Good bilateral breath sounds. Minimal end expiratory wheeze cysts. Good bilateral air movement. GASTROINTESTINAL: Abdomen soft, non-tender, nondistended. Bowel sounds present. No guarding. MUSCULOSKELETAL: Extremities without significant peripheral edema. Skin as above. Amputation to the right second toe. NEUROLOGICAL: Spontaneous eye opening to central noxious stimuli. Eyes deviated downward. Almost decerebrate type positioning in bilateral lower extremities. Not withdrawing. Eyes blinking. No myoclonic jerking noted. 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 Goal of RASS 0 Daily sedation vacation MRI brain revealed right-sided mastoiditis otherwise no acute intercranial findings EEG 03/29 with burst suppression with epileptiform activity. EEG 03/30 without epileptic activity. Repeat EEG 04/04 pending Followed by neurology. Currently on levetiracetam 500 milligrams IV twice daily and fosphenytoin 80 mg every 8 hours. Level was 12.6. Recheck in a.m. Seizure precaution Discussed with Dr. Smyth. Will increase levetiracetam from 500 mg to 1500 mg twice daily. Follow-up on EEG. He will evaluate today for further recommendations. No seizure activity today 04/06 RESP: Acute hypercapneic respiratory failure COPD with ongoing tobaccoism Currently on PRVC 14/500/07/05/39 Ventilator bundle Albuterol/ipratropium aerosols every 6 hours with albuterol aerosols every 2 hours as needed for dyspnea Budesonide 0.5/2 1 inhalation twice daily Methylprednisolone succinate 20 mg every 12 hours Chest x-ray ordered for a.m. 04/05 CV: Shock -resolved Hypertension As needed labetalol and nicardipine drip for elevated blood pressure Currently on clonidine 0.1 mg 3 times daily more for neuro/psych alpha reasons Troponin 0.04 admission. Discontinued IV fluids GI: Elevated transaminases likely secondary to shock Hypoalbuminemia Acute constipation Continue tube feeds with vital 1.5 goal 45 cc an hour Lansoprazole 30 mg daily for GI prophylaxis Docusate sodium/senna 1 tablet twice daily for bowel. One BM yesterday FEN/GIULIA/ : Acute hypokalemia resolved- Periwick in place. Monitor intake and output hourly. Monitor electrolytes and replace as indicated per ICU electrolyte replacement protocol. ID: Received piperacillin/tazobactam and vancomycin in the emergency department. 03/29 -Gram stain of CSF -growth 03/29 -blood cultures x2 -no growth 03/29 -sputum negative Will discontinue acyclovir 04/02 as HSV was negative Discontinue piperacillin l/tazobactam 04/02 HEME: Monitor CBC daily. Follow trends. No indication for transfusion of blood products at this time. ENDO: Diabetes mellitus per report -hemoglobin A1c - 6.5 Elevated TSH of 8. Normal free T/T4. Recommend recheck in 4-6 weeks after acute illness Sliding scale insulin Accu-Cheks to maintain euglycemia/aspart low protocol MSK: Physical therapy evaluate and treat PROPH: SCDs for DVT prophylaxis. Heparin subcu for DVT prophylaxis. Lansoprazole 30 mg daily for GI prophylaxis. Overall impression: Frustrating lack of improvement and severely diminished neurologic condition. Seizure control appears improved but overall neurologic function is poor. Prognosis for meaningful neurologic recovery remains very poor.
[2018-04-07] MEDS: Insulin NovoLOG Aspart Correctional Sugar Inj SQ SCH ×4 (00:15→18:31)
[2018-04-07] MEDS: Oral Hygiene Kit OROPHARYNG SCH ×4 (00:17→15:22)
[2018-04-07] MEDS: FOSPHENYTOIN IV.SIG SCH ×3 (02:15→19:04)
[2018-04-07] MEDS: SODIUM CHLOR IV.SIG SCH ×3 (02:15→19:04)
[2018-04-07] MEDS: Valproate Inj 750 MG in Sodium Chlor 0.9% Inj 100 ML IV.SIG SCH ×3 (03:10→22:16)
[2018-04-07] MEDS: Dexmedetomidine Inj 200 MCG in Sodium Chlor 0.9% Inj 48 ML IV.CONT PRN ×3 (03:47→23:52)
[2018-04-07] MEDS: Heparin - SQ 10,000 UNITS/ML Vial SQ SCH ×3 (05:49→22:17)
--- NOTE | 2018-04-07 07:45 | P.PNNEU ---
Subjective Subjective Comments: another left face twitch last pm for few minutes and go ativan 2 mg Active Medications: Active Medications Acetaminophen (Tylenol Liq) 650 mg PO Q6H PRN PRN Reason: FEVER Last Admin: 04/04/18 10:33 Dose: 650 mg Al Hydroxide/Mg Hydroxide (Milk Of Magnesia Liq) 30 ml PO Q12H PRN PRN Reason: Mild Constipation Albuterol (Albuterol Neb (Prn)) 2.5 mg NEB Q2HR NEB PRN PRN Reason: SHORTNESS OF BREATH/WHEEZING Last Admin: 04/06/18 20:20 Dose: 2.5 mg Artificial Tears (Refresh Tears 0.5% Opth Drops) 1 drop EACH EYE BID [facility] Last Admin: 04/06/18 20:36 Dose: 1 drop Bisacodyl (Dulcolax Supp) 10 mg RECTAL DAILY PRN PRN Reason: SEVERE CONSITIPATION Budesonide (Pulmocort Respule Neb) 0.5 mg NEB Q12HR NEB [facility] Last Admin: 04/06/18 20:20 Dose: 0.5 mg Chlorhexidine Gluconate (Peridex 0.12% Oral Kit) 15 ml OROPHARYNG BID@0800, 2000 [facility] Last Admin: 04/06/18 20:36 Dose: 15 ml Clonidine HCl (Catapres) 0.1 mg PO Q8HR [facility] Last Admin: 04/07/18 06:52 Dose: Not Given Dextrose (D50w Vial) 50 ml IV.PUSH UNSCH PRN PRN Reason: PER HYPOGLYCEMIA PROTOCOL Fentanyl Citrate (Fentanyl Inj) 50 mcg IV PUSH Q1H PRN PRN Reason: Pain scale 6-10, &/or sedation Last Admin: 04/04/18 02:46 Dose: 50 mcg Glucagon (Glucagon Inj) 1 mg OTHER PRN PRN PRN Reason: for Hypoglycemia Protocol Heparin Sodium (Porcine) (Heparin Inj) 5,000 units SQ Q8HR [facility] Last Admin: 04/07/18 05:49 Dose: 5,000 units Hydralazine HCl (Apresoline Inj) 10 mg IV.PUSH Q1H PRN PRN Reason: Sbp>165, Dbp>90 Last Admin: 04/03/18 20:12 Dose: 10 mg Fentanyl (Fentanyl 10 Mcg/Ml Premix Drip) 2,500 mcg in 250 mls @ 5 mls/hr IV.SIG TITRATE PRN; Protocol PRN Reason: Per Protocol Last Titration: 04/02/18 12:06 Dose: 0 mcg/hr, 0 mls/hr Fosphenytoin Sodium 80 mgpe/ (Sodium Chloride) 51.6 mls @ 208 mls/hr IV.SIG Q8H DEBORAH Last Infusion: 04/07/18 02:34 Dose: Infused Dexmedetomidine HCl 200 mcg/ (Sodium Chloride) 50 mls @ 3.52 mls/hr IV.CONT TITRATE PRN; Protocol PRN Reason: Per Protocol Last Admin: 04/07/18 03:47 Dose: 0.3 mcg/kg/hr, 5.28 mls/hr Nicardipine HCl 25 mg/ Sodium (Chloride) 250 mls @ 25 mls/hr IV.CONT TITRATE PRN; Protocol PRN Reason: Per Protocol Last Titration: 04/02/18 18:15 Dose: 0 mg/hr, 0 mls/hr Magnesium Sulfate 4 gm/ Sodium (Chloride) 100 mls @ 50 mls/hr IV.SIG UNSCH PRN PRN Reason: For Magnesium 0.9 - 1.1 mg/dL Magnesium Sulfate 2 gm/ Sodium (Chloride) 100 mls @ 50 mls/hr IV.SIG UNSCH PRN PRN Reason: For Magnesium 1.2 - 1.6 mg/dL Potassium Chloride (Kcl 40 Meq Premix Inj) 40 meq in 100 mls @ 25 mls/hr IV.SIG Q2H PRN PRN Reason: For Potassium 2.8 - 3.2 mEq/L Potassium Chloride (Kcl 20 Meq Premix Inj) 20 meq in 100 mls @ 50 mls/hr IV.SIG Q2H PRN PRN Reason: For Potassium 3.3 - 3.5 mEq/L Last Infusion: 04/02/18 16:30 Dose: Infused Potassium Chloride (Kcl 40 Meq Premix Inj) 40 meq in 100 mls @ 25 mls/hr IV.SIG UNSCH PRN PRN Reason: For Potassium 3.3 - 3.5 mEq/L Potassium Chloride (Kcl 20 Meq Premix Inj) 20 meq in 100 mls @ 50 mls/hr IV.SIG Q2H PRN PRN Reason: For Potassium 2.8 - 3.2 mEq/L Potassium Phosphate 30 mmol/ (Sodium Chloride) 260 mls @ 42 mls/hr IV.SIG UNSCH PRN PRN Reason: SEE LABEL COMMENTS Sodium Phosphate 30 mmol/ (Sodium Chloride) 260 mls @ 42 mls/hr IV.SIG UNSCH PRN PRN Reason: For Phosphorus < 2.5 mg/dL Midazolam HCl (Versed Inj) 50 mg in 50 mls @ 1 mls/hr IV.CONT TITRATE PRN; Protocol PRN Reason: Per Protocol Last Titration: 04/06/18 22:58 Dose: 2 mg/hr, 2 mls/hr Levetiracetam 1,500 mg/ Sodium (Chloride) 115 mls @ 345 mls/hr IV.SIG BID DEBORAH Last Infusion: 04/06/18 22:15 Dose: Infused Valproate Sodium 750 mg/ (Sodium Chloride) 107.5 mls @ 105 mls/hr IV.SIG Q8H DEBORAH Last Infusion: 04/07/18 04:23 Dose: Infused Insulin Aspart (Novolog Insulin Correctional Sugar Inj) 0 unit SQ Q6HR DEBORAH; Protocol Last Admin: 04/07/18 05:49 Dose: Not Given Labetalol HCl (Trandate Inj) 10 mg IV.PUSH Q1H PRN PRN Reason: SBP >165 Last Admin: 04/04/18 04:37 Dose: 10 mg Lactulose (Lactulose Liq) 30 ml PO DAILY PRN PRN Reason: SEVERE CONSITIPATION Lactulose (Lactulose Liq) 30 ml PO BID [facility] Last Admin: 04/06/18 20:36 Dose: Not Given Lansoprazole (Prevacid Solutab) 30 mg NG/OG DAILY [facility] Last Admin: 04/06/18 08:55 Dose: 30 mg Lorazepam (Ativan Inj) 2 mg IV.PUSH Q5M PRN PRN Reason: UNTIL SEIZURES STOP Last Admin: 04/07/18 01:45 Dose: 2 mg Magnesium Oxide (Mag-Ox) 800 mg PO UNSCH PRN PRN Reason: For Magnesium 1.2 - 1.6 mg/dL Methylprednisolone Sodium Succinate (Solumedrol Inj) 20 mg IV.PUSH BID [facility] Last Admin: 04/06/18 20:44 Dose: 20 mg Miscellaneous Medication () 1 each OROPHARYNG 0000,0400,1200,1600 [facility] Last Admin: 04/07/18 03:26 Dose: 1 each Nitroglycerin (Nitro-Bid 2% Oint) 2 inch TOPICAL Q6HR PRN PRN Reason: Sbp>165, Dbp>90 Ondansetron HCl (Zofran Inj) 4 mg IV.PUSH Q6H PRN PRN Reason: NAUSEA OR VOMITING Oxycodone HCl (Roxicodone Intensol Liq) 5 mg PO Q6H [facility] Last Admin: 04/07/18 03:30 Dose: 5 mg Polyethylene Glycol (Miralax) 17 gm PO BID [facility] Last Admin: 04/06/18 20:36 Dose: Not Given Potassium Bicarb/Potassium Chloride (K-Lyte Cl Eff) 50 meq PO UNSCH PRN PRN Reason: For Potassium 3.3 - 3.5 mEq/L Last Admin: 04/04/18 05:25 Dose: 50 meq Potassium Phosphate (K-Phos Original) 2,000 mg PO Q4H PRN PRN Reason: Phosphorus Less Than 2.5 mg/dL Potassium Phosphate (K-Phos Original) 2,000 mg PO UNSCH PRN PRN Reason: SEE LABEL COMMENTS Senna/Docusate Sodium ([place]-Colace) 1 tab PO BID [facility] Last Admin: 04/06/18 20:36 Dose: Not Given Sennosides (Senokot) 17.2 mg PO Q12H PRN PRN Reason: Moderate Constipation Sodium Chloride (Ns Flush) 2 ml IV.FLUSH BID [facility] Last Admin: 04/06/18 20:36 Dose: 2 ml Sodium Chloride (Ns Flush) 2 ml IV.FLUSH PRN PRN PRN Reason: FLUSH AFTER USING IV ACCESS Allergies/Adverse Reactions: Allergies Allergy/AdvReac Type Severity Reaction Status Date / Time No Allergy Information Allergy Verified 03/29/18 00:03 Available Physical Exam Vital signs: Vital Signs 04/06/18 08:00 04/06/18 10:26 04/06/18 11:21 Temperature 99.8 F H Pulse Rate 90 85 Respiratory Rate 23 26 H 24 Blood Pressure 121/76 Pulse Oximetry 100 100 04/06/18 12:00 04/06/18 13:30 04/06/18 15:06 Temperature 99.8 F H Pulse Rate 83 90 Respiratory Rate 27 H 26 H 26 H Blood Pressure 149/88 H Pulse Oximetry 100 100 04/06/18 16:00 04/06/18 16:09 04/06/18 20:00 Temperature 99.6 F 98.9 F Pulse Rate 84 78 Respiratory Rate 28 H 28 H 22 Blood Pressure 111/75 146/79 H Pulse Oximetry 100 100 98 04/06/18 20:20 04/06/18 21:21 04/07/18 00:00 Temperature 98.6 F Pulse Rate 84 68 Respiratory Rate 25 H 29 H 19 Blood Pressure 100/66 Pulse Oximetry 100 100 04/07/18 00:40 04/07/18 03:46 04/07/18 04:00 Temperature 98.9 F Pulse Rate 65 Respiratory Rate 17 19 17 Blood Pressure 114/69 Pulse Oximetry 100 100 99 Intake & Output 04/06/18 04/07/18 04/07/18 18:59 06:59 18:59 Intake Total 990.1 / 990.1 1119.2 / 1119.2 Output Total 600 / 600 650 / 650 Balance 390.1 / 390.1 469.2 / 469.2 Weight 70.5 kg Intake: IV 424.1 / 424.1 533.2 / 533.2 Precedex Inj 200 MCG In NS Inj 100 / 100 50 / 50 48 ML @ 0.2 MCG/KG/HR 3.52 mls/ hr IV.CONT TITRATE PRN Rx#: [id number] Versed Inj 50 mg In 50 ml @ 1 50 / 50 50 / 50 MG/HR 1 mls/hr IV.CONT TITRATE PRN Rx#:[id number] Cerebyx Inj 80 MGPE In NS Inj 51.6 / 51.6 103.2 / 103.2 50 ML @ 208 mls/hr IV.SIG Q8H DEBORAH Rx#:[id number] Depacon Inj 750 MG In NS Inj 107.5 / 107.5 215.0 / 215.0 100 ML @ 105 mls/hr IV.SIG Q8H DEBORAH Rx#:[id number] Keppra Inj 1,500 MG In NS Inj 115 / 115 115 / 115 100 ML @ 345 mls/hr IV.SIG BID DEBORAH Rx#:[id number] Tube Feeding 506 / 506 436 / 436 Tube Irrigant 60 / 60 150 / 150 Output: Urine Amount (Catheter) 600 / 600 650 / 650 Straight 600 / 600 650 / 650 Other: Date of Last Bowel Movement 04/06/18 04/07/18 # Bowel Movements 1 # Incontinent Bowel Movements 3 Narrative: sedated toes mute eyes downa nd to r slightly - Urinary Catheter Management Indwelling Urethral Catheter Cath placed during this visit: yes, but has since been removed by the nurse Reason for continuing: Acute urinary retention Insertion date: 04/06/18 Insertion time: 03:50 Removal date: 04/06/18 Removal time: 05:00 Straight Cath placed during this visit: yes Reason for continuing: Not indwelling catheter Insertion date: 04/07/18 Insertion time: 02:07 Objective Laboratory Results - last 24 hr 04/06/18 04/06/18 04/06/18 12:24 18:31 23:55 POC Glucose 151 H 127 H 162 H Valproic Acid 04/07/18 04/07/18 04:50 05:42 POC Glucose 120 H Valproic Acid 75 Review/Management - Review/Management Plan: Ischemic hypoxic encephalopathy Initial EEG with burst suppression pattern LP neg Follow up EEG with no evidence of elcetrographic seizure, with severe supression of background Dilantin level is subtherapeutic Valproate level is subtherapeutic Acute respiratory failure Opioid overdose Benzo overdose - Continue Keppra 1500 mg Q12h - Increase Fosphenytoin dose and repeat level next am - Increase Valproate to 750 mg Q8h - Check levels next am - Valproate 500 mg tid - LVTC 500 mg Q 12h - Seizure precautions - DVT prophylaxis - GI prophylaxis - Discussed patient with RN, family members will come on Saturday for decision making - Dr. Smyth will follow up Saturday. 04/07/18 hard to think having all these seizure on sedatives and three aed plan check mri repeat check dil level add vimpat on keppra 1500 bid cont vpa level 70 would taper sedatives as tolerated will consider video eeg
[2018-04-07] MEDS: levETIRAcetam Inj 1,500 MG in Sodium Chlor 0.9% Inj 100 ML IV.SIG SCH ×2 (08:22→22:22)
[2018-04-07] MEDS: MethylPREDNISolone Sod Succinate Inj 40 MG/ML Vial IV.PUSH SCH ×2 (08:36→22:15)
[2018-04-07] MEDS: Chlorhexidine 0.12% Oral Kit 15 ML UDC OROPHARYNG SCH ×2 (08:39→22:18)
[2018-04-07] MEDS: Senna/Docusate Sodium 8.6/50 MG Tablet PO SCH ×2 (08:40→22:16)
[2018-04-07] MEDS: Polyethylene Glycol 3350 17 GM Packet PO SCH ×2 (08:40→22:19)
[2018-04-07] MEDS: Lacosamide Inj 100 MG in Sodium Chlor 0.9% Inj 100 ML IV.SIG SCH ×2 (09:09→22:17)
[2018-04-07] MEDS: Carboxymethylcellulose 0.5% Opth Drops 15 ML Bottle EACH EYE SCH ×2 (09:23→22:18)
[2018-04-07] MEDS: hydrALAZINE HCl Inj 20 MG/ML Vial IV.PUSH PRN ×2 (09:31→23:06)
--- NOTE | 2018-04-07 12:01 | P.PNCC ---
Subjective Subjective Remarks/Hospital Course: 62-year-old female. She was found unresponsive. She had an empty bottle of 9 methadone 10 mg tablets and 18 Ativan 0.5 mg tablets. Apparently CPR was initiated per family. Family provided EVAC with information that patient is on hospice and has a history of diabetes, COPD, neuropathy, no advanced directives. When EVAC arrived she had a pulse but agonal respirations. She was administered Narcan 2 mg IV without improvement. Upon arrival to the ED she was not protecting her airway, pooling secretions in her mouth. She was intubated upon arrival. Her systolic blood pressure was in the 80s. She was administered 2 L normal saline bolus, right femoral line was placed and she was started on Levophed. Family has not arrived at the hospital and there is no available contact information. She is registered as a Amina Kebede. The prescription bottles say Antonina Coto. That individual has not been admitted since 2007. 03/30: Seizure activity appears to be controlled with Dilantin. She remains stuporous and we are unable to wean from the ventilator. Ongoing attempts to find out her true identity. 03/31: Will attempt spontaneous breathing trial again today. Late yesterday and early today she has had more episodes of spontaneous eye opening though she does not appear to track. Cerebrospinal fluid appears benign. No growth on culture after 48 hours. Bronchospasm responded quite well to steroids, will continue through extubation. 04/01: Fairly strong on spontaneous breathing trials today. We will discontinue all sedation, watch closely for seizure activity, and attempt to get her extubated. 04/02 -currently resting in bed in no acute distress. Eyes are rolled back. Currently on fentanyl drip at 150 mg/h and propofol drip at 25 mcg/kg/min. Starting dexmedetomidine drip and attempt to wean. Fosphenytoin decreased per neurology today. Strength 2 feeds today. No bowel movement. 04/03: T-max 100.2. Weaned off fentanyl and propofol drips. Currently only on dexmedetomidine drip at 1.4 mg/kg/h for vent synchrony. Tolerating tube feeds at goal. Beyond, gags and withdraws to pain bilateral upper and lower extremities. Not following commands. Eyes deviate downward. Subjective 04/04: Max 100.6. Currently afebrile. Stated 20-minute tonic-clonic seizure overnight. Received 4 mg lorazepam and bolused with 500 mg levetiracetam. Was switched to a propofol drip at 30 mcg/kg/min. Currently on midazolam drip at 4 mg an hour. 04/05: No sustained obvious seizure activity. No improvement in neurologic function. Bronchospasm well controlled. Enteral nutrition ongoing. 04/06: No change in neurologic function. No seizure activity. Tolerating enteral nutrition. If family wants to persist with aggressive care we probably need to consider tracheostomy soon. 04/07: Facial twitching described in notes. I have not witnessed. Low Dilantin level noted. Continues to fail spontaneous breathing trials. Objective Vital Signs / I&O: Vital Signs 04/06/18 12:00 04/06/18 13:30 04/06/18 15:06 Temperature 99.8 F H Pulse Rate 83 90 Respiratory Rate 27 H 26 H 26 H Blood Pressure 149/88 H Pulse Oximetry 100 100 04/06/18 16:00 04/06/18 16:09 04/06/18 20:00 Temperature 99.6 F 98.9 F Pulse Rate 84 78 Respiratory Rate 28 H 28 H 22 Blood Pressure 111/75 146/79 H Pulse Oximetry 100 100 98 04/06/18 20:20 04/06/18 21:21 04/07/18 00:00 Temperature 98.6 F Pulse Rate 84 68 Respiratory Rate 25 H 29 H 19 Blood Pressure 100/66 Pulse Oximetry 100 100 04/07/18 00:40 04/07/18 03:46 04/07/18 04:00 Temperature 98.9 F Pulse Rate 65 Respiratory Rate 17 19 17 Blood Pressure 114/69 Pulse Oximetry 100 100 99 04/07/18 08:00 04/07/18 11:19 Temperature 99.2 F Pulse Rate 74 75 Respiratory Rate 18 27 H Blood Pressure 140/70 Pulse Oximetry 98 98 Intake & Output 04/06/18 04/07/18 04/07/18 18:59 06:59 18:59 Intake Total 990.1 / 990.1 1119.2 / 1119.2 225 / 225 Output Total 600 / 600 650 / 650 Balance 390.1 / 390.1 469.2 / 469.2 225 / 225 Weight 70.5 kg Intake: IV 424.1 / 424.1 533.2 / 533.2 225 / 225 Precedex Inj 200 MCG In NS Inj 100 / 100 50 / 50 48 ML @ 0.2 MCG/KG/HR 3.52 mls/ hr IV.CONT TITRATE PRN Rx#: [id number] Versed Inj 50 mg In 50 ml @ 1 50 / 50 50 / 50 MG/HR 1 mls/hr IV.CONT TITRATE PRN Rx#:[id number] Cerebyx Inj 80 MGPE In NS Inj 51.6 / 51.6 103.2 / 103.2 50 ML @ 208 mls/hr IV.SIG Q8H DEBORAH Rx#:[id number] Vimpat Inj 100 MG In NS Inj 100 110 / 110 ML @ 110 mls/hr IV.SIG Q12HR DEBORAH Rx#:[id number] Depacon Inj 750 MG In NS Inj 107.5 / 107.5 215.0 / 215.0 100 ML @ 105 mls/hr IV.SIG Q8H DEBORAH Rx#:[id number] Keppra Inj 1,500 MG In NS Inj 115 / 115 115 / 115 115 / 115 100 ML @ 345 mls/hr IV.SIG BID DEBORAH Rx#:[id number] Tube Feeding 506 / 506 436 / 436 Tube Irrigant 60 / 60 150 / 150 Output: Urine Amount (Catheter) 600 / 600 650 / 650 Straight 600 / 600 650 / 650 Other: Date of Last Bowel Movement 04/06/18 04/07/18 04/07/18 # Bowel Movements 1 # Incontinent Bowel Movements 3 Result Diagrams: 04/06/18 04:21 04/06/18 04:21 Objective Remarks: GENERAL: Unresponsive 62-year-old female SKIN: Warm and dry. HEAD: Atraumatic. Normocephalic. EYES: Pupils equal and round, 3 mm bilaterally and sluggish. ENT: No nasal bleeding or discharge. NECK: Trachea midline. Orotracheal intubation. CARDIOVASCULAR: RRR. S1, S2 no S4. Without murmur. No JVD. RESPIRATORY: Good bilateral breath sounds. Minimal end expiratory wheeze cysts. Good bilateral air movement. GASTROINTESTINAL: Abdomen soft, non-tender, nondistended. Bowel sounds present. No guarding. MUSCULOSKELETAL: Extremities without significant peripheral edema. Skin as above. Amputation to the right second toe. NEUROLOGICAL: Spontaneous eye opening to central noxious stimuli. Eyes deviated downward. Decerebrate type positioning in bilateral lower extremities. Not withdrawing. No myoclonic jerking noted. 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 Goal of RASS 0 Daily sedation vacation MRI brain revealed right-sided mastoiditis otherwise no acute intercranial findings EEG 03/29 with burst suppression with epileptiform activity. EEG 03/30 without epileptic activity. Repeat EEG 04/04 pending Followed by neurology. Currently on levetiracetam 500 milligrams IV twice daily and fosphenytoin 80 mg every 8 hours. Level was 12.6. Recheck in a.m. Seizure precaution Discussed with Dr. Smyth. Will increase levetiracetam from 500 mg to 1500 mg twice daily. Follow-up on EEG. He will evaluate today for further recommendations. No seizure activity today 04/07 RESP: Acute hypercapneic respiratory failure COPD with ongoing tobaccoism Currently on PRVC 14/500/07/05/39 Ventilator bundle Albuterol/ipratropium aerosols every 6 hours with albuterol aerosols every 2 hours as needed for dyspnea Budesonide 0.5/2 1 inhalation twice daily Methylprednisolone succinate 20 mg every 12 hours Chest x-ray ordered for a.m. 04/05 CV: Shock -resolved Hypertension As needed labetalol and nicardipine drip for elevated blood pressure Currently on clonidine 0.1 mg 3 times daily more for neuro/psych alpha reasons Troponin 0.04 admission. Discontinued IV fluids GI: Elevated transaminases likely secondary to shock Hypoalbuminemia Acute constipation Continue tube feeds with vital 1.5 goal 45 cc an hour Lansoprazole 30 mg daily for GI prophylaxis Docusate sodium/senna 1 tablet twice daily for bowel. One BM yesterday FEN/GIULIA/ : Acute hypokalemia resolved- Periwick in place. Monitor intake and output hourly. Monitor electrolytes and replace as indicated per ICU electrolyte replacement protocol. ID: Received piperacillin/tazobactam and vancomycin in the emergency department. 03/29 -Gram stain of CSF -growth 03/29 -blood cultures x2 -no growth 03/29 -sputum negative Will discontinue acyclovir 04/02 as HSV was negative Discontinue piperacillin l/tazobactam 04/02 HEME: Monitor CBC daily. Follow trends. No indication for transfusion of blood products at this time. ENDO: Diabetes mellitus per report -hemoglobin A1c - 6.5 Elevated TSH of 8. Normal free T/T4. Recommend recheck in 4-6 weeks after acute illness Sliding scale insulin Accu-Cheks to maintain euglycemia/aspart low protocol MSK: Physical therapy evaluate and treat PROPH: SCDs for DVT prophylaxis. Heparin subcu for DVT prophylaxis. Lansoprazole 30 mg daily for GI prophylaxis. Overall impression: Frustrating lack of improvement, apparent severely diminished neurologic condition. Seizure control appears improved but overall neurologic function is poor. Prognosis for meaningful neurologic recovery remains very poor. Will discuss goals of care with family again.
--- NOTE | 2018-04-07 14:44 | MR ---
EXAM DATE: 04/07/2018 8:45 AM EDT AGE/SEX: 62 years / Female INDICATIONS: Altered mental status. Seizures. CLINICAL DATA: This is the patient's subsequent encounter. Patient reports that signs and symptoms h ave been present for 1 week and indicates a pain score of Nonresponsive. MEDICAL/SURGICAL HISTORY: Hepatitis C. Diabetes mellitus type II. Coronary artery stent. Tuba l ligation. COMPARISON: MR of the head 03/29/2018. TECHNIQUE: Multiplanar, multisequence examination of the brain was performed without and with 8 ml Ga davist (gadobutrol) contrast as a single exam dose. FINDINGS: Cerebrum: The ventricles are normal for age. No evidence of midline shift, mass lesion, hemorrhage or acute infarction. No extraaxial fluid collections are seen. The pituitary gland and suprasellar cistern are normal in configuration. White Matter: No significant signal abnormalities are seen in the white matter. Posterior Fossa: The cerebellum and brainstem are intact. The 4th ventricle is midline. The cerebel lopontine angle is unremarkable. The cerebellar tonsils are normal in position. Diffusion Imaging: No focal areas of restricted diffusion are seen. No evidence of acute infarction . Extracranial: Fluid signal again seen within the mastoid air cells on the right. Left mastoid air ce lls are clear. This is unchanged. The visualized portions of the orbits and paranasal sinuses are unr emarkable. Post Contrast: No abnormal areas of parenchymal or dural enhancement. No evidence of blood-brain ba rrier breakdown. CONCLUSION: 1. No acute intracranial abnormality. Electronically signed by: Dave Scott MD 04/07/2018 2:43 PM EDT
[2018-04-07] MEDS ORDERED: Gadobutrol PF 2 MMOL/2 ML Vial (for RAD) IV.SIG ONE (15:06)
--- NOTE | 2018-04-07 16:57 | P.PNPAL ---
Reason for Visit Reason for visit: a. To assist with evaluation and management of symptoms including: Encephalopathy, seizures b. To assist medical decision maker(s) with: better understanding of current medical conditions; weighing benefits/burdens of medical treatment options; making medical treatment decisions. Subjective Subjective/Interval History: Patient seen today for follow-up of symptom management of encephalopathy and seizures. Patient remains encephalopathic and continues to fail spontaneous breathing trials. She does not withdraw to noxious stimuli, spontaneous eye opening with central noxious stimuli. At this evaluation gaze is conjugated and deviated to the right. Encephalopathy is severe, constant, with decerebrate posturing in all 4 extremities. In spite of multiple seizure medications, she has been seizing on and off all day. She remains on sedation with Precedex and Versed. Rhythmic facial twitches are seen with some myoclonic jerking, intermittent, moderate to severe , with no exacerbating factors. Receiving Ativan, valproate sodium 750 mg every 8 hours, Keppra 1500 mg twice daily, lacosamide 100 mg twice daily, Cerebyx 80 mgPE every 8 hours. . Family/Friend Interactions: Spoke with her niece, Madison (Gayatri) who informs me that the patient's son, Tray, is currently in route from [place] via bus and should arrive 04/08 late afternoon. The remainder of the family will also be arriving over the next 24 hours and plan for withdrawal of life support once all family members have had a chance to say goodbye. . Advance Directives Living Will: Never completed Health Care Surrogate: Never completed Durable Power of Graphic Artist: Never completed Health Care Surrogate Name and Number: HCP: Tray Robb and Guerrero Zimmerman Objective Vital Signs: Vital Signs 04/06/18 20:00 04/06/18 20:20 04/06/18 21:21 Temperature 98.9 F Pulse Rate 78 84 Respiratory Rate 22 25 H 29 H Blood Pressure 146/79 H Pulse Oximetry 98 100 04/07/18 00:00 04/07/18 00:40 04/07/18 03:46 Temperature 98.6 F Pulse Rate 68 Respiratory Rate 19 17 19 Blood Pressure 100/66 Pulse Oximetry 100 100 100 04/07/18 04:00 04/07/18 08:00 04/07/18 11:19 Temperature 98.9 F 99.2 F Pulse Rate 65 74 75 Respiratory Rate 17 18 27 H Blood Pressure 114/69 140/70 Pulse Oximetry 99 98 98 04/07/18 12:00 Temperature 98.5 F Pulse Rate 98 H Respiratory Rate 24 Blood Pressure 147/86 H Pulse Oximetry 98 Intake & Output 04/06/18 04/07/18 04/07/18 18:59 06:59 18:59 Intake Total 990.1 / 990.1 1119.2 / 1119.2 434.1 / 434.1 Output Total 600 / 600 650 / 650 Balance 390.1 / 390.1 469.2 / 469.2 434.1 / 434.1 Weight 155 lb 6.814 oz Intake: IV 424.1 / 424.1 533.2 / 533.2 434.1 / 434.1 Precedex Inj 200 MCG In NS Inj 100 / 100 50 / 50 50 / 50 48 ML @ 0.2 MCG/KG/HR 3.52 mls/ hr IV.CONT TITRATE PRN Rx#: [id number] Versed Inj 50 mg In 50 ml @ 1 50 / 50 50 / 50 MG/HR 1 mls/hr IV.CONT TITRATE PRN Rx#:[id number] Cerebyx Inj 80 MGPE In NS Inj 51.6 / 51.6 103.2 / 103.2 51.6 / 51.6 50 ML @ 208 mls/hr IV.SIG Q8H DEBORAH Rx#:[id number] Vimpat Inj 100 MG In NS Inj 100 110 / 110 ML @ 110 mls/hr IV.SIG Q12HR DEBORAH Rx#:[id number] Depacon Inj 750 MG In NS Inj 107.5 / 107.5 215.0 / 215.0 107.5 / 107.5 100 ML @ 105 mls/hr IV.SIG Q8H DEBORAH Rx#:[id number] Keppra Inj 1,500 MG In NS Inj 115 / 115 115 / 115 115 / 115 100 ML @ 345 mls/hr IV.SIG BID DEBORAH Rx#:[id number] Tube Feeding 506 / 506 436 / 436 Tube Irrigant 60 / 60 150 / 150 Output: Urine Amount (Catheter) 600 / 600 650 / 650 Straight 600 / 600 650 / 650 Other: Date of Last Bowel Movement 04/06/18 04/07/18 04/07/18 # Bowel Movements 1 # Incontinent Bowel Movements 3 Physical Exam: CONSTITUTIONAL/GENERAL: This is an obese patient, intubated, sedated, seizing at this evaluation. TUBES/LINES/DRAINS: PIV left forearm, right hand, ETT, OGT, Watson. HEAD: Atraumatic. Normocephalic. ENT: Unable to assess hearing. Nose without bleeding or purulent drainage. Orally intubated CARDIOVASCULAR: Regular rate and rhythm without murmurs, gallops, or rubs. No JVD. Peripheral pulses symmetric. RESPIRATORY/CHEST: Symmetric, unlabored respirations. Clear to auscultation. Breath sounds equal bilaterally. No wheezes, rales, or rhonchi. GASTROINTESTINAL: Abdomen soft, nondistended. Bowel sounds hypoactive. GENITOURINARY: Without palpable bladder distension. Watson catheter in place. MUSCULOSKELETAL: Extremities without clubbing or cyanosis, 1+ edema. No joint tenderness or effusion noted. No calf tenderness. Faint mottling on the feet bilaterally. NEUROLOGICAL: Sedated, not withdrawing, opens eyes to central noxious stimuli, seizing with myoclonic jerking, eyes deviated to the right gaze conjugate. PSYCHIATRIC: Sedated. . Diagnostic Tests Laboratory: Laboratory Results - last 72 hr 04/04/18 04/04/18 04/05/18 17:30 23:52 05:47 WBC RBC Hgb Hct MCV MCH MCHC RDW Plt Count MPV Neut % (Auto) Lymph % (Auto) [place] % (Auto) Eos % (Auto) Baso % (Auto) Neut # (Auto) Lymph # (Auto) [place] # (Auto) Eos # (Auto) Baso # (Auto) WBC Differential Differential Comment Sodium Potassium Chloride Carbon Dioxide Anion Gap BUN Creatinine Estimated GFR POC Glucose 126 H 158 H 150 H Random Glucose Calcium Phosphorus Magnesium Total Bilirubin AST ALT Alkaline Phosphatase Total Protein Albumin Phenytoin Valproic Acid 04/05/18 04/05/18 04/05/18 06:08 06:08 12:41 WBC 12.2 H RBC 5.23 Hgb 13.4 Hct 41.6 MCV 79.5 L MCH 25.6 L MCHC 32.2 RDW 18.9 H Plt Count 198 MPV 8.3 Neut % (Auto) 78.3 H Lymph % (Auto) 12.7 [place] % (Auto) 8.2 H Eos % (Auto) 0.5 Baso % (Auto) 0.3 Neut # (Auto) 9.6 H Lymph # (Auto) 1.6 [place] # (Auto) 1.0 H Eos # (Auto) 0.1 Baso # (Auto) 0.0 WBC Differential . Differential Comment Auto diff final Sodium 143 Potassium 3.9 Chloride 105 Carbon Dioxide 26.7 Anion Gap 11 BUN 18 Creatinine 0.53 Estimated GFR Greater than 89 POC Glucose 166 H Random Glucose 153 H Calcium 8.6 Phosphorus 2.8 Magnesium 2.1 Total Bilirubin 0.5 AST 28 ALT 30 Alkaline Phosphatase 80 Total Protein 6.4 Albumin 2.5 L Phenytoin 7.0 L Valproic Acid 56 04/05/18 04/06/18 04/06/18 17:46 00:03 04:21 WBC RBC Hgb Hct MCV MCH MCHC RDW Plt Count MPV Neut % (Auto) Lymph % (Auto) [place] % (Auto) Eos % (Auto) Baso % (Auto) Neut # (Auto) Lymph # (Auto) [place] # (Auto) Eos # (Auto) Baso # (Auto) WBC Differential Differential Comment Sodium 142 Potassium 3.9 Chloride 105 Carbon Dioxide 27.7 Anion Gap 9 BUN 18 Creatinine 0.48 L Estimated GFR Greater than 89 POC Glucose 138 H 175 H Random Glucose 121 H Calcium 8.2 L Phosphorus Magnesium Total Bilirubin AST ALT Alkaline Phosphatase Total Protein Albumin Phenytoin Valproic Acid 46 L 04/06/18 04/06/18 04/06/18 04:21 12:24 18:31 WBC 9.5 RBC 5.04 Hgb 13.2 Hct 40.3 MCV 80.0 MCH 26.2 L MCHC 32.7 RDW 18.6 H Plt Count 176 MPV 8.5 Neut % (Auto) 77.2 H Lymph % (Auto) 12.2 [place] % (Auto) 9.4 H Eos % (Auto) 0.7 Baso % (Auto) 0.5 Neut # (Auto) 7.3 Lymph # (Auto) 1.2 [place] # (Auto) 0.9 Eos # (Auto) 0.1 Baso # (Auto) 0.0 WBC Differential . Differential Comment Auto diff final Sodium Potassium Chloride Carbon Dioxide Anion Gap BUN Creatinine Estimated GFR POC Glucose 151 H 127 H Random Glucose Calcium Phosphorus Magnesium Total Bilirubin AST ALT Alkaline Phosphatase Total Protein Albumin Phenytoin Valproic Acid 04/06/18 04/07/18 04/07/18 23:55 04:50 05:42 WBC RBC Hgb Hct MCV MCH MCHC RDW Plt Count MPV Neut % (Auto) Lymph % (Auto) [place] % (Auto) Eos % (Auto) Baso % (Auto) Neut # (Auto) Lymph # (Auto) [place] # (Auto) Eos # (Auto) Baso # (Auto) WBC Differential Differential Comment Sodium Potassium Chloride Carbon Dioxide Anion Gap BUN Creatinine Estimated GFR POC Glucose 162 H 120 H Random Glucose Calcium Phosphorus Magnesium Total Bilirubin AST ALT Alkaline Phosphatase Total Protein Albumin Phenytoin Valproic Acid 75 04/07/18 04/07/18 09:18 11:59 WBC RBC Hgb Hct MCV MCH MCHC RDW Plt Count MPV Neut % (Auto) Lymph % (Auto) [place] % (Auto) Eos % (Auto) Baso % (Auto) Neut # (Auto) Lymph # (Auto) [place] # (Auto) Eos # (Auto) Baso # (Auto) WBC Differential Differential Comment Sodium Potassium Chloride Carbon Dioxide Anion Gap BUN Creatinine Estimated GFR POC Glucose 118 H Random Glucose Calcium Phosphorus Magnesium Total Bilirubin AST ALT Alkaline Phosphatase Total Protein Albumin Phenytoin 3.9 L Valproic Acid Result Diagrams: 04/06/18 04:21 04/06/18 04:21 Imaging: Chest X-Ray 03/28/18 22:52 CONCLUSION: ET tube and NG tube in good position. Head CT 03/29/18 00:00 CONCLUSION: Negative noncontrast head CT. . Head MRI 03/29/18 13:31 CONCLUSION: 1. No acute intracranial abnormality identified. 2. Fluid within the mastoid air cells on the right. Chest X-Ray 03/30/18 05:38 CONCLUSION: Minimal prominence of interstitium which may represent pulmonary venous hypertension or minimal edema. Chest X-Ray 04/03/18 06:00 CONCLUSION: 1. No significant interval change. 2. Stable ETT, less than 1 cm above the henry. 3. Stable NGT. 4. Stable mild positive fluid balance. Chest X-Ray 04/04/18 06:00 CONCLUSION: No acute cardiopulmonary disease. Chest X-Ray 04/05/18 06:00 CONCLUSION: Stable chest Head MRI 04/07/18 00:00 CONCLUSION: 1. No acute intracranial abnormality. Procedures: 03/28: Intubation 03/28: Right femoral triple-lumen central line placed 03/29: Diagnostic lumbar puncture Assessment and Plan Pertinent Non-Medical Issues: Psychosocial: She was born in [facility] and moved to [place] 20 years ago. 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 She has been and twice, but has been with her current significant other for over 18 years. Spiritual: Not an important concept to the patient. Legal: No advance directives. Ethical issues impacting care: Difficulty contacting proxy decision makers. . Important Contacts: Son: Tray Coto Sister: Sushma Almodovar Life partner: Randy Hastings Son/brother: Guerrero Zimmerman -he was born as the patient's son, but then legally adopted by patient's father. Prognosis: Her prognosis is guarded. She was previously enrolled in hospice with [facility] for an end-stage diagnosis of COPD with acute lower respiratory infection. While this cannot be confirmed, it is also suspected that she had some level of chronic pain as she was on both methadone and oxycodone. At this time she was found down, cyanotic, discolored, reportedly without respirations with emesis blocking the airway until resuscitated by EMS. Neurology opines that she may have an anoxic/hypoxic/ischemic brain injury but this will not be able to be confirmed until sedation can be stopped. Unable to accurately prognosticate at this time. . Code Status: Full Code (By default) Plan: PLAN: Legal decision maker: Patient is currently not capacitated to make her own decisions and does not have a valid healthcare surrogate that we can locate. Per [place] statutes, as she is legally and has 2 sons, her sons would be the first tier healthcare proxy decision-maker. Attempts are in progress to locate both sons. If they cannot be located, patient does have a sister, Sushma who is readily available and willing to serve. As both parents are , be the alternate decision-maker if the sons cannot be contacted. Goals: Aggressive by default. CODE STATUS: FULL CODE at the family's request until they can arrive, planned for Sunday 04/08. SYMPTOMS: * Encephalopathy: At this time she remains encephalopathic undergoing EEGs per neurology. She remains on sedation at this time for vent synchrony and seizure management. She continues to fail CPAP trials encephalopathy may be multifactorial to include hypoxic/an anoxic injury, drug overdose or progressive medical condition. No further recommendations at this time * Seizures: She continues to seize in spite of multiple antiseizure medications to include Ativan, valproate sodium 750 mg every 8 hours, Keppra 1500 mg twice daily, lacosamide 100 mg twice daily, Cerebyx 80 mgPE every 8 hours. Eye twitching and myoclonic jerking seen intermittently throughout the day. She has received 6 mg thus far today. Plan for withdrawal from life support tomorrow once family arrives. . Palliative care will continue to follow the patient during hospital course as condition evolves, to assist patient/decision-maker with understanding of their medical conditions, weighing benefits/burdens of treatment options, for clarification of goals of treatment. Additionally will assist with any symptoms of palliative concern. . Attestation Attestation: To help prompt me to consider important information that might be impacting today's encounter and assessment, information from prior notes written by myself or my colleagues may have been "brought forward" into today's note. My signature on this note, however, is an attestation that I personally performed the exam, history, and/or decision-making noted today, and, unless otherwise indicated, the interactions with patient, family, and staff as well as the review of records all occurred today. I also attest that the listed assessment and stated plan reflect my best clinical judgment today based on the combination of historical information, prior notes, and today's exam/ interactions. When time spent is documented, it refers only to time spent today by the signer, or if indicated, combined time spent today by collaborating physician/nurse practitioner. .
[2018-04-08] MEDS: Oral Hygiene Kit OROPHARYNG SCH ×4 (00:43→16:33)
[2018-04-08] MEDS: Midazolam 50 MG/50 ML Inj 50 MG/50 ML BAG IV.CONT PRN (00:55)
[2018-04-08] MEDS: Insulin NovoLOG Aspart Correctional Sugar Inj SQ SCH ×4 (01:04→17:16)
[2018-04-08] MEDS: FOSPHENYTOIN IV.SIG SCH ×3 (04:07→18:23)
[2018-04-08] MEDS: SODIUM CHLOR IV.SIG SCH ×3 (04:07→18:23)
[2018-04-08] MEDS: Valproate Inj 750 MG in Sodium Chlor 0.9% Inj 100 ML IV.SIG SCH ×3 (04:07→20:51)
[2018-04-08 05:22] LABS: Albumin 2.3 g/dL (3.4-5.0); Anion Gap 12 meq/L (5-15); Aspartate Aminotransferase 32 U/L (15-37); Blood Urea Nitrogen 17 mg/dL (7-18); Calcium 8.9 mg/dL (8.5-10.1); Carbon Dioxide 24.6 meq/L (21.0-32.0); Chloride 105 meq/L (98-107); Glomerular Filtration Rate Greater Than 89 mL/min (>89); Glucose,Random 132 mg/dL (74-106); Potassium 3.6 meq/L (3.5-5.1); Sodium 142 meq/L (136-145)
[2018-04-08 05:24] LABS: Alanine Aminotransferase 41 U/L (10-53)
[2018-04-08 05:26] LABS: Alkaline Phosphatase 110 U/L (45-117); Total Protein 6.4 g/dL (6.4-8.2); Valproic Acid 62 mcg/mL (50-100)
[2018-04-08] MEDS: Heparin - SQ 10,000 UNITS/ML Vial SQ SCH ×3 (05:45→21:59)
--- NOTE | 2018-04-08 07:29 | P.PNNEU ---
Subjective Subjective Comments: some blinking overnoc Active Medications: Active Medications Acetaminophen (Tylenol Liq) 650 mg PO Q6H PRN PRN Reason: FEVER Last Admin: 04/04/18 10:33 Dose: 650 mg Al Hydroxide/Mg Hydroxide (Milk Of Magnesia Liq) 30 ml PO Q12H PRN PRN Reason: Mild Constipation Albuterol (Albuterol Neb (Prn)) 2.5 mg NEB Q2HR NEB PRN PRN Reason: SHORTNESS OF BREATH/WHEEZING Last Admin: 04/07/18 11:12 Dose: 2.5 mg Artificial Tears (Refresh Tears 0.5% Opth Drops) 1 drop EACH EYE BID [facility] Last Admin: 04/07/18 22:18 Dose: 1 drop Bisacodyl (Dulcolax Supp) 10 mg RECTAL DAILY PRN PRN Reason: SEVERE CONSITIPATION Budesonide (Pulmocort Respule Neb) 0.5 mg NEB Q12HR NEB [facility] Last Admin: 04/07/18 19:49 Dose: 0.5 mg Chlorhexidine Gluconate (Peridex 0.12% Oral Kit) 15 ml OROPHARYNG BID@0800, 2000 [facility] Last Admin: 04/07/18 22:18 Dose: 15 ml Clonidine HCl (Catapres) 0.1 mg PO Q8HR [facility] Last Admin: 04/08/18 05:47 Dose: 0.1 mg Dextrose (D50w Vial) 50 ml IV.PUSH UNSCH PRN PRN Reason: PER HYPOGLYCEMIA PROTOCOL Fentanyl Citrate (Fentanyl Inj) 50 mcg IV PUSH Q1H PRN PRN Reason: Pain scale 6-10, &/or sedation Last Admin: 04/04/18 02:46 Dose: 50 mcg Glucagon (Glucagon Inj) 1 mg OTHER PRN PRN PRN Reason: for Hypoglycemia Protocol Heparin Sodium (Porcine) (Heparin Inj) 5,000 units SQ Q8HR [facility] Last Admin: 04/08/18 05:45 Dose: 5,000 units Hydralazine HCl (Apresoline Inj) 10 mg IV.PUSH Q1H PRN PRN Reason: Sbp>165, Dbp>90 Last Admin: 04/07/18 23:06 Dose: 10 mg Fentanyl (Fentanyl 10 Mcg/Ml Premix Drip) 2,500 mcg in 250 mls @ 5 mls/hr IV.SIG TITRATE PRN; Protocol PRN Reason: Per Protocol Last Titration: 04/02/18 12:06 Dose: 0 mcg/hr, 0 mls/hr Fosphenytoin Sodium 80 mgpe/ (Sodium Chloride) 51.6 mls @ 208 mls/hr IV.SIG Q8H DEBORAH Last Infusion: 04/08/18 04:22 Dose: Infused Dexmedetomidine HCl 200 mcg/ (Sodium Chloride) 50 mls @ 3.52 mls/hr IV.CONT TITRATE PRN; Protocol PRN Reason: Per Protocol Last Admin: 04/07/18 23:52 Dose: 0.3 mcg/kg/hr, 5.28 mls/hr Nicardipine HCl 25 mg/ Sodium (Chloride) 250 mls @ 25 mls/hr IV.CONT TITRATE PRN; Protocol PRN Reason: Per Protocol Last Titration: 04/02/18 18:15 Dose: 0 mg/hr, 0 mls/hr Magnesium Sulfate 4 gm/ Sodium (Chloride) 100 mls @ 50 mls/hr IV.SIG UNSCH PRN PRN Reason: For Magnesium 0.9 - 1.1 mg/dL Magnesium Sulfate 2 gm/ Sodium (Chloride) 100 mls @ 50 mls/hr IV.SIG UNSCH PRN PRN Reason: For Magnesium 1.2 - 1.6 mg/dL Potassium Chloride (Kcl 40 Meq Premix Inj) 40 meq in 100 mls @ 25 mls/hr IV.SIG Q2H PRN PRN Reason: For Potassium 2.8 - 3.2 mEq/L Potassium Chloride (Kcl 20 Meq Premix Inj) 20 meq in 100 mls @ 50 mls/hr IV.SIG Q2H PRN PRN Reason: For Potassium 3.3 - 3.5 mEq/L Last Infusion: 04/02/18 16:30 Dose: Infused Potassium Chloride (Kcl 40 Meq Premix Inj) 40 meq in 100 mls @ 25 mls/hr IV.SIG UNSCH PRN PRN Reason: For Potassium 3.3 - 3.5 mEq/L Potassium Chloride (Kcl 20 Meq Premix Inj) 20 meq in 100 mls @ 50 mls/hr IV.SIG Q2H PRN PRN Reason: For Potassium 2.8 - 3.2 mEq/L Potassium Phosphate 30 mmol/ (Sodium Chloride) 260 mls @ 42 mls/hr IV.SIG UNSCH PRN PRN Reason: SEE LABEL COMMENTS Sodium Phosphate 30 mmol/ (Sodium Chloride) 260 mls @ 42 mls/hr IV.SIG UNSCH PRN PRN Reason: For Phosphorus < 2.5 mg/dL Midazolam HCl (Versed Inj) 50 mg in 50 mls @ 1 mls/hr IV.CONT TITRATE PRN; Protocol PRN Reason: Per Protocol Last Admin: 04/08/18 00:55 Dose: 3 mg/hr, 3 mls/hr Levetiracetam 1,500 mg/ Sodium (Chloride) 115 mls @ 345 mls/hr IV.SIG BID DEBORAH Last Infusion: 04/07/18 22:48 Dose: Infused Valproate Sodium 750 mg/ (Sodium Chloride) 107.5 mls @ 105 mls/hr IV.SIG Q8H DEBORAH Last Infusion: 04/08/18 05:09 Dose: Infused Lacosamide 100 mg/ Sodium (Chloride) 110 mls @ 110 mls/hr IV.SIG Q12HR DEBORAH Last Infusion: 04/07/18 23:47 Dose: Infused Insulin Aspart (Novolog Insulin Correctional Sugar Inj) 0 unit SQ Q6HR [facility]; Protocol Last Admin: 04/08/18 06:21 Dose: Not Given Labetalol HCl (Trandate Inj) 10 mg IV.PUSH Q1H PRN PRN Reason: SBP >165 Last Admin: 04/04/18 04:37 Dose: 10 mg Lactulose (Lactulose Liq) 30 ml PO DAILY PRN PRN Reason: SEVERE CONSITIPATION Lactulose (Lactulose Liq) 30 ml PO BID [facility] Last Admin: 04/07/18 22:18 Dose: Not Given Lansoprazole (Prevacid Solutab) 30 mg NG/OG DAILY [facility] Last Admin: 04/07/18 08:31 Dose: 30 mg Lorazepam (Ativan Inj) 2 mg IV.PUSH Q5M PRN PRN Reason: UNTIL SEIZURES STOP Last Admin: 04/07/18 18:55 Dose: 2 mg Magnesium Oxide (Mag-Ox) 800 mg PO UNSCH PRN PRN Reason: For Magnesium 1.2 - 1.6 mg/dL Methylprednisolone Sodium Succinate (Solumedrol Inj) 20 mg IV.PUSH BID [facility] Last Admin: 04/07/18 22:15 Dose: 20 mg Miscellaneous Medication () 1 each OROPHARYNG 0000,0400,1200,1600 [facility]BORAH Last Admin: 04/08/18 04:08 Dose: 1 each Nitroglycerin (Nitro-Bid 2% Oint) 2 inch TOPICAL Q6HR PRN PRN Reason: Sbp>165, Dbp>90 Ondansetron HCl (Zofran Inj) 4 mg IV.PUSH Q6H PRN PRN Reason: NAUSEA OR VOMITING Oxycodone HCl (Roxicodone Intensol Liq) 5 mg PO Q6H [facility] Last Admin: 04/08/18 04:08 Dose: 5 mg Polyethylene Glycol (Miralax) 17 gm PO BID [facility] Last Admin: 04/07/18 22:19 Dose: Not Given Potassium Bicarb/Potassium Chloride (K-Lyte Cl Eff) 50 meq PO UNSCH PRN PRN Reason: For Potassium 3.3 - 3.5 mEq/L Last Admin: 04/04/18 05:25 Dose: 50 meq Potassium Phosphate (K-Phos Original) 2,000 mg PO Q4H PRN PRN Reason: Phosphorus Less Than 2.5 mg/dL Potassium Phosphate (K-Phos Original) 2,000 mg PO UNSCH PRN PRN Reason: SEE LABEL COMMENTS Senna/Docusate Sodium ([place]-Colace) 1 tab PO BID [facility] Last Admin: 04/07/18 22:16 Dose: 1 tab Sennosides (Senokot) 17.2 mg PO Q12H PRN PRN Reason: Moderate Constipation Sodium Chloride (Ns Flush) 2 ml IV.FLUSH BID [facility] Last Admin: 04/07/18 22:18 Dose: 2 ml Sodium Chloride (Ns Flush) 2 ml IV.FLUSH PRN PRN PRN Reason: FLUSH AFTER USING IV ACCESS Allergies/Adverse Reactions: Allergies Allergy/AdvReac Type Severity Reaction Status Date / Time No Allergy Information Allergy Verified 03/29/18 00:03 Available Physical Exam Vital signs: Vital Signs 04/07/18 08:00 04/07/18 11:19 04/07/18 12:00 Temperature 99.2 F 98.5 F Pulse Rate 74 75 98 H Respiratory Rate 18 27 H 24 Blood Pressure 140/70 147/86 H Pulse Oximetry 98 98 98 04/07/18 16:00 04/07/18 19:32 04/07/18 19:49 Temperature 100.3 F H Pulse Rate 74 76 Respiratory Rate 24 19 Blood Pressure 107/69 Pulse Oximetry 99 98 97 04/07/18 20:00 04/08/18 00:00 04/08/18 01:31 Temperature 99.1 F 99.1 F Pulse Rate 75 68 Respiratory Rate 23 22 23 Blood Pressure 112/77 114/60 Pulse Oximetry 99 96 97 04/08/18 04:00 04/08/18 04:33 Temperature 98.9 F Pulse Rate 84 Respiratory Rate 24 24 Blood Pressure 103/63 Pulse Oximetry 98 97 Intake & Output 04/07/18 04/08/18 04/08/18 18:59 06:59 18:59 Intake Total 984.1 / 984.1 1297.2 / 1297.2 Output Total 300 / 300 Balance 984.1 / 984.1 997.2 / 997.2 Weight 70.7 kg Intake: IV 434.1 / 434.1 643.2 / 643.2 Precedex Inj 200 MCG In NS Inj 50 / 50 50 / 50 48 ML @ 0.2 MCG/KG/HR 3.52 mls/ hr IV.CONT TITRATE PRN Rx#: [id number] Versed Inj 50 mg In 50 ml @ 1 50 / 50 MG/HR 1 mls/hr IV.CONT TITRATE PRN Rx#:[id number] Cerebyx Inj 80 MGPE In NS Inj 51.6 / 51.6 103.2 / 103.2 50 ML @ 208 mls/hr IV.SIG Q8H DEBORAH Rx#:[id number] Vimpat Inj 100 MG In NS Inj 100 110 / 110 110 / 110 ML @ 110 mls/hr IV.SIG Q12HR DEBORAH Rx#:[id number] Depacon Inj 750 MG In NS Inj 107.5 / 107.5 215.0 / 215.0 100 ML @ 105 mls/hr IV.SIG Q8H DEBORAH Rx#:[id number] Keppra Inj 1,500 MG In NS Inj 115 / 115 115 / 115 100 ML @ 345 mls/hr IV.SIG BID DEBORAH Rx#:[id number] Oral 0 / 0 Tube Feeding 430 / 430 534 / 534 Tube Irrigant 120 / 120 120 / 120 Water Bolus Amount 0 / 0 Output: Urine 300 / 300 Gastric Drainage 0 / 0 Oral Orogastric Tube 0 / 0 Other: # Incontinent Voids 4 Date of Last Bowel Movement 04/07/18 04/08/18 # Bowel Movements 4 1 # Incontinent Bowel Movements 1 Narrative: fully sedated pupil= - Urinary Catheter Management Indwelling Urethral Catheter Cath placed during this visit: yes, but has since been removed by the nurse Reason for continuing: Acute urinary retention Insertion date: 04/06/18 Insertion time: 03:50 Removal date: 04/06/18 Removal time: 05:00 Straight Cath placed during this visit: yes Reason for continuing: Not indwelling catheter Insertion date: 04/07/18 Insertion time: 02:07 Objective Laboratory Results - last 24 hr 04/07/18 04/07/18 04/07/18 09:18 11:59 18:02 Sodium Potassium Chloride Carbon Dioxide Anion Gap BUN Creatinine Estimated GFR POC Glucose 118 H 130 H Random Glucose Calcium Phosphorus Magnesium Total Bilirubin AST ALT Alkaline Phosphatase Total Protein Albumin Phenytoin 3.9 L Valproic Acid 04/08/18 04/08/18 04/08/18 01:00 04:27 06:18 Sodium 142 Potassium 3.6 Chloride 105 Carbon Dioxide 24.6 Anion Gap 12 BUN 17 Creatinine 0.47 L Estimated GFR Greater than 89 POC Glucose 164 H 124 H Random Glucose 132 H Calcium 8.9 Phosphorus 3.0 Magnesium 2.0 Total Bilirubin 0.3 AST 32 ALT 41 Alkaline Phosphatase 110 Total Protein 6.4 Albumin 2.3 L Phenytoin Valproic Acid 62 Review/Management - Review/Management Plan: Ischemic hypoxic encephalopathy Initial EEG with burst suppression pattern LP neg Follow up EEG with no evidence of elcetrographic seizure, with severe supression of background Dilantin level is subtherapeutic Valproate level is subtherapeutic Acute respiratory failure Opioid overdose Benzo overdose - Continue Keppra 1500 mg Q12h - Increase Fosphenytoin dose and repeat level next am - Increase Valproate to 750 mg Q8h - Check levels next am - Valproate 500 mg tid - LVTC 500 mg Q 12h - Seizure precautions - DVT prophylaxis - GI prophylaxis - Discussed patient with RN, family members will come on Saturday for decision making - Dr. Smyth will follow up Saturday. 04/07/18 hard to think having all these seizure on sedatives and three aed plan check mri repeat check dil level add vimpat on keppra 1500 bid cont vpa level 70 would taper sedatives as tolerated will consider video eeg 04/08/18 i reviewed mri and it shows severe diffuse changes in basal ganglia and cortex consistent with anoxic damage agree with comfort care and withdrawal of vent
[2018-04-08] MEDS: levETIRAcetam Inj 1,500 MG in Sodium Chlor 0.9% Inj 100 ML IV.SIG SCH ×2 (08:19→20:52)
[2018-04-08] MEDS: Lacosamide Inj 100 MG in Sodium Chlor 0.9% Inj 100 ML IV.SIG SCH ×2 (08:43→20:52)
[2018-04-08] MEDS: MethylPREDNISolone Sod Succinate Inj 40 MG/ML Vial IV.PUSH SCH ×2 (08:53→20:51)
[2018-04-08] MEDS: Chlorhexidine 0.12% Oral Kit 15 ML UDC OROPHARYNG SCH ×2 (09:17→20:54)
[2018-04-08] MEDS: Carboxymethylcellulose 0.5% Opth Drops 15 ML Bottle EACH EYE SCH ×2 (09:47→21:59)
[2018-04-08] MEDS: Senna/Docusate Sodium 8.6/50 MG Tablet PO SCH ×2 (09:50→20:55)
[2018-04-08] MEDS: Polyethylene Glycol 3350 17 GM Packet PO SCH ×2 (09:50→20:54)
[2018-04-08] MEDS: Dexmedetomidine Inj 200 MCG in Sodium Chlor 0.9% Inj 48 ML IV.CONT PRN (11:35)
[2018-04-08] MEDS ORDERED: Lidocaine 1%/Epinephrine 1:100,000 Inj 30 ML Vial ONE (12:06)
--- NOTE | 2018-04-08 13:30 | P.PNCC ---
Subjective Subjective Remarks/Hospital Course: 62-year-old female. She was found unresponsive. She had an empty bottle of 9 methadone 10 mg tablets and 18 Ativan 0.5 mg tablets. Apparently CPR was initiated per family. Family provided EVAC with information that patient is on hospice and has a history of diabetes, COPD, neuropathy, no advanced directives. When EVAC arrived she had a pulse but agonal respirations. She was administered Narcan 2 mg IV without improvement. Upon arrival to the ED she was not protecting her airway, pooling secretions in her mouth. She was intubated upon arrival. Her systolic blood pressure was in the 80s. She was administered 2 L normal saline bolus, right femoral line was placed and she was started on Levophed. Family has not arrived at the hospital and there is no available contact information. She is registered as a Amina Kebede. The prescription bottles say Antonina Coto. That individual has not been admitted since 2007. 03/30: Seizure activity appears to be controlled with Dilantin. She remains stuporous and we are unable to wean from the ventilator. Ongoing attempts to find out her true identity. 03/31: Will attempt spontaneous breathing trial again today. Late yesterday and early today she has had more episodes of spontaneous eye opening though she does not appear to track. Cerebrospinal fluid appears benign. No growth on culture after 48 hours. Bronchospasm responded quite well to steroids, will continue through extubation. 04/01: Fairly strong on spontaneous breathing trials today. We will discontinue all sedation, watch closely for seizure activity, and attempt to get her extubated. 04/02 -currently resting in bed in no acute distress. Eyes are rolled back. Currently on fentanyl drip at 150 mg/h and propofol drip at 25 mcg/kg/min. Starting dexmedetomidine drip and attempt to wean. Fosphenytoin decreased per neurology today. Strength 2 feeds today. No bowel movement. 04/03: T-max 100.2. Weaned off fentanyl and propofol drips. Currently only on dexmedetomidine drip at 1.4 mg/kg/h for vent synchrony. Tolerating tube feeds at goal. Beyond, gags and withdraws to pain bilateral upper and lower extremities. Not following commands. Eyes deviate downward. Subjective 04/04: Max 100.6. Currently afebrile. Stated 20-minute tonic-clonic seizure overnight. Received 4 mg lorazepam and bolused with 500 mg levetiracetam. Was switched to a propofol drip at 30 mcg/kg/min. Currently on midazolam drip at 4 mg an hour. 04/05: No sustained obvious seizure activity. No improvement in neurologic function. Bronchospasm well controlled. Enteral nutrition ongoing. 04/06: No change in neurologic function. No seizure activity. Tolerating enteral nutrition. If family wants to persist with aggressive care we probably need to consider tracheostomy soon. 04/07: Facial twitching described in notes. I have not witnessed. Low Dilantin level noted. Continues to fail spontaneous breathing trials. 04/08: No improvement in neurologic function. Objective Vital Signs / I&O: Vital Signs 04/07/18 16:00 04/07/18 19:32 04/07/18 19:49 Temperature 100.3 F H Pulse Rate 74 76 Respiratory Rate 24 19 Blood Pressure 107/69 Pulse Oximetry 99 98 97 04/07/18 20:00 04/08/18 00:00 04/08/18 01:31 Temperature 99.1 F 99.1 F Pulse Rate 75 68 Respiratory Rate 23 22 23 Blood Pressure 112/77 114/60 Pulse Oximetry 99 96 97 04/08/18 02:03 04/08/18 02:33 04/08/18 03:00 Temperature Pulse Rate 75 75 Respiratory Rate 27 H 24 Blood Pressure 100/73 131/77 Pulse Oximetry 97 98 04/08/18 03:03 04/08/18 03:33 04/08/18 04:00 Temperature 98.9 F Pulse Rate 73 74 84 Respiratory Rate 22 26 H 31 H Blood Pressure 114/68 97/60 L 103/63 Pulse Oximetry 98 95 98 04/08/18 04:03 04/08/18 04:33 04/08/18 05:00 Temperature Pulse Rate 92 H 91 H 85 Respiratory Rate 32 H 24 26 H Blood Pressure 103/63 104/70 Pulse Oximetry 98 97 97 04/08/18 05:03 04/08/18 05:33 04/08/18 06:00 Temperature Pulse Rate 84 81 82 Respiratory Rate 26 H 23 20 Blood Pressure 109/83 149/94 H Pulse Oximetry 97 97 99 04/08/18 06:03 04/08/18 06:33 04/08/18 07:00 Temperature Pulse Rate 75 72 67 Respiratory Rate 20 17 17 Blood Pressure 98/62 L 148/97 H Pulse Oximetry 98 96 98 04/08/18 07:03 04/08/18 07:17 04/08/18 07:33 Temperature Pulse Rate 66 68 68 Respiratory Rate 19 19 18 Blood Pressure 87/58 L 80/58 L 92/57 L Pulse Oximetry 98 97 98 04/08/18 08:00 04/08/18 08:03 04/08/18 08:14 Temperature 99.7 F H Pulse Rate 73 66 70 Respiratory Rate 23 21 22 Blood Pressure 105/63 Pulse Oximetry 99 98 99 04/08/18 08:33 04/08/18 09:00 04/08/18 09:03 Temperature Pulse Rate 76 71 71 Respiratory Rate 25 H 17 19 Blood Pressure 166/99 H 100/66 Pulse Oximetry 99 98 98 04/08/18 09:33 04/08/18 10:00 04/08/18 10:03 Temperature Pulse Rate 70 66 66 Respiratory Rate 18 17 17 Blood Pressure 83/55 L 84/60 L Pulse Oximetry 98 97 97 04/08/18 10:33 04/08/18 11:00 04/08/18 11:03 Temperature Pulse Rate 75 80 77 Respiratory Rate 21 25 H 22 Blood Pressure 131/85 120/79 Pulse Oximetry 99 99 98 04/08/18 11:33 Temperature Pulse Rate 71 Respiratory Rate 18 Blood Pressure 101/64 Pulse Oximetry 97 Intake & Output 04/07/18 04/08/18 04/08/18 18:59 06:59 18:59 Intake Total 984.1 / 984.1 1297.2 / 1297.2 326.6 / 326.6 Output Total 300 / 300 Balance 984.1 / 984.1 997.2 / 997.2 326.6 / 326.6 Weight 70.7 kg Intake: IV 434.1 / 434.1 643.2 / 643.2 326.6 / 326.6 Precedex Inj 200 MCG In NS Inj 50 / 50 50 / 50 50 / 50 48 ML @ 0.2 MCG/KG/HR 3.52 mls/ hr IV.CONT TITRATE PRN Rx#: [id number] Versed Inj 50 mg In 50 ml @ 1 50 / 50 MG/HR 1 mls/hr IV.CONT TITRATE PRN Rx#:[id number] Cerebyx Inj 80 MGPE In NS Inj 51.6 / 51.6 103.2 / 103.2 51.6 / 51.6 50 ML @ 208 mls/hr IV.SIG Q8H DEBORAH Rx#:[id number] Vimpat Inj 100 MG In NS Inj 100 110 / 110 110 / 110 110 / 110 ML @ 110 mls/hr IV.SIG Q12HR DEBORAH Rx#:[id number] Depacon Inj 750 MG In NS Inj 107.5 / 107.5 215.0 / 215.0 100 ML @ 105 mls/hr IV.SIG Q8H DEBORAH Rx#:[id number] Keppra Inj 1,500 MG In NS Inj 115 / 115 115 / 115 115 / 115 100 ML @ 345 mls/hr IV.SIG BID DEBORAH Rx#:[id number] Oral 0 / 0 Tube Feeding 430 / 430 534 / 534 Tube Irrigant 120 / 120 120 / 120 Water Bolus Amount 0 / 0 Output: Urine 300 / 300 Gastric Drainage 0 / 0 Oral Orogastric Tube 0 / 0 Other: # Incontinent Voids 4 Date of Last Bowel Movement 04/07/18 04/08/18 04/08/18 # Bowel Movements 4 1 # Incontinent Bowel Movements 1 Result Diagrams: 04/06/18 04:21 04/08/18 04:27 Objective Remarks: GENERAL: Unresponsive 62-year-old female SKIN: Warm and dry. HEAD: Atraumatic. Normocephalic. EYES: Pupils equal and round, 3 mm bilaterally and sluggish. ENT: No nasal bleeding or discharge. NECK: Trachea midline. Orotracheal intubation. CARDIOVASCULAR: RRR. S1, S2 no S4. Without murmur. No JVD. RESPIRATORY: Good bilateral breath sounds. Minimal end expiratory wheeze cysts. Good bilateral air movement. GASTROINTESTINAL: Abdomen soft, non-tender, nondistended. Bowel sounds present. No guarding. MUSCULOSKELETAL: Extremities without significant peripheral edema. Skin as above. Amputation to the right second toe. NEUROLOGICAL: Spontaneous eye opening to central noxious stimuli. Eyes deviated downward. Decerebrate type positioning in bilateral lower extremities. Not withdrawing. No myoclonic jerking noted. 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 Goal of RASS 0 Daily sedation vacation MRI brain revealed right-sided mastoiditis otherwise no acute intercranial findings EEG 03/29 with burst suppression with epileptiform activity. EEG 03/30 without epileptic activity. Repeat EEG 04/04 pending Followed by neurology. Currently on levetiracetam 500 milligrams IV twice daily and fosphenytoin 80 mg every 8 hours. Level was 12.6. Recheck in a.m. Seizure precaution Discussed with Dr. Smyth. Will increase levetiracetam from 500 mg to 1500 mg twice daily. Follow-up on EEG. He will evaluate today for further recommendations. No seizure activity today 04/07 RESP: Acute hypercapneic respiratory failure COPD with ongoing tobaccoism Currently on PRVC 14/07/05/39 Ventilator bundle Albuterol/ipratropium aerosols every 6 hours with albuterol aerosols every 2 hours as needed for dyspnea Budesonide 0.5/2 1 inhalation twice daily Methylprednisolone succinate 20 mg every 12 hours Chest x-ray ordered for a.m. 04/05 CV: Shock -resolved Hypertension As needed labetalol and nicardipine drip for elevated blood pressure Currently on clonidine 0.1 mg 3 times daily more for neuro/psych alpha reasons Troponin 0.04 admission. Discontinued IV fluids GI: Elevated transaminases likely secondary to shock Hypoalbuminemia Acute constipation Continue tube feeds with vital 1.5 goal 45 cc an hour Lansoprazole 30 mg daily for GI prophylaxis Docusate sodium/senna 1 tablet twice daily for bowel. One BM yesterday FEN/GIULIA/ : Acute hypokalemia resolved- Peri[place] in place. Monitor intake and output hourly. Monitor electrolytes and replace as indicated per ICU electrolyte replacement protocol. ID: Received piperacillin/tazobactam and vancomycin in the emergency department. 03/29 -Gram stain of CSF -growth 03/29 -blood cultures x2 -no growth 03/29 -sputum negative Will discontinue acyclovir 04/02 as HSV was negative Discontinue piperacillin l/tazobactam 04/02 HEME: Monitor CBC daily. Follow trends. No indication for transfusion of blood products at this time. ENDO: Diabetes mellitus per report -hemoglobin A1c - 6.5 Elevated TSH of 8. Normal free T/T4. Recommend recheck in 4-6 weeks after acute illness Sliding scale insulin Accu-Cheks to maintain euglycemia/aspart low protocol MSK: Physical therapy evaluate and treat PROPH: SCDs for DVT prophylaxis. Heparin subcu for DVT prophylaxis. Lansoprazole 30 mg daily for GI prophylaxis. Overall impression: Frustrating lack of improvement, apparent severely diminished neurologic condition. Seizure control appears improved but overall neurologic function is poor. Prognosis for meaningful neurologic recovery remains very poor. Will discuss goals of care with family again.
--- NOTE | 2018-04-08 14:17 | P.PNPAL ---
Reason for Visit Reason for visit: a. To assist with evaluation and management of symptoms including: Encephalopathy, seizures b. To assist medical decision maker(s) with: better understanding of current medical conditions; weighing benefits/burdens of medical treatment options; making medical treatment decisions. Subjective Subjective/Interval History: Patient seen today for follow-up of symptom management of encephalopathy and seizures. Patient remains encephalopathic and continues to fail spontaneous breathing trials. She does not withdraw to noxious stimuli, spontaneous eye opening with central noxious stimuli and spontaneously. At this evaluation gaze is conjugated and deviated to the right. Encephalopathy is severe, constant, with decerebrate posturing in all 4 extremities. In spite of multiple seizure medications, she continues to seize intermittently. She remains on sedation with Precedex and Versed. Rhythmic facial twitches are seen with some myoclonic jerking, intermittent, moderate to severe, with no exacerbating factors. Receiving Ativan, valproate sodium 750 mg every 8 hours, Keppra 1500 mg twice daily, lacosamide 100 mg twice daily, Cerebyx 80 mgPE every 8 hours. . Family/Friend Interactions: Sister Phyllis and her significant other, Rosendo bedside. Telephone conversation was held with patient's son, Micheal, via telephone on speaker. Micheal discussed withdrawal with both Rosendo and his aunt Phyllis and all agreed to withdrawal. Micheal is stated that he was basically "on the street with a cell phone, [employer] surfing " and had no ability to sign consents and return them. His bus ticket, purchased by his cousin, Gayatri, originated in [place], however he lives in [place] and was unable to make his way to [place]. Family agreed to do a verbal consent as the discussion was witnessed by the nurses, Leonor and Luz, as well as palliative care, Rosendo and Phyllis. Prior to proceeding with that, I contacted patient's niece, Gayatri (Chastity) who stated that she had since bought Micheal a ticket from [place], [place] to [place], [place] where he could connect with his previously purchased bus trip. He is reported to be arriving on 04/09 at 4 PM to proceed with withdrawal. I have called Micheal 4 times but was unable to leave a message, as his voicemail is not set up. Family is willing to wait until tomorrow afternoon for him to arrive prior to proceeding with withdrawal. Per my prior conversation with him he wishes the patient to remain in FULL CODE until family can arrive. . Advance Directives Living Will: Never completed Health Care Surrogate: Never completed Durable Power of Head Of Art: Never completed Health Care Surrogate Name and Number: HCP: Tray Robb and Guerrero Zimmerman Objective Vital Signs: Vital Signs 04/07/18 16:00 04/07/18 19:32 04/07/18 19:49 Temperature 100.3 F H Pulse Rate 74 76 Respiratory Rate 24 19 Blood Pressure 107/69 Pulse Oximetry 99 98 97 04/07/18 20:00 04/08/18 00:00 04/08/18 01:31 Temperature 99.1 F 99.1 F Pulse Rate 75 68 Respiratory Rate 23 22 23 Blood Pressure 112/77 114/60 Pulse Oximetry 99 96 97 04/08/18 02:03 04/08/18 02:33 04/08/18 03:00 Temperature Pulse Rate 75 75 Respiratory Rate 27 H 24 Blood Pressure 100/73 131/77 Pulse Oximetry 97 98 04/08/18 03:03 04/08/18 03:33 04/08/18 04:00 Temperature 98.9 F Pulse Rate 73 74 84 Respiratory Rate 22 26 H 31 H Blood Pressure 114/68 97/60 L 103/63 Pulse Oximetry 98 95 98 04/08/18 04:03 04/08/18 04:33 04/08/18 05:00 Temperature Pulse Rate 92 H 91 H 85 Respiratory Rate 32 H 24 26 H Blood Pressure 103/63 104/70 Pulse Oximetry 98 97 97 04/08/18 05:03 04/08/18 05:33 04/08/18 06:00 Temperature Pulse Rate 84 81 82 Respiratory Rate 26 H 23 20 Blood Pressure 109/83 149/94 H Pulse Oximetry 97 97 99 04/08/18 06:03 04/08/18 06:33 04/08/18 07:00 Temperature Pulse Rate 75 72 67 Respiratory Rate 20 17 17 Blood Pressure 98/62 L 148/97 H Pulse Oximetry 98 96 98 04/08/18 07:03 04/08/18 07:17 04/08/18 07:33 Temperature Pulse Rate 66 68 68 Respiratory Rate 19 19 18 Blood Pressure 87/58 L 80/58 L 92/57 L Pulse Oximetry 98 97 98 04/08/18 08:00 04/08/18 08:03 04/08/18 08:14 Temperature 99.7 F H Pulse Rate 73 66 70 Respiratory Rate 23 21 22 Blood Pressure 105/63 Pulse Oximetry 99 98 99 04/08/18 08:33 04/08/18 09:00 04/08/18 09:03 Temperature Pulse Rate 76 71 71 Respiratory Rate 25 H 17 19 Blood Pressure 166/99 H 100/66 Pulse Oximetry 99 98 98 04/08/18 09:33 04/08/18 10:00 04/08/18 10:03 Temperature Pulse Rate 70 66 66 Respiratory Rate 18 17 17 Blood Pressure 83/55 L 84/60 L Pulse Oximetry 98 97 97 04/08/18 10:33 04/08/18 11:00 04/08/18 11:03 Temperature Pulse Rate 75 80 77 Respiratory Rate 21 25 H 22 Blood Pressure 131/85 120/79 Pulse Oximetry 99 99 98 04/08/18 11:33 04/08/18 12:00 04/08/18 13:14 Temperature 98.2 F Pulse Rate 71 73 Respiratory Rate 18 23 21 Blood Pressure 101/64 Pulse Oximetry 97 99 100 Intake & Output 04/07/18 04/08/18 04/08/18 18:59 06:59 18:59 Intake Total 984.1 / 984.1 1297.2 / 1297.2 434.1 / 434.1 Output Total 300 / 300 Balance 984.1 / 984.1 997.2 / 997.2 434.1 / 434.1 Weight 155 lb 13.869 oz Intake: IV 434.1 / 434.1 643.2 / 643.2 434.1 / 434.1 Precedex Inj 200 MCG In NS Inj 50 / 50 50 / 50 50 / 50 48 ML @ 0.2 MCG/KG/HR 3.52 mls/ hr IV.CONT TITRATE PRN Rx#: [id number] Versed Inj 50 mg In 50 ml @ 1 50 / 50 MG/HR 1 mls/hr IV.CONT TITRATE PRN Rx#:[id number] Cerebyx Inj 80 MGPE In NS Inj 51.6 / 51.6 103.2 / 103.2 51.6 / 51.6 50 ML @ 208 mls/hr IV.SIG Q8H DEBORAH Rx#:[id number] Vimpat Inj 100 MG In NS Inj 100 110 / 110 110 / 110 110 / 110 ML @ 110 mls/hr IV.SIG Q12HR DEBORAH Rx#:[id number] Depacon Inj 750 MG In NS Inj 107.5 / 107.5 215.0 / 215.0 107.5 / 107.5 100 ML @ 105 mls/hr IV.SIG Q8H DEBORAH Rx#:[id number] Keppra Inj 1,500 MG In NS Inj 115 / 115 115 / 115 115 / 115 100 ML @ 345 mls/hr IV.SIG BID DEBORAH Rx#:[id number] Oral 0 / 0 Tube Feeding 430 / 430 534 / 534 Tube Irrigant 120 / 120 120 / 120 Water Bolus Amount 0 / 0 Output: Urine 300 / 300 Gastric Drainage 0 / 0 Oral Orogastric Tube 0 / 0 Other: # Incontinent Voids 4 Date of Last Bowel Movement 04/07/18 04/08/18 04/08/18 # Bowel Movements 4 1 # Incontinent Bowel Movements 1 Physical Exam: CONSTITUTIONAL/GENERAL: This is an obese patient, intubated, sedated, intermittently seizing at this evaluation. TUBES/LINES/DRAINS: PIV left forearm, right hand, ETT, OGT, Watson. HEAD: Atraumatic. Normocephalic. ENT: Unable to assess hearing. Nose without bleeding or purulent drainage. Orally intubated CARDIOVASCULAR: Regular rate and rhythm without murmurs, gallops, or rubs. No JVD. Peripheral pulses symmetric. RESPIRATORY/CHEST: Symmetric, unlabored respirations. Clear to auscultation. Breath sounds equal bilaterally. No wheezes, rales, or rhonchi. GASTROINTESTINAL: Abdomen soft, nondistended. Bowel sounds hypoactive. GENITOURINARY: Without palpable bladder distension. Watson catheter in place. MUSCULOSKELETAL: Extremities without clubbing or cyanosis, 1+ edema. Faint mottling on the feet bilaterally. NEUROLOGICAL: Sedated, not withdrawing, opens eyes to central noxious stimuli, seizing with myoclonic jerking, eyes deviated to the right, gaze conjugate. PSYCHIATRIC: Sedated. . Diagnostic Tests Laboratory: Laboratory Results - last 72 hr 04/05/18 04/06/18 04/06/18 17:46 00:03 04:21 WBC RBC Hgb Hct MCV MCH MCHC RDW Plt Count MPV Neut % (Auto) Lymph % (Auto) Bradford % (Auto) Eos % (Auto) Baso % (Auto) Neut # (Auto) Lymph # (Auto) Bradford # (Auto) Eos # (Auto) Baso # (Auto) WBC Differential Differential Comment Sodium 142 Potassium 3.9 Chloride 105 Carbon Dioxide 27.7 Anion Gap 9 BUN 18 Creatinine 0.48 L Estimated GFR Greater than 89 POC Glucose 138 H 175 H Random Glucose 121 H Calcium 8.2 L Phosphorus Magnesium Total Bilirubin AST ALT Alkaline Phosphatase Total Protein Albumin Phenytoin Valproic Acid 46 L 04/06/18 04/06/18 04/06/18 04:21 12:24 18:31 WBC 9.5 RBC 5.04 Hgb 13.2 Hct 40.3 MCV 80.0 MCH 26.2 L MCHC 32.7 RDW 18.6 H Plt Count 176 MPV 8.5 Neut % (Auto) 77.2 H Lymph % (Auto) 12.2 Bradford % (Auto) 9.4 H Eos % (Auto) 0.7 Baso % (Auto) 0.5 Neut # (Auto) 7.3 Lymph # (Auto) 1.2 Bradford # (Auto) 0.9 Eos # (Auto) 0.1 Baso # (Auto) 0.0 WBC Differential . Differential Comment Auto diff final Sodium Potassium Chloride Carbon Dioxide Anion Gap BUN Creatinine Estimated GFR POC Glucose 151 H 127 H Random Glucose Calcium Phosphorus Magnesium Total Bilirubin AST ALT Alkaline Phosphatase Total Protein Albumin Phenytoin Valproic Acid 04/06/18 04/07/18 04/07/18 23:55 04:50 05:42 WBC RBC Hgb Hct MCV MCH MCHC RDW Plt Count MPV Neut % (Auto) Lymph % (Auto) Bradford % (Auto) Eos % (Auto) Baso % (Auto) Neut # (Auto) Lymph # (Auto) Bradford # (Auto) Eos # (Auto) Baso # (Auto) WBC Differential Differential Comment Sodium Potassium Chloride Carbon Dioxide Anion Gap BUN Creatinine Estimated GFR POC Glucose 162 H 120 H Random Glucose Calcium Phosphorus Magnesium Total Bilirubin AST ALT Alkaline Phosphatase Total Protein Albumin Phenytoin Valproic Acid 75 04/07/18 04/07/18 04/07/18 09:18 11:59 18:02 WBC RBC Hgb Hct MCV MCH MCHC RDW Plt Count MPV Neut % (Auto) Lymph % (Auto) Bradford % (Auto) Eos % (Auto) Baso % (Auto) Neut # (Auto) Lymph # (Auto) Bradford # (Auto) Eos # (Auto) Baso # (Auto) WBC Differential Differential Comment Sodium Potassium Chloride Carbon Dioxide Anion Gap BUN Creatinine Estimated GFR POC Glucose 118 H 130 H Random Glucose Calcium Phosphorus Magnesium Total Bilirubin AST ALT Alkaline Phosphatase Total Protein Albumin Phenytoin 3.9 L Valproic Acid 04/08/18 04/08/18 04/08/18 01:00 04:27 06:18 WBC RBC Hgb Hct MCV MCH MCHC RDW Plt Count MPV Neut % (Auto) Lymph % (Auto) Bradford % (Auto) Eos % (Auto) Baso % (Auto) Neut # (Auto) Lymph # (Auto) Bradford # (Auto) Eos # (Auto) Baso # (Auto) WBC Differential Differential Comment Sodium 142 Potassium 3.6 Chloride 105 Carbon Dioxide 24.6 Anion Gap 12 BUN 17 Creatinine 0.47 L Estimated GFR Greater than 89 POC Glucose 164 H 124 H Random Glucose 132 H Calcium 8.9 Phosphorus 3.0 Magnesium 2.0 Total Bilirubin 0.3 AST 32 ALT 41 Alkaline Phosphatase 110 Total Protein 6.4 Albumin 2.3 L Phenytoin Valproic Acid 62 04/08/18 04/08/18 09:30 13:49 WBC RBC Hgb Hct MCV MCH MCHC RDW Plt Count MPV Neut % (Auto) Lymph % (Auto) Bradford % (Auto) Eos % (Auto) Baso % (Auto) Neut # (Auto) Lymph # (Auto) Bradford # (Auto) Eos # (Auto) Baso # (Auto) WBC Differential Differential Comment Sodium Potassium Chloride Carbon Dioxide Anion Gap BUN Creatinine Estimated GFR POC Glucose 109 129 H Random Glucose Calcium Phosphorus Magnesium Total Bilirubin AST ALT Alkaline Phosphatase Total Protein Albumin Phenytoin Valproic Acid Result Diagrams: 04/06/18 04:21 04/08/18 04:27 Procedures: 03/28: Intubation 03/28: Right femoral triple-lumen central line placed 03/29: Diagnostic lumbar puncture Assessment and Plan Pertinent Non-Medical Issues: Psychosocial: She was born in [facility] and moved to [place] 20 years ago. 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 She has been and twice, but has been with her current significant other for over 18 years. Spiritual: Not an important concept to the patient. Legal: No advance directives. Ethical issues impacting care: Difficulty contacting proxy decision makers. . Important Contacts: Son: Tray Coto Sister: Sushma Almodovar Life partner: Randy Hastings Son/brother: Guerrero Zimmerman -he was born as the patient's son, but then legally adopted by patient's father. Prognosis: Her prognosis is guarded. She was previously enrolled in hospice with [facility] for an end-stage diagnosis of COPD with acute lower respiratory infection. While this cannot be confirmed, it is also suspected that she had some level of chronic pain as she was on both methadone and oxycodone. At this time she was found down, cyanotic, discolored, reportedly without respirations with emesis blocking the airway until resuscitated by EMS. Neurology opines that she may have an anoxic/hypoxic/ischemic brain injury but this will not be able to be confirmed until sedation can be stopped. Unable to accurately prognosticate at this time. . Code Status: Full Code (By default) Plan: PLAN: Legal decision maker: Patient is currently not capacitated to make her own decisions and does not have a valid healthcare surrogate that we can locate. Per [place] statutes, as she is legally and has 2 sons, her sons would be the first tier healthcare proxy decision-maker. Attempts are in progress to locate both sons. If they cannot be located, patient does have a sister, Sushma who is readily available and willing to serve. As both parents are , be the alternate decision-maker if the sons cannot be contacted. Goals: Aggressive by default. CODE STATUS: FULL CODE at the family's request until they can arrive, planned for Sunday 04/08. SYMPTOMS: * Encephalopathy: At this time she remains encephalopathic with poor prognosis per neurology. She remains on sedation at this time for vent synchrony and seizure management. encephalopathy may be multifactorial to include hypoxic/ anoxic injury, drug overdose or progressive medical condition. Pending arrival of family 04/09 late afternoon for withdrawal. * Seizures: She continues to seize in spite of multiple antiseizure medications to include Ativan, valproate sodium 750 mg every 8 hours, Keppra 1500 mg twice daily, lacosamide 100 mg twice daily, Cerebyx 80 mgPE every 8 hours. Eye twitching and myoclonic jerking seen intermittently throughout the day. She has received 4 mg thus far today. Plan for withdrawal from life support tomorrow once family arrives. . Palliative care will continue to follow the patient during hospital course as condition evolves, to assist patient/decision-maker with understanding of their medical conditions, weighing benefits/burdens of treatment options, for clarification of goals of treatment. Additionally will assist with any symptoms of palliative concern. . Attestation Attestation: To help prompt me to consider important information that might be impacting today's encounter and assessment, information from prior notes written by myself or my colleagues may have been "brought forward" into today's note. My signature on this note, however, is an attestation that I personally performed the exam, history, and/or decision-making noted today, and, unless otherwise indicated, the interactions with patient, family, and staff as well as the review of records all occurred today. I also attest that the listed assessment and stated plan reflect my best clinical judgment today based on the combination of historical information, prior notes, and today's exam/ interactions. When time spent is documented, it refers only to time spent today by the signer, or if indicated, combined time spent today by collaborating physician/nurse practitioner. .
[2018-04-09] MEDS: Oral Hygiene Kit OROPHARYNG SCH ×5 (01:17→23:54)
[2018-04-09] MEDS: Insulin NovoLOG Aspart Correctional Sugar Inj SQ SCH ×5 (01:17→23:53)
[2018-04-09 03:56] LABS: Albumin 2.2 g/dL (3.4-5.0); Anion Gap 10 meq/L (5-15); Aspartate Aminotransferase 31 U/L (15-37); Blood Urea Nitrogen 22 mg/dL (7-18); Calcium 8.5 mg/dL (8.5-10.1); Carbon Dioxide 27.6 meq/L (21.0-32.0); Chloride 107 meq/L (98-107); Glomerular Filtration Rate Greater Than 89 mL/min (>89); Glucose,Random 148 mg/dL (74-106); Potassium 3.4 meq/L (3.5-5.1); Sodium 145 meq/L (136-145)
[2018-04-09 04:01] LABS: Alanine Aminotransferase 39 U/L (10-53); Alkaline Phosphatase 127 U/L (45-117); Total Protein 6.2 g/dL (6.4-8.2)
[2018-04-09] MEDS: Heparin - SQ 10,000 UNITS/ML Vial SQ SCH ×3 (05:55→21:38)
[2018-04-09] MEDS: Valproate Inj 750 MG in Sodium Chlor 0.9% Inj 100 ML IV.SIG SCH ×3 (05:55→19:42)
[2018-04-09] MEDS: FOSPHENYTOIN IV.SIG SCH ×3 (05:56→18:00)
[2018-04-09] MEDS: SODIUM CHLOR IV.SIG SCH ×3 (05:56→18:00)
[2018-04-09] MEDS: MethylPREDNISolone Sod Succinate Inj 40 MG/ML Vial IV.PUSH SCH ×2 (08:24→21:01)
[2018-04-09] MEDS: levETIRAcetam Inj 1,500 MG in Sodium Chlor 0.9% Inj 100 ML IV.SIG SCH ×2 (08:25→21:00)
[2018-04-09] MEDS: Carboxymethylcellulose 0.5% Opth Drops 15 ML Bottle EACH EYE SCH ×2 (08:26→21:01)
[2018-04-09] MEDS: Polyethylene Glycol 3350 17 GM Packet PO SCH ×2 (08:26→21:00)
[2018-04-09] MEDS: Senna/Docusate Sodium 8.6/50 MG Tablet PO SCH ×2 (08:26→21:01)
[2018-04-09] MEDS: Chlorhexidine 0.12% Oral Kit 15 ML UDC OROPHARYNG SCH ×2 (08:26→19:42)
--- NOTE | 2018-04-09 09:21 | P.PNCC ---
Subjective Subjective Remarks/Hospital Course: 62-year-old female. She was found unresponsive. She had an empty bottle of 9 methadone 10 mg tablets and 18 Ativan 0.5 mg tablets. Apparently CPR was initiated per family. Family provided EVAC with information that patient is on hospice and has a history of diabetes, COPD, neuropathy, no advanced directives. When EVAC arrived she had a pulse but agonal respirations. She was administered Narcan 2 mg IV without improvement. Upon arrival to the ED she was not protecting her airway, pooling secretions in her mouth. She was intubated upon arrival. Her systolic blood pressure was in the 80s. She was administered 2 L normal saline bolus, right femoral line was placed and she was started on Levophed. Family has not arrived at the hospital and there is no available contact information. She is registered as a Amina Kebede. The prescription bottles say Antonina Coto. That individual has not been admitted since 2007. 03/30: Seizure activity appears to be controlled with Dilantin. She remains stuporous and we are unable to wean from the ventilator. Ongoing attempts to find out her true identity. 03/31: Will attempt spontaneous breathing trial again today. Late yesterday and early today she has had more episodes of spontaneous eye opening though she does not appear to track. Cerebrospinal fluid appears benign. No growth on culture after 48 hours. Bronchospasm responded quite well to steroids, will continue through extubation. 04/01: Fairly strong on spontaneous breathing trials today. We will discontinue all sedation, watch closely for seizure activity, and attempt to get her extubated. 04/02 -currently resting in bed in no acute distress. Eyes are rolled back. Currently on fentanyl drip at 150 mg/h and propofol drip at 25 mcg/kg/min. Starting dexmedetomidine drip and attempt to wean. Fosphenytoin decreased per neurology today. Strength 2 feeds today. No bowel movement. 04/03: T-max 100.2. Weaned off fentanyl and propofol drips. Currently only on dexmedetomidine drip at 1.4 mg/kg/h for vent synchrony. Tolerating tube feeds at goal. Beyond, gags and withdraws to pain bilateral upper and lower extremities. Not following commands. Eyes deviate downward. Subjective 04/04: Max 100.6. Currently afebrile. Stated 20-minute tonic-clonic seizure overnight. Received 4 mg lorazepam and bolused with 500 mg levetiracetam. Was switched to a propofol drip at 30 mcg/kg/min. Currently on midazolam drip at 4 mg an hour. 04/05: No sustained obvious seizure activity. No improvement in neurologic function. Bronchospasm well controlled. Enteral nutrition ongoing. 04/06: No change in neurologic function. No seizure activity. Tolerating enteral nutrition. If family wants to persist with aggressive care we probably need to consider tracheostomy soon. 04/07: Facial twitching described in notes. I have not witnessed. Low Dilantin level noted. Continues to fail spontaneous breathing trials. 04/08: No improvement in neurologic function. 04/09: We are having difficulty controlling her seizures, consistent with anoxic brain injury. Her bronchospasm is well controlled now and it is relatively easy to ventilator. Hemodynamics have stabilized. Her neurologic status is severely diminished. Palliative care was discussing the possibility of withdrawal with the family. I strongly support withdrawal of artificial support at this time because this patient has no chance of recovery to a meaningful life. She got to this point because of end-stage COPD and bronchospasm and was previously in hospice care because of the terminal and clinically deteriorating nature of that chronic pulmonary illness. Objective Vital Signs / I&O: Vital Signs 04/08/18 09:33 04/08/18 10:00 04/08/18 10:03 Temperature Pulse Rate 70 66 66 Respiratory Rate 18 17 17 Blood Pressure 83/55 L 84/60 L Pulse Oximetry 98 97 97 04/08/18 10:33 04/08/18 11:00 04/08/18 11:03 Temperature Pulse Rate 75 80 77 Respiratory Rate 21 25 H 22 Blood Pressure 131/85 120/79 Pulse Oximetry 99 99 98 04/08/18 11:33 04/08/18 12:00 04/08/18 12:03 Temperature 98.2 F Pulse Rate 71 79 77 Respiratory Rate 18 28 H 26 H Blood Pressure 101/64 134/94 H Pulse Oximetry 97 98 98 04/08/18 12:33 04/08/18 13:00 04/08/18 13:03 Temperature Pulse Rate 74 70 70 Respiratory Rate 21 19 20 Blood Pressure 114/74 100/71 Pulse Oximetry 97 97 97 04/08/18 13:14 04/08/18 13:33 04/08/18 14:00 Temperature Pulse Rate 66 68 Respiratory Rate 21 19 19 Blood Pressure 105/72 Pulse Oximetry 100 97 98 04/08/18 14:03 04/08/18 14:33 04/08/18 15:00 Temperature Pulse Rate 68 78 77 Respiratory Rate 21 30 H 24 Blood Pressure 90/62 L 120/68 Pulse Oximetry 98 04/08/18 15:03 04/08/18 15:33 04/08/18 15:57 Temperature Pulse Rate 77 72 Respiratory Rate 28 H 27 H 22 Blood Pressure 99/65 L 99/65 L Pulse Oximetry 100 100 100 04/08/18 16:00 04/08/18 16:03 04/08/18 16:33 Temperature 98.4 F Pulse Rate 72 73 68 Respiratory Rate 31 H 30 H 29 H Blood Pressure 109/69 105/68 Pulse Oximetry 100 100 100 04/08/18 20:00 04/08/18 22:33 04/09/18 00:00 Temperature 98.6 F 98.8 F Pulse Rate 61 64 62 Respiratory Rate 15 17 22 Blood Pressure 103/63 98/61 L Pulse Oximetry 100 100 04/09/18 04:00 04/09/18 04:29 04/09/18 07:59 Temperature 98.5 F Pulse Rate 69 81 Respiratory Rate 19 20 22 Blood Pressure 123/72 Pulse Oximetry 100 100 Intake & Output 04/08/18 04/09/18 04/09/18 18:59 06:59 18:59 Intake Total 1138.7 / 1138.7 1754.1 / 1754.1 222.5 / 222.5 Output Total 400 / 400 Balance 1138.7 / 1138.7 1354.1 / 1354.1 222.5 / 222.5 Weight 73.3 kg Intake: IV 485.7 / 485.7 904.1 / 904.1 222.5 / 222.5 Precedex Inj 200 MCG In NS Inj 50 / 50 48 ML @ 0.2 MCG/KG/HR 3.52 mls/ hr IV.CONT TITRATE PRN Rx#: [id number] Cerebyx Inj 80 MGPE In NS Inj 103.2 / 103.2 51.6 / 51.6 50 ML @ 208 mls/hr IV.SIG Q8H DEBORAH Rx#:[id number] Vimpat Inj 100 MG In NS Inj 100 110 / 110 215 / 215 ML @ 110 mls/hr IV.SIG Q12HR DEBORAH Rx#:[id number] Depacon Inj 750 MG In NS Inj 107.5 / 107.5 417.5 / 417.5 107.5 / 107.5 100 ML @ 105 mls/hr IV.SIG Q8H DEBORAH Rx#:[id number] Keppra Inj 1,500 MG In NS Inj 115 / 115 220 / 220 115 / 115 100 ML @ 345 mls/hr IV.SIG BID DEBORAH Rx#:[id number] Oral 0 / 0 Tube Feeding 478 / 478 650 / 650 Tube Irrigant 175 / 175 Water Bolus Amount 200 / 200 Output: Urine 400 / 400 Other: # Incontinent Voids 3 3 Date of Last Bowel Movement 04/07/18 04/09/18 # Bowel Movements 2 2 Result Diagrams: 04/06/18 04:21 04/09/18 03:22 Objective Remarks: GENERAL: Unresponsive 62-year-old female SKIN: Warm and dry. HEAD: Atraumatic. Normocephalic. EYES: Pupils equal and round, 3 mm bilaterally and sluggish. ENT: No nasal bleeding or discharge. NECK: Trachea midline. Orotracheal intubation. CARDIOVASCULAR: RRR. S1, S2 no S4. Without murmur. No JVD. RESPIRATORY: Good bilateral breath sounds. Minimal end expiratory wheeze cysts. Good bilateral air movement. GASTROINTESTINAL: Abdomen soft, non-tender, nondistended. Bowel sounds present. No guarding. MUSCULOSKELETAL: Extremities without significant peripheral edema. Skin as above. Amputation to the right second toe. NEUROLOGICAL: Spontaneous eye opening to central noxious stimuli. Eyes deviated downward. Decerebrate type positioning in bilateral lower extremities. Not withdrawing. No myoclonic jerking noted. 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 Goal of RASS 0 Daily sedation vacation MRI brain revealed right-sided mastoiditis otherwise no acute intercranial findings EEG 03/29 with burst suppression with epileptiform activity. EEG 03/30 without epileptic activity. Repeat EEG 04/04 pending Followed by neurology. Currently on levetiracetam 500 milligrams IV twice daily and fosphenytoin 80 mg every 8 hours. Level was 12.6. Recheck in a.m. Seizure precaution Discussed with Dr. Smyth. Will increase levetiracetam from 500 mg to 1500 mg twice daily. Follow-up on EEG. He will evaluate today for further recommendations. RESP: Acute hypercapneic respiratory failure COPD with ongoing tobaccoism Currently on PRVC 14/500/07/05/39 Ventilator bundle Albuterol/ipratropium aerosols every 6 hours with albuterol aerosols every 2 hours as needed for dyspnea Budesonide 0.5/2 1 inhalation twice daily Methylprednisolone succinate 20 mg every 12 hours CV: Shock -resolved Hypertension As needed labetalol and nicardipine drip for elevated blood pressure Currently on clonidine 0.1 mg 3 times daily more for neuro/psych alpha reasons Troponin 0.04 admission. Discontinued IV fluids GI: Elevated transaminases likely secondary to shock Hypoalbuminemia Acute constipation Continue tube feeds with vital 1.5 goal 45 cc an hour Lansoprazole 30 mg daily for GI prophylaxis Docusate sodium/senna 1 tablet twice daily for bowel. One BM yesterday FEN/GIULIA/ : Acute hypokalemia resolved- Periwick in place. Monitor intake and output hourly. Monitor electrolytes and replace as indicated per ICU electrolyte replacement protocol. ID: Received piperacillin/tazobactam and vancomycin in the emergency department. 03/29 -Gram stain of CSF -growth 03/29 -blood cultures x2 -no growth 03/29 -sputum negative Will discontinue acyclovir 04/02 as HSV was negative Discontinue piperacillin l/tazobactam 04/02 HEME: Monitor CBC daily. Follow trends. No indication for transfusion of blood products at this time. ENDO: Diabetes mellitus per report -hemoglobin A1c - 6.5 Elevated TSH of 8. Normal free T/T4. Recommend recheck in 4-6 weeks after acute illness Sliding scale insulin Accu-Cheks to maintain euglycemia/aspart low protocol MSK: Physical therapy evaluate and treat PROPH: SCDs for DVT prophylaxis. Heparin subcu for DVT prophylaxis. Lansoprazole 30 mg daily for GI prophylaxis. Overall impression: Frustrating lack of improvement and apparent severely diminished neurologic condition. Seizure control appears improved but overall neurologic function is quite poor. Prognosis for meaningful neurologic recovery remains very poor. We are waiting for family to arrive to formalize their plans for probable withdrawal of artificial support.
[2018-04-09] MEDS: Lacosamide Inj 100 MG in Sodium Chlor 0.9% Inj 100 ML IV.SIG SCH ×2 (10:16→21:38)
--- NOTE | 2018-04-09 16:57 | P.PNPAL ---
Reason for Visit Reason for visit: a. To assist with evaluation and management of symptoms including: Encephalopathy, seizures b. To assist medical decision maker(s) with: better understanding of current medical conditions; weighing benefits/burdens of medical treatment options; making medical treatment decisions. Subjective Subjective/Interval History: Patient seen today for follow-up of symptom management of encephalopathy and seizures. Patient remains encephalopathic with no neurologic improvement. She does not withdraw to noxious stimuli, spontaneous eye opening with central noxious stimuli and spontaneously. At this evaluation gaze is conjugated and deviated to the right. Encephalopathy is severe, constant, with decerebrate posturing in bilateral upper extremities with extension on bilateral lower extremities. In spite of multiple seizure medications, she continues to seize intermittently. She remains on sedation with Precedex and Versed. Rhythmic facial twitches are seen with some myoclonic jerking, intermittent, moderate to severe, with no exacerbating factors. Receiving Ativan, valproate sodium 750 mg every 8 hours, Keppra 1500 mg twice daily, lacosamide 100 mg twice daily, Cerebyx 80 mgPE every 8 hours. . Family/Friend Interactions: Son and decision-maker, Tray, remains an route to [place] from [place], [place] via bus. His bus was scheduled to arrive this evening however has been delayed by Jason Duarte and his expected arrival date is . Previous conversations with him have indicated that he wishes to withdraw life support. He has discussed this in a conference call with his aunt Phyllis, patient's significant other, Rosendo, and myself. Family members agree with his decision and await his arrival to complete the withdrawal. . Advance Directives Living Will: Never completed Health Care Surrogate: Never completed Durable Power of Allergist/Immunologist Physician: Never completed Health Care Surrogate Name and Number: HCP: Tray Robb and Guerrero Zimmerman Objective Vital Signs: Vital Signs 04/08/18 20:00 04/08/18 22:33 04/09/18 00:00 Temperature 98.6 F 98.8 F Pulse Rate 61 64 62 Respiratory Rate 15 17 22 Blood Pressure 103/63 98/61 L Pulse Oximetry 100 100 04/09/18 04:00 04/09/18 04:29 04/09/18 07:59 Temperature 98.5 F Pulse Rate 69 81 Respiratory Rate 19 20 22 Blood Pressure 123/72 Pulse Oximetry 100 100 04/09/18 08:00 04/09/18 11:58 04/09/18 12:00 Temperature 98.2 F 98.4 F Pulse Rate 82 86 Respiratory Rate 21 20 20 Blood Pressure 140/84 180/90 H Pulse Oximetry 100 99 99 04/09/18 15:48 Temperature Pulse Rate Respiratory Rate 20 Blood Pressure Pulse Oximetry 98 Intake & Output 04/08/18 04/09/18 04/09/18 18:59 06:59 18:59 Intake Total 1138.7 / 1138.7 1754.1 / 1754.1 491.6 / 491.6 Output Total 400 / 400 Balance 1138.7 / 1138.7 1354.1 / 1354.1 491.6 / 491.6 Weight 161 lb 9.581 oz Intake: IV 485.7 / 485.7 904.1 / 904.1 491.6 / 491.6 Precedex Inj 200 MCG In NS Inj 50 / 50 48 ML @ 0.2 MCG/KG/HR 3.52 mls/ hr IV.CONT TITRATE PRN Rx#: [id number] Cerebyx Inj 80 MGPE In NS Inj 103.2 / 103.2 51.6 / 51.6 51.6 / 51.6 50 ML @ 208 mls/hr IV.SIG Q8H DEBORAH Rx#:[id number] Vimpat Inj 100 MG In NS Inj 100 110 / 110 215 / 215 110 / 110 ML @ 110 mls/hr IV.SIG Q12HR DEBORAH Rx#:[id number] Depacon Inj 750 MG In NS Inj 107.5 / 107.5 417.5 / 417.5 215.0 / 215.0 100 ML @ 105 mls/hr IV.SIG Q8H DEBORAH Rx#:[id number] Keppra Inj 1,500 MG In NS Inj 115 / 115 220 / 220 115 / 115 100 ML @ 345 mls/hr IV.SIG BID DEBORAH Rx#:[id number] Oral 0 / 0 Tube Feeding 478 / 478 650 / 650 Tube Irrigant 175 / 175 Water Bolus Amount 200 / 200 Output: Urine 400 / 400 Other: # Incontinent Voids 3 3 Date of Last Bowel Movement 04/07/18 04/09/18 # Bowel Movements 2 2 Physical Exam: CONSTITUTIONAL/GENERAL: This is an obese patient, intubated, sedated, not at this evaluation. TUBES/LINES/DRAINS: PIV left forearm, right hand, ETT, OGT, Watson. HEAD: Atraumatic. Normocephalic. ENT: Unable to assess hearing. Nose without bleeding or purulent drainage. Orally intubated CARDIOVASCULAR: Regular rate and rhythm without murmurs, gallops, or rubs. No JVD. Peripheral pulses symmetric. RESPIRATORY/CHEST: Symmetric, unlabored respirations. Clear to auscultation. Breath sounds equal bilaterally. No wheezes, rales, or rhonchi. GASTROINTESTINAL: Abdomen soft, nondistended. Bowel sounds hypoactive. GENITOURINARY: Without palpable bladder distension. Watson catheter in place. MUSCULOSKELETAL: Extremities without clubbing or cyanosis, 1+ edema. Faint mottling on the feet bilaterally. NEUROLOGICAL: Sedated, not withdrawing, opens eyes to central noxious stimuli, seizing with myoclonic jerking, eyes deviated down and to the right, gaze conjugate. PSYCHIATRIC: Sedated. . Diagnostic Tests Laboratory: Laboratory Results - last 72 hr 04/06/18 04/06/18 04/07/18 18:31 23:55 04:50 Sodium Potassium Chloride Carbon Dioxide Anion Gap BUN Creatinine Estimated GFR POC Glucose 127 H 162 H Random Glucose Calcium Phosphorus Magnesium Total Bilirubin AST ALT Alkaline Phosphatase Total Protein Albumin Phenytoin Valproic Acid 75 04/07/18 04/07/18 04/07/18 05:42 09:18 11:59 Sodium Potassium Chloride Carbon Dioxide Anion Gap BUN Creatinine Estimated GFR POC Glucose 120 H 118 H Random Glucose Calcium Phosphorus Magnesium Total Bilirubin AST ALT Alkaline Phosphatase Total Protein Albumin Phenytoin 3.9 L Valproic Acid 04/07/18 04/08/18 04/08/18 18:02 01:00 04:27 Sodium 142 Potassium 3.6 Chloride 105 Carbon Dioxide 24.6 Anion Gap 12 BUN 17 Creatinine 0.47 L Estimated GFR Greater than 89 POC Glucose 130 H 164 H Random Glucose 132 H Calcium 8.9 Phosphorus 3.0 Magnesium 2.0 Total Bilirubin 0.3 AST 32 ALT 41 Alkaline Phosphatase 110 Total Protein 6.4 Albumin 2.3 L Phenytoin Valproic Acid 62 04/08/18 04/08/18 04/08/18 06:18 09:30 13:49 Sodium Potassium Chloride Carbon Dioxide Anion Gap BUN Creatinine Estimated GFR POC Glucose 124 H 109 129 H Random Glucose Calcium Phosphorus Magnesium Total Bilirubin AST ALT Alkaline Phosphatase Total Protein Albumin Phenytoin Valproic Acid 04/08/18 04/09/18 04/09/18 16:51 00:26 03:22 Sodium 145 Potassium 3.4 L Chloride 107 Carbon Dioxide 27.6 Anion Gap 10 BUN 22 H Creatinine 0.50 Estimated GFR Greater than 89 POC Glucose 123 H 130 H Random Glucose 148 H Calcium 8.5 Phosphorus Magnesium Total Bilirubin 0.3 AST 31 ALT 39 Alkaline Phosphatase 127 H Total Protein 6.2 L Albumin 2.2 L Phenytoin Valproic Acid 04/09/18 04/09/18 05:42 13:27 Sodium Potassium Chloride Carbon Dioxide Anion Gap BUN Creatinine Estimated GFR POC Glucose 128 H 124 H Random Glucose Calcium Phosphorus Magnesium Total Bilirubin AST ALT Alkaline Phosphatase Total Protein Albumin Phenytoin Valproic Acid Result Diagrams: 04/06/18 04:21 04/09/18 03:22 Procedures: 03/28: Intubation 03/28: Right femoral triple-lumen central line placed 03/29: Diagnostic lumbar puncture Assessment and Plan Pertinent Non-Medical Issues: Psychosocial: She was born in [facility] and moved to [place] 20 years ago. 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 She has been and twice, but has been with her current significant other for over 18 years. Spiritual: Not an important concept to the patient. Legal: No advance directives. Ethical issues impacting care: Difficulty contacting proxy decision makers. . Important Contacts: Son: Tray Coto Sister: Sushma Almodovar Life partner: Randy Hastings Son/brother: Guerrero Zimmerman -he was born as the patient's son, but then legally adopted by patient's father. Prognosis: Her prognosis is guarded. She was previously enrolled in hospice with [facility] for an end-stage diagnosis of COPD with acute lower respiratory infection. While this cannot be confirmed, it is also suspected that she had some level of chronic pain as she was on both methadone and oxycodone. At this time she was found down, cyanotic, discolored, reportedly without respirations with emesis blocking the airway until resuscitated by EMS. Neurology opines that she may have an anoxic/hypoxic/ischemic brain injury but this will not be able to be confirmed until sedation can be stopped. Unable to accurately prognosticate at this time. . Code Status: Full Code (By default) Plan: PLAN: Legal decision maker: Patient is currently not capacitated to make her own decisions and does not have a valid healthcare surrogate that we can locate. Per [place] statutes, as she is legally and has 2 sons, her sons would be the first tier healthcare proxy decision-maker. Attempts are in progress to locate both sons. If they cannot be located, patient does have a sister, Sushma who is readily available and willing to serve. As both parents are , be the alternate decision-maker if the sons cannot be contacted. Goals: Aggressive by default. CODE STATUS: FULL CODE at the family's request until they can arrive, planned for , 04/10. SYMPTOMS: * Encephalopathy: At this time she remains encephalopathic with poor prognosis per neurology. She remains on sedation at this time for vent synchrony and seizure management. Encephalopathy may be multifactorial to include hypoxic/ anoxic injury, drug overdose or progressive medical condition, opinion favoring anoxic injury. Pending arrival of family 04/10 late afternoon for withdrawal. * Seizures: She continues to seize intermittently in spite of multiple antiseizure medications to include Ativan, valproate sodium 750 mg every 8 hours , Keppra 1500 mg twice daily, lacosamide 100 mg twice daily, Cerebyx 80 mgPE every 8 hours. Eye twitching and myoclonic jerking seen intermittently throughout the day. She has received no Ativan thus far today. Plan for withdrawal from life support tomorrow once family arrives. . Palliative care will continue to follow the patient during hospital course as condition evolves, to assist patient/decision-maker with understanding of their medical conditions, weighing benefits/burdens of treatment options, for clarification of goals of treatment. Additionally will assist with any symptoms of palliative concern. . Attestation Attestation: To help prompt me to consider important information that might be impacting today's encounter and assessment, information from prior notes written by myself or my colleagues may have been "brought forward" into today's note. My signature on this note, however, is an attestation that I personally performed the exam, history, and/or decision-making noted today, and, unless otherwise indicated, the interactions with patient, family, and staff as well as the review of records all occurred today. I also attest that the listed assessment and stated plan reflect my best clinical judgment today based on the combination of historical information, prior notes, and today's exam/ interactions. When time spent is documented, it refers only to time spent today by the signer, or if indicated, combined time spent today by collaborating physician/nurse practitioner. .
[2018-04-09] MEDS: Dexmedetomidine Inj 200 MCG in Sodium Chlor 0.9% Inj 48 ML IV.CONT PRN (17:23)
[2018-04-09] MEDS: Midazolam 50 MG/50 ML Inj 50 MG/50 ML BAG IV.CONT PRN (19:43)
[2018-04-10] MEDS: SODIUM CHLOR IV.SIG SCH ×3 (02:29→18:01)
[2018-04-10] MEDS: FOSPHENYTOIN IV.SIG SCH ×3 (02:29→18:01)
[2018-04-10] MEDS: Valproate Inj 750 MG in Sodium Chlor 0.9% Inj 100 ML IV.SIG SCH ×3 (03:55→20:02)
[2018-04-10] MEDS: Oral Hygiene Kit OROPHARYNG SCH ×3 (03:55→16:07)
[2018-04-10] MEDS: Dexmedetomidine Inj 200 MCG in Sodium Chlor 0.9% Inj 48 ML IV.CONT PRN ×2 (03:56→14:10)
[2018-04-10 04:56] LABS: Alkaline Phosphatase 143 U/L (45-117); Total Protein 6.2 g/dL (6.4-8.2)
[2018-04-10 05:01] LABS: Alanine Aminotransferase 38 U/L (10-53); Albumin 2.3 g/dL (3.4-5.0); Anion Gap 12 meq/L (5-15); Aspartate Aminotransferase 31 U/L (15-37); Blood Urea Nitrogen 18 mg/dL (7-18); Calcium 8.1 mg/dL (8.5-10.1); Carbon Dioxide 27.3 meq/L (21.0-32.0); Chloride 107 meq/L (98-107); Glomerular Filtration Rate Greater Than 89 mL/min (>89); Glucose,Random 129 mg/dL (74-106); Potassium 3.9 meq/L (3.5-5.1); Sodium 146 meq/L (136-145)
[2018-04-10] MEDS: Insulin NovoLOG Aspart Correctional Sugar Inj SQ SCH ×3 (06:44→17:30)
[2018-04-10] MEDS: Heparin - SQ 10,000 UNITS/ML Vial SQ SCH ×3 (06:49→22:19)
[2018-04-10] MEDS: Chlorhexidine 0.12% Oral Kit 15 ML UDC OROPHARYNG SCH ×2 (09:21→20:02)
[2018-04-10] MEDS: Senna/Docusate Sodium 8.6/50 MG Tablet PO SCH ×2 (09:21→21:00)
[2018-04-10] MEDS: Lacosamide Inj 100 MG in Sodium Chlor 0.9% Inj 100 ML IV.SIG SCH ×2 (09:21→22:19)
[2018-04-10] MEDS: Polyethylene Glycol 3350 17 GM Packet PO SCH ×2 (09:21→20:59)
[2018-04-10] MEDS: levETIRAcetam Inj 1,500 MG in Sodium Chlor 0.9% Inj 100 ML IV.SIG SCH ×2 (09:21→20:59)
[2018-04-10] MEDS: Carboxymethylcellulose 0.5% Opth Drops 15 ML Bottle EACH EYE SCH ×2 (09:22→21:00)
[2018-04-10] MEDS: MethylPREDNISolone Sod Succinate Inj 40 MG/ML Vial IV.PUSH SCH ×2 (09:22→22:19)
--- NOTE | 2018-04-10 09:51 | P.PNNEU ---
Subjective Subjective Comments: still on vent Active Medications: Active Medications Acetaminophen (Tylenol Liq) 650 mg PO Q6H PRN PRN Reason: FEVER Last Admin: 04/04/18 10:33 Dose: 650 mg Al Hydroxide/Mg Hydroxide (Milk Of Magnesia Liq) 30 ml PO Q12H PRN PRN Reason: Mild Constipation Albuterol (Albuterol Neb (Prn)) 2.5 mg NEB Q2HR NEB PRN PRN Reason: SHORTNESS OF BREATH/WHEEZING Last Admin: 04/07/18 11:12 Dose: 2.5 mg Artificial Tears (Refresh Tears 0.5% Opth Drops) 1 drop EACH EYE BID [facility] Last Admin: 04/10/18 09:22 Dose: 1 drop Bisacodyl (Dulcolax Supp) 10 mg RECTAL DAILY PRN PRN Reason: SEVERE CONSITIPATION Budesonide (Pulmocort Respule Neb) 0.5 mg NEB Q12HR NEB [facility] Last Admin: 04/10/18 08:12 Dose: 0.5 mg Chlorhexidine Gluconate (Peridex 0.12% Oral Kit) 15 ml OROPHARYNG BID@0800, 2000 [facility] Last Admin: 04/10/18 09:21 Dose: 15 ml Clonidine HCl (Catapres) 0.1 mg PO Q8HR [facility] Last Admin: 04/10/18 06:44 Dose: Not Given Dextrose (D50w Vial) 50 ml IV.PUSH UNSCH PRN PRN Reason: PER HYPOGLYCEMIA PROTOCOL Fentanyl Citrate (Fentanyl Inj) 50 mcg IV PUSH Q1H PRN PRN Reason: Pain scale 6-10, &/or sedation Last Admin: 04/04/18 02:46 Dose: 50 mcg Glucagon (Glucagon Inj) 1 mg OTHER PRN PRN PRN Reason: for Hypoglycemia Protocol Heparin Sodium (Porcine) (Heparin Inj) 5,000 units SQ Q8HR [facility] Last Admin: 04/10/18 06:49 Dose: 5,000 units Hydralazine HCl (Apresoline Inj) 10 mg IV.PUSH Q1H PRN PRN Reason: Sbp>165, Dbp>90 Last Admin: 04/07/18 23:06 Dose: 10 mg Fentanyl (Fentanyl 10 Mcg/Ml Premix Drip) 2,500 mcg in 250 mls @ 5 mls/hr IV.SIG TITRATE PRN; Protocol PRN Reason: Per Protocol Last Titration: 04/02/18 12:06 Dose: 0 mcg/hr, 0 mls/hr Fosphenytoin Sodium 80 mgpe/ (Sodium Chloride) 51.6 mls @ 208 mls/hr IV.SIG Q8H DEBORAH Last Infusion: 04/10/18 02:44 Dose: Infused Dexmedetomidine HCl 200 mcg/ (Sodium Chloride) 50 mls @ 3.52 mls/hr IV.CONT TITRATE PRN; Protocol PRN Reason: Per Protocol Last Admin: 04/10/18 03:56 Dose: 0.3 mcg/kg/hr, 5.28 mls/hr Nicardipine HCl 25 mg/ Sodium (Chloride) 250 mls @ 25 mls/hr IV.CONT TITRATE PRN; Protocol PRN Reason: Per Protocol Last Titration: 04/02/18 18:15 Dose: 0 mg/hr, 0 mls/hr Magnesium Sulfate 4 gm/ Sodium (Chloride) 100 mls @ 50 mls/hr IV.SIG UNSCH PRN PRN Reason: For Magnesium 0.9 - 1.1 mg/dL Magnesium Sulfate 2 gm/ Sodium (Chloride) 100 mls @ 50 mls/hr IV.SIG UNSCH PRN PRN Reason: For Magnesium 1.2 - 1.6 mg/dL Potassium Chloride (Kcl 40 Meq Premix Inj) 40 meq in 100 mls @ 25 mls/hr IV.SIG Q2H PRN PRN Reason: For Potassium 2.8 - 3.2 mEq/L Potassium Chloride (Kcl 20 Meq Premix Inj) 20 meq in 100 mls @ 50 mls/hr IV.SIG Q2H PRN PRN Reason: For Potassium 3.3 - 3.5 mEq/L Last Infusion: 04/02/18 16:30 Dose: Infused Potassium Chloride (Kcl 40 Meq Premix Inj) 40 meq in 100 mls @ 25 mls/hr IV.SIG UNSCH PRN PRN Reason: For Potassium 3.3 - 3.5 mEq/L Potassium Chloride (Kcl 20 Meq Premix Inj) 20 meq in 100 mls @ 50 mls/hr IV.SIG Q2H PRN PRN Reason: For Potassium 2.8 - 3.2 mEq/L Potassium Phosphate 30 mmol/ (Sodium Chloride) 260 mls @ 42 mls/hr IV.SIG UNSCH PRN PRN Reason: SEE LABEL COMMENTS Sodium Phosphate 30 mmol/ (Sodium Chloride) 260 mls @ 42 mls/hr IV.SIG UNSCH PRN PRN Reason: For Phosphorus < 2.5 mg/dL Midazolam HCl (Versed Inj) 50 mg in 50 mls @ 1 mls/hr IV.CONT TITRATE PRN; Protocol PRN Reason: Per Protocol Last Admin: 04/09/18 19:43 Dose: 3 mg/hr, 3 mls/hr Levetiracetam 1,500 mg/ Sodium (Chloride) 115 mls @ 345 mls/hr IV.SIG BID DEBORAH Last Admin: 04/10/18 09:21 Dose: 345 mls/hr Valproate Sodium 750 mg/ (Sodium Chloride) 107.5 mls @ 105 mls/hr IV.SIG Q8H DEBORAH Last Infusion: 04/10/18 04:57 Dose: Infused Lacosamide 100 mg/ Sodium (Chloride) 110 mls @ 110 mls/hr IV.SIG Q12HR DEBORAH Last Admin: 04/10/18 09:21 Dose: 110 mls/hr Insulin Aspart (Novolog Insulin Correctional Sugar Inj) 0 unit SQ Q6HR [facility]; Protocol Last Admin: 04/10/18 06:44 Dose: Not Given Labetalol HCl (Trandate Inj) 10 mg IV.PUSH Q1H PRN PRN Reason: SBP >165 Last Admin: 04/04/18 04:37 Dose: 10 mg Lactulose (Lactulose Liq) 30 ml PO DAILY PRN PRN Reason: SEVERE CONSITIPATION Lactulose (Lactulose Liq) 30 ml PO BID [facility] Last Admin: 04/10/18 09:21 Dose: Not Given Lansoprazole (Prevacid Solutab) 30 mg NG/OG DAILY [facility] Last Admin: 04/10/18 09:22 Dose: 30 mg Lorazepam (Ativan Inj) 2 mg IV.PUSH Q5M PRN PRN Reason: UNTIL SEIZURES STOP Last Admin: 04/08/18 11:49 Dose: 2 mg Magnesium Oxide (Mag-Ox) 800 mg PO UNSCH PRN PRN Reason: For Magnesium 1.2 - 1.6 mg/dL Methylprednisolone Sodium Succinate (Solumedrol Inj) 20 mg IV.PUSH BID [facility] Last Admin: 04/10/18 09:22 Dose: 20 mg Miscellaneous Medication () 1 each OROPHARYNG 0000,0400,1200,1600 [facility] Last Admin: 04/10/18 03:55 Dose: 1 each Nitroglycerin (Nitro-Bid 2% Oint) 2 inch TOPICAL Q6HR PRN PRN Reason: Sbp>165, Dbp>90 Ondansetron HCl (Zofran Inj) 4 mg IV.PUSH Q6H PRN PRN Reason: NAUSEA OR VOMITING Oxycodone HCl (Roxicodone Intensol Liq) 5 mg PO Q6H [facility] Last Admin: 04/10/18 09:22 Dose: 5 mg Polyethylene Glycol (Miralax) 17 gm PO BID [facility] Last Admin: 04/10/18 09:21 Dose: Not Given Potassium Bicarb/Potassium Chloride (K-Lyte Cl Eff) 50 meq PO UNSCH PRN PRN Reason: For Potassium 3.3 - 3.5 mEq/L Last Admin: 04/04/18 05:25 Dose: 50 meq Potassium Phosphate (K-Phos Original) 2,000 mg PO Q4H PRN PRN Reason: Phosphorus Less Than 2.5 mg/dL Potassium Phosphate (K-Phos Original) 2,000 mg PO UNSCH PRN PRN Reason: SEE LABEL COMMENTS Senna/Docusate Sodium ([place]-Colace) 1 tab PO BID [facility] Last Admin: 04/10/18 09:21 Dose: Not Given Sennosides (Senokot) 17.2 mg PO Q12H PRN PRN Reason: Moderate Constipation Sodium Chloride (Ns Flush) 2 ml IV.FLUSH BID [facility] Last Admin: 04/10/18 09:22 Dose: 2 ml Sodium Chloride (Ns Flush) 2 ml IV.FLUSH PRN PRN PRN Reason: FLUSH AFTER USING IV ACCESS Allergies/Adverse Reactions: Allergies Allergy/AdvReac Type Severity Reaction Status Date / Time No Allergy Information Allergy Verified 03/29/18 00:03 Available Physical Exam Vital signs: Vital Signs 04/09/18 11:58 04/09/18 12:00 04/09/18 15:48 Temperature 98.4 F Pulse Rate 86 Respiratory Rate 20 20 20 Blood Pressure 180/90 H Pulse Oximetry 99 99 98 04/09/18 16:00 04/09/18 20:00 04/09/18 21:11 Temperature 98.5 F 98.2 F Pulse Rate 84 87 76 Respiratory Rate 19 20 19 Blood Pressure 114/73 151/87 H Pulse Oximetry 97 99 99 04/10/18 00:00 04/10/18 00:32 04/10/18 04:00 Temperature 98.9 F 99.2 F Pulse Rate 66 82 Respiratory Rate 20 23 20 Blood Pressure 141/73 H 122/89 Pulse Oximetry 100 99 100 04/10/18 04:12 04/10/18 08:00 04/10/18 08:14 Temperature 99 F Pulse Rate 72 67 Respiratory Rate 19 18 20 Blood Pressure 116/74 Pulse Oximetry 99 100 100 Intake & Output 04/09/18 04/10/18 04/10/18 18:59 06:59 18:59 Intake Total 1201.2 / 1201.2 1144.6 / 1144.6 Output Total 600 / 600 350 / 350 Balance 601.2 / 601.2 794.6 / 794.6 Weight 72.7 kg Intake: IV 543.2 / 543.2 591.6 / 591.6 Precedex Inj 200 MCG In NS Inj 50 / 50 48 ML @ 0.2 MCG/KG/HR 3.52 mls/ hr IV.CONT TITRATE PRN Rx#: [id number] Versed Inj 50 mg In 50 ml @ 1 50 / 50 MG/HR 1 mls/hr IV.CONT TITRATE PRN Rx#:[id number] Cerebyx Inj 80 MGPE In NS Inj 103.2 / 103.2 51.6 / 51.6 50 ML @ 208 mls/hr IV.SIG Q8H DEBORAH Rx#:[id number] Vimpat Inj 100 MG In NS Inj 100 110 / 110 110 / 110 ML @ 110 mls/hr IV.SIG Q12HR DEBORAH Rx#:[id number] Depacon Inj 750 MG In NS Inj 215.0 / 215.0 215.0 / 215.0 100 ML @ 105 mls/hr IV.SIG Q8H DEBORAH Rx#:[id number] Keppra Inj 1,500 MG In NS Inj 115 / 115 115 / 115 100 ML @ 345 mls/hr IV.SIG BID DEBORAH Rx#:[id number] Tube Feeding 558 / 558 433 / 433 Water Bolus Amount 100 / 100 120 / 120 Output: Urine 600 / 600 350 / 350 Other: # Incontinent Voids 2 Date of Last Bowel Movement 04/09/18 04/09/1818 # Bowel Movements 1 Narrative: off sedatives no sz reported by nurse overnoc nor today pupil= withdraws bilat feet some eyes to left no response to commands - Urinary Catheter Management Indwelling Urethral Catheter Cath placed during this visit: yes, but has since been removed by the nurse Reason for continuing: Acute urinary retention Insertion date: 04/06/18 Insertion time: 03:50 Removal date: 04/06/18 Removal time: 05:00 Straight Cath placed during this visit: yes Reason for continuing: Not indwelling catheter Insertion date: 04/07/18 Insertion time: 02:07 Objective Laboratory Results - last 24 hr 04/09/18 04/09/18 04/09/18 13:27 17:45 23:44 Sodium Potassium Chloride Carbon Dioxide Anion Gap BUN Creatinine Estimated GFR POC Glucose 124 H 112 H 157 H Random Glucose Calcium Total Bilirubin AST ALT Alkaline Phosphatase Total Protein Albumin 04/10/18 03:24 Sodium 146 H Potassium 3.9 Chloride 107 Carbon Dioxide 27.3 Anion Gap 12 BUN 18 Creatinine 0.47 L Estimated GFR Greater than 89 POC Glucose Random Glucose 129 H Calcium 8.1 L Total Bilirubin 0.2 AST 31 ALT 38 Alkaline Phosphatase 143 H Total Protein 6.2 L Albumin 2.3 L Review/Management - Review/Management Plan: Ischemic hypoxic encephalopathy Initial EEG with burst suppression pattern LP neg Follow up EEG with no evidence of elcetrographic seizure, with severe supression of background Dilantin level is subtherapeutic Valproate level is subtherapeutic Acute respiratory failure Opioid overdose Benzo overdose - Continue Keppra 1500 mg Q12h - Increase Fosphenytoin dose and repeat level next am - Increase Valproate to 750 mg Q8h - Check levels next am - Valproate 500 mg tid - LVTC 500 mg Q 12h - Seizure precautions - DVT prophylaxis - GI prophylaxis - Discussed patient with RN, family members will come on Saturday for decision making - Dr. Smyth will follow up Saturday. 04/07/18 hard to think having all these seizure on sedatives and three aed plan check mri repeat check dil level add vimpat on keppra 1500 bid cont vpa level 70 would taper sedatives as tolerated will consider video eeg 04/08/18 i reviewed mri and it shows severe diffuse changes in basal ganglia and cortex consistent with anoxic damage agree with comfort care and withdrawal of vent 04/10/18 stable neuro anoxic encephalopathy severe agree with withdraw life support family coming into town acc to nursing
--- NOTE | 2018-04-10 09:55 | P.PNCC ---
Subjective Subjective Remarks/Hospital Course: 62-year-old female. She was found unresponsive. She had an empty bottle of 9 methadone 10 mg tablets and 18 Ativan 0.5 mg tablets. Apparently CPR was initiated per family. Family provided EVAC with information that patient is on hospice and has a history of diabetes, COPD, neuropathy, no advanced directives. When EVAC arrived she had a pulse but agonal respirations. She was administered Narcan 2 mg IV without improvement. Upon arrival to the ED she was not protecting her airway, pooling secretions in her mouth. She was intubated upon arrival. Her systolic blood pressure was in the 80s. She was administered 2 L normal saline bolus, right femoral line was placed and she was started on Levophed. Family has not arrived at the hospital and there is no available contact information. She is registered as a Amina Kebede. The prescription bottles say Antonina Coto. That individual has not been admitted since 2007. 03/30: Seizure activity appears to be controlled with Dilantin. She remains stuporous and we are unable to wean from the ventilator. Ongoing attempts to find out her true identity. 03/31: Will attempt spontaneous breathing trial again today. Late yesterday and early today she has had more episodes of spontaneous eye opening though she does not appear to track. Cerebrospinal fluid appears benign. No growth on culture after 48 hours. Bronchospasm responded quite well to steroids, will continue through extubation. 04/01: Fairly strong on spontaneous breathing trials today. We will discontinue all sedation, watch closely for seizure activity, and attempt to get her extubated. 04/02 -currently resting in bed in no acute distress. Eyes are rolled back. Currently on fentanyl drip at 150 mg/h and propofol drip at 25 mcg/kg/min. Starting dexmedetomidine drip and attempt to wean. Fosphenytoin decreased per neurology today. Strength 2 feeds today. No bowel movement. 04/03: T-max 100.2. Weaned off fentanyl and propofol drips. Currently only on dexmedetomidine drip at 1.4 mg/kg/h for vent synchrony. Tolerating tube feeds at goal. Beyond, gags and withdraws to pain bilateral upper and lower extremities. Not following commands. Eyes deviate downward. 04/04: Max 100.6. Currently afebrile. Stated 20-minute tonic-clonic seizure overnight. Received 4 mg lorazepam and bolused with 500 mg levetiracetam. Was switched to a propofol drip at 30 mcg/kg/min. Currently on midazolam drip at 4 mg an hour. 04/05: No sustained obvious seizure activity. No improvement in neurologic function. Bronchospasm well controlled. Enteral nutrition ongoing. 04/06: No change in neurologic function. No seizure activity. Tolerating enteral nutrition. If family wants to persist with aggressive care we probably need to consider tracheostomy soon. 04/07: Facial twitching described in notes. I have not witnessed. Low Dilantin level noted. Continues to fail spontaneous breathing trials. 04/08: No improvement in neurologic function. 04/09: We are having difficulty controlling her seizures, consistent with anoxic brain injury. Her bronchospasm is well controlled now and it is relatively easy to ventilator. Hemodynamics have stabilized. Her neurologic status is severely diminished. Palliative care was discussing the possibility of withdrawal with the family. I strongly support withdrawal of artificial support at this time because this patient has no chance of recovery to a meaningful life. She got to this point because of end-stage COPD and bronchospasm and was previously in hospice care because of the terminal and clinically deteriorating nature of that chronic pulmonary illness. Subjective 04/10: T-max 99.2. Tolerating tube feeding. Remains on 3 antiepileptics. No new changes in neurological status. Objective Vital Signs / I&O: Vital Signs 04/09/18 11:58 04/09/18 12:00 04/09/18 15:48 Temperature 98.4 F Pulse Rate 86 Respiratory Rate 20 20 20 Blood Pressure 180/90 H Pulse Oximetry 99 99 98 04/09/18 16:00 04/09/18 20:00 04/09/18 21:11 Temperature 98.5 F 98.2 F Pulse Rate 84 87 76 Respiratory Rate 19 20 19 Blood Pressure 114/73 151/87 H Pulse Oximetry 97 99 99 04/10/18 00:00 04/10/18 00:32 04/10/18 04:00 Temperature 98.9 F 99.2 F Pulse Rate 66 82 Respiratory Rate 20 23 20 Blood Pressure 141/73 H 122/89 Pulse Oximetry 100 99 100 04/10/18 04:12 04/10/18 08:00 04/10/18 08:14 Temperature 99 F Pulse Rate 72 67 Respiratory Rate 19 18 20 Blood Pressure 116/74 Pulse Oximetry 99 100 100 Intake & Output 04/09/18 04/10/18 04/10/18 18:59 06:59 18:59 Intake Total 1201.2 / 1201.2 1144.6 / 1144.6 Output Total 600 / 600 350 / 350 Balance 601.2 / 601.2 794.6 / 794.6 Weight 72.7 kg Intake: IV 543.2 / 543.2 591.6 / 591.6 Precedex Inj 200 MCG In NS Inj 50 / 50 48 ML @ 0.2 MCG/KG/HR 3.52 mls/ hr IV.CONT TITRATE PRN Rx#: [id number] Versed Inj 50 mg In 50 ml @ 1 50 / 50 MG/HR 1 mls/hr IV.CONT TITRATE PRN Rx#:[id number] Cerebyx Inj 80 MGPE In NS Inj 103.2 / 103.2 51.6 / 51.6 50 ML @ 208 mls/hr IV.SIG Q8H DEBORAH Rx#:[id number] Vimpat Inj 100 MG In NS Inj 100 110 / 110 110 / 110 ML @ 110 mls/hr IV.SIG Q12HR DEBORAH Rx#:[id number] Depacon Inj 750 MG In NS Inj 215.0 / 215.0 215.0 / 215.0 100 ML @ 105 mls/hr IV.SIG Q8H DEBORAH Rx#:[id number] Keppra Inj 1,500 MG In NS Inj 115 / 115 115 / 115 100 ML @ 345 mls/hr IV.SIG BID DEBORAH Rx#:[id number] Tube Feeding 558 / 558 433 / 433 Water Bolus Amount 100 / 100 120 / 120 Output: Urine 600 / 600 350 / 350 Other: # Incontinent Voids 2 Date of Last Bowel Movement 04/09/18 04/09/18 04/09/18 # Bowel Movements 1 Result Diagrams: 04/06/18 04:21 04/10/18 03:24 Other Results: Microbiology 03/29/18 06:05 Blood - Peripheral Aerobic Blood Culture - Final No growth in 5 days 03/29/18 06:05 Blood - Peripheral Anaerobic Blood Culture - Final No growth in 5 days 03/29/18 06:00 Blood - Peripheral Aerobic Blood Culture - Final No growth in 5 days 03/29/18 06:00 Blood - Peripheral Anaerobic Blood Culture - Final No growth in 5 days 03/30/18 21:45 Sputum - Endotracheal Gram Stain - Final 03/30/18 21:45 Sputum - Endotracheal Sputum Culture - Final Moderate growth normal respiratory erick 03/29/18 14:42 Lumbar Puncture Gram Stain - Final 03/29/18 14:42 Lumbar Puncture CSF Culture - Final No growth in 72 hours Imaging: Chest X-Ray 03/28/18 22:52 CONCLUSION: ET tube and NG tube in good position. Head CT 03/29/18 00:00 CONCLUSION: Negative noncontrast head CT. . Head MRI 03/29/18 13:31 CONCLUSION: 1. No acute intracranial abnormality identified. 2. Fluid within the mastoid air cells on the right. Chest X-Ray 03/30/18 05:38 CONCLUSION: Minimal prominence of interstitium which may represent pulmonary venous hypertension or minimal edema. Chest X-Ray 04/03/18 06:00 CONCLUSION: 1. No significant interval change. 2. Stable ETT, less than 1 cm above the henry. 3. Stable NGT. 4. Stable mild positive fluid balance. Chest X-Ray 04/04/18 06:00 CONCLUSION: No acute cardiopulmonary disease. Chest X-Ray 04/05/18 06:00 CONCLUSION: Stable chest Head MRI 04/07/18 00:00 CONCLUSION: 1. No acute intracranial abnormality. Objective Remarks: GENERAL: 62-year-old female resting in bed in no acute distress SKIN: Warm and dry. HEAD: Atraumatic. Normocephalic. EYES: Pupils equal and round, 3 mm bilaterally and sluggish. ENT: No nasal bleeding or discharge. NECK: Trachea midline. Orotracheal intubation. CARDIOVASCULAR: RRR. S1, S2 no S4. Without murmur. No JVD. RESPIRATORY: Good bilateral breath sounds. Minimal end expiratory wheeze cysts. Good bilateral air movement. GASTROINTESTINAL: Abdomen soft, non-tender, nondistended. Bowel sounds present. No guarding. MUSCULOSKELETAL: Extremities without significant peripheral edema. Skin as above. Amputation to the right second toe. NEUROLOGICAL: Spontaneous eye opening to central noxious stimuli. Eyes deviated downward. Decerebrate type positioning in bilateral lower extremities. Bilateral upper extremities withdrawing. No myoclonic jerking noted. Assessment and Plan - Assessment and Plan Plan: NEURO/PSYCH: Likely acute hypoxic ischemic encephalopathy Opioid overdose Benzodiazepine overdose History of depression/anxiety History of diabetic neuropathy Currently on dexmedetomidine drip at 0.3 mcg/kg per hour for sedation/analgesia while intubated Switch propofol to midazolam drip at 2 mg an hour. Goal of RASS 0 Daily sedation vacation MRI brain revealed right-sided mastoiditis otherwise no acute intercranial findings EEG 03/29 with burst suppression with epileptiform activity. EEG 03/30 without epileptic activity. Repeat EEG 04/04 pending Followed by neurology. Currently on levetiracetam 1500 milligrams IV twice daily and lacosamide 100 mg twice daily and valproate 750 every 8 RESP: Acute hypercapneic respiratory failure COPD with ongoing tobaccoism Currently on PRVC 14500/07/05/39 Ventilator bundle Albuterol/ipratropium aerosols every 6 hours with albuterol aerosols every 2 hours as needed for dyspnea Budesonide 0.5/2 1 inhalation twice daily Methylprednisolone succinate 20 mg every 12 hours CV: Shock -resolved Hypertension As needed labetalol and nicardipine drip for elevated blood pressure Currently on clonidine 0.1 mg 3 times daily more for neuro/psych alpha reasons Troponin 0.04 admission. Discontinued IV fluids GI: Elevated transaminases likely secondary to shock Hypoalbuminemia Acute constipation Continue tube feeds with vital 1.5 goal 45 cc an hour Lansoprazole 30 mg daily for GI prophylaxis Docusate sodium/senna 1 tablet twice daily for bowel. One BM yesterday FEN/GIULIA/ : Hypernatremia Periwick in place. Monitor intake and output hourly. Monitor electrolytes and replace as indicated per ICU electrolyte replacement protocol. ID: Received piperacillin/tazobactam and vancomycin in the emergency department. 03/29 -Gram stain of CSF -growth 03/29 -blood cultures x2 -no growth 03/29 -sputum negative Will discontinue acyclovir 04/02 as HSV was negative Discontinue piperacillin l/tazobactam 04/02 HEME: Monitor CBC daily. Follow trends. No indication for transfusion of blood products at this time. ENDO: Diabetes mellitus per report -hemoglobin A1c - 6.5 Elevated TSH of 8. Normal free T/T4. Recommend recheck in 4-6 weeks after acute illness Sliding scale insulin Accu-Cheks to maintain euglycemia/aspart low protocol MSK: Physical therapy evaluate and treat PROPH: SCDs for DVT prophylaxis. Heparin subcu for DVT prophylaxis. Lansoprazole 30 mg daily for GI prophylaxis. Level 2 follow-up
--- NOTE | 2018-04-10 13:33 | P.DIET ---
Nutritional Evaluation Type of nutrition evaluation: follow-up Nutrition consult regarding: Tube Feeding Objective - Diagnosis Respiratory Failure, Substance Abuse - Objective % IBW: 135 (IBW = 115#) Body Weight Used for Calculations: Upper end of IBW (57.5 kg) Energy Needs - Lower Range (kCal/kg): 25 Energy Needs - Upper Range (kCal/kg): 30 Lower Limit kCal/kg (kCals): 1,438 Upper Limit kCal/kg (kCals): 1,725 Lower Limit Protein Factor (Grams per Kg): 1.0 Upper Limit Protein Factor (Grams per Kg): 1.5 Lower Protein Needs (Protein): 58 Upper Protein Needs (Protein): 86 Dietitian Reviewed in Medical Record: Curent medications, Intake & Output, Labs , Medical history, Tube feeding Assessment Assessment: Pt remains at high nutrition risk 2' to her need for TFing. To meet needs with Vital 1.5, recommend continue goal rate of 45 mls/hr to provide 1620 kcals, 73 gms protein and 825 mls of free water. Labs, wts and clinical course noted. Palliative Care notes reviewed. Recommendations: Continue Vital 1.5 @ 45 mls/hr goal Dietitian to Monitor: Lab values, Tube feeding tolerance, Weight change, Medical course
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
[2018-04-11] MEDS: Insulin NovoLOG Aspart Correctional Sugar Inj SQ SCH ×3 (00:15→12:56)
[2018-04-11] MEDS: Dexmedetomidine Inj 200 MCG in Sodium Chlor 0.9% Inj 48 ML IV.CONT PRN ×2 (00:15→11:52)
[2018-04-11] MEDS: Oral Hygiene Kit OROPHARYNG SCH ×3 (00:15→12:33)
[2018-04-11] MEDS: Midazolam 50 MG/50 ML Inj 50 MG/50 ML BAG IV.CONT PRN ×2 (00:18→22:08)
[2018-04-11] MEDS: SODIUM CHLOR IV.SIG SCH ×3 (03:51→19:48)
[2018-04-11] MEDS: FOSPHENYTOIN IV.SIG SCH ×3 (03:51→19:48)
[2018-04-11] MEDS: Valproate Inj 750 MG in Sodium Chlor 0.9% Inj 100 ML IV.SIG SCH ×3 (04:13→20:06)
[2018-04-11] MEDS: Heparin - SQ 10,000 UNITS/ML Vial SQ SCH ×2 (06:14→13:38)
--- NOTE | 2018-04-11 08:15 | P.PNCC ---
Subjective Subjective Remarks/Hospital Course: 62-year-old female. She was found unresponsive. She had an empty bottle of 9 methadone 10 mg tablets and 18 Ativan 0.5 mg tablets. Apparently CPR was initiated per family. Family provided EVAC with information that patient is on hospice and has a history of diabetes, COPD, neuropathy, no advanced directives. When EVAC arrived she had a pulse but agonal respirations. She was administered Narcan 2 mg IV without improvement. Upon arrival to the ED she was not protecting her airway, pooling secretions in her mouth. She was intubated upon arrival. Her systolic blood pressure was in the 80s. She was administered 2 L normal saline bolus, right femoral line was placed and she was started on Levophed. Family has not arrived at the hospital and there is no available contact information. She is registered as a Amina Kebede. The prescription bottles say Antonina Coto. That individual has not been admitted since 2007. 03/30: Seizure activity appears to be controlled with Dilantin. She remains stuporous and we are unable to wean from the ventilator. Ongoing attempts to find out her true identity. 03/31: Will attempt spontaneous breathing trial again today. Late yesterday and early today she has had more episodes of spontaneous eye opening though she does not appear to track. Cerebrospinal fluid appears benign. No growth on culture after 48 hours. Bronchospasm responded quite well to steroids, will continue through extubation. 04/01: Fairly strong on spontaneous breathing trials today. We will discontinue all sedation, watch closely for seizure activity, and attempt to get her extubated. 04/02 -currently resting in bed in no acute distress. Eyes are rolled back. Currently on fentanyl drip at 150 mg/h and propofol drip at 25 mcg/kg/min. Starting dexmedetomidine drip and attempt to wean. Fosphenytoin decreased per neurology today. Strength 2 feeds today. No bowel movement. 04/03: T-max 100.2. Weaned off fentanyl and propofol drips. Currently only on dexmedetomidine drip at 1.4 mg/kg/h for vent synchrony. Tolerating tube feeds at goal. Beyond, gags and withdraws to pain bilateral upper and lower extremities. Not following commands. Eyes deviate downward. 04/04: Max 100.6. Currently afebrile. Stated 20-minute tonic-clonic seizure overnight. Received 4 mg lorazepam and bolused with 500 mg levetiracetam. Was switched to a propofol drip at 30 mcg/kg/min. Currently on midazolam drip at 4 mg an hour. 04/05: No sustained obvious seizure activity. No improvement in neurologic function. Bronchospasm well controlled. Enteral nutrition ongoing. 04/06: No change in neurologic function. No seizure activity. Tolerating enteral nutrition. If family wants to persist with aggressive care we probably need to consider tracheostomy soon. 04/07: Facial twitching described in notes. I have not witnessed. Low Dilantin level noted. Continues to fail spontaneous breathing trials. 04/08: No improvement in neurologic function. 04/09: We are having difficulty controlling her seizures, consistent with anoxic brain injury. Her bronchospasm is well controlled now and it is relatively easy to ventilator. Hemodynamics have stabilized. Her neurologic status is severely diminished. Palliative care was discussing the possibility of withdrawal with the family. I strongly support withdrawal of artificial support at this time because this patient has no chance of recovery to a meaningful life. She got to this point because of end-stage COPD and bronchospasm and was previously in hospice care because of the terminal and clinically deteriorating nature of that chronic pulmonary illness. 04/10: T-max 99.2. Tolerating tube feeding. Remains on 4 antiepileptics. No new changes in neurological status. Subjective 04/11: Afebrile. 2 feeds at goal. Remains on 4 antiepileptics. Plan for withdrawal of care today with when son arrives Objective Vital Signs / I&O: Vital Signs 04/10/18 08:14 04/10/18 11:38 04/10/18 12:00 Temperature 98.8 F Pulse Rate 67 71 72 Respiratory Rate 20 17 20 Blood Pressure 144/83 H Pulse Oximetry 100 100 100 04/10/18 15:45 04/10/18 16:00 04/10/18 20:00 Temperature 99.5 F 98.2 F Pulse Rate 72 73 Respiratory Rate 19 27 H 18 Blood Pressure 132/79 131/82 Pulse Oximetry 99 100 100 04/10/18 21:27 04/11/18 00:00 04/11/18 00:11 Temperature 98.7 F Pulse Rate 64 54 L Respiratory Rate 18 14 15 Blood Pressure 115/73 Pulse Oximetry 100 100 04/11/18 04:00 04/11/18 05:03 04/11/18 07:42 Temperature 98.3 F Pulse Rate 77 82 69 Respiratory Rate 20 16 20 Blood Pressure 113/73 Pulse Oximetry 99 100 100 Intake & Output 04/10/18 04/11/18 04/11/18 18:59 06:59 18:59 Intake Total 1170.7 / 1170.7 1145.6 / 1145.6 Output Total 400 / 400 350 / 350 Balance 770.7 / 770.7 795.6 / 795.6 Weight 73.1 kg Intake: IV 485.7 / 485.7 591.6 / 591.6 Precedex Inj 200 MCG In NS Inj 50 / 50 50 / 50 48 ML @ 0.2 MCG/KG/HR 3.52 mls/ hr IV.CONT TITRATE PRN Rx#: [id number] Versed Inj 50 mg In 50 ml @ 1 50 / 50 MG/HR 1 mls/hr IV.CONT TITRATE PRN Rx#:[id number] Cerebyx Inj 80 MGPE In NS Inj 103.2 / 103.2 51.6 / 51.6 50 ML @ 208 mls/hr IV.SIG Q8H DEBORAH Rx#:[id number] Vimpat Inj 100 MG In NS Inj 100 110 / 110 110 / 110 ML @ 110 mls/hr IV.SIG Q12HR DEBORAH Rx#:[id number] Depacon Inj 750 MG In NS Inj 107.5 / 107.5 215.0 / 215.0 100 ML @ 105 mls/hr IV.SIG Q8H DEBORAH Rx#:[id number] Keppra Inj 1,500 MG In NS Inj 115 / 115 115 / 115 100 ML @ 345 mls/hr IV.SIG BID DEBORAH Rx#:[id number] Tube Feeding 535 / 535 434 / 434 Water Bolus Amount 150 / 150 120 / 120 Output: Urine 400 / 400 350 / 350 Other: # Incontinent Voids 3 2 Date of Last Bowel Movement 04/09/18 04/11/18 # Bowel Movements 0 1 Result Diagrams: 04/06/18 04:21 04/10/18 03:24 Other Results: Microbiology 03/29/18 06:05 Blood - Peripheral Aerobic Blood Culture - Final No growth in 5 days 03/29/18 06:05 Blood - Peripheral Anaerobic Blood Culture - Final No growth in 5 days 03/29/18 06:00 Blood - Peripheral Aerobic Blood Culture - Final No growth in 5 days 03/29/18 06:00 Blood - Peripheral Anaerobic Blood Culture - Final No growth in 5 days 03/30/18 21:45 Sputum - Endotracheal Gram Stain - Final 03/30/18 21:45 Sputum - Endotracheal Sputum Culture - Final Moderate growth normal respiratory erick 03/29/18 14:42 Lumbar Puncture Gram Stain - Final 03/29/18 14:42 Lumbar Puncture CSF Culture - Final No growth in 72 hours Imaging: Chest X-Ray 03/28/18 22:52 CONCLUSION: ET tube and NG tube in good position. Head CT 03/29/18 00:00 CONCLUSION: Negative noncontrast head CT. . Head MRI 03/29/18 13:31 CONCLUSION: 1. No acute intracranial abnormality identified. 2. Fluid within the mastoid air cells on the right. Chest X-Ray 03/30/18 05:38 CONCLUSION: Minimal prominence of interstitium which may represent pulmonary venous hypertension or minimal edema. Chest X-Ray 04/03/18 06:00 CONCLUSION: 1. No significant interval change. 2. Stable ETT, less than 1 cm above the henry. 3. Stable NGT. 4. Stable mild positive fluid balance. Chest X-Ray 04/04/18 06:00 CONCLUSION: No acute cardiopulmonary disease. Chest X-Ray 04/05/18 06:00 CONCLUSION: Stable chest Head MRI 04/07/18 00:00 CONCLUSION: 1. No acute intracranial abnormality. Objective Remarks: GENERAL: 62-year-old female resting in bed in no acute distress SKIN: Warm and dry. HEAD: Atraumatic. Normocephalic. EYES: Pupils equal and round, 3 mm bilaterally and sluggish. ENT: No nasal bleeding or discharge. NECK: Trachea midline. Orotracheal intubation. CARDIOVASCULAR: RRR. S1, S2 no S4. Without murmur. No JVD. RESPIRATORY: Good bilateral breath sounds. Minimal end expiratory wheeze cysts. Good bilateral air movement. GASTROINTESTINAL: Abdomen soft, non-tender, nondistended. Bowel sounds present. No guarding. MUSCULOSKELETAL: Extremities without significant peripheral edema. Skin as above. Amputation to the right second toe. NEUROLOGICAL: Spontaneous eye opening to central noxious stimuli. Eyes deviated downward. Decerebrate type positioning in bilateral lower extremities. Bilateral upper extremities withdrawing. No myoclonus noted Assessment and Plan - Assessment and Plan Plan: NEURO/PSYCH: Likely acute hypoxic ischemic encephalopathy Opioid overdose Benzodiazepine overdose History of depression/anxiety History of diabetic neuropathy Currently on dexmedetomidine drip at 0.3 mcg/kg per hour for sedation/analgesia while intubated Switch propofol to midazolam drip at 2 mg an hour. Goal of RASS 0 Daily sedation vacation MRI brain revealed right-sided mastoiditis otherwise no acute intercranial findings EEG 03/29 with burst suppression with epileptiform activity. EEG 03/30 without epileptic activity. Repeat EEG 04/04 pending Followed by neurology. Currently on levetiracetam 1500 milligrams IV twice daily and lacosamide 100 mg twice daily and valproate 750 every 8 and fosphenytoin 80 mg every 8 hours. Check levels of valproic acid and fosphenytoin today RESP: Acute hypercapneic respiratory failure COPD with ongoing tobaccoism Currently on PRVC /07/05/39 Ventilator bundle Albuterol/ipratropium aerosols every 6 hours with albuterol aerosols every 2 hours as needed for dyspnea Budesonide 0.5/2 1 inhalation twice daily Methylprednisolone succinate 20 mg every 24 hours CV: Shock -resolved Hypertension As needed labetalol and nicardipine drip for elevated blood pressure Currently on clonidine 0.1 mg 3 times daily more for neuro/psych alpha reasons Troponin 0.04 admission. Discontinued IV fluids GI: Elevated transaminases likely secondary to shock Hypoalbuminemia Acute constipation Continue tube feeds with vital 1.5 goal 45 cc an hour Lansoprazole 30 mg daily for GI prophylaxis Docusate sodium/senna 1 tablet twice daily for bowel. One BM yesterday FEN/GIULIA/ : Hypernatremia Periwick in place. Monitor intake and output hourly. Monitor electrolytes and replace as indicated per ICU electrolyte replacement protocol. ID: Received piperacillin/tazobactam and vancomycin in the emergency department. 03/29 -Gram stain of CSF -growth 03/29 -blood cultures x2 -no growth 03/29 -sputum negative Will discontinue acyclovir 04/02 as HSV was negative Discontinue piperacillin l/tazobactam 04/02 HEME: Monitor CBC daily. Follow trends. No indication for transfusion of blood products at this time. ENDO: Diabetes mellitus per report -hemoglobin A1c - 6.5 Elevated TSH of 8. Normal free T/T4. Recommend recheck in 4-6 weeks after acute illness Sliding scale insulin Accu-Cheks to maintain euglycemia/aspart low protocol MSK: Physical therapy evaluate and treat PROPH: SCDs for DVT prophylaxis. Heparin subcu for DVT prophylaxis. Lansoprazole 30 mg daily for GI prophylaxis. Level 2 follow-up
[2018-04-11] MEDS ORDERED: MethylPREDNISolone Sod Succinate Inj 40 MG/ML Vial IV.PUSH SCH (09:00)
[2018-04-11] MEDS: Carboxymethylcellulose 0.5% Opth Drops 15 ML Bottle EACH EYE SCH (09:28)
[2018-04-11] MEDS: Chlorhexidine 0.12% Oral Kit 15 ML UDC OROPHARYNG SCH (09:28)
[2018-04-11] MEDS: levETIRAcetam Inj 1,500 MG in Sodium Chlor 0.9% Inj 100 ML IV.SIG SCH ×2 (09:28→19:59)
[2018-04-11] MEDS: Senna/Docusate Sodium 8.6/50 MG Tablet PO SCH (09:28)
[2018-04-11] MEDS: Polyethylene Glycol 3350 17 GM Packet PO SCH (09:28)
[2018-04-11 10:03] LABS: Baso % (Auto) 0.7 % (0.0-2.0); Eos % (Auto) 0.7 % (0.0-4.0); Hematocrit 38.2 % (35.0-46.0); Hemoglobin 12.3 gm/dL (11.6-15.3); Lymph # (Auto) 1.1 th/mm3 (1.0-4.8); Lymph % (Auto) 17.4 % (9.0-44.0); Mean Corpuscular HGB Conc 32.2 % (32.0-36.0); Mean Corpuscular Volume 80.8 fL (80.0-100.0); Mean Platelet Volume 9.2 fL (7.0-11.0); Mono # (Auto) 0.4 th/mm3 (0.0-0.9); Mono % (Auto) 6.4 % (0.0-8.0); Neut # (Auto) 4.7 th/mm3 (1.8-7.7); Neut % (Auto) 74.8 % (16.0-70.0); Platelet Count 201 th/mm3 (150-450); Red Blood Count 4.73 mil/mm3 (4.00-5.30); Red Cell Distribution Width 19.4 % (11.6-17.2); White Blood Count 6.3 th/mm3 (4.0-11.0)
[2018-04-11] MEDS: Lacosamide Inj 100 MG in Sodium Chlor 0.9% Inj 100 ML IV.SIG SCH ×2 (10:10→21:01)
[2018-04-11 10:20] LABS: Anion Gap 9 meq/L (5-15); Blood Urea Nitrogen 18 mg/dL (7-18); Calcium 8.3 mg/dL (8.5-10.1); Carbon Dioxide 29.7 meq/L (21.0-32.0); Chloride 109 meq/L (98-107); Glomerular Filtration Rate Greater Than 89 mL/min (>89); Glucose,Random 135 mg/dL (74-106); Magnesium 2.3 mg/dL (1.5-2.5); Phosphorus 3.5 mg/dL (2.5-4.9); Sodium 148 meq/L (136-145)
--- NOTE | 2018-04-11 11:25 | P.PNPAL ---
Reason for Visit Reason for visit: a. To assist with evaluation and management of symptoms including: Encephalopathy, seizures b. To assist medical decision maker(s) with: better understanding of current medical conditions; weighing benefits/burdens of medical treatment options; making medical treatment decisions. Subjective Subjective/Interval History: Patient seen today for follow-up of symptom management of encephalopathy and seizures. Patient remains encephalopathic with no neurologic improvement. She does not withdraw to noxious stimuli, does exhibit spontaneous eye opening with central noxious stimuli and spontaneously. Gaze remains conjugated and deviated to the right. Encephalopathy is severe, constant, with decerebrate posturing in bilateral upper extremities and extension in bilateral lower extremities with stimulation. Seizures are currently controlled on her current regimen of Precedex 0.3 mcg/kg/ h, fosphenytoin 80 mgpe every 8 hours, lacosamide 100 mg every 12 hours, Keppra 1500 mg twice daily, Versed 2 mg/h and valproate sodium 750 mg every 8 hours. Seizures have been intermittent, tonic-clonic, severe, recurrent despite multiple antiepileptics. . Family/Friend Interactions: Have spoken today with patient's sister, Phyllis, and patient's niece, Sosa. Per that report, the patient's son was brought from [place] to [place] by Sosa overnight and arrived early this morning. Awaiting contact from him to determine time of withdrawal, if that remains the family's plan. 13:15 contacted by Tray Coto to arrange time for signing of consents to proceed with compassionate withdrawal of life support. Met him in the intensive surgical care unit, reviewed clinical progress, family consultant opinions and prognosis. He stated that he believed she would not wish to live in this condition and stated that he believed that withdrawal of life support was in her best interest. Consents were signed in the presence of the patient's nurse , Perla and myself. Family notified at Micheal's request so they could be at bedside during the withdrawal. Withdrawal will be completed once family is at bedside. . Advance Directives Living Will: Never completed Health Care Surrogate: Never completed Durable Power of Entertainer & Comic: Never completed Health Care Surrogate Name and Number: HCP: Tray Robb and Guerrero Zimmerman Objective Vital Signs: Vital Signs 04/10/18 11:38 04/10/18 12:00 04/10/18 15:45 Temperature 98.8 F Pulse Rate 71 72 Respiratory Rate 17 20 19 Blood Pressure 144/83 H Pulse Oximetry 100 100 99 04/10/18 16:00 04/10/18 20:00 04/10/18 21:27 Temperature 99.5 F 98.2 F Pulse Rate 72 73 64 Respiratory Rate 27 H 18 18 Blood Pressure 132/79 131/82 Pulse Oximetry 100 100 04/11/18 00:00 04/11/18 00:11 04/11/18 04:00 Temperature 98.7 F 98.3 F Pulse Rate 54 L 77 Respiratory Rate 14 15 20 Blood Pressure 115/73 113/73 Pulse Oximetry 100 100 99 04/11/18 05:03 04/11/18 07:42 04/11/18 08:00 Temperature 98 F Pulse Rate 82 69 71 Respiratory Rate 16 20 19 Blood Pressure 88/61 L Pulse Oximetry 100 100 100 04/11/18 08:30 Temperature Pulse Rate Respiratory Rate Blood Pressure 150/79 H Pulse Oximetry Intake & Output 04/10/18 04/11/18 04/11/18 18:59 06:59 18:59 Intake Total 1170.7 / 1170.7 1145.6 / 1145.6 Output Total 400 / 400 350 / 350 Balance 770.7 / 770.7 795.6 / 795.6 Weight 161 lb 2.526 oz Intake: IV 485.7 / 485.7 591.6 / 591.6 Precedex Inj 200 MCG In NS Inj 50 / 50 50 / 50 48 ML @ 0.2 MCG/KG/HR 3.52 mls/ hr IV.CONT TITRATE PRN Rx#: [id number] Versed Inj 50 mg In 50 ml @ 1 50 / 50 MG/HR 1 mls/hr IV.CONT TITRATE PRN Rx#:[id number] Cerebyx Inj 80 MGPE In NS Inj 103.2 / 103.2 51.6 / 51.6 50 ML @ 208 mls/hr IV.SIG Q8H DEBORAH Rx#:[id number] Vimpat Inj 100 MG In NS Inj 100 110 / 110 110 / 110 ML @ 110 mls/hr IV.SIG Q12HR DEBORAH Rx#:[id number] Depacon Inj 750 MG In NS Inj 107.5 / 107.5 215.0 / 215.0 100 ML @ 105 mls/hr IV.SIG Q8H DEBORAH Rx#:[id number] Keppra Inj 1,500 MG In NS Inj 115 / 115 115 / 115 100 ML @ 345 mls/hr IV.SIG BID DEBORAH Rx#:[id number] Tube Feeding 535 / 535 434 / 434 Water Bolus Amount 150 / 150 120 / 120 Output: Urine 400 / 400 350 / 350 Other: # Incontinent Voids 3 2 Date of Last Bowel Movement 04/09/18 04/11/18 04/11/18 # Bowel Movements 0 1 Physical Exam: CONSTITUTIONAL/GENERAL: This is an obese patient, intubated, sedated, appearing in no acute distress. TUBES/LINES/DRAINS: PIV left forearm, left hand, ETT, OGT, Watson. HEAD: Atraumatic. Normocephalic. ENT: Unable to assess hearing. Nose without bleeding or purulent drainage. Orally intubated CARDIOVASCULAR: Regular rate and rhythm without murmurs, gallops, or rubs. No JVD. Peripheral pulses symmetric. RESPIRATORY/CHEST: Symmetric, unlabored respirations. Clear to auscultation. Breath sounds equal bilaterally. No wheezes, rales, or rhonchi. GASTROINTESTINAL: Abdomen soft, nondistended. Bowel sounds hypoactive. GENITOURINARY: Without palpable bladder distension. Watson catheter in place. MUSCULOSKELETAL: Extremities without clubbing or cyanosis, trace edema. Faint mottling on the feet bilaterally. NEUROLOGICAL: Sedated, not withdrawing, opens eyes to central noxious stimuli, shows decerebrate posturing in upper extremities, extension in lower extremities with noxious stimuli, eyes deviated down and to the right, gaze conjugate, corneal reflexes intact. PSYCHIATRIC: Sedated. . Diagnostic Tests Laboratory: Laboratory Results - last 72 hr 04/08/18 04/08/18 04/09/18 13:49 16:51 00:26 WBC RBC Hgb Hct MCV MCH MCHC RDW Plt Count MPV Neut % (Auto) Lymph % (Auto) [place] % (Auto) Eos % (Auto) Baso % (Auto) Neut # (Auto) Lymph # (Auto) [place] # (Auto) Eos # (Auto) Baso # (Auto) WBC Differential Differential Comment Sodium Potassium Chloride Carbon Dioxide Anion Gap BUN Creatinine Estimated GFR POC Glucose 129 H 123 H 130 H Random Glucose Calcium Phosphorus Magnesium Total Bilirubin AST ALT Alkaline Phosphatase Total Protein Albumin Phenytoin Valproic Acid 04/09/18 04/09/18 04/09/18 03:22 05:42 13:27 WBC RBC Hgb Hct MCV MCH MCHC RDW Plt Count MPV Neut % (Auto) Lymph % (Auto) [place] % (Auto) Eos % (Auto) Baso % (Auto) Neut # (Auto) Lymph # (Auto) [place] # (Auto) Eos # (Auto) Baso # (Auto) WBC Differential Differential Comment Sodium 145 Potassium 3.4 L Chloride 107 Carbon Dioxide 27.6 Anion Gap 10 BUN 22 H Creatinine 0.50 Estimated GFR Greater than 89 POC Glucose 128 H 124 H Random Glucose 148 H Calcium 8.5 Phosphorus Magnesium Total Bilirubin 0.3 AST 31 ALT 39 Alkaline Phosphatase 127 H Total Protein 6.2 L Albumin 2.2 L Phenytoin Valproic Acid 04/09/18 04/09/18 04/10/18 17:45 23:44 03:24 WBC RBC Hgb Hct MCV MCH MCHC RDW Plt Count MPV Neut % (Auto) Lymph % (Auto) [place] % (Auto) Eos % (Auto) Baso % (Auto) Neut # (Auto) Lymph # (Auto) [place] # (Auto) Eos # (Auto) Baso # (Auto) WBC Differential Differential Comment Sodium 146 H Potassium 3.9 Chloride 107 Carbon Dioxide 27.3 Anion Gap 12 BUN 18 Creatinine 0.47 L Estimated GFR Greater than 89 POC Glucose 112 H 157 H Random Glucose 129 H Calcium 8.1 L Phosphorus Magnesium Total Bilirubin 0.2 AST 31 ALT 38 Alkaline Phosphatase 143 H Total Protein 6.2 L Albumin 2.3 L Phenytoin Valproic Acid 04/10/18 04/10/18 04/11/18 12:06 17:23 00:10 WBC RBC Hgb Hct MCV MCH MCHC RDW Plt Count MPV Neut % (Auto) Lymph % (Auto) [place] % (Auto) Eos % (Auto) Baso % (Auto) Neut # (Auto) Lymph # (Auto) [place] # (Auto) Eos # (Auto) Baso # (Auto) WBC Differential Differential Comment Sodium Potassium Chloride Carbon Dioxide Anion Gap BUN Creatinine Estimated GFR POC Glucose 146 H 111 H 140 H Random Glucose Calcium Phosphorus Magnesium Total Bilirubin AST ALT Alkaline Phosphatase Total Protein Albumin Phenytoin Valproic Acid 04/11/18 04/11/18 04/11/18 05:50 09:35 09:35 WBC 6.3 RBC 4.73 Hgb 12.3 Hct 38.2 MCV 80.8 MCH 26.0 L MCHC 32.2 RDW 19.4 H Plt Count 201 MPV 9.2 Neut % (Auto) 74.8 H Lymph % (Auto) 17.4 [place] % (Auto) 6.4 Eos % (Auto) 0.7 Baso % (Auto) 0.7 Neut # (Auto) 4.7 Lymph # (Auto) 1.1 [place] # (Auto) 0.4 Eos # (Auto) 0.0 Baso # (Auto) 0.0 WBC Differential . Differential Comment Auto diff final Sodium 148 H Potassium 4.0 Chloride 109 H Carbon Dioxide 29.7 Anion Gap 9 BUN 18 Creatinine 0.46 L Estimated GFR Greater than 89 POC Glucose 104 Random Glucose 135 H Calcium 8.3 L Phosphorus 3.5 Magnesium 2.3 Total Bilirubin AST ALT Alkaline Phosphatase Total Protein Albumin Phenytoin Valproic Acid 04/11/18 04/11/18 09:35 09:35 WBC RBC Hgb Hct MCV MCH MCHC RDW Plt Count MPV Neut % (Auto) Lymph % (Auto) [place] % (Auto) Eos % (Auto) Baso % (Auto) Neut # (Auto) Lymph # (Auto) [place] # (Auto) Eos # (Auto) Baso # (Auto) WBC Differential Differential Comment Sodium Potassium Chloride Carbon Dioxide Anion Gap BUN Creatinine Estimated GFR POC Glucose Random Glucose Calcium Phosphorus Magnesium Total Bilirubin AST ALT Alkaline Phosphatase Total Protein Albumin Phenytoin 2.5 L Valproic Acid 68 Result Diagrams: 04/11/18 09:35 04/11/18 09:35 Imaging: Chest X-Ray 03/28/18 22:52 CONCLUSION: ET tube and NG tube in good position. Head CT 03/29/18 00:00 CONCLUSION: Negative noncontrast head CT. . Head MRI 03/29/18 13:31 CONCLUSION: 1. No acute intracranial abnormality identified. 2. Fluid within the mastoid air cells on the right. Chest X-Ray 03/30/18 05:38 CONCLUSION: Minimal prominence of interstitium which may represent pulmonary venous hypertension or minimal edema. Chest X-Ray 04/03/18 06:00 CONCLUSION: 1. No significant interval change. 2. Stable ETT, less than 1 cm above the henry. 3. Stable NGT. 4. Stable mild positive fluid balance. Chest X-Ray 04/04/18 06:00 CONCLUSION: No acute cardiopulmonary disease. Chest X-Ray 04/05/18 06:00 CONCLUSION: Stable chest Head MRI 04/07/18 00:00 CONCLUSION: 1. No acute intracranial abnormality. Procedures: 03/28: Intubation 03/28: Right femoral triple-lumen central line placed 03/29: Diagnostic lumbar puncture Assessment and Plan Pertinent Non-Medical Issues: Psychosocial: She was born in [facility] [place] and moved to [place] 20 years ago. 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 She has been and twice, but has been with her current significant other for over 18 years. Spiritual: Not an important concept to the patient. Legal: No advance directives. Ethical issues impacting care: Difficulty contacting proxy decision makers. . Important Contacts: Son: Tray Coto Sister: Sushma Almodovar Life partner: Randy Hastings Son/brother: Guerrero Zimmerman -he was born as the patient's son, but then legally adopted by patient's father. Prognosis: Her prognosis is guarded. She was previously enrolled in hospice with [facility] for an end-stage diagnosis of COPD with acute lower respiratory infection. While this cannot be confirmed, it is also suspected that she had some level of chronic pain as she was on both methadone and oxycodone. At this time she was found down, cyanotic, discolored, reportedly without respirations with emesis blocking the airway until resuscitated by EMS. Neurology opines that she may have an anoxic/hypoxic/ischemic brain injury but this will not be able to be confirmed until sedation can be stopped. Unable to accurately prognosticate at this time. . Code Status: No Code DNR Plan: PLAN: Legal decision maker: Patient is currently not capacitated to make her own decisions and does not have a valid healthcare surrogate that we can locate. Per [place] statutes, as she is legally and has 2 sons, her sons would be the first tier healthcare proxy decision-maker. Attempts are in progress to locate both sons. If they cannot be located, patient does have a sister, Sushma who is readily available and willing to serve. As both parents are , be the alternate decision-maker if the sons cannot be contacted. Goals: Transitioned to comfort. CODE STATUS: DO NOT RESUSCITATE SYMPTOMS: * Encephalopathy: At this time she remains encephalopathic with poor prognosis per neurology. She remains on sedation at this time for vent synchrony and seizure management. Encephalopathy may be multifactorial to include hypoxic/ anoxic injury, drug overdose or progressive medical condition, opinion favoring anoxic injury. Pending arrival of family for withdrawal. * Seizures: Seizures improving on valproate sodium 750 mg every 8 hours, Keppra 1500 mg twice daily, lacosamide 100 mg twice daily, Cerebyx 80 mgPE every 8 hours and sedation with Versed and Precedex. Plan for withdrawal from life support today once family arrives. . Palliative care will continue to follow the patient during hospital course as condition evolves, to assist patient/decision-maker with understanding of their medical conditions, weighing benefits/burdens of treatment options, for clarification of goals of treatment. Additionally will assist with any symptoms of palliative concern. . Attestation Attestation: To help prompt me to consider important information that might be impacting today's encounter and assessment, information from prior notes written by myself or my colleagues may have been "brought forward" into today's note. My signature on this note, however, is an attestation that I personally performed the exam, history, and/or decision-making noted today, and, unless otherwise indicated, the interactions with patient, family, and staff as well as the review of records all occurred today. I also attest that the listed assessment and stated plan reflect my best clinical judgment today based on the combination of historical information, prior notes, and today's exam/ interactions. When time spent is documented, it refers only to time spent today by the signer, or if indicated, combined time spent today by collaborating physician/nurse practitioner. .
[2018-04-11] MEDS ORDERED: Morphine Sulfate Inj 8 MG/ML Vial IV.PUSH ONE (14:44)
[2018-04-11] MEDS ORDERED: Hyoscyamine Inj 0.5 MG/ML Ampul IV.PUSH PRN (14:44)
[2018-04-11] MEDS ORDERED: Hyoscyamine Inj 0.5 MG/ML Ampul IV.PUSH ONE (14:44)
[2018-04-11] MEDS ORDERED: Morphine Sulfate Inj 8 MG/ML Vial IV.PUSH PRN (14:44)
[2018-04-11] MEDS ORDERED: Midazolam Inj 5 MG/ML 1 ML Vial IV.PUSH ONE ×2 (14:44)
[2018-04-11] MEDS ORDERED: Morphine Inj 4 MG/ML Vial IV.PUSH ONE ×2 (14:44→16:00)
[2018-04-11] MEDS ORDERED: Morphine Inj 4 MG/ML Vial IV.PUSH PRN ×2 (14:44→17:00)
[2018-04-11] MEDS: Morphine Inj 4 MG/ML Vial IV.PUSH SCH ×3 (19:47→22:10)
[2018-04-12] MEDS: Morphine Inj 4 MG/ML Vial IV.PUSH SCH ×8 (01:57→22:58)
[2018-04-12] MEDS: SODIUM CHLOR IV.SIG SCH ×3 (02:47→19:29)
[2018-04-12] MEDS: FOSPHENYTOIN IV.SIG SCH ×3 (02:47→19:29)
[2018-04-12] MEDS: Valproate Inj 750 MG in Sodium Chlor 0.9% Inj 100 ML IV.SIG SCH ×3 (03:31→20:39)
[2018-04-12] MEDS: Midazolam 50 MG/50 ML Inj 50 MG/50 ML BAG IV.CONT PRN ×2 (04:03→14:42)
[2018-04-12] MEDS: levETIRAcetam Inj 1,500 MG in Sodium Chlor 0.9% Inj 100 ML IV.SIG SCH ×2 (08:36→21:30)
[2018-04-12] MEDS: Lacosamide Inj 100 MG in Sodium Chlor 0.9% Inj 100 ML IV.SIG SCH ×2 (09:02→21:30)
--- NOTE | 2018-04-12 09:09 | P.DS ---
Date of admission: 03/29/18 01:49 Primary care physician: UNKNOWN Attending physician on discharge: Vito Miller Anticipated date of discharge: 04/12/18 Brief History from admission: female probably in her 50s or 60s. She was found unresponsive. She had an empty bottle of 9 methadone 10 mg tablets and 18 Ativan 0.5 mg tablets. Apparently CPR was initiated per family. Family provided EVAC with information that patient is on hospice and has a history of diabetes, COPD, neuropathy, no advanced directives. When EVAC arrived she had a pulse but agonal respirations. She was administered Narcan 2 mg IV without improvement. Upon arrival to the ED she was not protecting her airway, pooling secretions in her mouth. She was intubated upon arrival. Her systolic blood pressure was in the 80s. She was administered 2 L normal saline bolus, right femoral line was placed and she was started on Levophed. Family has not arrived at the hospital and there is no available contact information. She is registered as a Amina Kebede. The prescription bottles say [facility]. That individual has not been admitted since 2007. DS: Diagnosis - Discharge Diagnosis (1) Acute drug overdose Status: Acute (2) Hypotension Status: Acute (3) Respiratory failure Status: Acute (4) Surgical history unknown Status: Acute DS: Summary Hospital Course: 62-year-old female. She was found unresponsive. She had an empty bottle of 9 methadone 10 mg tablets and 18 Ativan 0.5 mg tablets. Apparently CPR was initiated per family. Family provided EVAC with information that patient is on hospice and has a history of diabetes, COPD, neuropathy, no advanced directives. When EVAC arrived she had a pulse but agonal respirations. She was administered Narcan 2 mg IV without improvement. Upon arrival to the ED she was not protecting her airway, pooling secretions in her mouth. She was intubated upon arrival. Her systolic blood pressure was in the 80s. She was administered 2 L normal saline bolus, right femoral line was placed and she was started on Levophed. Family has not arrived at the hospital and there is no available contact information. She is registered as a Amina Kebede. The prescription bottles say [facility]. That individual has not been admitted since 2007. 03/30: Seizure activity appears to be controlled with Dilantin. She remains stuporous and we are unable to wean from the ventilator. Ongoing attempts to find out her true identity. 03/31: Will attempt spontaneous breathing trial again today. Late yesterday and early today she has had more episodes of spontaneous eye opening though she does not appear to track. Cerebrospinal fluid appears benign. No growth on culture after 48 hours. Bronchospasm responded quite well to steroids, will continue through extubation. 04/01: Fairly strong on spontaneous breathing trials today. We will discontinue all sedation, watch closely for seizure activity, and attempt to get her extubated. 04/02 -currently resting in bed in no acute distress. Eyes are rolled back. Currently on fentanyl drip at 150 mg/h and propofol drip at 25 mcg/kg/min. Starting dexmedetomidine drip and attempt to wean. Fosphenytoin decreased per neurology today. Strength 2 feeds today. No bowel movement. 04/03: T-max 100.2. Weaned off fentanyl and propofol drips. Currently only on dexmedetomidine drip at 1.4 mg/kg/h for vent synchrony. Tolerating tube feeds at goal. Beyond, gags and withdraws to pain bilateral upper and lower extremities. Not following commands. Eyes deviate downward. 04/04: Max 100.6. Currently afebrile. Stated 20-minute tonic-clonic seizure overnight. Received 4 mg lorazepam and bolused with 500 mg levetiracetam. Was switched to a propofol drip at 30 mcg/kg/min. Currently on midazolam drip at 4 mg an hour. 04/05: No sustained obvious seizure activity. No improvement in neurologic function. Bronchospasm well controlled. Enteral nutrition ongoing. 04/06: No change in neurologic function. No seizure activity. Tolerating enteral nutrition. If family wants to persist with aggressive care we probably need to consider tracheostomy soon. 04/07: Facial twitching described in notes. I have not witnessed. Low Dilantin level noted. Continues to fail spontaneous breathing trials. 04/08: No improvement in neurologic function. 04/09: We are having difficulty controlling her seizures, consistent with anoxic brain injury. Her bronchospasm is well controlled now and it is relatively easy to ventilator. Hemodynamics have stabilized. Her neurologic status is severely diminished. Palliative care was discussing the possibility of withdrawal with the family. I strongly support withdrawal of artificial support at this time because this patient has no chance of recovery to a meaningful life. She got to this point because of end-stage COPD and bronchospasm and was previously in hospice care because of the terminal and clinically deteriorating nature of that chronic pulmonary illness. 04/10: T-max 99.2. Tolerating tube feeding. Remains on 4 antiepileptics. No new changes in neurological status. 04/11: Afebrile. 2 feeds at goal. Remains on 4 antiepileptics. Plan for withdrawal of care today with when son arrives 04/12: withdraw of support and transition to comfort measures. will need inpatient hospice services. appears comfortable. - Time Spent with Patient Total time spent providing and/or coordinating discharge services: Less than 30 minutes - Quality: VTE Deep Vein Thrombosis/Pulmonary Embolism Present on Admission: No Exam Vital signs: Vital Signs 04/11/18 12:00 04/11/18 12:17 04/11/18 16:00 Temperature 37.3 C Pulse Rate 80 87 Respiratory Rate 20 17 Blood Pressure 129/82 Pulse Oximetry 100 99 04/11/18 17:00 04/11/18 19:15 04/11/18 20:00 Temperature 36.6 C Pulse Rate 69 69 Respiratory Rate 15 22 Blood Pressure 102/64 Pulse Oximetry 99 96 04/12/18 00:00 04/12/18 04:00 Temperature Pulse Rate 66 67 Respiratory Rate Blood Pressure Pulse Oximetry Intake & Output 04/11/18 04/12/18 04/12/18 18:59 06:59 18:59 Intake Total 916.1 / 916.1 643.2 / 643.2 Output Total 300 / 300 100 / 100 Balance 616.1 / 616.1 543.2 / 543.2 Weight 71.6 kg Intake: IV 456.1 / 456.1 643.2 / 643.2 Precedex Inj 200 MCG In NS Inj 72 / 72 48 ML @ 0.2 MCG/KG/HR 3.52 mls/ hr IV.CONT TITRATE PRN Rx#: [id number] Versed Inj 50 mg In 50 ml @ 4 100 / 100 MG/HR 4 mls/hr IV.CONT TITRATE PRN Rx#:[id number] Cerebyx Inj 80 MGPE In NS Inj 51.6 / 51.6 103.2 / 103.2 50 ML @ 208 mls/hr IV.SIG Q8H DEBORAH Rx#:[id number] Vimpat Inj 100 MG In NS Inj 100 110 / 110 110 / 110 ML @ 110 mls/hr IV.SIG Q12HR DEBORAH Rx#:[id number] Depacon Inj 750 MG In NS Inj 107.5 / 107.5 215.0 / 215.0 100 ML @ 105 mls/hr IV.SIG Q8H DEBORAH Rx#:[id number] Keppra Inj 1,500 MG In NS Inj 115 / 115 115 / 115 100 ML @ 345 mls/hr IV.SIG BID DEBORAH Rx#:[id number] Tube Feeding 400 / 400 Water Bolus Amount 60 / 60 Output: Urine 300 / 300 100 / 100 Other: # Incontinent Voids 1 Date of Last Bowel Movement 04/11/18 04/11/18 # Bowel Movements 1 Results Procedures completed during hospitalization: none Labs on day of discharge: Labs from last 24 hours 04/11/18 04/11/18 04/11/18 12:46 09:35 09:35 WBC RBC Hgb Hct MCV MCH MCHC RDW Plt Count MPV Neut % (Auto) Lymph % (Auto) [place] % (Auto) Eos % (Auto) Baso % (Auto) Neut # (Auto) Lymph # (Auto) [place] # (Auto) Eos # (Auto) Baso # (Auto) WBC Differential Differential Comment Sodium Potassium Chloride Carbon Dioxide Anion Gap BUN Creatinine Estimated GFR POC Glucose 145 H Random Glucose Calcium Phosphorus Magnesium Phenytoin 2.5 L Valproic Acid 68 04/11/18 04/11/18 09:35 09:35 WBC 6.3 RBC 4.73 Hgb 12.3 Hct 38.2 MCV 80.8 MCH 26.0 L MCHC 32.2 RDW 19.4 H Plt Count 201 MPV 9.2 Neut % (Auto) 74.8 H Lymph % (Auto) 17.4 [place] % (Auto) 6.4 Eos % (Auto) 0.7 Baso % (Auto) 0.7 Neut # (Auto) 4.7 Lymph # (Auto) 1.1 [place] # (Auto) 0.4 Eos # (Auto) 0.0 Baso # (Auto) 0.0 WBC Differential . Differential Comment Auto diff final Sodium 148 H Potassium 4.0 Chloride 109 H Carbon Dioxide 29.7 Anion Gap 9 BUN 18 Creatinine 0.46 L Estimated GFR Greater than 89 POC Glucose Random Glucose 135 H Calcium 8.3 L Phosphorus 3.5 Magnesium 2.3 Phenytoin Valproic Acid - Impressions ITS Impressions Head CT 03/29/18 00:00 CONCLUSION: Negative noncontrast head CT. . Chest X-Ray 04/05/18 06:00 CONCLUSION: Stable chest Head MRI 04/07/18 00:00 CONCLUSION: 1. No acute intracranial abnormality. Discharge Plan - Discharge Disposition Patient Disposition: [facility] Facility - Discharge Condition Condition: Critical - Discharge Order Discharge Orders: Discharge Order (Routine); Ordered 04/12/18 Ordered By: Vito Miller - Discharge Details Anticipated Discharge Date: 04/12/18 Discharge Comment: to inpatient hospice - Physicians Team Primary Care Provider: UNKNOWN, Attending Provider: Michelle Rojo Other Providers: Dinorah Artis MD ; Jonah,Jonah
--- NOTE | 2018-04-13 00:34 | P.PNCC ---
Subjective Subjective Remarks/Hospital Course: 62-year-old female. She was found unresponsive. She had an empty bottle of 9 methadone 10 mg tablets and 18 Ativan 0.5 mg tablets. Apparently CPR was initiated per family. Family provided EVAC with information that patient is on hospice and has a history of diabetes, COPD, neuropathy, no advanced directives. When EVAC arrived she had a pulse but agonal respirations. She was administered Narcan 2 mg IV without improvement. Upon arrival to the ED she was not protecting her airway, pooling secretions in her mouth. She was intubated upon arrival. Her systolic blood pressure was in the 80s. She was administered 2 L normal saline bolus, right femoral line was placed and she was started on Levophed. Family has not arrived at the hospital and there is no available contact information. She is registered as a Amina Kebede. The prescription bottles say Antonina Coto. That individual has not been admitted since 2007. 03/30: Seizure activity appears to be controlled with Dilantin. She remains stuporous and we are unable to wean from the ventilator. Ongoing attempts to find out her true identity. 03/31: Will attempt spontaneous breathing trial again today. Late yesterday and early today she has had more episodes of spontaneous eye opening though she does not appear to track. Cerebrospinal fluid appears benign. No growth on culture after 48 hours. Bronchospasm responded quite well to steroids, will continue through extubation. 04/01: Fairly strong on spontaneous breathing trials today. We will discontinue all sedation, watch closely for seizure activity, and attempt to get her extubated. 04/02 -currently resting in bed in no acute distress. Eyes are rolled back. Currently on fentanyl drip at 150 mg/h and propofol drip at 25 mcg/kg/min. Starting dexmedetomidine drip and attempt to wean. Fosphenytoin decreased per neurology today. Strength 2 feeds today. No bowel movement. 04/03: T-max 100.2. Weaned off fentanyl and propofol drips. Currently only on dexmedetomidine drip at 1.4 mg/kg/h for vent synchrony. Tolerating tube feeds at goal. Beyond, gags and withdraws to pain bilateral upper and lower extremities. Not following commands. Eyes deviate downward. 04/04: Max 100.6. Currently afebrile. Stated 20-minute tonic-clonic seizure overnight. Received 4 mg lorazepam and bolused with 500 mg levetiracetam. Was switched to a propofol drip at 30 mcg/kg/min. Currently on midazolam drip at 4 mg an hour. 04/05: No sustained obvious seizure activity. No improvement in neurologic function. Bronchospasm well controlled. Enteral nutrition ongoing. 04/06: No change in neurologic function. No seizure activity. Tolerating enteral nutrition. If family wants to persist with aggressive care we probably need to consider tracheostomy soon. 04/07: Facial twitching described in notes. I have not witnessed. Low Dilantin level noted. Continues to fail spontaneous breathing trials. 04/08: No improvement in neurologic function. 04/09: We are having difficulty controlling her seizures, consistent with anoxic brain injury. Her bronchospasm is well controlled now and it is relatively easy to ventilator. Hemodynamics have stabilized. Her neurologic status is severely diminished. Palliative care was discussing the possibility of withdrawal with the family. I strongly support withdrawal of artificial support at this time because this patient has no chance of recovery to a meaningful life. She got to this point because of end-stage COPD and bronchospasm and was previously in hospice care because of the terminal and clinically deteriorating nature of that chronic pulmonary illness. 04/10: T-max 99.2. Tolerating tube feeding. Remains on 4 antiepileptics. No new changes in neurological status. 04/11: Afebrile. 2 feeds at goal. Remains on 4 antiepileptics. Plan for withdrawal of care today with when son arrives 04/12: withdraw of support and transition to comfort measures. will need inpatient hospice services. appears comfortable. 04/13: less comfortable. have increased pain and sedation medication. RR > 40 today. still working towards hospice. Objective Vital Signs / I&O: Vital Signs 04/12/18 04:00 04/12/18 07:15 04/12/18 19:15 Temperature 37.0 C 36.6 C Pulse Rate 67 72 95 H Respiratory Rate 24 40 H Blood Pressure 113/71 137/94 H Pulse Oximetry 92 L 91 L 04/12/18 20:00 Temperature Pulse Rate 95 H Respiratory Rate Blood Pressure Pulse Oximetry Intake & Output 04/12/18 04/12/18 04/13/18 06:59 18:59 06:59 Intake Total 643.2 / 643.2 434.1 / 434.1 384.1 / 384.1 Output Total 100 / 100 Balance 543.2 / 543.2 434.1 / 434.1 384.1 / 384.1 Weight 71.6 kg Intake: IV 643.2 / 643.2 434.1 / 434.1 384.1 / 384.1 Versed Inj 50 mg In 50 ml @ 4 100 / 100 50 / 50 MG/HR 4 mls/hr IV.CONT TITRATE PRN Rx#:[id number] Cerebyx Inj 80 MGPE In NS Inj 103.2 / 103.2 51.6 / 51.6 51.6 / 51.6 50 ML @ 208 mls/hr IV.SIG Q8H DEBORAH Rx#:[id number] Vimpat Inj 100 MG In NS Inj 100 110 / 110 110 / 110 110 / 110 ML @ 110 mls/hr IV.SIG Q12HR DEBORAH Rx#:[id number] Depacon Inj 750 MG In NS Inj 215.0 / 215.0 107.5 / 107.5 107.5 / 107.5 100 ML @ 105 mls/hr IV.SIG Q8H DEBORAH Rx#:[id number] Keppra Inj 1,500 MG In NS Inj 115 / 115 115 / 115 115 / 115 100 ML @ 345 mls/hr IV.SIG BID DEBORAH Rx#:[id number] Output: Urine 100 / 100 Other: # Incontinent Voids 1 Date of Last Bowel Movement 04/11/18 04/11/18 Result Diagrams: 04/11/18 09:35 04/11/18 09:35 Objective Remarks: GENERAL: 62-year-old female resting in bed HEENT: NCAT. NECK: Trachea midline. CARDIOVASCULAR: normal rate, regular rhythm. RESPIRATORY: equal chest rise. tachypneic, somewhat distressed. MUSCULOSKELETAL: Amputation to the right second toe. NEUROLOGICAL: somewhat distressed and grimacing. Assessment and Plan - Problem List (1) Acute drug overdose Code(s): T50.901A - Poisoning by unspecified drugs, medicaments and biological substances, accidental (unintentional), initial encounter Status: Acute (2) Hypotension Code(s): I95.9 - Hypotension, unspecified Status: Acute (3) Respiratory failure Code(s): J96.90 - Respiratory failure, unspecified, unspecified whether with hypoxia or hypercapnia Status: Acute (4) Surgical history unknown Code(s): Z78.9 - Other specified health status Status: Acute - Assessment and Plan Plan: Assessment: 62yF now comfort measures. will increase pain and sedation medication due to distress. NEURO/PSYCH: Likely acute hypoxic ischemic encephalopathy Opioid overdose Benzodiazepine overdose History of depression/anxiety History of diabetic neuropathy Goal of RASS 0 MRI brain revealed right-sided mastoiditis otherwise no acute intercranial findings EEG 03/29 with burst suppression with epileptiform activity. EEG 03/30 without epileptic activity. Followed by neurology. Currently on levetiracetam 1500 milligrams IV twice daily and lacosamide 100 mg twice daily and valproate 750 every 8 and fosphenytoin 80 mg every 8 hours. comfort meds prn. RESP: Acute hypercapneic respiratory failure COPD with ongoing tobaccoism s/p terminal withdraw of care 04/11. Albuterol/ipratropium aerosols every 6 hours with albuterol aerosols every 2 hours as needed for dyspnea Budesonide 0.5/2 1 inhalation twice daily Methylprednisolone succinate 20 mg every 24 hours CV: Shock -resolved Hypertension Troponin 0.04 admission. Discontinued IV fluids GI: Elevated transaminases likely secondary to shock Hypoalbuminemia Acute constipation Lansoprazole 30 mg daily for GI prophylaxis Docusate sodium/senna 1 tablet twice daily for bowel. One BM yesterday FEN/GIULIA/ : Hypernatremia Periwick in place. Monitor intake and output hourly. Monitor electrolytes and replace as indicated per ICU electrolyte replacement protocol. ID: Received piperacillin/tazobactam and vancomycin in the emergency department. 03/29 -Gram stain of CSF -growth 03/29 -blood cultures x2 -no growth 03/29 -sputum negative HEME: Monitor CBC daily. Follow trends. No indication for transfusion of blood products at this time. ENDO: Diabetes mellitus per report -hemoglobin A1c - 6.5 Elevated TSH of 8. Normal free T/T4. Recommend recheck in 4-6 weeks after acute illness Sliding scale insulin Accu-Cheks to maintain euglycemia/aspart low protocol MSK: Physical therapy evaluate and treat PROPH: SCDs for DVT prophylaxis. Heparin subcu for DVT prophylaxis. Lansoprazole 30 mg daily for GI prophylaxis. to inpatient hospice. (1) Acute drug overdose Qualifiers: Encounter type: initial encounter Injury intent: undetermined intent Qualified Code(s): T50.904A - Poisoning by unspecified drugs, medicaments and biological substances, undetermined, initial encounter (2) Hypotension Qualifiers: Hypotension type: unspecified hypotension type Qualified Code(s): I95.9 - Hypotension, unspecified (3) Respiratory failure Qualifiers: Chronicity: acute Respiratory failure complication: hypoxia and hypercapnia Qualified Code(s): J96.01 - Acute respiratory failure with hypoxia; J96.02 - Acute respiratory failure with hypercapnia
[2018-04-13] MEDS: Midazolam 50 MG/50 ML Inj 50 MG/50 ML BAG IV.CONT PRN ×2 (01:13→12:57)
[2018-04-13] MEDS: FOSPHENYTOIN IV.SIG SCH ×2 (02:26→12:48)
[2018-04-13] MEDS: SODIUM CHLOR IV.SIG SCH ×2 (02:26→12:48)
[2018-04-13] MEDS: Morphine Inj 4 MG/ML Vial IV.PUSH SCH ×7 (02:28→21:45)
[2018-04-13] MEDS: Morphine Inj 4 MG/ML Vial IV.PUSH PRN ×10 (03:24→17:15)
[2018-04-13] MEDS: Valproate Inj 750 MG in Sodium Chlor 0.9% Inj 100 ML IV.SIG SCH ×2 (03:27→12:51)
[2018-04-13 08:38] VITALS: RESP 33
[2018-04-13] MEDS: Lacosamide Inj 100 MG in Sodium Chlor 0.9% Inj 100 ML IV.SIG SCH (10:36)
[2018-04-13] MEDS: levETIRAcetam Inj 1,500 MG in Sodium Chlor 0.9% Inj 100 ML IV.SIG SCH (10:36)
[2018-04-13] MEDS ORDERED: HYDROmorphone PF Inj 2 MG/ML Vial IV.PUSH ONE (15:32)
[2018-04-13 18:26] VITALS: PULSE 110
[2018-04-13 18:28] VITALS: BP 84/48; TEMP 98.1; O2SAT 56
--- NOTE | 2018-04-14 06:27 | P.DN ---
- Provider Primary care physician: UNKNOWN Consults: 03/29/18 05:22 Consult to Palliative Care Routine Consulting Provider: Dinorah Artis Reason for Consultation: facilitate location of family and discussion of goals of care Notified:: Service Spoke with:: isis Date Notified:: 03/29/18 Time Notified:: 06:39 Ordering Provider: STEPHANIE 03/31/18 14:03 HUB Only Consult Order Routine Consulting Provider: Jonah Mckenzie 04/12/18 09:04 Consult to Hospice Routine Consulting Provider: Call Back Pronouncing clinician: Garth Heck - Admitting Diagnosis (1) Acute drug overdose (2) Hypotension (3) Respiratory failure (4) Surgical history unknown - Diagnosis at Time of (1) Acute drug overdose Diagnosis: Principal (2) Hypotension Diagnosis: Principal (3) Respiratory failure Diagnosis: Principal (4) Surgical history unknown Diagnosis: Principal - Date and Time Date of admission: 03/29/18 01:49 Date of : 04/13/18 Time of : 20:20 - Summary Procedures: none Brief History: female probably in her 50s or 60s. She was found unresponsive. She had an empty bottle of 9 methadone 10 mg tablets and 18 Ativan 0.5 mg tablets. Apparently CPR was initiated per family. Family provided EVAC with information that patient is on hospice and has a history of diabetes, COPD, neuropathy, no advanced directives. When EVAC arrived she had a pulse but agonal respirations. She was administered Narcan 2 mg IV without improvement. Upon arrival to the ED she was not protecting her airway, pooling secretions in her mouth. She was intubated upon arrival. Her systolic blood pressure was in the 80s. She was administered 2 L normal saline bolus, right femoral line was placed and she was started on Levophed. Family has not arrived at the hospital and there is no available contact information. She is registered as a Amina Kebede. The prescription bottles say Antonina Coto. That individual has not been admitted since 2007. Result Diagrams: 04/11/18 09:35 04/11/18 09:35 Hospital Course: 62-year-old female. She was found unresponsive. She had an empty bottle of 9 methadone 10 mg tablets and 18 Ativan 0.5 mg tablets. Apparently CPR was initiated per family. Family provided EVAC with information that patient is on hospice and has a history of diabetes, COPD, neuropathy, no advanced directives. When EVAC arrived she had a pulse but agonal respirations. She was administered Narcan 2 mg IV without improvement. Upon arrival to the ED she was not protecting her airway, pooling secretions in her mouth. She was intubated upon arrival. Her systolic blood pressure was in the 80s. She was administered 2 L normal saline bolus, right femoral line was placed and she was started on Levophed. Family has not arrived at the hospital and there is no available contact information. She is registered as a Amina Kebede. The prescription bottles say Antonina Coto. That individual has not been admitted since 2007. 03/30: Seizure activity appears to be controlled with Dilantin. She remains stuporous and we are unable to wean from the ventilator. Ongoing attempts to find out her true identity. 03/31: Will attempt spontaneous breathing trial again today. Late yesterday and early today she has had more episodes of spontaneous eye opening though she does not appear to track. Cerebrospinal fluid appears benign. No growth on culture after 48 hours. Bronchospasm responded quite well to steroids, will continue through extubation. 04/01: Fairly strong on spontaneous breathing trials today. We will discontinue all sedation, watch closely for seizure activity, and attempt to get her extubated. 04/02 -currently resting in bed in no acute distress. Eyes are rolled back. Currently on fentanyl drip at 150 mg/h and propofol drip at 25 mcg/kg/min. Starting dexmedetomidine drip and attempt to wean. Fosphenytoin decreased per neurology today. Strength 2 feeds today. No bowel movement. 04/03: T-max 100.2. Weaned off fentanyl and propofol drips. Currently only on dexmedetomidine drip at 1.4 mg/kg/h for vent synchrony. Tolerating tube feeds at goal. Beyond, gags and withdraws to pain bilateral upper and lower extremities. Not following commands. Eyes deviate downward. 04/04: Max 100.6. Currently afebrile. Stated 20-minute tonic-clonic seizure overnight. Received 4 mg lorazepam and bolused with 500 mg levetiracetam. Was switched to a propofol drip at 30 mcg/kg/min. Currently on midazolam drip at 4 mg an hour. 04/05: No sustained obvious seizure activity. No improvement in neurologic function. Bronchospasm well controlled. Enteral nutrition ongoing. 04/06: No change in neurologic function. No seizure activity. Tolerating enteral nutrition. If family wants to persist with aggressive care we probably need to consider tracheostomy soon. 04/07: Facial twitching described in notes. I have not witnessed. Low Dilantin level noted. Continues to fail spontaneous breathing trials. 04/08: No improvement in neurologic function. 04/09: We are having difficulty controlling her seizures, consistent with anoxic brain injury. Her bronchospasm is well controlled now and it is relatively easy to ventilator. Hemodynamics have stabilized. Her neurologic status is severely diminished. Palliative care was discussing the possibility of withdrawal with the family. I strongly support withdrawal of artificial support at this time because this patient has no chance of recovery to a meaningful life. She got to this point because of end-stage COPD and bronchospasm and was previously in hospice care because of the terminal and clinically deteriorating nature of that chronic pulmonary illness. 04/10: T-max 99.2. Tolerating tube feeding. Remains on 4 antiepileptics. No new changes in neurological status. 04/11: Afebrile. 2 feeds at goal. Remains on 4 antiepileptics. Plan for withdrawal of care today with when son arrives 04/12: withdraw of support and transition to comfort measures. will need inpatient hospice services. appears comfortable. 04/13: less comfortable. have increased pain and sedation medication. RR > 40 today. still working towards hospice. patient at 20:20.
== END 2018-04-13 23:20 | disposition expired ==
LOC: NEPE 21:56 → EDBD 03-29 01:49 → NEDA 03-29 01:49 → MERGE 03-29 01:49 → NEDH 03-29 05:53 → N03 03-29 06:27
PROVIDERS: ADMIT Emergency Medicine; ATTEND Emergency Medicine